=== PATIENT | male | born 1980 | race Hispanic/Latino ===

== ENCOUNTER 2018-03-05 07:19 | Day surgery (SDC) | payer BC ==
[2018-03-05] MEDS ORDERED: NA CHLORIDE 0.9% 1,000 ML ONE (07:47)
[2018-03-05] MEDS ORDERED: VANCOMYCIN 1 GM/250 ML BAG ONE (07:48)
[2018-03-05] MEDS ORDERED: PROPOFOL 200 MG/20 ML VIAL IV ONE (08:12)
[2018-03-05] MEDS ORDERED: MIDAZOLAM HCL 2 MG/2 ML INJ ONE (08:13)
[2018-03-05] MEDS ORDERED: ONDANSETRON HCL 40 MG/20 ML VIAL ONE (08:13)
[2018-03-05] MEDS ORDERED: FENTANYL CITR 100 MCG/2 ML ONE (08:13)
[2018-03-05] MEDS ORDERED: COLLAGENASE 30 GM OINTMENT TOP ONE (08:44)
--- NOTE | 2018-03-05 09:02 | P.OP ---
Preoperative diagnosis: Left Plantar Diabetic Foot Wound Postoperative diagnosis: Left Plantar Diabetic Foot Wound Primary procedure: Debridement of Left Plantar Diabetic Foot Wound Anesthesia: GETA Estimated blood loss: <5cc Specimen: Debridement Tissue Findings: necrotic tissues Complications: None Transferred to: Recovery Room Condition: Good
[2018-03-05 09:46] VITALS: O2SAT 98
[2018-03-05 09:55] VITALS: BP 117/85; TEMP 97.7
[2018-03-05] MEDS ORDERED: CODEINE 30MG/APAP 300MG TAB ONE (10:04)
--- NOTE | 2018-05-28 01:19 | OP ---
Date of Procedure: 03/05/2018 Surgeon: Ulices Kuo MD, Preoperative Diagnosis: Left plantar diabetic foot wound. Postoperative Diagnosis: Left plantar diabetic foot wound. Procedure Performed: Debridement of left plantar diabetic foot wound. Estimated Blood Loss: Less than 5 cc. Anesthesia: General endotracheal. Specimens: Debridement tissue. Findings: Necrotic tissue in the plantar aspect of the foot near the second and third metatarsal. Complications: None. Disposition: Transferred to recovery room in good condition. Procedure In Detail: After informed was obtained, the patient was brought to the operating room, pre pped and draped in usual sterile fashion. After adequate anesthesia was achieved, a curette was used to dissect down to the subcutaneous tissues. The necrotic tissue was grossly and sharply debrided w ith both scalpel, Metzenbaum scissors, as well as electrocautery and curette until completely clear. When the tissue was down to good bleeding viable tissue and there was no evidence of further infecti on, the area was completely irrigated up multiple times until completely clear and then packed with s terile dressing placed. Additional sterile dressing was placed over top. The patient tolerated the procedure well without evidence of complication, transferred to the PACU in good condition. All counts were correct at the end of the c ase. AMY/MODL Voice ID: [id number] Report ID: [id number]
== END 2018-03-05 10:30 | disposition home or self-care (01) ==
LOC: OR 07:19
PROVIDERS: ATTEND Surgery
PROC: 0JDR0ZZ Extraction of Left Foot Subcutaneous Tissue and Fascia, Open Approach (ICD-10-PCS; principal; 2018-03-05 08:30)
DX: E11.621 Type 2 diabetes mellitus with foot ulcer (principal); L97.425 Non-pressure chronic ulcer of left heel and midfoot with muscle involvement without evidence of necrosis; I10 Essential (primary) hypertension; Z79.4 Long term (current) use of insulin; Z88.0 Allergy status to penicillin
CPT/HCPCS: 82962; 88304; 88305; J2250; J2405; J3010; J3370; J3590; J7030

== ENCOUNTER 2019-06-06 15:56 | Emergency (ER) | payer BC ==
[2019-06-06] MEDS ORDERED: CLINDAMYCIN HCL 150 MG CAP ONE (16:26)
[2019-06-06] MEDS ORDERED: KETOROLAC 30 MG/ML INJ ONE (16:27)
--- NOTE | 2019-06-06 16:27 | EDPHYS ---
Physician Documentation [facility] Name: Donnie Man Jr Age: 38 yrs Sex: Male : 1980 Arrival Date: 06/06/2019 Time: 16:00 Bed Waiting Private MD: ED Physician Giuseppe Bryant Historical: - Allergies: 06/06 16:05 PENICILLINS; la1 - PMHx: 16:05 Diabetes; la1 - Immunization history:: Adult Immunizations up to date. - Social history:: Smoking status: Patient/guardian denies using tobacco. - Ebola Screening: : No symptoms or risks identified at this time. Vital Signs: 16:06 BP 145 / 100; Pulse 100; Resp 16; Temp 97.1; Pulse Ox 100% on R/A; Weight 95.25 kg; la1 Height 5 ft. 6 in. (167.64 cm); 16:06 Body Mass Index 33.89 (95.25 kg, 167.64 cm) la1 MDM: 16:25 Patient medically screened. snw Administered Medications: 16:31 Drug: Clindamycin 300 mg Route: PO; la1 16:31 Follow up: Response: Medication administered at discharge. la1 16:31 Drug: TORadol 30 mg Route: IM; Site: right gluteus; la1 16:31 Follow up: Response: Medication administered at discharge. la1 Disposition: 06/06/19 16:25 Discharged to Home. Impression: Folliculitis, Posterior lymphadenopathy. - Condition is Stable. - Discharge Instructions: Cervical Radiculopathy, Folliculitis, Heat Therapy. - Prescriptions for Clindamycin HCl 300 mg Oral Capsule - take 1 capsule by ORAL route every 8 hours for 10 days; 30 capsule. Diclofenac Sodium 75 mg Oral Tablet Sustained Release - take 1 tablet by ORAL route 2 times per day; 30 tablet. - Work release form, Medication Reconciliation Form, Thank You Letter, Antibiotic Education, Prescription Opioid Use form. - Follow up: Private Physician; When: 2 - 3 days; Reason: Recheck today's complaints, Continuance of care, Re-evaluation by your physician. Follow up: Emergency Department; When: As needed; Reason: Worsening of condition. Addendum: 07/12/2019 15:04 Addendum: Pt presents to ED with knots at base of hairline, tenderness and scabbing. Pt s nw states he has not had fever or symptoms of illness. No malaise, abdominal pain, vomiting. Pt a\T\o x 3, no distress. Skin warm and dry except at base of neck hairline, area with inflammation, tenderness, pustules with scabbing x 2 weeks. Heart with r/r/r, no murmur. lungs CTA bilaterally, abd soft, nt, nd, bs + x 4 quads, extremities with 2+ pulses throughout.. Signatures: Socorro Yoder, BRICK AND TILE MAKING MACHINE OPERATOR-C BRICK AND TILE MAKING MACHINE OPERATOR-Csnw Chad Galvin, RN RN la1 Corrections: (The following items were deleted from the chart) 06/06 16:32 16:25 06/06/2019 16:25 Discharged to Home. Impression: Folliculitis; Posterior la1 lymphadenopathy. Condition is Stable. Forms are Medication Reconciliation Form, Thank You Letter, Antibiotic Education, Prescription Opioid Use. Follow up: Private Physician; When: 2 - 3 days; Reason: Recheck today's complaints, Continuance of care, Re-evaluation by your physician. Follow up: Emergency Department; When: As needed; Reason: Worsening of condition. snw
--- NOTE | 2019-06-06 16:27 | ER ---
Nurse's Notes [facility] Name: Donnie Man Jr Age: 38 yrs Sex: Male : 1980 Arrival Date: 06/06/2019 Time: 16:00 Bed Waiting Private MD: Diagnosis: Folliculitis;Posterior lymphadenopathy Presentation: 06/06 16:05 Presenting complaint: Patient states: I have like a ball behind my head. Hurting since la1 , I feel like I cant move my neck. I dont feel sick or have fever just hurts to move my neck. Transition of care: patient was not received from another setting of care. Onset of symptoms was June 06, 2019. Risk Assessment: Do you want to hurt yourself or someone else? Patient reports no desire to harm self or others. Initial Sepsis Screen: Does the patient meet any 2 criteria? No. Patient's initial sepsis screen is negative. Does the patient have a suspected source of infection? No. Patient's initial sepsis screen is negative. Care prior to arrival: None. 16:05 Method Of Arrival: Ambulatory la1 16:05 Acuity: BECKY 4 la1 Historical: - Allergies: 16:05 PENICILLINS; la1 - PMHx: 16:05 Diabetes; la1 - Immunization history:: Adult Immunizations up to date. - Social history:: Smoking status: Patient/guardian denies using tobacco. - Ebola Screening: : No symptoms or risks identified at this time. Screenin:23 Abuse screen: Denies threats or abuse. Nutritional screening: On. Tuberculosis la1 screening: No symptoms or risk factors identified. Fall Risk None identified. Assessment: 16:22 General: Appears in no apparent distress. Behavior is calm, cooperative. Pain: la1 Complains of pain in base of skull. Neuro: Level of Consciousness is awake, alert, obeys commands, Oriented to person, place, time, situation. Cardiovascular: Capillary refill < 3 seconds Patient's skin is warm and dry. Respiratory: Airway is patent Respiratory effort is even, unlabored. GI: No signs and/or symptoms were reported involving the gastrointestinal system. : No signs and/or symptoms were reported regarding the genitourinary system. Derm: folliculitis to base of skull. Vital Signs: 16:06 BP 145 / 100; Pulse 100; Resp 16; Temp 97.1; Pulse Ox 100% on R/A; Weight 95.25 kg; la1 Height 5 ft. 6 in. (167.64 cm); 16:06 Body Mass Index 33.89 (95.25 kg, 167.64 cm) la1 ED Course: 16:00 Patient arrived in ED. mr 16:06 Triage completed. la1 16:07 Arm band placed on right wrist. la1 16:20 Socorro Yoder FNP-C [facility] snw 16:20 Giuseppe Bryant MD is Attending Physician. snw 16:23 Patient has correct armband on for positive identification. la1 16:23 No provider procedures requiring assistance completed. Patient did not have IV access la1 during this emergency room visit. 16:31 Chad Galvin, RN is Primary Nurse. la1 Administered Medications: 16:31 Drug: Clindamycin 300 mg Route: PO; la1 16:31 Follow up: Response: Medication administered at discharge. la1 16:31 Drug: TORadol 30 mg Route: IM; Site: right gluteus; la1 16:31 Follow up: Response: Medication administered at discharge. la1 Outcome: 16:25 Discharge ordered by . snw 16:31 Discharged to home ambulatory. la1 16:31 Condition: stable 16:31 Discharge instructions given to patient, Instructed on discharge instructions, follow up and referral plans. medication usage, Demonstrated understanding of instructions, follow-up care, medications, Prescriptions given X 2. 16:32 Patient left the ED. la1 Signatures: Socorro Yoder FNP-C FNP-Shreya Sarahi Yadav mr Chad Galvin, RN RN la1
[2019-06-06 17:26] VITALS: BP 145/100; TEMP 97.1; O2SAT 100
== END 2019-06-06 16:32 | disposition home or self-care (01) ==
LOC: ER 15:56
DX: L73.9 Follicular disorder, unspecified (principal); R59.1 Generalized enlarged lymph nodes; Z88.0 Allergy status to penicillin
CPT/HCPCS: 96372; 99283

== ENCOUNTER 2021-05-03 20:36 | Emergency (ER) | payer BC ==
--- OUTSIDE RECORDS SUMMARY | 2021-05-03 20:40 | XMS REPORT | Continuity of Care Document ---
:1980 Author Organization [facility] t Address [address] [place] [address] Care Team Providers Name Role Phone Lab, Dago Reece I Attending Clinician Unavailable Problems This patient has no known problems. Allergies, Adverse Reactions, Alerts This patient has no known allergies or adverse reactions. Medications This patient has no known medications. Procedures This patient has no known procedures. 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
[2021-05-03] MEDS ORDERED: LIDOCAINE 1% MPF 30 ML VIAL ONE (23:04)
--- NOTE | 2021-05-03 23:04 | ER ---
Nurse's Notes [facility] Name: Donnie Man Jr Age: 40 yrs Sex: Male : 1980 Arrival Date: 05/03/2021 Time: 20:40 Bed 12 Private MD: Diagnosis: Cutaneous abscess of head [any part, except face] Presentation: 05/03 22:05 Chief complaint: Patient states: Staph infection on back of my neck on the R side since ca1 Friday. I had a staph infection before on L side on the back of the neck. Rash and redness noted on back of neck and base of skull. Coronavirus screen: Client denies travel out of the [place] in the last 14 days. At this time, the client does not indicate any symptoms associated with coronavirus-19. Ebola Screen: Patient negative for fever greater than or equal to 101.5 degrees Fahrenheit, and additional compatible Ebola Virus Disease symptoms Patient denies exposure to infectious person. Patient denies travel to an Ebola-affected area in the 21 days before illness onset. No symptoms or risks identified at this time. Initial Sepsis Screen: Does the patient meet any 2 criteria? No. Patient's initial sepsis screen is negative. Does the patient have a suspected source of infection? No. Patient's initial sepsis screen is negative. Risk Assessment: Do you want to hurt yourself or someone else? Patient reports no desire to harm self or others. Onset of symptoms was May 03, 2021. 22:05 Method Of Arrival: Ambulatory ca1 22:05 Acuity: BECKY 4 ca1 Triage Assessment: 23:20 General: Behavior is calm, cooperative. bb Historical: - Allergies: 22:07 PENICILLINS; ca1 - PMHx: 22:07 Diabetes; ca1 - Immunization history:: Client reports having NOT received the Covid vaccine. - Social history:: Smoking status: Patient denies any tobacco usage or history of. Screenin:36 Abuse screen: Denies threats or abuse. Nutritional screening: No deficits noted. bb Tuberculosis screening: No symptoms or risk factors identified. Fall Risk None identified. Assessment: 22:36 General: Appears in no apparent distress. uncomfortable. Pain: Complains of pain in bb neck. Neuro: Level of Consciousness is awake, alert, obeys commands, Oriented to person, place, time, situation. Cardiovascular: Capillary refill < 3 seconds Patient's skin is warm and dry. Respiratory: Respiratory effort is even, unlabored, Respiratory pattern is regular. GI: No signs and/or symptoms were reported involving the gastrointestinal system. Derm: Skin is pink, warm \T\ dry. Abscess located on neck is golf ball sized. Musculoskeletal: Circulation, motion, and sensation intact. 23:19 Reassessment: Patient is alert, oriented x 3, equal unlabored respirations, skin bb warm/dry/pink. pt verbalized understanding of and agrees to plan of care discharge instructions given pt ambulated with steady gait to exit. Vital Signs: 22:05 Pulse 102; Resp 18 S; Temp 97.5(TE); Pulse Ox 100% on R/A; Weight 92.99 kg (R); Height ca1 5 ft. 6 in. (167.64 cm) (R); Pain 9/10; 22:07 BP 136 / 94; ca1 23:20 BP 129 / 80; Pulse 97; Resp 16 S; Pulse Ox 99% ; bb 22:05 Body Mass Index 33.09 (92.99 kg, 167.64 cm) ca1 ED Course: 20:40 Patient arrived in ED. bp1 22:07 Triage completed. ca1 22:07 Arm band placed on right wrist. ca1 22:09 Magaly Chavez [facility]-C [facility] kb 22:09 Glenny Mendoza MD is Attending Physician. kb 22:36 Adamaris Holguin RN is Primary Nurse. bb 22:36 Patient has correct armband on for positive identification. Bed in low position. Call bb light in reach. Side rails up X 1. Pulse ox on. NIBP on. 23:19 Dressings: 4X4s X 2; base of the skull. bb 23:20 No provider procedures requiring assistance completed. Patient did not have IV access bb during this emergency room visit. Administered Medications: 23:05 Drug: Lidocaine (1 %) 1 vials {Note: by Magaly Chavez NEEDLE PUNCH OPERATOR to affected area.} Volume: 5 bb ml; Route: Infiltration; 23:20 Follow up: Response: No adverse reaction bb 23:13 Drug: Bactrim (trimethoprim-sulfamethoxazole) (160 mg-800 mg (DS) 1 tablet Route: PO; bb 23:19 Follow up: Response: No adverse reaction bb 23:13 Drug: Doxycycline 100 mg Route: PO; bb 23:19 Follow up: Response: No adverse reaction bb Outcome: 23:04 Discharge ordered by . navarro 23:20 Discharged to home ambulatory. bb 23:20 Condition: stable 23:20 Discharge instructions given to patient, Instructed on discharge instructions, follow up and referral plans. medication usage, wound care, Demonstrated understanding of instructions, follow-up care, medications, wound care, Prescriptions given X 2. 23:21 Patient left the ED. bb Signatures: Magaly Chavez, OVERNIGHT CASHIER-C KRISTINA-Adamaris Ashraf, RN RN bb Yeny Rea RN RN ca1 Nabila An
--- NOTE | 2021-05-03 23:04 | EDPHYS ---
Physician Documentation [facility] Name: Donnie Man Jr Age: 40 yrs Sex: Male : 1980 Arrival Date: 05/03/2021 Time: 20:40 Bed 12 Private MD: ED Physician Glenny Mendoza HPI: 05/03 23:11 This 40 yrs old Male presents to ER via Ambulatory with complaints of Staph kb Infection, -Back of neck. 23:11 The patient presents with an abscess of the base of the skull. Description: kb erythematous, swollen, warm. Onset: The symptoms/episode began/occurred 4 day(s) ago. Possible cause(s): unknown. Associated signs and symptoms: Pertinent positives: erythema, swelling. Modifying factors: the symptoms are alleviated by nothing, the symptoms are aggravated by touching. Severity of symptoms: At their worst the symptoms were moderate, in the emergency department the symptoms are unchanged. The patient has experienced a previous episode. The patient has not recently seen a physician. Pt reports staph infection that started on Friday. . Historical: - Allergies: 22:07 PENICILLINS; ca1 - PMHx: 22:07 Diabetes; ca1 - Immunization history:: Client reports having NOT received the Covid vaccine. - Social history:: Smoking status: Patient denies any tobacco usage or history of. ROS: 23:09 Constitutional: Negative for fever, chills, and weight loss. kb 23:09 Skin: Positive for abscess, of the base of the skull. 23:09 All other systems are negative. Exam: 23:09 Constitutional: This is a well developed, well nourished patient who is awake, alert, kb and in no acute distress. Head/Face: Normocephalic, atraumatic. ENT: Moist Mucous membranes Respiratory: Respirations even and unlabored. No increased work of breathing, no retractions or nasal flaring. MS/ Extremity: Pulses equal, no cyanosis. Neurovascular intact. Full, normal range of motion. Neuro: Awake and alert, GCS 15, oriented to person, place, time, and situation. Moves all extremities. Normal gait. Psych: Awake, alert, with orientation to person, place and time. Behavior, mood, and affect are within normal limits. 23:09 Skin: abscess, that is moderate sized, of the base of the skull, with fluctuance, that is mild, with induration, with surrounding cellulitis, that is moderate. Vital Signs: 22:05 Pulse 102; Resp 18 S; Temp 97.5(TE); Pulse Ox 100% on R/A; Weight 92.99 kg (R); Height ca1 5 ft. 6 in. (167.64 cm) (R); Pain 9/10; 22:07 BP 136 / 94; ca1 23:20 BP 129 / 80; Pulse 97; Resp 16 S; Pulse Ox 99% ; bb 22:05 Body Mass Index 33.09 (92.99 kg, 167.64 cm) ca1 Procedures: 23:10 I \T\ D: Incision and drainage was performed for an abscess of the right base of the kb skull Prepped with Betadine, Anesthetized with 2 ml's 1% Lidocaine. Incised with #11 blade. Drained moderate amount purulent fluid. Dressing: sterile 4x4 gauze, the patient tolerated the procedure well. MDM: 22:23 Patient medically screened. kb 23:03 Data reviewed: vital signs, nurses notes. Data interpreted: Pulse oximetry: on room air kb is 100 %. Interpretation: normal. Counseling: I had a detailed discussion with the patient and/or guardian regarding: the historical points, exam findings, and any diagnostic results supporting the discharge/admit diagnosis, the need for outpatient follow up, a family practitioner, to return to the emergency department if symptoms worsen or persist or if there are any questions or concerns that arise at home. 05/03 22:40 Order name: I\T\D Setup; Complete Time: 22:43 kb Administered Medications: 23:05 Drug: Lidocaine (1 %) 1 vials {Note: by Magaly Chavez INTERIOR DESIGN CONSULTANT to affected area.} Volume: 5 bb ml; Route: Infiltration; 23:20 Follow up: Response: No adverse reaction bb 23:13 Drug: Bactrim (trimethoprim-sulfamethoxazole) (160 mg-800 mg (DS) 1 tablet Route: PO; bb 23:19 Follow up: Response: No adverse reaction bb 23:13 Drug: Doxycycline 100 mg Route: PO; bb 23:19 Follow up: Response: No adverse reaction bb Disposition Summary: 05/03/21 23:04 Discharge Ordered Location: Home kb Condition: Stable kb Diagnosis - Cutaneous abscess of head [any part, except face] kb Followup: kb - With: Emergency Department - When: As needed - Reason: Worsening of condition Followup: kb - With: Private Physician - When: 2 - 3 days - Reason: Recheck today's complaints, Continuance of care, Re-evaluation by your physician Discharge Instructions: - Discharge Summary Sheet kb - Skin Abscess, [id number] kb - Incision and Drainage, Care After kb Forms: - Medication Reconciliation Form kb - Thank You Letter kb - Antibiotic Education kb - Prescription Opioid Use kb Prescriptions: - Doxycycline Hyclate 100 mg Oral Tablet - take 1 tablet by ORAL route every 12 hours; 20 tablet; Refills: 0, Product kb Selection Permitted - Bactrim DS 800-160 mg Oral Tablet - take 1 tablet by ORAL route every 12 hours for 10 days; 20 tablet; Refills: 0, kb Product Selection Permitted Signatures: Magaly Chavez FNP-C FNP-Ckb Ballard, Brenda, RN RN bb Yeny Rea RN RN ca1
[2021-05-03] MEDS ORDERED: DOXYCYCLINE 100 MG CAP PO ONE (23:34)
[2021-05-03] MEDS ORDERED: SMZ./TMP. 800/160 MG TABLET ONE (23:34)
[2021-05-04 04:19] VITALS: TEMP 97.5
[2021-05-04 04:22] VITALS: BP 129/80; O2SAT 99
== END 2021-05-03 23:21 | disposition home or self-care (01) ==
LOC: ER 20:36
PROC: 0H90XZZ Drainage of Scalp Skin, External Approach (ICD-10-PCS; principal; 2021-05-03)
DX: L03.811 Cellulitis of head [any part, except face] (principal); Z88.0 Allergy status to penicillin
CPT/HCPCS: 99283

== ENCOUNTER 2022-05-30 13:40 | Inpatient (IN) | payer BC, OTHER ==
--- OUTSIDE RECORDS SUMMARY | 2022-05-30 13:43 | XMS REPORT | Continuity of Care Document ---
:1980 Author Organization [facility] t Address [address] [place] [address] Support Name Relationship Address Phone Lexi Richardson Mother [address] [facility] [place] [address] Care Team Providers Name Role Phone Lab, Adc Fam Pob I Attending Clinician Unavailable Krystina Alejandre Attending Clinician KRYSTINA GARCIA Attending Clinician Unavailable Payers Payer Name Policy Type Policy Number Effective Date Expiration Date S ource Problems Condition Condition Condition Status Onset Resolution Last Treating Co mments Source Name Details Category Date Date Treatment Clinician Date Encounter Encounter Disease Active Uni vers for for 5-10 ity of routine routine 00:00: [place] history history 00 Medical and and Branch physical physical exam for exam for male male Diabetes Diabetes Disease Active Overview: Un vianey mellitus mellitus 2-26 ICD10 ity of type 2, type 2, 00:00: Diagnosis [place] uncontroll uncontroll 00 Term Me dical ed, ed, 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 Branch without without Utility complicati complicati ons ons Yeast Yeast Disease Active Univers infection infection 2-26 ity of 00:00: [place] 00 Medical Branch Allergies, Adverse Reactions, Alerts Allergy Allergy Status Severity Reaction(s) Onset Inactive Treating Comm ents Source Name Type Date Date Clinician Penicill Propensi Active Rash Univer s ins ty to 2-17 ity of adverse 00:00: [place] reaction 00 Medical s Branch PENICILL Drug Active Rash Univers INS Class 2-17 ity of 00:00: [place] 00 Medical Branch Social History Social Habit Start Date Stop Date Quantity Comments Source Sex Assigned At [facility] [place] [facility] Exposure to Yes University of SARS-CoV-2 [place] Medical (event) Branch History of Cigarette Smoker Universi ty of tobacco use [facility] Alcohol intake 2017-02-12 2017-02-12 University of 00:00:00 00:00:00 [facility] Tobacco Comment 2014-02-22 2014-02-22 smokes 1 pack per Un iversity of 00:00:00 00:00:00 week [facility] Alcohol Comment 2014-02-22 2014-02-22 Currently uses Unive rsity of 00:00:00 00:00:00 alcohol only [place] [facility] l occasionally. 4 Branch years ago he drank 24 beers daily for 4-5 months. Smoking Status Start Date Stop Date Source Current some day smoker 2017-02-12 00:00:00 Univ ersity [facility] Medications Ordered Filled Start Stop Current Ordering Indication Dosage Frequency Signature Comments Components Source Medication Medication Date Date Medication? Clinician (SIG) Name Name clotrimazol Yes [id number] Apply to Univers e 1 % 5-10 area(s) at ity of topical 00:00: bedtime. [address] Immunizations Ordered Filled Immunization Date Status Comments Sourc e Immunization Name Name Tdap 2014-02-22 Completed [facility] 00:00:00 [facility] Td 1995-10-06 Completed [facility] 00:00:00 [facility] Procedures This patient has no known procedures. Encounters Start End Encounter Admission Attending Care Care Encounter Source Date/Time Date/Time Type Type Clinicians Facility Department ID 2020-03-15 2020-03-15 Winch Derrick Operator Lab, [facility] [id number] 13:36:44 13:56:44 Visit Dago [facility] [id number] [place] [id number] Professio [phone] nal [facility] Office [address] 2020-03-15 2020-03-15 Winch Derrick Operator Lab, [facility] Pob I [facility] [id number] Univers 13:36:44 13:56:44 Visit Krystina Garcia Health [id number] ity of [place] [id number] [place] as Professio [phone] [place] dical nal 044 Branch [address] 2020-03-15 2020-03-15 Outpatient R [facility] [id number] Univers 13:20:00 13:20:00 [id number] benita [facility] 2020-03-15 2020-03-15 Outpatient R ANETTE, [facility] [id number] [facility] 13:20:00 13:20:00 KRYSTINA [facility] Results This patient has no known results.
--- NOTE | 2022-05-30 14:43 | RAD REPORT ---
EXAM DESCRIPTION: RAD - Foot Left 3 View - 05/30/2022 2:26 pm CLINICAL HISTORY: Left Foot pain and swelling FINDINGS: No fracture or dislocation is seen. Lateral soft tissue swelling. 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
--- NOTE | 2022-05-30 14:52 | RAD REPORT ---
EXAM DESCRIPTION: Emma Single View05/30/2022 2:26 pm CLINICAL HISTORY: Preop COMPARISON: none FINDINGS: Mild bilateral interstitial opacities probably chronic. The lungs appear clear of acute infiltrate. The heart is normal size
[2022-05-30] MEDS ORDERED: NA CHLORIDE 0.9% 1,000 ML ONE (15:00)
[2022-05-30] MEDS ORDERED: CLINDAMYCIN 600MG/D5W 600 MG/50 ML BAG IV ONE (15:00)
[2022-05-30] MEDS ORDERED: VANCOMYCIN 1 GM/VIAL ONE ×2 (15:00→22:54)
[2022-05-30] MEDS ORDERED: VANCOMYCIN 500 MG/VIAL ONE ×2 (15:00→22:54)
[2022-05-30 15:39] LABS: Absolute Lymphocytes (CBC) 0.9 K/uL (0.7-4.9); Hematocrit 44.6 % (39.6-49.0); Lymphocytes % 8.3 % (15.3-44.8); MCV 84.6 fL (80-100); MPV 8.8 fL (7.6-11.3); RBC Red Blood Cell Count 5.27 M/uL (4.33-5.43)
--- NOTE | 2022-05-30 15:48 | ER ---
Nurse's Notes [facility] Name: Donnie Man Jr Age: 41 yrs Sex: Male : 1980 Arrival Date: 05/30/2022 Time: 13:44 Bed 3 Private MD: Rafiq Mai T Diagnosis: Other specified diabetes mellitus with foot ulcer Presentation: 05/30 13:55 Chief complaint: Patient states: L foot swelling that began that began 4 days ago. Pt ss reports a HX of diabetes and has been out of his medication for some time. Also states that he has had diabetic ulcers in the past. Coronavirus screen: Client denies travel out of the [place] in the last 14 days. Ebola Screen: Patient denies exposure to infectious person. Patient denies travel to an Ebola-affected area in the 21 days before illness onset. Initial Sepsis Screen: Does the patient meet any 2 criteria? No. Patient's initial sepsis screen is negative. Does the patient have a suspected source of infection? No. Patient's initial sepsis screen is negative. Risk Assessment: Do you want to hurt yourself or someone else? Patient reports no desire to harm self or others. Onset of symptoms was May 26, 2022. 13:55 Method Of Arrival: Ambulatory ss 13:55 Acuity: BECKY 3 ss Triage Assessment: 15:00 General: Appears in no apparent distress. comfortable, Behavior is calm, cooperative, eh3 appropriate for age. Pain: Complains of pain in left foot Pain does not radiate. Pain currently is 7 out of 10 on a pain scale. Quality of pain is described as aching, Pain began 2 weeks ago Is continuous. Neuro: Level of Consciousness is awake, alert, obeys commands, Oriented to person, place, time, situation. Cardiovascular: Capillary refill < 3 seconds Patient's skin is warm and dry. Respiratory: Airway is patent Respiratory effort is even, unlabored. GI: No signs and/or symptoms were reported involving the gastrointestinal system. : No signs and/or symptoms were reported regarding the genitourinary system. Derm: No signs and/or symptoms reported regarding the dermatologic system. Musculoskeletal: No signs and/or symptoms reported regarding the musculoskeletal system. 15:00 Injury Description: 3 cm diameter ulcer on lateral aspect of left foot. eh3 Historical: - Allergies: 13:58 PENICILLINS; ss - PMHx: 13:58 Diabetes; ss - Immunization history:: Client reports receiving the 2nd dose of the Covid vaccine. - Social history:: Smoking status: Patient denies any tobacco usage or history of. Screenin:00 Abuse screen: Denies threats or abuse. Denies injuries from another. eh3 15:00 Nutritional screening: No deficits noted. Tuberculosis screening: No symptoms or risk eh3 factors identified. Fall Risk IV access (20 points). Gait- Impaired (20 pts.). Total Potter Fall Scale indicates Low Risk Score (25-44 pts). Fall prevention measures have been instituted. Side Rails Up X 2 Placed close to Nursing Station Frequent Obs/Assesments occuring As available Patient and Family Educated on Fall Prevention Program and strategies. Assessment: 15:00 Reassessment: No changes from previously documented assessment. See triage assessment. 3 Vital Signs: 13:55 BP 143 / 89; Pulse 103; Resp 18; Temp 100.3(O); Pulse Ox 97% on R/A; Weight 95.25 kg; ss Height 5 ft. 6 in. (167.64 cm); Pain 8/10; 15:43 BP 156 / 91; Pulse 100; Resp 18; Pulse Ox 96% on R/A; ld1 16:45 BP 129 / 84; Pulse 97; Resp 18; Pulse Ox 95% on R/A; eh3 17:30 BP 114 / 59; Pulse 100; Resp 18; Pulse Ox 95% on R/A; eh3 18:30 BP 130 / 82; Pulse 99; Resp 18; Pulse Ox 97% on R/A; eh3 19:30 BP 121 / 103; Pulse 103; Resp 18; Pulse Ox 96% on R/A; eh3 20:30 BP 111 / 59; Pulse 101; Resp 18; Pulse Ox 95% on R/A; eh3 13:55 Body Mass Index 33.89 (95.25 kg, 167.64 cm) ED Course: 13:44 Patient arrived in ED. am2 13:44 Rafiq Mai MD is Private Physician. am2 13:44 Socorro Maurice [facility]C [facility] snw 13:44 Amish Guerra DO is Attending Physician. snw 13:58 Triage completed. ss 13:58 Arm band placed on right wrist. ss 14:25 Foot Left 3 View XRAY In Process Unspecified. EDMS 14:25 Chest Single View XRAY In Process Unspecified. EDMS 14:42 Luda Colmenares, RN is Primary Nurse. eh3 15:00 Patient has correct armband on for positive identification. Placed in gown. Bed in low eh3 position. Call light in reach. Side rails up X2. Client placed on continuous cardiac and pulse oximetry monitoring. NIBP monitoring applied. Door closed. Noise minimized. Lights dimmed. Warm blanket given. 15:00 Inserted saline lock: 20 gauge in right antecubital area, using aseptic technique. eh3 Blood collected. 15:31 Procalcitonin Sent. eh3 15:31 Lactate Sent. eh3 15:31 CMP Sent. eh3 15:31 CBC with Diff Sent. eh3 15:31 Blood Culture Adult (2) Sent. eh3 15:47 Franki Jo is Hospitalizing Provider. snw 16:01 SARS RAPID Sent. ld1 16:02 Blood Culture Adult (2) Sent. ld1 20:34 No provider procedures requiring assistance completed. eh3 20:35 Patient admitted, IV remains in place. eh3 Administered Medications: 15:15 Drug: NS 0.9% 1000 ml Route: IV; Rate: 125 ml/hr; Site: right antecubital; 3 17:33 Follow up: Response: No adverse reaction eh3 20:29 Follow up: IV Status: Infusion continued upon admission; IV Intake: 625ml eh3 15:15 Drug: Clindamycin 600 mg Route: IVPB; Infused Over: 30 mins; Site: right antecubital; 3 15:45 Follow up: IV Status: Completed infusion; IV Intake: 50ml eh3 17:06 Follow up: Response: No adverse reaction; IV Status: Completed infusion; IV Intake: 81qinz1 17:33 Follow up: Response: No adverse reaction eh3 17:33 Follow up: IV Status: Completed infusion eh3 16:50 Drug: vancoMYCIN 1.5 grams Route: IVPB; Rate: calculated rate; Site: right antecubital; ld1 17:33 Follow up: Response: No adverse reaction eh3 19:20 Follow up: IV Status: Completed infusion; IV Intake: 500ml 3 Medication: 15:45 VIS not applicable for this client. eh3 Intake: 15:45 IV: 50ml; Total: 50ml. eh3 17:06 IV: 50ml; Total: 100ml. ld1 19:20 IV: 500ml; Total: 600ml. eh3 20:29 IV: 625ml; Total: 1225ml. eh3 Outcome: 15:47 Decision to Hospitalize by Provider. snw 16:00 Admitted to ER Hold. Please see [facility] for further documentation. eh3 16:00 Condition: stable 16:00 Instructed on the need for admit. 21:14 Patient left the ED. eh3 Signatures: Dispatcher [employer] EDMS Socorro Maurice, THEATRICAL PERFORMER-C THEATRICAL PERFORMER-Csnw Kae Lincoln, RN RN ss Oxana Yeboah am2 Germaine Sebastian RN RN ld1 Luda Colmenares, RN RN eh3 Corrections: (The following items were deleted from the chart) 13:58 13:55 Onset of symptoms was May 30, [address] [facility] 14:01 13:58 Immunization history: Client reports receiving the 2nd dose of the Covid vaccine, [facility] 15:45 15:44 Abuse screen: Denies threats or abuse. Denies injuries from another. 3 3 15:46 15:44 Nutritional screening: No deficits noted. 3 3 15:46 15:44 Tuberculosis screening: No symptoms or risk factors identified. 3 3 15:46 15:44 Fall Risk IV access (20 points). Gait- Impaired (20 pts.). Total Potter Fall Scale eh3 indicates Low Risk Score (25-44 pts). Fall prevention measures have been instituted. Side Rails Up X 2 Placed close to Nursing Station Frequent Obs/Assesments occuring As available Patient and Family Educated on Fall Prevention Program and strategies. eh3
--- NOTE | 2022-05-30 15:48 | EDPHYS ---
Physician Documentation [facility] Name: Donnie Man Jr Age: 41 yrs Sex: Male : 1980 Arrival Date: 05/30/2022 Time: 13:44 Bed 3 Private MD: Rafiq Mai T ED Physician Amish Guerra HPI: 05/30 14:10 This 41 yrs old Male presents to ER via Ambulatory with complaints of Leg snw Swelling, Leg Pain, Wound Infection. 14:10 The patient presents with pain, swelling, tenderness. The complaints affect the lateral snw aspect of left foot. Context: The problem was sustained at home, resulted from a chronic condition, DM ulcer, the patient can partially bear weight, the patient is able to ambulate. Onset: The symptoms/episode began/occurred 3 week(s) ago, and became worse 3 day(s) ago. Associated signs and symptoms: The patient has no apparent associated signs or symptoms. Treatment prior to arrival includes: dm socks. The patient has experienced a previous episode. The patient has not recently seen a physician, Sees Dr. Mai, Dr. Kuo cleaned last ulceration. Historical: - Allergies: 13:58 PENICILLINS; ss - PMHx: 13:58 Diabetes; ss - Immunization history:: Client reports receiving the 2nd dose of the Covid vaccine. - Social history:: Smoking status: Patient denies any tobacco usage or history of. ROS: 14:10 Constitutional: Negative for fever, chills, and weight loss, Eyes: Negative for injury, snw pain, redness, and discharge, ENT: Negative for injury, pain, and discharge, Neck: Negative for injury, pain, and swelling, Cardiovascular: Negative for chest pain, palpitations, and edema, Respiratory: Negative for shortness of breath, cough, wheezing, and pleuritic chest pain, Abdomen/GI: Negative for abdominal pain, nausea, vomiting, diarrhea, and constipation, Back: Negative for injury and pain, : Negative for injury, bleeding, discharge, and swelling, Skin: Negative for injury, rash, and discoloration, Neuro: Negative for headache, weakness, numbness, tingling, and seizure, Psych: Negative for depression, anxiety, suicide ideation, homicidal ideation, and hallucinations. 14:10 MS/extremity: Positive for swelling, tenderness, of the lateral side of left foot, discharge. Exam: 14:09 Constitutional: This is a well developed, well nourished patient who is awake, alert, snw and in no acute distress. Head/Face: Normocephalic, atraumatic. Eyes: Pupils equal round and reactive to light, extra-ocular motions intact. Lids and lashes normal. Conjunctiva and sclera are non-icteric and not injected. Cornea within normal limits. Periorbital areas with no swelling, redness, or edema. ENT: Nares patent. No nasal discharge, no septal abnormalities noted. Tympanic membranes are normal and external auditory canals are clear. Oropharynx with no redness, swelling, or masses, exudates, or evidence of obstruction, uvula midline. Mucous membranes moist. Neck: Trachea midline, no thyromegaly or masses palpated, and no cervical lymphadenopathy. Supple, full range of motion without nuchal rigidity, or vertebral point tenderness. No Meningismus. Chest/axilla: Normal chest wall appearance and motion. Nontender with no deformity. No lesions are appreciated. Cardiovascular: Regular rate and rhythm with a normal S1 and S2. No gallops, murmurs, or rubs. Normal PMI, no JVD. No pulse deficits. Respiratory: Lungs have equal breath sounds bilaterally, clear to auscultation and percussion. No rales, rhonchi or wheezes noted. No increased work of breathing, no retractions or nasal flaring. Abdomen/GI: Soft, non-tender, with normal bowel sounds. No distension or tympany. No guarding or rebound. No evidence of tenderness throughout. Back: No spinal tenderness. No costovertebral tenderness. Full range of motion. MS/ Extremity: Pulses equal, no cyanosis. Neurovascular intact. Full, normal range of motion. Neuro: Awake and alert, GCS 15, oriented to person, place, time, and situation. Cranial nerves II-XII grossly intact. Motor strength 5/5 in all extremities. Sensory grossly intact. Cerebellar exam normal. Normal gait. Psych: Awake, alert, with orientation to person, place and time. Behavior, mood, and affect are within normal limits. 14:09 Skin: Appearance: normal except for affected area, lesion(s), noted, and can be described as ulcerated, fluctuant at dorsum, edematous to plantar surface, located on the lateral side of left foot. Vital Signs: 13:55 BP 143 / 89; Pulse 103; Resp 18; Temp 100.3(O); Pulse Ox 97% on R/A; Weight 95.25 kg; ss Height 5 ft. 6 in. (167.64 cm); Pain 8/10; 15:43 BP 156 / 91; Pulse 100; Resp 18; Pulse Ox 96% on R/A; ld1 16:45 BP 129 / 84; Pulse 97; Resp 18; Pulse Ox 95% on R/A; eh3 17:30 BP 114 / 59; Pulse 100; Resp 18; Pulse Ox 95% on R/A; eh3 18:30 BP 130 / 82; Pulse 99; Resp 18; Pulse Ox 97% on R/A; eh3 19:30 BP 121 / 103; Pulse 103; Resp 18; Pulse Ox 96% on R/A; eh3 20:30 BP 111 / 59; Pulse 101; Resp 18; Pulse Ox 95% on R/A; eh3 13:55 Body Mass Index 33.89 (95.25 kg, 167.64 cm) ss MDM: 14:29 Data reviewed: vital signs, nurses notes. Data interpreted: Pulse oximetry: on room air snw is 97 %. Interpretation: normal. Medical screen evaluation completed. [facility] emergency medical condition absent. 14:30 Patient medically screened. snw 15:41 Response to treatment: There is no appreciated change of the patient's symptoms at this snw time. Physician consultation: Franki Jo was called at 15:41, was contacted at 15:41, and will see patient in ED. 15:48 Physician consultation: Ulices Kuo MD was called at 15:48, was contacted at 15:48, snw regarding consult, Pt to be NPO post MN. 16:27 ED course: Pt admitted, initial lactate 1.8. VSS. snw 05/30 14:09 Order name: Blood Culture Adult (2) snw 05/30 14:09 Order name: CBC with Diff; Complete Time: 15:47 snw 05/30 14:09 Order name: CMP; Complete Time: 16:08 snw 05/30 14:09 Order name: Lactate; Complete Time: 16:08 snw 05/30 14:09 Order name: Procalcitonin; Complete Time: 16:26 snw 05/30 14:17 Order name: Glucose, Ancillary Testing; Complete Time: 14:29 EDMS 05/30 14:06 Order name: Glucose Level; Complete Time: 14:06 ss 05/30 14:09 Order name: Foot Left 3 View XRAY; Complete Time: 15:07 snw 05/30 14:09 Order name: Chest Single View XRAY; Complete Time: 15:07 snw 05/30 14:09 Order name: EKG; Complete Time: 14:09 snw 05/30 15:33 Order name: SARS RAPID; Complete Time: 16:26 snw Administered Medications: 15:15 Drug: NS 0.9% 1000 ml Route: IV; Rate: 125 ml/hr; Site: right antecubital; eh3 17:33 Follow up: Response: No adverse reaction eh3 20:29 Follow up: IV Status: Infusion continued upon admission; IV Intake: 625ml eh3 15:15 Drug: Clindamycin 600 mg Route: IVPB; Infused Over: 30 mins; Site: right antecubital; eh3 15:45 Follow up: IV Status: Completed infusion; IV Intake: 50ml eh3 17:06 Follow up: Response: No adverse reaction; IV Status: Completed infusion; IV Intake: [id number] 17:33 Follow up: Response: No adverse reaction eh3 17:33 Follow up: IV Status: Completed infusion eh3 16:50 Drug: vancoMYCIN 1.5 grams Route: IVPB; Rate: calculated rate; Site: right antecubital; ld1 17:33 Follow up: Response: No adverse reaction eh3 19:20 Follow up: IV Status: Completed infusion; IV Intake: 500ml eh3 Disposition: 05/31 11:26 Co-signature as Attending Physician, Amish Guerra DO I agree with the assessment and ms3 plan of care. Disposition Summary: 05/30/22 15:47 Hospitalization Ordered Hospitalization Status: Inpatient Admission snw Provider: Franki Jo Location: Telemetry/[facility]Sur (Inpatient) snw Condition: Stable snw Problem: an acute exacerbation snw Symptoms: have worsened snw Bed/Room Type: Standard snw Room Assignment: 205(05/30/22 18:40) dw Diagnosis - Other specified diabetes mellitus with foot ulcer snw Forms: - Medication Reconciliation Form snw - SBAR form snw Signatures: Dispatcher [employer] Belen Simental RN RN dw Socorro Maurice, PRESS SET UP-C PRESS SET UP-Csnw Kae Lincoln RN RN ss Amish Guerra, DO DO ms3 Germaine Sebastian RN RN ld1 Luda Colmenares RN RN eh3 Corrections: (The following items were deleted from the chart) 05/30 14:01 13:58 Immunization history: Client reports receiving the 2nd dose of the Covid vaccine, [facility] 18:40 15:47 snw dw
[2022-05-30 15:55] LABS: Albumin 3.4 g/dL (3.4-5.0); Bilirubin Total 0.3 mg/dL (0.2-1.0); Potassium 3.9 mmol/L (3.5-5.1); Protein, Total 8.9 g/dL (6.4-8.2)
[2022-05-30 16:23] LABS: SARS-CoV-2 Antigen Rapid Res Negative (Negative)
[2022-05-30] MEDS ORDERED: VANCOMYCIN 1.5 GM in NA CHLORIDE 0.9% 500 ML IVPB ONE (17:00)
--- NOTE | 2022-05-30 17:39 | P.HP ---
Certification for Inpatient Patient admitted to: Inpatient With expected LOS: >2 Midnights Practitioner: I am a practitioner with admitting privileges, knowledge of patient current condition, hospital course, and medical plan of care. Services: Services provided to patient in accordance with Admission requirements found in Title 42 Section 412.3 of the Code of Federal Regulations Patient History Date of Service: 05/30/22 Reason for admission: Diabetic foot ulcer History of Present Illness: 41-year-old gentleman with a history of diabetes mellitus on insulin therapy presented to the emergency department due to a discharge and wound on the plantar aspect of the left foot. Patient reported noticing a bump on the sole of his left foot 2 months ago. He stated the bump gradually grew and about 5 days ago it ruptured followed by swelling of the foot and pain. He did not take any antibiotics. Patient had a similar presentation elsewhere on the plantar aspect of the same foot in 2018. He underwent I&D and debridement by Dr. Kuo and the wound completely healed. X-ray of the foot today does not show any bony involvement. Patient has mild leukocytosis but does not meet criteria for sepsis. Dr. Kuo informed. Patient is hospitalized for further management. Allergies Penicillins Allergy (Mild, Verified 03/04/18 09:59) Rash Home Medications: Atorvastatin Calcium [Lipitor] 10 mg PO BEDTIME #30 tab 11/26/17 lisinopriL [Prinivil*] 10 mg PO DAILY #30 tab 11/26/17 Metformin HCl [Glucophage] 500 mg PO BIDWM 03/04/18 Insulin 70/30 NPH/Reg Human [Novolin 70/30*] 15 units SQ BEDTIME 03/05/18 Insulin 70/30 NPH/Reg Human [Novolin 70/30*] 30 units SQ AC 03/05/18 Gabapentin [Neurontin*] 600 mg PO BEDTIME 10/20/18 Irbesartan [Avapro] 1 tab PO DAILY 10/20/18 Semaglutide [Ozempic] 1 % .ROUTE EVERY 7TH DAY 10/20/18 - Past Medical/Surgical History Diabetic: Yes -: DM -: HTN -: I&D of L foot -: I&D groin abcess - Family History Father -: Diabetes - Social History Alcohol use: No CD- Drugs: No Caffeine use: Yes Review of Systems Other: Patient denied any fever or loss of appetite. Except as documented all other systems reviewed and negative Physical Examination - Physical Exam General: Alert, In no apparent distress, Oriented x3 HEENT: Atraumatic, PERRLA, Mucous membr. moist/pink, EOMI, Sclerae nonicteric Neck: Supple, JVD not distended Respiratory: Clear to auscultation bilaterally, Normal air movement Cardiovascular: No edema, Regular rate/rhythm, Normal S1 S2 Capillary refill: <2 Seconds Gastrointestinal: Normal bowel sounds, Soft and benign, Non-distended Musculoskeletal: Swelling (Left foot) Integumentary: No cyanosis, Diabetic ulcer (Sole of left foot discharging serous fluid.) Neurological: Normal strength at 5/5 x4 extr, Cranial nerves 3-12 intact Lymphatics: No axilla or inguinal lymphadenopathy - Studies Laboratory Data (last 24 hrs) 05/30/22 15:20: Sodium 128 L, Potassium 3.9, BUN 13, Creatinine 0.99, Glucose 284 H, Total Bilirubin 0.3, AST 13 L, ALT 26, Alkaline Phosphatase 151 H 05/30/22 15:20: WBC 11.30 H, Hgb 15.0, Hct 44.6, Plt Count 352 Assessment and Plan - Problems (Diagnosis) (1) Diabetic foot ulcer Current Visit: Yes Status: Acute (2) HTN (hypertension) Onset Date: 11/26/17 Current Visit: No Status: Acute Qualifiers: Hypertension type: essential hypertension Qualified Code(s): I10 - Essential (primary) hypertension (3) Diabetes mellitus Onset Date: 11/26/17 Current Visit: No Status: Chronic Qualifiers: Diabetes mellitus type: type 2 Diabetes mellitus meterman insulin use: without correction use Diabetes mellitus complication status: with skin complications Diabetes mellitus complication detail: with foot ulcer Qualified Code(s): E11.621 - Type 2 diabetes mellitus with foot ulcer; L97.509 - Non-pressure chronic ulcer of other part of unspecified foot with unspecified severity; L97.509 - Non-pressure chronic ulcer of other part of unspecified foot with unspecified severity; L97.509 - Non-pressure chronic ulcer of other part of unspecified foot with unspecified severity; L97.509 - Non-pressure chronic ulcer of other part of unspecified foot with unspecified severity - Plan Admit patient to the medical floor. Start IV Levaquin and vancomycin. Allergy to penicillin with a rash acknowledged. Consult to general surgery-Dr. Kuo informed. Pain management as needed. Aggressive blood sugar control. Continue home dose NPH 70/30. Insulin sliding scale. Follow cultures. Patient may need deep tissue wound culture. - Advance Directives Does patient have a Living Will: No Does patient have a Durable POA for Healthcare: No
[2022-05-30] MEDS ORDERED: GLUCAGON 1 MG/VIAL IM PRN (21:36)
[2022-05-30] MEDS: INSULIN 70/30 100 UNITS/ML SQ SCH (21:36)
[2022-05-30] MEDS ORDERED: MORPHINE 2 MG/ML SYR IV PRN (21:36)
[2022-05-30] MEDS ORDERED: ONDANSETRON 4 MG/2 ML VIAL IV PRN (21:36)
[2022-05-30] MEDS ORDERED: VANCOMYCIN 1.25 GM in NA CHLORIDE 0.9% 250 ML IVPB SCH (21:36)
[2022-05-30] MEDS ORDERED: D10W 250 ML BAG IV PRN (22:13)
[2022-05-30 22:17] VITALS: BMI 35.8
[2022-05-30] MEDS: NA CHLORIDE 0.9% 1,000 ML IV SCH (22:18)
[2022-05-30] MEDS: Levofloxacin 750mg IV 750 MG/150 ML BAG IV SCH (22:18)
[2022-05-30] MEDS: ACETAMINOPHEN 500 MG TAB PO PRN (22:18)
[2022-05-30] MEDS ORDERED: NA CHLORIDE 0.9% 250 ML ONE (22:56)
[2022-05-30] MEDS ORDERED: WATER FOR INJ,STERILE 30 ML ONE (22:59)
[2022-05-31] MEDS: INSULIN -REGULAR HUMAN 50 UNIT/0.5 ML ML SQ SCH ×5 (00:22→21:00)
[2022-05-31] MEDS: HEPARIN 5000 UNIT/ML 1 ML VIAL SQ SCH ×3 (00:23→16:32)
[2022-05-31] MEDS: VANCOMYCIN 1.75 GM in NA CHLORIDE 0.9% 500 ML IVPB SCH ×2 (05:00→16:32)
[2022-05-31] MEDS: ACETAMINOPHEN 500 MG TAB PO PRN ×2 (05:31→22:36)
[2022-05-31] MEDS ORDERED: VANCOMYCIN 500 MG/VIAL ONE (05:32)
[2022-05-31 05:44] LABS: Hematocrit 39.9 % (39.6-49.0); Lymphocytes % 9.8 % (15.3-44.8); MCV 84.4 fL (80-100); MPV 8.6 fL (7.6-11.3); RBC Red Blood Cell Count 4.73 M/uL (4.33-5.43)
[2022-05-31 06:02] LABS: Magnesium 1.7 mg/dL (1.8-2.4); Potassium 3.8 mmol/L (3.5-5.1)
[2022-05-31] MEDS ORDERED: MAGNESIUM SULFATE 1 gm IVPB 1 GM/100 ML BAG IV ONE (09:00)
[2022-05-31] MEDS ORDERED: POTASSIUM PHOS IN 0.9 % NACL 15 MMOL/250 ML BAG IV ONE (09:00)
[2022-05-31] MEDS: INSULIN 70/30 100 UNITS/ML SQ SCH ×4 (09:32→21:00)
[2022-05-31] MEDS ORDERED: NA CHLORIDE 0.9% 1,000 ML ONE (13:48)
[2022-05-31] MEDS ORDERED: SODIUM HYPOCHLORITE 0.25% 473 ML ONE (14:39)
[2022-05-31] MEDS ORDERED: BUPIVACAINE 0.25% PF 10 ML VIAL ONE (14:39)
[2022-05-31] MEDS ORDERED: FENTANYL CITR 100 MCG/2 ML ONE (14:44)
[2022-05-31] MEDS ORDERED: propofoL 200 MG/20 ML VIAL IV ONE (14:44)
[2022-05-31] MEDS ORDERED: LIDOCAINE 2% MPF 5 ML VIAL ONE (14:44)
[2022-05-31] MEDS ORDERED: BUPIVACAINE 0.25% PF 10 ML VIAL IJ ONE (15:11)
--- NOTE | 2022-05-31 15:17 | P.OP ---
Preoperative diagnosis: LEFT Lateral Foot Diabetic Infection with Abscess Postoperative diagnosis: LEFT Lateral Foot Diabetic Infection with Abscess Primary procedure: Excisional Debridement of LEFT Lateral Foot Diabetic Infection with Abscess Anesthesia: GETA + Local Estimated blood loss: <5cc Specimen: debridement tissue, cultures Findings: abscess, necrosis extending to muscle Complications: None Transferred to: Recovery Room Condition: Good
[2022-05-31] MEDS ORDERED: HYDROCODONE/APAP 5/325 MG TAB PO PRN (15:23)
[2022-05-31] MEDS: NA CHLORIDE 0.9% 1,000 ML IV SCH (17:36)
--- NOTE | 2022-05-31 17:59 | P.PN ---
Subjective Date of Service: 05/31/22 Chief Complaint: Diabetic foot ulcer Status post left foot abscess incision and drainage and debridement today. No recorded fever. Physical Examination - Vital Signs Temperature: 97.7 F Blood Pressure: 145/87 Pulse: 98 Respirations: 14 Pulse Ox (%): 92 - Studies Microbiology Data (last 24 hrs): 05/30/22 15:20 Blood - Blood Gram Stain - Final Assessment And Plan - Current Problems (Diagnosis) (1) Diabetic foot ulcer Current Visit: Yes Status: Acute (2) HTN (hypertension) Onset Date: 11/26/17 Current Visit: No Status: Acute Qualifiers: Hypertension type: essential hypertension Qualified Code(s): I10 - Es sential (primary) hypertension (3) Diabetes mellitus Onset Date: 11/26/17 Current Visit: No Status: Chronic Qualifiers: Diabetes mellitus type: type 2 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 long goods helper insulin use: without usp use Diabetes mellitus complication status: with skin complications Diabetes mellitus complication detail: with foot ulcer Qualified Code(s): E11.621 - Type 2 diabetes mellitus with foot ulcer; L97.509 - Non-pressure chronic ulcer of other part of unspecified foot with unspecified severity; L97.509 - Non-pressure chronic ulcer of other part of unspecified foot with unspecified severity; L97.509 - Non-pressure chronic ulcer of other part of unspecified foot with unspecified severity; L97.509 - Non-pressure chronic ulcer of other part of unspecified foot with unspecified severity - Plan Physical Exam General: Alert, In no apparent distress. Respiratory: Clear to auscultation bilaterally, Normal air movement Cardiovascular: No edema, Regular rate/rhythm, Normal S1 S2 Gastrointestinal: Normal bowel sounds, Soft and benign, Non-distended Musculoskeletal: Left foot ulcer status post I&D and debridement. Neurological: Normal strength at 5/5 x4 extr. Plan: Continue IV Levaquin and vancomycin. Pain management as needed. Blood sugar readings within range on current insulin regimen Continue home dose NPH 70/30. Insulin sliding scale. Blood cultures: No growth to date Follow deep tissue wound culture. Local wound care General surgery Dr. Kuo to follow.
[2022-05-31] MEDS: Levofloxacin 750mg IV 750 MG/150 ML BAG IV SCH (22:36)
[2022-06-01] MEDS: HEPARIN 5000 UNIT/ML 1 ML VIAL SQ SCH ×3 (01:00→17:01)
--- NOTE | 2022-06-01 02:50 | OP ---
Date of Procedure: 05/31/2022 Surgeon: Ulices Kuo MD, Preoperative Diagnosis: Left lateral foot diabetic infection with abscess. Postoperative Diagnosis: Left lateral foot diabetic infection with abscess. Procedure Performed: Excisional debridement of left lateral foot diabetic infection with abscess. Anesthesia: General endotracheal plus local. Estimated Blood Loss: Less than 5 cc. Specimen: Debridement tissue and culture, sent both to aerobic and anaerobic speciation. Findings: 1.Abscess. 2.Necrosis extending into the muscle. 3.Left lateral foot wound approximately 4.5 x 5 cm down to the muscle involving the fifth digit on t he lateral aspect of the left foot consistent with diabetic foot wound. Complications: None. Disposition: The patient was transferred to recovery room in good condition. Procedure In Detail: After informed consent was obtained, the patient was brought to the operating r oom, prepped and draped in the usual sterile fashion. After adequate anesthesia was achieved, a curv ilinear incision was made circumferentially around the area of necrosis, which extended from the plan tar aspect of the foot along the lateral aspect to the dorsal aspect of the foot along the fifth digi t on the lateral aspect of the foot. This was taken down circumferentially, immediately encountered was abscess and necrotic tissue. This was debrided initially sharply. Culture sent both aerobic and anaerobic speciation at this time. All necrotic tissue was debrided predominantly sharply, but elec trocautery was used to achieve hemostasis when necessary. Minimal hemostasis was required with elect rocautery. The area was copiously irrigated. After all necrotic and nonviable tissue/infected tissu e was debrided, leaving a good clean base down extending up to the muscle but not involving the actua l bone. The area was copiously irrigated with sterile saline and packed with Dakin-soaked Kerlix and sterile dressing placed over top. The patient tolerated the procedure well without evidence of comp lication and transferred to PACU in good condition. All counts were correct at the end of the case. TK/MODL Voice ID: [id number] Report ID: [id number]
[2022-06-01 06:04] LABS: Phosphorus 2.5 mg/dL (2.5-4.9); Potassium 3.5 mmol/L (3.5-5.1)
[2022-06-01] MEDS: VANCOMYCIN 1.75 GM in NA CHLORIDE 0.9% 500 ML IVPB SCH ×2 (06:19→17:01)
[2022-06-01] MEDS: INSULIN -REGULAR HUMAN 50 UNIT/0.5 ML ML SQ SCH ×4 (07:30→21:00)
[2022-06-01] MEDS ORDERED: POTASSIUM CL SA 10 MEQ TAB PO ONE (09:00)
[2022-06-01] MEDS: INSULIN 70/30 100 UNITS/ML SQ SCH ×4 (09:04→21:23)
--- NOTE | 2022-06-01 12:19 | P.PN ---
Subjective Date of Service: 06/01/22 Chief Complaint: Diabetic foot ulcer Status post left foot abscess incision and drainage and debridement. No recorded fever. Patient has no new complaint. Physical Examination - Vital Signs Temperature: 98.1 F Blood Pressure: 158/82 Pulse: 90 Respirations: 18 Pulse Ox (%): 98 - Studies Microbiology Data (last 24 hrs): 05/30/22 15:20 Blood - Blood Blood Culture Gram Stain - Final 05/30/22 15:20 Blood - Blood Gram Stain - Final 05/30/22 15:05 Blood - Blood Blood Culture Gram Stain - Final 05/30/22 15:05 Blood - Blood Gram Stain - Final Assessment And Plan - Current Problems (Diagnosis) (1) Diabetic foot ulcer Current Visit: Yes Status: Acute (2) HTN (hypertension) Onset Date: 11/26/17 Current Visit: No Status: Acute Qualifiers: Hypertension type: essential hypertension Qualified Code(s): I10 - Essential (primary) hypertension (3) Diabetes mellitus Onset Date: 11/26/17 Current Visit: No Status: Chronic Qualifiers: Diabetes mellitus type: type 2 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 Diabetes mellitus complication status: with skin complications Diabetes mellitus complication detail: with foot ulcer Qualified Code(s): E11.621 - Type 2 diabetes mellitus with foot ulcer; L97.509 - Non-pressure chronic ulcer of other part of unspecified foot with unspecified severity; L97.509 - Non-pressure chronic ulcer of other part of unspecified foot with unspecified severity; L97.509 - Non-pressure chronic ulcer of other part of unspecified foot with unspecified severity; L97.509 - Non-pressure chronic ulcer of other part of unspecified foot with unspecified severity (4) Foot abscess, left Current Visit: Yes Status: Acute - Plan Physical Exam General: Alert, In no apparent distress. Respiratory: Clear to auscultation bilaterally, Normal air movement Cardiovascular: No edema, Regular rate/rhythm, Normal S1 S2 Gastrointestinal: Normal bowel sounds, Soft and benign, Non-distended Musculoskeletal: Left foot ulcer status post I&D and debridement. Neurological: Normal strength at 5/5 x4 extr. Plan: Continue IV Levaquin and vancomycin. Wound culture is pending. Pain management as needed. Blood sugar readings within range on current insulin regimen Continue home dose NPH 70/30. Insulin sliding scale. Blood cultures: No growth to date Local wound care General surgery Dr. Kuo to follow.
[2022-06-01] MEDS: NA CHLORIDE 0.9% 1,000 ML IV SCH (13:39)
--- NOTE | 2022-06-01 17:46 | P.PN ---
Subjective Date of Service: 06/01/22 Chief Complaint: Diabetic foot ulcer Subjective: Improving Physical Examination - Vital Signs Temperature: 98.3 F Blood Pressure: 158/85 Pulse: 91 Respirations: 18 Pulse Ox (%): 96 - Physical Exam General: Alert, In no apparent distress, Cooperative Musculoskeletal: Other (foot well wrapped, swelling and cellulitis much improved) - Studies Microbiology Data (last 24 hrs): 05/30/22 15:20 Blood - Blood Blood Culture Gram Stain - Final 05/30/22 15:20 Blood - Blood Gram Stain - Final 05/30/22 15:05 Blood - Blood Blood Culture Gram Stain - Final 05/30/22 15:05 Blood - Blood Gram Stain - Final Assessment And Plan - Current Problems (Diagnosis) (1) Diabetic foot ulcer Current Visit: Yes Status: Acute Plan: - continue wound care - ok to DC from surgical standpoint - follow up in 1 week in my clinic - non-weight bearing
[2022-06-01] MEDS: Levofloxacin 750mg IV 750 MG/150 ML BAG IV SCH (21:24)
[2022-06-02] MEDS: HEPARIN 5000 UNIT/ML 1 ML VIAL SQ SCH ×2 (00:20→09:10)
[2022-06-02 00:48] LABS: Specific Gravity >= 1.030 (1.005-1.030); Urine Bilirubin Negative (Negative); Urine Blood Trace-lysed (Negative); Urine Clarity Clear (Clear); Urine Color Yellow (Yellow); Urine Glucose Trace (Negative); Urine Protein 2+ (Negative); Urine Urobilinogen 0.2 mg/dL (0.2-1.0); Urine pH 5.5 (5.0-7.0)
[2022-06-02 00:58] LABS: Urine Bacteria 20-50 /HPF (<20); Urine Granular Casts 0-5 /LPF (None Seen); Urine RBC <5 /HPF (None Seen)
[2022-06-02] MEDS: VANCOMYCIN 1.75 GM in NA CHLORIDE 0.9% 500 ML IVPB SCH (04:14)
[2022-06-02 05:49] LABS: Magnesium 1.7 mg/dL (1.8-2.4); Phosphorus 4.2 mg/dL (2.5-4.9); Potassium 3.6 mmol/L (3.5-5.1)
[2022-06-02] MEDS: INSULIN -REGULAR HUMAN 50 UNIT/0.5 ML ML SQ SCH ×2 (07:30→11:47)
[2022-06-02] MEDS ORDERED: POTASSIUM CL SA 10 MEQ TAB PO ONE (09:00)
[2022-06-02] MEDS ORDERED: MAGNESIUM SULFATE 1 gm IVPB 1 GM/100 ML BAG IV ONE (09:00)
[2022-06-02] MEDS: INSULIN 70/30 100 UNITS/ML SQ SCH ×2 (09:11→11:47)
[2022-06-02] MEDS: NA CHLORIDE 0.9% 1,000 ML IV SCH (09:36)
[2022-06-02 11:38] VITALS: BP 174/94; TEMP 98.4; O2SAT 96
--- NOTE | 2022-06-02 12:39 | P.DS ---
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 Diabetes mellitus complication status: with skin complications Diabetes mellitus complication detail: with foot ulcer Qualified Code(s): E11.621 - Type 2 diabetes mellitus with foot ulcer; L97.509 - Non-pressure chronic ulcer of other part of unspecified foot with unspecified severity; L97.509 - Non-pressure chronic ulcer of other part of unspecified foot with unspecified severity; L97.509 - Non-pressure chronic ulcer of other part of unspecified foot with unspecified severity; L97.509 - Non-pressure chronic ulcer of other part of unspecified foot with unspecified severity (4) Foot abscess, left Current Visit: Yes Status: Acute Brief History of Present Illness: 41-year-old gentleman with a history of diabetes mellitus on insulin therapy presented to the emergency department due to a discharge and wound on the plantar aspect of the left foot. Patient reported noticing a bump on the sole of his left foot 2 months ago. He stated the bump gradually grew and about 5 days ago it ruptured followed by swelling of the foot and pain. He did not take any antibiotics. Patient had a similar presentation elsewhere on the plantar aspect of the same foot in 2018. He underwent I&D and debridement by Dr. Kuo and the wound completely healed. X-ray of the foot today does not show any bony involvement. Patient has mild leukocytosis but does not meet criteria for sepsis. Dr. Kuo informed. Patient was hospitalized for further management. Hospital Course: Patient admitted to the medical floor and started on IV Levaquin and vancomycin. Seen and evaluated by Dr. Kuo who performed incision and drainage and debridement. Wound was packed and dressed Blood sugar was managed with his home dose NPH 7030 and insulin sliding scale. Blood cultures: No growth to date. Wound culture demonstrated beta-hemolytic strep. Dr. Kuo recommended daily dressing with Dakin's solution. No leukocytosis, no fever, patient is ambulatory and eating well. He is deemed stable for discharge. Dr. Kuo want to follow-up with him within 1 week. Patient is aware of the follow-up. Vital Signs/Physical Exam: Temp Pulse Resp BP Pulse Ox 98.4 F 84 18 174/94 H 97 06/02/22 11:37 06/02/22 11:37 06/02/22 11:37 06/02/22 11:37 06/02/22 11:37 General: Alert, In no apparent distress, Oriented x3 HEENT: Mucous membr. moist/pink Neck: JVD not distended Respiratory: Clear to auscultation bilaterally, Normal air movement Cardiovascular: Regular rate/rhythm, Normal S1 S2 Gastrointestinal: Soft and benign, Non-distended Musculoskeletal: No swelling Integumentary: No cyanosis Neurological: Normal strength at 5/5 x4 extr Laboratory Data at Discharge: WBC 10.40 K/uL (4.3-10.9) 05/31/22 05:27 Hgb 13.6 g/dL (13.6-17.9) 05/31/22 05:27 Hct 39.9 % (39.6-49.0) 05/31/22 05:27 Plt Count 318 K/uL (152-406) 05/31/22 05:27 Sodium 137 mmol/L (136-145) 06/02/22 05:09 Potassium 3.6 mmol/L (3.5-5.1) 06/02/22 05:09 BUN 10 mg/dL (7-18) 06/02/22 05:09 Creatinine 0.63 mg/dL (0.55-1.3) 06/02/22 05:09 Glucose 117 mg/dL (74-106) H 06/02/22 05:09 Phosphorus 4.2 mg/dL (2.5-4.9) D 06/02/22 05:09 Magnesium 1.7 mg/dL (1.8-2.4) L 06/02/22 05:09 Total Bilirubin 0.3 mg/dL (0.2-1.0) 05/30/22 15:20 AST 13 U/L (15-37) L 05/30/22 15:20 ALT 26 U/L (12-78) 05/30/22 15:20 Alkaline Phosphatase 151 U/L (45-117) H 05/30/22 15:20 Home Medications: Atorvastatin Calcium [Lipitor*] 10 mg PO BEDTIME #30 tab 11/26/17 lisinopriL [Prinivil*] 10 mg PO DAILY #30 tab 11/26/17 Metformin HCl [Glucophage*] 500 mg PO BIDWM 03/04/18 Insulin 70/30 NPH/Reg Human [Novolin 70/30*] 15 units SQ BEDTIME 03/05/18 Insulin 70/30 NPH/Reg Human [Novolin 70/30*] 30 units SQ AC 03/05/18 Gabapentin [Neurontin*] 600 mg PO BEDTIME 10/20/18 Irbesartan [Avapro] 1 tab PO DAILY 10/20/18 Semaglutide [Ozempic] 1 % .ROUTE EVERY 7TH DAY 10/20/18 Doxycycline Hyclate 100 mg PO BID #20 tab 06/02/22 Hydrocodone 5/APAP 325 [[place] 5/325*] 1 tab PO Q6H PRN #15 tab 06/02/22 levoFLOXacin [Levaquin] 750 mg PO DAILY #10 tab 06/02/22 New Medications: Doxycycline Hyclate 100 mg PO BID #20 tab levoFLOXacin [Levaquin] 750 mg PO DAILY #10 tab Hydrocodone 5/APAP 325 [[place] 5/325*] 1 tab PO Q6H PRN #15 tab PRN Reason: Pain Scale 5-7 (Moderate) Diet: ADA Activity: Non-weight bearing (LEFT foot) Followup: Rafiq Mai MD [Primary Care Provider] - Ulices Kuo MD [ACTIVE - CAN ADMIT] - 1 Week Time spent managing pt's care (in minutes): 38
[2022-06-02] MEDS ORDERED: VANCOMYCIN 2 GM in NA CHLORIDE 0.9% 500 ML IVPB SCH (17:00)
== END 2022-06-02 14:07 | disposition home or self-care (01) | DRG 982 ==
LOC: ER 13:40 → ERHOLD 17:25 → 2ND 20:58
PROVIDERS: ADMIT Internal Medicine; ATTEND Internal Medicine
PROC: 0KBW0ZZ Excision of Left Foot Muscle, Open Approach (ICD-10-PCS; principal; 2022-05-31 15:45)
DX: E11.52 Type 2 diabetes mellitus with diabetic peripheral angiopathy with gangrene (principal); L02.612 Cutaneous abscess of left foot; E11.621 Type 2 diabetes mellitus with foot ulcer; L97.529 Non-pressure chronic ulcer of other part of left foot with unspecified severity; I10 Essential (primary) hypertension; D72.829 Elevated white blood cell count, unspecified; Z79.4 Long term (current) use of insulin; Z88.0 Allergy status to penicillin; Z20.822 Contact with and (suspected) exposure to COVID-19
CPT/HCPCS: 36415; 71045; 80048; 80053; 80202; 81001; 82947; 83605; 83735; 84100; 84145; 85025; 87040; 87070; 87075; 87077; 87086; 87088; 87186; 87205; 87811; 88304; 88305; 94760; 96361; 96365; 96366; 96367; 99285; J1644; J1815; J2704; J3010; J3370; J3475; J7030; J7040; J7050

== ENCOUNTER 2022-08-16 03:20 | Emergency (ER) | payer OTHER ==
--- OUTSIDE RECORDS SUMMARY | 2022-08-16 03:22 | XMS REPORT | Continuity of Care Document ---
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 without Utility complicati complicati ons [...] Source Sex Assigned At [facility] Exposure to Yes [facility] SARS-CoV-2 [facility] (event) [facility] History of Cigarette Smoker Universi ty of tobacco use [facility] Alcohol intake 2017-02-12 2017-02-12 [facility] of 00:00:00 00:00:00 [facility] Tobacco Comment 2014-02-22 2014-02-22 smokes 1 pack per Un iversity of 00:00:00 00:00:00 week [facility] Alcohol Comment 2014-02-22 2014-02-22 Currently uses Unive rsity of 00:00:00 00:00:00 alcohol only [facility] occasionally. 4 Branch years ago he drank 24 beers daily for 4-5 months. Smoking Status Start Date Stop Date Source Current some day smoker 2017-02-12 00:00:00 Univ ersity [facility] Medications Ordered Filled Start Stop Current Ordering Indication Dosage Frequency Signature Comments Components Source Medication Medication Date Date Medication? Clinician (SIG) Name Name clotrimazol Yes [id number] Apply to Univers e 1 % 5-10 area(s) at ity of topical 00:00: bedtime. [address] Immunizations Ordered Filled Immunization Date Status Comments Sourc e Immunization Name Name Tdap 2014-02-22 Completed University 00:00:00 [facility] Td 1995-10-06 Completed [facility] 00:00:00 [facility] Procedures This patient has no known procedures. 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 Univers 13:36:44 13:56:44 Visit Krystina [facility] [id number] ity of [place] [id number] [place] as Professio [phone] Wi dical [address] Office [address] 2020-03-15 2020-03-15 Outpatient R [facility] [id number] Univers 13:20:00 13:20:00 [id number] benita [facility] 2020-03-15 2020-03-15 Outpatient R ANETTE, [facility] [id number] [facility] 13:20:00 13:20:00 KRYSTINA joy [facility] Results This patient has no known results.
[2022-08-16] MEDS ORDERED: LIDOCAINE 1% MPF 5 ML VIAL ONE ×2 (03:34→04:03)
[2022-08-16] MEDS ORDERED: BUPIVACAINE 0.5% PF 10 ML VIAL ONE (03:34)
--- NOTE | 2022-08-16 04:33 | ER ---
Nurse's Notes [facility] Name: Donnie Man Jr Age: 41 yrs Sex: Male : 1980 Arrival Date: 08/16/2022 Time: 03:23 Bed 5 Private MD: Diagnosis: Cutaneous abscess of other sites-right middle finger tip, Paronychia Presentation: 08/16 03:27 Chief complaint: Patient states: "I noticed the swelling a couple of days ago, but it tw5 is getting worse. I has been infected like this before, but that was several years ago and it drained itself.". Coronavirus screen: Vaccine status: Patient reports receiving the 2nd dose of the covid vaccine. [email or web address]. Ebola Screen: Patient negative for fever greater than or equal to 101.5 degrees Fahrenheit, and additional compatible Ebola Virus Disease symptoms Patient denies exposure to infectious person. No symptoms or risks identified at this time. Initial Sepsis Screen: Does the patient meet any 2 criteria? HR > 90 bpm. Does the patient have a suspected source of infection? Yes: Skin breakdown/wound. Risk Assessment: Do you want to hurt yourself or someone else? Patient reports no desire to harm self or others. Onset of symptoms. 03:27 Method Of Arrival: Ambulatory tw5 03:27 Acuity: BECKY 4 tw5 Triage Assessment: 03:29 General: Appears uncomfortable, Behavior is calm, cooperative, appropriate for age. tw5 Pain: Pain currently is 10 out of 10 on a pain scale. Historical: - Allergies: 03:29 PENICILLINS; tw5 - PMHx: 03:29 Diabetes; tw5 - Immunization history:: Pneumococcal vaccine is not up to date. - Social history:: Smoking status: Patient denies any tobacco usage or history of. - Family history:: not pertinent. Screenin:51 Abuse screen: Denies threats or abuse. Denies injuries from another. Nutritional as6 screening: No deficits noted. Tuberculosis screening: No symptoms or risk factors identified. Fall Risk None identified. Assessment: 04:52 General:. as6 04:53 Musculoskeletal: Swelling present in right middle fingernail. as6 Vital Signs: 03:27 BP 165 / 100; Pulse 93; Resp 18; Temp 98.1; Pulse Ox 97% ; Weight 93.89 kg; Height 5 tw5 ft. 6 in. (167.64 cm); Pain 10/10; 03:27 Body Mass Index 33.41 (93.89 kg, 167.64 cm) tw5 ED Course: 03:23 Patient arrived in ED. ja2 03:28 Triage completed. tw5 03:29 Arm band placed on. tw5 03:33 Giuseppe Bryant MD is Attending Physician. chelsea 03:39 Allen Reyez, RN is Primary Nurse. as6 04:31 Lalo Mariano MD is Referral Physician. chelsea 04:51 Bed in low position. Call light in reach. as6 04:51 No provider procedures requiring assistance completed. Patient did not have IV access as6 during this emergency room visit. Administered Medications: 04:51 Drug: Doxycycline 200 mg Route: PO; as6 04:52 Follow up: Response: No adverse reaction as6 04:51 Drug: Bactrim (trimethoprim-sulfamethoxazole) (160 mg-800 mg (DS) 1 tablet Route: PO; as6 04:52 Follow up: Response: No adverse reaction as6 04:51 Drug: [place] (HYDROcodone-acetaminophen) 10 mg-325 mg 1 tabs Route: PO; as6 04:52 Follow up: Response: No adverse reaction as6 Medication: 04:52 VIS not applicable for this client. as6 Outcome: 04:33 Discharge ordered by . [facility] 04:51 Discharged to home ambulatory. as6 04:51 Condition: stable 04:51 Discharge instructions given to patient, Instructed on discharge instructions, follow up and referral plans. medication usage, wound care, Demonstrated understanding of instructions, follow-up care, medications, wound care, Prescriptions given X 3. 04:53 Patient left the ED. as6 Signatures: Giuseppe Bryant MD MD cha Alexander, Jessica ja2 Wood, Tiffany tw5 Allen Reyez, AFSHAN RN as6
--- NOTE | 2022-08-16 04:34 | EDPHYS ---
Physician Documentation [facility] Name: Donnie Man Jr Age: 41 yrs Sex: Male : 1980 Arrival Date: 08/16/2022 Time: 03:23 Bed 5 Private MD: ED Physician Giuseppe Bryant HPI: 08/16 04:24 This 41 yrs old Male presents to ER via Ambulatory with complaints of Finger chelsea Swelling. 04:24 The patient or guardian complains of pain, swelling, tenderness. chelsea 04:25 The patient or guardian reports decreased range of motion, pain, swelling, tenderness. chelsea The complaints affect the DIP of left middle finger. Context: The problem was sustained at an unknown location, resulted from an unknown cause. Onset: The symptoms/episode began/occurred 3 day(s) ago. Modifying factors: The symptoms are alleviated by nothing, the symptoms are aggravated by movement, dependent position. Associated signs and symptoms: The patient has no apparent associated signs or symptoms. Severity of symptoms: At their worst the symptoms were moderate, severe, in the emergency department the symptoms are unchanged. The patient has not experienced similar symptoms in the past. Historical: - Allergies: 03:29 PENICILLINS; tw5 - PMHx: 03:29 Diabetes; tw5 - Immunization history:: Pneumococcal vaccine is not up to date. - Social history:: Smoking status: Patient denies any tobacco usage or history of. - Family history:: not pertinent. ROS: 04:25 Constitutional: Negative for fever, chills, and weight loss, Eyes: Negative for injury, chelsea pain, redness, and discharge, ENT: Negative for injury, pain, and discharge, Neck: Negative for injury, pain, and swelling, Cardiovascular: Negative for chest pain, palpitations, and edema, Respiratory: Negative for shortness of breath, cough, wheezing, and pleuritic chest pain, Abdomen/GI: Negative for abdominal pain, nausea, vomiting, diarrhea, and constipation, Back: Negative for injury and pain, : Negative for injury, bleeding, discharge, and swelling, Skin: Negative for injury, rash, and discoloration, Neuro: Negative for headache, weakness, numbness, tingling, and seizure, Psych: Negative for depression, anxiety, suicide ideation, homicidal ideation, and hallucinations, Allergy/Immunology: Negative for hives, rash, and allergies, Endocrine: Negative for neck swelling, polydipsia, polyuria, polyphagia, and marked weight changes, Hematologic/Lymphatic: Negative for swollen nodes, abnormal bleeding, and unusual bruising. 04:25 MS/extremity: Positive for decreased range of motion, pain, swelling, tenderness, of the palmar aspect of distal phalanx of right middle finger and right middle fingernail. Exam: 04:25 Constitutional: This is a well developed, well nourished patient who is awake, alert, chelsea and in no acute distress. Head/Face: Normocephalic, atraumatic. Eyes: Pupils equal round and reactive to light, extra-ocular motions intact. Lids and lashes normal. Conjunctiva and sclera are non-icteric and not injected. Cornea within normal limits. Periorbital areas with no swelling, redness, or edema. ENT: Nares patent. No nasal discharge, no septal abnormalities noted. Tympanic membranes are normal and external auditory canals are clear. Oropharynx with no redness, swelling, or masses, exudates, or evidence of obstruction, uvula midline. Mucous membranes moist. Neck: Trachea midline, no thyromegaly or masses palpated, and no cervical lymphadenopathy. Supple, full range of motion without nuchal rigidity, or vertebral point tenderness. No Meningismus. Chest/axilla: Normal chest wall appearance and motion. Nontender with no deformity. No lesions are appreciated. Cardiovascular: Regular rate and rhythm with a normal S1 and S2. No gallops, murmurs, or rubs. Normal PMI, no JVD. No pulse deficits. Respiratory: Lungs have equal breath sounds bilaterally, clear to auscultation and percussion. No rales, rhonchi or wheezes noted. No increased work of breathing, no retractions or nasal flaring. Abdomen/GI: Soft, non-tender, with normal bowel sounds. No distension or tympany. No guarding or rebound. No evidence of tenderness throughout. Back: No spinal tenderness. No costovertebral tenderness. Full range of motion. Male : Normal genitalia with no discharge or lesions. Skin: Warm, dry with normal turgor. Normal color with no rashes, no lesions, and no evidence of cellulitis. Neuro: Awake and alert, GCS 15, oriented to person, place, time, and situation. Cranial nerves II-XII grossly intact. Motor strength 5/5 in all extremities. Sensory grossly intact. Cerebellar exam normal. Normal gait. Psych: Awake, alert, with orientation to person, place and time. Behavior, mood, and affect are within normal limits. 04:25 Musculoskeletal/extremity: ROM: limited active range of motion, limited passive range of motion, limited active range of motion due to pain, limited passive range of motion due to pain, Circulation is intact in all extremities. Sensation intact. Compartment Syndrome exam of affected extremity: is normal. Weight bearing: able to fully bear weight. 04:25 Skin: abscess, cellulitis, induration, Turgor: is excellent. Vital Signs: 03:27 BP 165 / 100; Pulse 93; Resp 18; Temp 98.1; Pulse Ox 97% ; Weight 93.89 kg; Height 5 tw5 ft. 6 in. (167.64 cm); Pain 10/10; 03:27 Body Mass Index 33.41 (93.89 kg, 167.64 cm) tw5 Procedures: 04:25 I \T\ D: Incision and drainage was performed for an abscess of the right right middle chelsea fingernail Prepped with Betadine, Anesthetized with 5 ml's 1% Lidocaine. 0.5 marcaine. Incised with #11 blade. Drained moderate amount purulent fluid. Packed with xeropform. Splinting: using bulk dress. MDM: 03:34 Patient medically screened. [facility] 04:25 Differential diagnosis: abrasion, tendonitis. Data reviewed: vital signs, nurses notes. [facility] Data interpreted: monitoring manager: rate is 97 beats/min, rhythm is regular, Pulse oximetry: on room air is 97 %. Counseling: I had a detailed discussion with the patient and/or guardian regarding: the historical points, exam findings, and any diagnostic results supporting the discharge/admit diagnosis, the need for outpatient follow up, for definitive care, a hand specialist. 08/16 03:32 Order name: Suture Tray Setup; Complete Time: 03:36 tw5 08/16 04:24 Order name: Wound dressing; Complete Time: 04:51 chelsea Administered Medications: 04:51 Drug: Doxycycline 200 mg Route: PO; as 04:52 Follow up: Response: No adverse reaction as 04:51 Drug: Bactrim (trimethoprim-sulfamethoxazole) (160 mg-800 mg (DS) 1 tablet Route: PO; as6 04:52 Follow up: Response: No adverse reaction as6 04:51 Drug: Siren (HYDROcodone-acetaminophen) 10 mg-325 mg 1 tabs Route: PO; as 04:52 Follow up: Response: No adverse reaction as6 Disposition Summary: 08/16/22 04:33 Discharge Ordered Location: Home [facility] Problem: new chelsea Symptoms: have improved chelsea Condition: Stable chelsea Diagnosis - Cutaneous abscess of other sites - right middle finger tip, Paronychia chelsea Followup: chelsea - With: Private Physician - When: 2 - 3 days - Reason: Recheck today's complaints, Continuance of care, Re-evaluation by your physician Followup: chelsea - With: Lalo Mariano MD - When: 2 - 3 days - Reason: Recheck today's complaints, Continuance of care, Re-evaluation by your physician Discharge Instructions: - Discharge Summary Sheet chelsea - Skin Abscess chelsea - Incision and Drainage chelsea - Paronychia chelsea - Skin Abscess, [id number] chelsea - Paronychia, [id number] chelsea - Incision and Drainage, Care After chelsea Forms: - Medication Reconciliation Form [facility] - Thank You Letter [facility] - Antibiotic Education [facility] - Prescription Opioid Use [facility] Prescriptions: - Bactrim DS 800-160 mg Oral Tablet - take 1 tablet by ORAL route every 12 hours for 10 days; 20 tablet; Refills: 0, [facility] Product Selection Permitted - Doxycycline Monohydrate 100 mg Oral Tablet - take 1 tablet by ORAL route every 12 hours for 10 days; 20 tablet; Refills: 0, [facility] Product Selection Permitted - Tylenol-Codeine #3 300 mg-30 mg Oral - take 2 tablet by ORAL route every 4-6 hours; 20 tablet; Refills: 0, Product [facility] Selection Permitted Signatures: Giuseppe Bryant MD MD cha Wood, Tiffany tw5 Allen Reyez, RN RN as6
[2022-08-16] MEDS ORDERED: HYDROCODONE/APAP 10/325 TAB ONE (04:45)
[2022-08-16] MEDS ORDERED: DOXYCYCLINE 100 MG CAP PO ONE (04:46)
[2022-08-16] MEDS ORDERED: SMZ./TMP. 800/160 MG TABLET ONE (04:46)
[2022-08-16 04:58] VITALS: BP 165/100; TEMP 98.1; O2SAT 97
== END 2022-08-16 04:53 | disposition home or self-care (01) ==
LOC: ER 03:20
PROC: 0H9FXZZ Drainage of Right Hand Skin, External Approach (ICD-10-PCS; principal; 2022-08-16)
DX: L03.011 Cellulitis of right finger (principal)
CPT/HCPCS: 99283; 10060; J2001 ×2

== ENCOUNTER 2022-08-17 19:57 | Emergency (ER) | payer OTHER ==
[2012-03-04 17:55] VITALS: BP 135/87
--- OUTSIDE RECORDS SUMMARY | 2022-08-17 19:59 | XMS REPORT | Continuity of Care Document ---
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 without Utility complicati complicati ons [...] Source Sex Assigned At [facility] Exposure to Yes [facility] SARS-CoV-2 [place] [facility] (event) Branch History of Cigarette Smoker Universi ty of tobacco use [facility] Alcohol intake 2017-02-12 2017-02-12 University of 00:00:00 00:00:00 [facility] Tobacco Comment 2014-02-22 2014-02-22 smokes 1 pack per Un iversity of 00:00:00 00:00:00 week [facility] Alcohol Comment 2014-02-22 2014-02-22 Currently uses Unive rsity of 00:00:00 00:00:00 alcohol only [place] [facility] occasionally. 4 Branch years ago he drank 24 beers daily for 4-5 months. Smoking Status Start Date Stop Date Source Current some day smoker 2017-02-12 00:00:00 Univ ersity [facility] Medications Ordered Filled Start Stop Current Ordering Indication Dosage Frequency Signature Comments Components Source Medication Medication Date Date Medication? Clinician (SIG) Name Name clotrimazol Yes [id number] Apply to Univers e 1 % 5-10 area(s) at ity of topical 00:00: bedtime. [address] Immunizations Ordered Filled Immunization Date Status Comments Sourc e Immunization Name Name Tdap 2014-02-22 Completed University 00:00:00 [facility] Td 1995-10-06 Completed [facility] 00:00:00 [facility] Procedures This patient has no known procedures. Encounters Start End Encounter Admission Attending Care Care Encounter Source Date/Time Date/Time Type Type Clinicians Facility Department ID 2020-03-15 2020-03-15 Branch Examiner Lab, [facility] [id number] 13:36:44 13:56:44 Visit Dago Freedmanb I Health [id number] [place] [id number] Professio [phone] nal [facility] Office Building One 2020-03-15 2020-03-15 Branch Examiner Lab, [facility] Fam Pob I [facility] [id number] Univers 13:36:44 13:56:44 Visit Krystina Garcia Health [id number] ity of [place] [id number] [place] as Professio [phone] Mt dical [address] Office Building One 2020-03-15 2020-03-15 Outpatient R [facility] [id number] Univers 13:20:00 13:20:00 [id number] benita [facility] 2020-03-15 2020-03-15 Outpatient R ANETTE, [facility] [id number] 035 [facility] 13:20:00 13:20:00 KRYSTINA joy [facility] Results This patient has no known results.
--- NOTE | 2022-08-17 21:07 | ER ---
Nurse's Notes [facility] Name: Donnie Man Jr Age: 41 yrs Sex: Male : 1980 Arrival Date: 08/17/2022 Time: 19:58 Bed DIS3 Private MD: Diagnosis: Pain in right finger(s);Paronychia Presentation: 08/17 20:07 Chief complaint: Patient states: Pt reports he was treated for a paronychia \T\0300 on kb3 Friday morning. States he was changing the dressing and noticed the packing was gone and he is worried that the packing is stuck inside the wound. Coronavirus screen: Vaccine status: Patient reports receiving the 2nd dose of the covid vaccine. Client denies travel out of the [place] in the last 14 days. Ebola Screen: Patient negative for fever greater than or equal to 101.5 degrees Fahrenheit, and additional compatible Ebola Virus Disease symptoms Patient denies exposure to infectious person. Patient denies travel to an Ebola-affected area in the 21 days before illness onset. Initial Sepsis Screen: Does the patient meet any 2 criteria? No. Patient's initial sepsis screen is negative. Does the patient have a suspected source of infection? No. Patient's initial sepsis screen is negative. Risk Assessment: Do you want to hurt yourself or someone else? Patient reports no desire to harm self or others. Onset of symptoms was August 16, 2022. 20:07 Method Of Arrival: Ambulatory kb3 20:07 Acuity: BECKY 4 kb3 Triage Assessment: 20:13 General: Appears in no apparent distress. Behavior is calm, cooperative. Pain: kb3 Complains of pain in dorsal aspect of distal phalanx of right middle finger, dorsal aspect of middle phalanx of right middle finger, dorsal aspect of proximal phalanx of right middle finger and right middle fingernail Pain does not radiate. Pain currently is 8 out of 10 on a pain scale. Historical: - Allergies: 20:13 PENICILLINS; kb3 - Home Meds: 20:13 None [Active]; kb3 - PMHx: 20:13 Diabetes; kb3 - PSHx: 20:13 None; kb3 - Immunization history:: Adult Immunizations up to date, Client reports receiving the 2nd dose of the Covid vaccine, Last tetanus immunization: up to date. - Social history:: Smoking status: Patient denies any tobacco usage or history of. Screenin:26 Abuse screen: Denies threats or abuse. Nutritional screening: No deficits noted. kr3 Tuberculosis screening: No symptoms or risk factors identified. Fall Risk None identified. Vital Signs: 20:07 BP 165 / 84; Pulse 93; Resp 20; Temp 98.5; Pulse Ox 100% ; Weight 94.8 kg; Height 5 ft. kb3 6 in. (167.64 cm); Pain 8/10; 20:07 Body Mass Index 33.73 (94.80 kg, 167.64 cm) kb3 ED Course: 19:58 Patient arrived in ED. as 20:12 Triage completed. kb3 20:13 Arm band placed on right wrist. kb3 20:20 Amish Guerra DO is Attending Physician. ms3 21:05 Demetris Barksdale MD is Referral Physician. ms3 21:26 No provider procedures requiring assistance completed. Patient did not have IV access kr3 during this emergency room visit. 21:27 Call light in reach. kr3 Administered Medications: No medications were administered Medication: 21:27 VIS not applicable for this client. kr3 Outcome: 21:06 Discharge ordered by . ms3 21:27 Discharged to home ambulatory. kr3 21:27 Condition: stable 21:27 Discharge instructions given to patient, Instructed on discharge instructions, follow up and referral plans. Demonstrated understanding of instructions, follow-up care. 21:27 Patient left the ED. kr3 Signatures: Smita Lafleur as Amish Guerra DO DO ms3 Natali King, AFSHAN RN kr3 Marion Hallman, RN RN kb3
--- NOTE | 2022-08-17 21:28 | EDPHYS ---
Physician Documentation [facility] Name: Donnie Man Jr Age: 41 yrs Sex: Male : 1980 Arrival Date: 08/17/2022 Time: 19:58 Bed DIS3 Private MD: ED Physician Amish Geurra HPI: 08/17 21:22 This 41 yrs old Male presents to ER via Ambulatory with complaints of Wound ms3 Check. 21:22 Patient presents to ED for recheck of: abscess. The affected area is on the right ms3 middle finger. Previous treatment: The patient was initially treated yesterday. Progress: The patient reports no change in. 41-year-old male presents for right long finger swelling and pain. Patient states he was seen in the emergency department yesterday and had an I\T\D performed. Patient states the packing fell out and he was concerned. Patient states the pain is an 8/10 and throbbing. Patient states he is currently on antibiotics.. Historical: - Allergies: 20:13 PENICILLINS; kb3 - Home Meds: 20:13 None [Active]; kb3 - PMHx: 20:13 Diabetes; kb3 - PSHx: 20:13 None; kb3 - Immunization history:: Adult Immunizations up to date, Client reports receiving the 2nd dose of the Covid vaccine, Last tetanus immunization: up to date. - Social history:: Smoking status: Patient denies any tobacco usage or history of. ROS: 21:22 Constitutional: Negative for fever, and chills. Neck: Negative for injury, pain, and ms3 swelling, Cardiovascular: Negative for chest pain, and palpitations. Abdomen/GI: Negative for abdominal pain, nausea, vomiting, diarrhea, and constipation, MS/Extremity: Negative for injury and deformity. 21:22 Skin: Positive for abscess. 21:22 All other systems are negative. Exam: 21:22 Constitutional: This is a well developed, well nourished patient who is awake, alert, ms3 and in no acute distress. Head/Face: Normocephalic, atraumatic. Neck: Trachea midline, no cervical lymphadenopathy. Supple, full range of motion without nuchal rigidity, or vertebral point tenderness. No Meningismus. Chest/axilla: Normal chest wall appearance and motion. Nontender with no deformity. Cardiovascular: Regular rate and rhythm with a normal S1 and S2. No gallops, murmurs, or rubs. Normal PMI, no JVD. No pulse deficits. Respiratory: Lungs have equal breath sounds bilaterally, clear to auscultation and percussion. No rales, rhonchi or wheezes noted. No increased work of breathing, no retractions or nasal flaring. 21:22 Skin: Appearance: cellulitis, that is moderate, on the right middle finger. Vital Signs: 20:07 BP 165 / 84; Pulse 93; Resp 20; Temp 98.5; Pulse Ox 100% ; Weight 94.8 kg; Height 5 ft. kb3 6 in. (167.64 cm); Pain 8/10; 20:07 Body Mass Index 33.73 (94.80 kg, 167.64 cm) kb3 MDM: 21:06 Patient medically screened. ms3 21:22 Data reviewed: vital signs, nurses notes, and as a result, I will discharge patient. ms3 Counseling: I had a detailed discussion with the patient and/or guardian regarding: the historical points, exam findings, and any diagnostic results supporting the discharge/admit diagnosis, the need for outpatient follow up, to return to the emergency department if symptoms worsen or persist or if there are any questions or concerns that arise at home. ED course: Discussed exam findings with patient. Patient to follow-up with Dr. Thompson in 2 to 3 days. Patient understands and agrees with plan. All questions were answered. Return precautions discussed include worsening symptoms, or any other concerns. Administered Medications: No medications were administered Disposition: 08/18 04:17 Chart complete. ms3 Disposition Summary: 08/17/22 21:06 Discharge Ordered Location: Home ms3 Condition: Stable ms3 Diagnosis - Pain in right finger(s) ms3 - Paronychia ms3 Followup: ms3 - With: Demetris Barksdale MD - When: 2 - 3 days - Reason: Recheck today's complaints Discharge Instructions: - Discharge Summary Sheet ms3 - Musculoskeletal Pain ms3 - Paronychia, [id number] ms3 Forms: - Medication Reconciliation Form ms3 - Thank You Letter ms3 - Antibiotic Education ms3 - Prescription Opioid Use ms3 Signatures: Amish Guerra DO DO ms3 Lexx, Marion, RN RN kb3
== END 2022-08-17 21:27 | disposition home or self-care (01) ==
LOC: ER 19:57
DX: L03.011 Cellulitis of right finger (principal); M79.644 Pain in right finger(s)
CPT/HCPCS: 99281

== ENCOUNTER 2022-08-21 19:33 | Emergency (ER) | payer OTHER ==
--- OUTSIDE RECORDS SUMMARY | 2022-08-21 19:36 | XMS REPORT | Continuity of Care Document ---
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 without Utility complicati complicati ons [...] Source Sex Assigned At [facility] [place] [facility] Exposure to Yes University of SARS-CoV-2 [place] [facility] (event) Branch History of Cigarette Smoker Universi ty of tobacco use [facility] Alcohol intake 2017-02-12 2017-02-12 University of 00:00:00 00:00:00 [facility] Tobacco Comment 2014-02-22 2014-02-22 smokes 1 pack per Un iversity of 00:00:00 00:00:00 week [facility] Alcohol Comment 2014-02-22 2014-02-22 Currently uses Unive rsity of 00:00:00 00:00:00 alcohol only [place] [facility] occasionally. 4 Branch years ago he drank 24 beers daily for 4-5 months. Smoking Status Start Date Stop Date Source Current some day smoker 2017-02-12 00:00:00 Univ ersity [facility] Medications Ordered Filled Start Stop Current Ordering Indication Dosage Frequency Signature Comments Components Source Medication Medication Date Date Medication? Clinician (SIG) Name Name clotrimazol Yes [id number] Apply to Univers e 1 % 5-10 area(s) at ity of topical 00:00: bedtime. [address] Immunizations Ordered Filled Immunization Date Status Comments Sourc e Immunization Name Name Tdap 2014-02-22 Completed University 00:00:00 [facility] Td 1995-10-06 Completed [facility] 00:00:00 [facility] Procedures This patient has no known procedures. 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 [id number] Univers 13:36:44 13:56:44 Visit Krystina Garcia Health [id number] ity of [place] [id number] [place] as Professio [phone] Oh dical [address] Office [address] One 2020-03-15 2020-03-15 Outpatient R ANETTE [facility] [id number] [facility] 13:20:00 13:20:00 KRYSTINA joy [facility] 2020-03-15 2020-03-15 Outpatient R [facility] [id number] [facility] 13:20:00 13:20:00 [id number] [facility] Results This patient has no known results.
[2022-08-21] MEDS ORDERED: LIDOCAINE 1% MPF 5 ML VIAL ONE (21:47)
[2022-08-21] MEDS ORDERED: BUPIVACAINE 0.5% PF 10 ML VIAL ONE (21:48)
--- NOTE | 2022-08-21 23:29 | ER ---
Nurse's Notes [facility] Name: Donnie Man Jr Age: 41 yrs Sex: Male : 1980 Arrival Date: 08/21/2022 Time: 19:38 Bed 10 Private MD: Diagnosis: Cutaneous abscess of right hand-paronychia and felon right middle finger Presentation: 08/21 20:42 Chief complaint: Patient states: infection in the right middle finger for 6 days. I kd3 came here and had it drained and was sent home with a packing but it looks worse now. Coronavirus screen: Vaccine status: Patient reports receiving the 2nd dose of the covid vaccine. Ebola Screen: No symptoms or risks identified at this time. Initial Sepsis Screen: Does the patient meet any 2 criteria? No. Patient's initial sepsis screen is negative. Does the patient have a suspected source of infection? No. Patient's initial sepsis screen is negative. Risk Assessment: Do you want to hurt yourself or someone else? Patient reports no desire to harm self or others. Onset of symptoms was August 21, 2022. 20:42 Method Of Arrival: Ambulatory kd3 20:42 Acuity: BECKY 4 kd3 Triage Assessment: 20:45 General: Appears in no apparent distress. Behavior is calm, cooperative. Pain: kd3 Complains of pain in dorsal aspect of distal phalanx of right middle finger. 20:46 Neuro: Level of Consciousness is awake, alert, obeys commands, Oriented to person, kd3 place, time, situation. Respiratory: Airway is patent Trachea midline Respiratory effort is even, unlabored. Historical: - Allergies: 20:45 PENICILLINS; kd3 - PMHx: 20:45 Diabetes; kd3 - Immunization history:: Adult Immunizations up to date. - Social history:: Smoking status: Patient denies any tobacco usage or history of. Screenin:46 Abuse screen: Denies threats or abuse. Denies injuries from another. Nutritional kd3 screening: No deficits noted. Tuberculosis screening: No symptoms or risk factors identified. Fall Risk None identified. Assessment: 23:58 Reassessment: wrap patient finger in non stick gauze and coban. kd3 Vital Signs: 20:42 BP 154 / 83; Pulse 93; Resp 18; Temp 98.4(O); Pulse Ox 97% ; Weight 95.25 kg; Height 5 kd3 ft. 6 in. (167.64 cm); 20:45 Pain 9/10; kd3 20:42 Body Mass Index 33.89 (95.25 kg, 167.64 cm) kd3 ED Course: 19:38 Patient arrived in ED. bp1 19:50 Magaly Chavez FNP-C is [facility]. kb 19:50 Tres Maher MD is Attending Physician. kb 20:45 Triage completed. kd3 20:46 Arm band placed on left wrist. kd3 20:46 Patient has correct armband on for positive identification. kd3 20:46 No provider procedures requiring assistance completed. kd3 23:58 Madeleine Mcgarry, RN is Primary Nurse. kd3 23:58 Patient did not have IV access during this emergency room visit. kd3 Administered Medications: 23:59 Drug: Lidocaine (1 %) 1 vials Volume: 5 ml; Route: Infiltration; kd3 23:59 Drug: Marcaine (bupivacaine) (0.5 %) 1 vials Volume: 10 ml; Route: Infiltration; kd3 Medication: 20:46 VIS not applicable for this client. kd3 Outcome: 23:28 Discharge ordered by . kb 23:58 Discharged to home ambulatory. kd3 23:58 Condition: stable 23:58 Discharge instructions given to patient, Instructed on discharge instructions, follow up and referral plans. Demonstrated understanding of instructions, follow-up care. 23:59 Patient left the ED. kd3 Signatures: Magaly Chavez FNP-C TACO MAKER-Nabila Floyd bp1 Madeleine Mcgarry, RN RN kd3
--- NOTE | 2022-08-21 23:29 | EDPHYS ---
Physician Documentation [facility] Name: Donnie Man Jr Age: 41 yrs Sex: Male : 1980 Arrival Date: 08/21/2022 Time: 19:38 Bed 10 Private MD: ED Physician Tres Maher HPI: 08/21 23:39 This 41 yrs old Male presents to ER via Ambulatory with complaints of Wound kb Infection, -Finger. 23:39 the patient presents with a swollen area of the palmar aspect of distal phalanx of kb right middle finger. Description: erythematous, fluctuant, swollen, warm. Onset: The symptoms/episode began/occurred 6 day(s) ago. Possible cause(s): unknown. Associated signs and symptoms: Pertinent positives: erythema, swelling. Modifying factors: the symptoms are alleviated by nothing, the symptoms are aggravated by pressure. Severity of symptoms: At their worst the symptoms were moderate, in the emergency department the symptoms are unchanged. The patient has not experienced similar symptoms in the past. The patient has not recently seen a physician. Pt reports swelling and redness to right middle finger that started on . Came in Friday and had an I\T\D of paronychia, prescribed doxycycline and bactrim. Came back today because the swelling has spread to pad of finger. Historical: - Allergies: 20:45 PENICILLINS; kd3 - PMHx: 20:45 Diabetes; kd3 - Immunization history:: Adult Immunizations up to date. - Social history:: Smoking status: Patient denies any tobacco usage or history of. ROS: 23:38 Constitutional: Negative for fever, chills, and weight loss. kb 23:38 Skin: Positive for abscess, of the palmar aspect of distal phalanx of right middle finger. 23:38 All other systems are negative. Exam: 23:38 Constitutional: This is a well developed, well nourished patient who is awake, alert, kb and in no acute distress. Head/Face: Normocephalic, atraumatic. ENT: Moist Mucous membranes Cardiovascular: Regular rate and rhythm with a normal S1 and S2. No gallops, murmurs, or rubs. No pulse deficits. Respiratory: Respirations even and unlabored. No increased work of breathing. Talking in full sentences MS/ Extremity: Pulses equal, no cyanosis. Neurovascular intact. Full, normal range of motion. Neuro: Awake and alert, GCS 15, oriented to person, place, time, and situation. Moves all extremities. Normal gait. Psych: Awake, alert, with orientation to person, place and time. Behavior, mood, and affect are within normal limits. 23:38 Skin: abscess, that is moderate sized, of the palmar aspect of distal phalanx of right middle finger, with fluctuance, that is moderate. Vital Signs: 20:42 BP 154 / 83; Pulse 93; Resp 18; Temp 98.4(O); Pulse Ox 97% ; Weight 95.25 kg; Height 5 kd3 ft. 6 in. (167.64 cm); 20:45 Pain 9/10; kd3 20:42 Body Mass Index 33.89 (95.25 kg, 167.64 cm) kd3 Procedures: 23:37 I \T\ D: Incision and drainage was performed for an abscess of the palmar aspect of kb distal phalanx of right middle finger Prepped with Betadine, Incised with #11 blade. Drained moderate amount bloody fluid. the patient tolerated the procedure well. Nerve block: (digital) of palmar aspect of proximal phalanx of right middle finger Medication: Lidocaine 1% without epinephrine Marcaine 0.5%, Amount: 4 mls were injected, Effect: the patient has resolution of the pain, Set up for procedure. Performed by Magaly MOREIRA Patient tolerated well. MDM: 19:50 Patient medically screened. 23:25 Data reviewed: vital signs, nurses notes. Data interpreted: Pulse oximetry: on room air kb is 97 %. Interpretation: normal. Counseling: I had a detailed discussion with the patient and/or guardian regarding: the historical points, exam findings, and any diagnostic results supporting the discharge/admit diagnosis, the need for outpatient follow up, a hand specialist, to return to the emergency department if symptoms worsen or persist or if there are any questions or concerns that arise at home. 23:42 Data reviewed: I have discussed the patient's presentation/case with the attending Emergency Department Physician;. Administered Medications: 23:59 Drug: Lidocaine (1 %) 1 vials Volume: 5 ml; Route: Infiltration; kd3 23:59 Drug: Marcaine (bupivacaine) (0.5 %) 1 vials Volume: 10 ml; Route: Infiltration; kd3 Disposition: 23:21 Co-signature as Attending Physician, Tres Maher MD Attestation: The patient's rt history, exam findings, diagnostics, and a summary of any interventions or procedures was reviewed in detail with Magaly MOREIRA Evaluated the patient. He has an apparent felon to the right middle finger. He is able to bend his finger completely. He does not have fusiform swelling, no evidence of a flexor tenosynovitis. Is currently on antibiotics. Will be incised and drained, he is stable for outpatient care, return precautions were discussed.. 08/22 03:11 I agree with the assessment and plan of care. rt Disposition Summary: 08/21/22 23:28 Discharge Ordered Location: Home kb Condition: Stable kb Diagnosis - Cutaneous abscess of right hand - paronychia and felon right middle finger kb Followup: kb - With: Emergency Department - When: As needed - Reason: Worsening of condition Followup: kb - With: Private Physician - When: 2 - 3 days - Reason: Recheck today's complaints, Continuance of care, Re-evaluation by your physician Discharge Instructions: - Discharge Summary Sheet kb - Paronychia, [id number] kb Forms: - Medication Reconciliation Form kb - Thank You Letter kb - Antibiotic Education kb - Prescription Opioid Use kb Signatures: Magaly Chavez FNP-C FNP-Ckb Doucette, Kyli, RN RN kd3 Tres Maher MD MD rt
[2022-08-22 00:15] VITALS: BP 154/83; TEMP 98.4; O2SAT 97
== END 2022-08-21 23:59 | disposition home or self-care (01) ==
LOC: ER 19:33
DX: L03.011 Cellulitis of right finger (principal); Z88.0 Allergy status to penicillin
CPT/HCPCS: 64450; 99283; J2001

== ENCOUNTER → 2023-09-29 | Emergency (ER) | payer OTHER ==
--- OUTSIDE RECORDS SUMMARY | 2023-09-29 11:56 | XMS REPORT | Continuity of Care Document ---
Author Name Unknown Address [address] [facility]. [address] [place] [address] [facility] Address [address] [facility] [place] [address] Care Team Providers Care Inspector Structural Bonding Name Role Phone FREDDIE TATUM Primary Care Physician Unav ailable LALY HENRY Attending Clinician Unavailable Laly Lopez Attending Clinician [phone] ZENA SCHULTZ Attending Clinician Unavailabl e Therapy-Kimberly CaballeroQuz-Fj-Nvrxx Attending Clinician Unavailable Carlos Mclaughlin MD Attending Clinician [phone] CARLOS MCLAUGHLIN Attending Clinician Unavailable Doctor Unassigned, [place] Attending Clinician U simeon Moseley RN, Coby Hernandez Attending Clinician [phone] MD Attending Clinician [phone] Stephanie Singleton MD Attending Clinician [phone] Edilberto Mims MD Attending Clinician [phone] EDILBERTO MIMS Attending Clinician Unavailable Pop ENRIQUE, Josue Attending Clinician [phone] Shawna ENRIQUE, Tomasz Dunn Attending Clinician [phone] Joel ENRIQUE, Salazar Attending Clinician + Lab, Adc Fam Pob I Attending Clinician Unavailab Krystina Morfin Attending Clinician [phone] KRYSTINA CHEEMA Attending Clinician Unavailable Stephanie Singleton MD Admitting Clinician STEPHANIE SINGLETON Admitting Clinician Unavailable Payers Payer Name Policy Type Policy Number Effective Date Expirati on Date Source [employer] [id number] 2022 00:00:00 Problems Condition Name Condition Details Condition Category Status Onset Date Resolution Date Last Treatment Date Treating Clinician Comments Source Finger pain, right Finger pain, right Disease Active 2021-10 00:00: 00 [facility] Finger stiffness, right Finger stiffness, right Disease Active 2021-10 00:00: 00 [facility] Obesity (BMI 30-39.9) Obesity (BMI 30-39.9) Disease Active 2021-10 00:00: 00 [facility] 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 Disease Active 2021-10 00:00: 00 [facility] Essential hypertensi on Essential hypertensi on Disease Active 2021-10 00:00: 00 [facility] Hyperlipid emia Hyperlipid emia Disease Active 2021-10 00:00: 00 [facility] Restless leg syndrome Restless leg syndrome Disease Active 2021-10 00:00: 00 [facility] Encounter for routine history and physical exam for male Encounter for routine history and physical exam for male Disease Active 02-12 00:00: 00 [facility] Type 2 diabetes mellitus without complicati on, with long-term current use of insulin Type 2 diabetes mellitus without complicati on, with long-term current use of insulin Disease Active 12-01 00:00: 00 Overview: Formattin g of this note might be different from the original. 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 [facility] Yeast infection Yeast infection Disease Active 12-01 00:00: 00 [facility] Allergies, Adverse Reactions, Alerts Allergy Name Allergy Type Status Severity Reaction(s) Onset Date Inactive Date Treating Clinician Comments Source Penicill ins Propensi ty to adverse reaction s Active Rash 11-22 00:00: 00 [facility] PENICILL INS Drug Class Active Rash 11-22 00:00: 00 [facility] Penicill ins Propensi ty to adverse reaction s Active Rash 11-22 00:00: 00 [facility] Social History Social Habit Start Date Stop Date Quantity Comments Source History of tobacco use Cigarette Smoker [facility] Exposure to SARS-CoV-2 (event) 2022-10-28 00:00:00 2022-11-07 08:30:00 Unable to assess [facility] Tobacco use and exposure 2022-10-08 00:00:00 2022-10-08 00:00:00 Smokeless tobacco non-user [facility] Alcohol intake 2022-10-08 00:00:00 2022-10-08 00:00:00 Current drinker of alcohol (finding) [facility] Tobacco Comment 2022-10-08 00:00:00 2022-10-08 00:00:00 smokes 1 pack per week [facility] Alcohol Comment 2014-02-22 00:00:00 2014-02-22 00:00:00 Currently uses alcohol only occasionally. 4 years ago he drank 24 beers daily for 4-5 months. [facility] Sex Assigned At 1980 00:00:00 1980 00:00:00 [facility] Smoking Status Start Date Stop Date Source Ex-smoker 2022-10-08 00:00:00 2022-10-08 00:00:00 [facility] Occasional tobacco smoker 2014-02-22 00:00:00 [facility] Medications Ordered Medication Name Filled Medication Name Start Date Stop Date Current Medication? Ordering Clinician Indication Dosage Frequency Signature (SIG) Comments Components Source gabapentin 600 mg tablet 2021-10 00:00: 00 Yes 600mg Take 600 mg by mouth at bedtime. [facility] gabapentin 600 mg tablet 2021-10 00:00: 00 Yes 600mg Take 600 mg by mouth at bedtime. [facility] gabapentin 600 mg tablet 2021-10 00:00: 00 Yes 600mg Take 600 mg by mouth at bedtime. [facility] MOUNJARO 2.5 mg/0.5 mL PnIj 2021-10 00:00: 00 Yes INJECT 2.5 MG SUBCUTANEO USLY ONCE A WEEK FOR 4 WEEKS [facility] MOUNJARO 2.5 mg/0.5 mL PnIj 2021-10 00:00: 00 Yes INJECT 2.5 MG SUBCUTANEO USLY ONCE A WEEK FOR 4 WEEKS [facility] MOUNJARO 2.5 mg/0.5 mL PnIj 2021-10 00:00: 00 Yes INJECT 2.5 MG SUBCUTANEO USLY ONCE A WEEK FOR 4 WEEKS [facility] mupirocin 2 % ointment 2021-10 00:00: 00 10-03 05:59 :00 No [id number] Apply to area(s) 3 (three) times daily for 21 days. [facility] mupirocin 2 % ointment 2021-10 00:00: 00 10-03 05:59 :00 No [id number] Apply to area(s) 3 (three) times daily for 21 days. [facility] mupirocin 2 % ointment 2021-10 00:00: 00 10-03 05:59 :00 No [id number] Apply to area(s) 3 (three) times daily for 21 days. [facility] losartan 50 mg tablet 2021-10 00:00: 00 Yes 50mg Take 1 tablet by mouth in the morning. [facility] polyethylen e glycol 3350 17 gram powder 2021-10 00:00: 00 Yes [id number] 17g Take 1 Packet by mouth in the morning. [facility] sennosides 8.6 mg tablet 2021-10 00:00: 00 Yes [id number] 8.6mg Take 1 tablet by mouth in the morning. [facility] losartan 50 mg tablet 2021-10 00:00: 00 Yes 50mg Take 1 tablet by mouth in the morning. [facility] polyethylen e glycol 3350 17 gram powder 2021-10 00:00: 00 Yes [id number] 17g Take 1 Packet by mouth in the morning. [facility] sennosides 8.6 mg tablet 2021-10 00:00: 00 Yes [id number] 8.6mg Take 1 tablet by mouth in the morning. [facility] losartan 50 mg tablet 2021-10 00:00: 00 Yes 50mg Take 1 tablet by mouth in the morning. [facility] polyethylen e glycol 3350 17 gram powder 2021-10 00:00: 00 Yes [id number] 17g Take 1 Packet by mouth in the morning. [facility] sennosides 8.6 mg tablet 2021-10 00:00: 00 Yes [id number] 8.6mg Take 1 tablet by mouth in the morning. [facility] losartan 50 mg tablet 2021-10 00:00: 00 Yes 50mg Take 1 tablet by mouth in the morning. [facility] polyethylen e glycol 3350 17 gram powder 2021-10 00:00: 00 Yes [id number] 17g Take 1 Packet by mouth in the morning. [facility] sennosides 8.6 mg tablet 2021-10 00:00: 00 Yes [id number] 8.6mg Take 1 tablet by mouth in the morning. [facility] losartan 50 mg tablet 2021-10 00:00: 00 Yes 50mg Take 1 tablet by mouth in the morning. [facility] polyethylen e glycol 3350 17 gram powder 2021-10 00:00: 00 Yes [id number] 17g Take 1 Packet by mouth in the morning. [facility] sennosides 8.6 mg tablet 2021-10 00:00: 00 Yes [id number] 8.6mg Take 1 tablet by mouth in the morning. [facility] losartan 50 mg tablet 2021-10 00:00: 00 Yes 50mg Take 1 tablet by mouth in the morning. [facility] polyethylen e glycol 3350 17 gram powder 2021-10 00:00: 00 Yes [id number] 17g Take 1 Packet by mouth in the morning. [facility] sennosides 8.6 mg tablet 2021-10 00:00: 00 Yes [id number] 8.6mg Take 1 tablet by mouth in the morning. [facility] losartan 50 mg tablet 2021-10 00:00: 00 Yes 50mg Take 1 tablet by mouth in the morning. [facility] polyethylen e glycol 3350 17 gram powder 2021-10 00:00: 00 Yes [id number] 17g Take 1 Packet by mouth in the morning. [facility] sennosides 8.6 mg tablet 2021-10 00:00: 00 Yes [id number] 8.6mg Take 1 tablet by mouth in the morning. [facility] losartan 50 mg tablet 2021-10 00:00: 00 Yes 50mg Take 1 tablet by mouth in the morning. [facility] polyethylen e glycol 3350 17 gram powder 2021-10 00:00: 00 Yes [id number] 17g Take 1 Packet by mouth in the morning. [facility] sennosides 8.6 mg tablet 2021-10 00:00: 00 Yes [id number] 8.6mg Take 1 tablet by mouth in the morning. [facility] losartan 50 mg tablet 2021-10 00:00: 00 Yes 50mg Take 1 tablet by mouth in the morning. [facility] polyethylen e glycol 3350 17 gram powder 2021-10 00:00: 00 Yes [id number] 17g Take 1 Packet by mouth in the morning. [facility] sennosides 8.6 mg tablet 2021-10 00:00: 00 Yes [id number] 8.6mg Take 1 tablet by mouth in the morning. [facility] losartan 50 mg tablet 2021-10 00:00: 00 Yes 50mg Take 1 tablet by mouth in the morning. [facility] polyethylen e glycol 3350 17 gram powder 2021-10 00:00: 00 Yes [id number] 17g Take 1 Packet by mouth in the morning. [facility] sennosides 8.6 mg tablet 2021-10 00:00: 00 Yes [id number] 8.6mg Take 1 tablet by mouth in the morning. [facility] losartan 50 mg tablet 2021-10 00:00: 00 Yes 50mg Take 1 tablet by mouth in the morning. [facility] polyethylen e glycol 3350 17 gram powder 2021-10 00:00: 00 Yes [id number] 17g Take 1 Packet by mouth in the morning. [facility] sennosides 8.6 mg tablet 2021-10 00:00: 00 Yes [id number] 8.6mg Take 1 tablet by mouth in the morning. [facility] losartan 50 mg tablet 2021-10 00:00: 00 Yes 50mg Take 1 tablet by mouth in the morning. [facility] polyethylen e glycol 3350 17 gram powder 2021-10 00:00: 00 Yes [id number] 17g Take 1 Packet by mouth in the morning. [facility] sennosides 8.6 mg tablet 2021-10 00:00: 00 Yes [id number] 8.6mg Take 1 tablet by mouth in the morning. [facility] losartan 50 mg tablet 2021-10 00:00: 00 Yes 50mg Take 1 tablet by mouth in the morning. [facility] polyethylen e glycol 3350 17 gram powder 2021-10 00:00: 00 Yes [id number] 17g Take 1 Packet by mouth in the morning. [facility] sennosides 8.6 mg tablet 2021-10 00:00: 00 Yes [id number] 8.6mg Take 1 tablet by mouth in the morning. [facility] losartan 50 mg tablet 2021-10 00:00: 00 Yes 50mg Take 1 tablet by mouth in the morning. [facility] polyethylen e glycol 3350 17 gram powder 2021-10 00:00: 00 Yes [id number] 17g Take 1 Packet by mouth in the morning. [facility] sennosides 8.6 mg tablet 2021-10 00:00: 00 Yes [id number] 8.6mg Take 1 tablet by mouth in the morning. [facility] losartan 50 mg tablet 2021-10 00:00: 00 Yes 50mg Take 1 tablet by mouth in the morning. [facility] polyethylen e glycol 3350 17 gram powder 2021-10 00:00: 00 Yes [id number] 17g Take 1 Packet by mouth in the morning. [facility] sennosides 8.6 mg tablet 2021-10 00:00: 00 Yes [id number] 8.6mg Take 1 tablet by mouth in the morning. [facility] sennosides (SENOKOT) tablet 8.6 mg 2021-10 15:00: 00 Yes 8.6mg 8.6 mg, Oral, DAILY, First dose on Fri09/04/22 at 0900, Until Discontinu ed, Routine [facility] polyethylen e glycol 3350 powder 17 g 2021-10 15:00: 00 Yes 17g 17 g, Oral, DAILY, First dose on Fri09/04/22 at 0900, Until Discontinu ed, Routine [facility] sennosides (SENOKOT) tablet 8.6 mg 2021-10 15:00: 00 Yes 8.6mg 8.6 mg, Oral, DAILY, First dose on Fri09/04/22 at 0900, Until Discontinu ed, Routine [facility] polyethylen e glycol 3350 powder 17 g 2021-10 15:00: 00 Yes 17g 17 g, Oral, DAILY, First dose on Fri09/04/22 at 0900, Until Discontinu ed, Routine [facility] morpHINE (2 mg/mL) injection 4 mg 2021-10 13:57: 04 Yes 4mg 4 mg, Slow IV Push, Q4HPRN, Starting on Fri09/04/22 at 0757, Until Discontinu ed, Routine, Pain (scale 7-10) [facility] morpHINE (2 mg/mL) injection 4 mg 2021-10 13:57: 04 Yes 4mg 4 mg, Slow IV Push, Q4HPRN, Starting on Fri09/04/22 at 0757, Until Discontinu ed, Routine, Pain (scale 7-10) [facility] HYDROcodone -acetaminop hen (NORCO) 10-325 mg tablet 1 tablet 2021-10 10:51: 25 Yes 1{tbl} 1 tablet, Oral, Q6HPRN, Starting on Fri09/04/22 at 0451, Until Discontinu ed, Routine, Pain (scale 4-6) [facility] HYDROcodone -acetaminop hen (NORCO) 10-325 mg tablet 1 tablet 2021-10 10:51: 25 Yes 1{tbl} 1 tablet, Oral, Q6HPRN, Starting on Fri09/04/22 at 0451, Until Discontinu ed, Routine, Pain (scale 4-6) [facility] morpHINE (2 mg/mL) injection 2 mg 2021-10 10:51: 13 09-04 13:57 :36 No 2mg 2 mg, Slow IV Push, Q4HPRN, Starting on Fri09/04/22 at 0451, Until Fri09/04/22 at 0757, Routine, Pain (scale 7-10) [facility] HYDROcodone -acetaminop hen (NORCO) 10-325 mg tablet 1 tablet 2021-10 08:39: 28 09-04 10:51 :33 No 1{tbl} 1 tablet, Oral, Q6HPRN, Starting on Fri09/04/22 at 0239, Until Fri09/04/22 at 0451, Routine, Pain (scale 7-10) [facility] gabapentin 100 mg capsule 2021-10 00:00: 00 Yes [id number] 300mg Take 3 capsules by mouth at bedtime. [facility] ibuprofen 600 mg tablet 2021-10 00:00: 00 Yes [id number] 600mg Take 1 tablet by mouth every 6 (six) hours as needed for Pain (scale 1-3). [facility] and regular human 70-30 100 unit/mL (70-30) injection 2021-10 00:00: 00 Yes 40U inject 40 Units under the skin every morning. [facility] insulin NPH and regular human 70-30 100 unit/mL (70-30) injection 2021-10 00:00: 00 Yes 20U inject 20 Units under the skin every evening. [facility] metFORMIN 500 mg tablet 2021-10 00:00: 00 Yes 500mg Take 1 tablet by mouth in the morning and 1 tablet in the evening. Take with meals. [facility] semaglutide (OZEMPIC) 0.25 mg or 0.5 mg(2 mg/1.5 mL) PnIj 2021-10 00:00: 00 Yes .25mg inject 0.25 mg under the skin. [facility] gabapentin 100 mg capsule 2021-10 00:00: 00 Yes [id number] 300mg Take 3 capsules by mouth at bedtime. [facility] ibuprofen 600 mg tablet 2021-10 00:00: 00 Yes [id number] 600mg Take 1 tablet by mouth every 6 (six) hours as needed for Pain (scale 1-3). [facility] NPH and regular human 70-30 100 unit/mL (70-30) injection 2021-10 00:00: 00 Yes 40U inject 40 Units under the skin every morning. [facility] insulin NPH and regular human 70-30 100 unit/mL (70-30) injection 2021-10 00:00: 00 Yes 20U inject 20 Units under the skin every evening. [facility] metFORMIN 500 mg tablet 2021-10 00:00: 00 Yes 500mg Take 1 tablet by mouth in the morning and 1 tablet in the evening. Take with meals. [facility] semaglutide (OZEMPIC) 0.25 mg or 0.5 mg(2 mg/1.5 mL) PnIj 2021-10 00:00: 00 Yes .25mg inject 0.25 mg under the skin. [facility] gabapentin 100 mg capsule 2021-10 00:00: 00 Yes [id number] 300mg Take 3 capsules by mouth at bedtime. [facility] ibuprofen 600 mg tablet 2021-10 00:00: 00 Yes [id number] 600mg Take 1 tablet by mouth every 6 (six) hours as needed for Pain (scale 1-3). [facility] insulin NPH and regular human 70-30 100 unit/mL (70-30) injection 2021-10 00:00: 00 Yes 40U inject 40 Units under the skin every morning. [facility] insulin NPH and regular human 70-30 100 unit/mL (70-30) injection 2021-10 00:00: 00 Yes 20U inject 20 Units under the skin every evening. [facility] metFORMIN 500 mg tablet 2021-10 00:00: 00 Yes 500mg Take 1 tablet by mouth in the morning and 1 tablet in the evening. Take with meals. [facility] semaglutide (OZEMPIC) 0.25 mg or 0.5 mg(2 mg/1.5 mL) PnIj 2021-10 00:00: 00 Yes .25mg inject 0.25 mg under the skin. [facility] gabapentin 100 mg capsule 2021-10 00:00: 00 Yes [id number] 300mg Take 3 capsules by mouth at bedtime. [facility] ibuprofen 600 mg tablet 2021-10 00:00: 00 Yes [id number] 600mg Take 1 tablet by mouth every 6 (six) hours as needed for Pain (scale 1-3). [facility] insulin NPH and regular human 70-30 100 unit/mL (70-30) injection 2021-10 00:00: 00 Yes 40U inject 40 Units under the skin every morning. [facility] insulin NPH and regular human 70-30 100 unit/mL (70-30) injection 2021-10 00:00: 00 Yes 20U inject 20 Units under the skin every evening. [facility] metFORMIN 500 mg tablet 2021-10 00:00: 00 Yes 500mg Take 1 tablet by mouth in the morning and 1 tablet in the evening. Take with meals. [facility] semaglutide (OZEMPIC) 0.25 mg or 0.5 mg(2 mg/1.5 mL) PnIj 2021-10 00:00: 00 Yes .25mg inject 0.25 mg under the skin. [facility] gabapentin 100 mg capsule 2021-10 00:00: 00 Yes [id number] 300mg Take 3 capsules by mouth at bedtime. [facility] ibuprofen 600 mg tablet 2021-10 00:00: 00 Yes [id number] 600mg Take 1 tablet by mouth every 6 (six) hours as needed for Pain (scale 1-3). [facility] insulin NPH and regular human 70-30 100 unit/mL (70-30) injection 2021-10 00:00: 00 Yes 40U inject 40 Units under the skin every morning. [facility] insulin NPH and regular human 70-30 100 unit/mL (70-30) injection 2021-10 00:00: 00 Yes 20U inject 20 Units under the skin every evening. [facility] metFORMIN 500 mg tablet 2021-10 00:00: 00 Yes 500mg Take 1 tablet by mouth in the morning and 1 tablet in the evening. Take with meals. [facility] semaglutide (OZEMPIC) 0.25 mg or 0.5 mg(2 mg/1.5 mL) PnIj 2021-10 00:00: 00 Yes .25mg inject 0.25 mg under the skin. [facility] gabapentin 100 mg capsule 2021-10 00:00: 00 Yes [id number] 300mg Take 3 capsules by mouth at bedtime. [facility] ibuprofen 600 mg tablet 2021-10 00:00: 00 Yes [id number] 600mg Take 1 tablet by mouth every 6 (six) hours as needed for Pain (scale 1-3). [facility] insulin NPH and regular human 70-30 100 unit/mL (70-30) injection 2021-10 00:00: 00 Yes 40U inject 40 Units under the skin every morning. [facility] insulin NPH and regular human 70-30 100 unit/mL (70-30) injection 2021-10 00:00: 00 Yes 20U inject 20 Units under the skin every evening. [facility] metFORMIN 500 mg tablet 2021-10 00:00: 00 Yes 500mg Take 1 tablet by mouth in the morning and 1 tablet in the evening. Take with meals. [facility] semaglutide (OZEMPIC) 0.25 mg or 0.5 mg(2 mg/1.5 mL) [facility] 2021-10 00:00: 00 Yes .25mg inject 0.25 mg under the skin. [facility] gabapentin 100 mg capsule 2021-10 00:00: 00 Yes [id number] 300mg Take 3 capsules by mouth at bedtime. [facility] ibuprofen 600 mg tablet 2021-10 00:00: 00 Yes [id number] 600mg Take 1 tablet by mouth every 6 (six) hours as needed for Pain (scale 1-3). [facility] insulin NPH and regular human 70-30 100 unit/mL (70-30) injection 2021-10 00:00: 00 Yes 40U inject 40 Units under the skin every morning. [facility] insulin NPH and regular human 70-30 100 unit/mL (70-30) injection 2021-10 00:00: 00 Yes 20U inject 20 Units under the skin every evening. [facility] metFORMIN 500 mg tablet 2021-10 00:00: 00 Yes 500mg Take 1 tablet by mouth in the morning and 1 tablet in the evening. Take with meals. [facility] semaglutide (OZEMPIC) 0.25 mg or 0.5 mg(2 mg/1.5 mL) PnIj 2021-10 00:00: 00 Yes .25mg inject 0.25 mg under the skin. [facility] polyethylen e glycol 3350 17 gram/dose powder 2021-10 00:00: 00 Yes MIX 17 GRAMS OF POWDER IN WATER OR JUICE ONCE DAILY IN THE MORNING [facility] gabapentin 100 mg capsule 2021-10 00:00: 00 Yes [id number] 300mg Take 3 capsules by mouth at bedtime. [facility] ibuprofen 600 mg tablet 2021-10 00:00: 00 Yes [id number] 600mg Take 1 tablet by mouth every 6 (six) hours as needed for Pain (scale 1-3). [facility] insulin NPH and regular human 70-30 100 unit/mL (70-30) injection 2021-10 00:00: 00 Yes 40U inject 40 Units under the skin every morning. [facility] insulin NPH and regular human 70-30 100 unit/mL (70-30) injection 2021-10 00:00: 00 Yes 20U inject 20 Units under the skin every evening. [facility] metFORMIN 500 mg tablet 2021-10 00:00: 00 Yes 500mg Take 1 tablet by mouth in the morning and 1 tablet in the evening. Take with meals. [facility] semaglutide (OZEMPIC) 0.25 mg or 0.5 mg(2 mg/1.5 mL) Ij 2021-10 00:00: 00 Yes .25mg inject 0.25 mg under the skin. [facility] polyethylen e glycol 3350 17 gram/dose powder 2021-10 00:00: 00 Yes MIX 17 GRAMS OF POWDER IN WATER OR JUICE ONCE DAILY IN THE MORNING [facility] gabapentin 100 mg capsule 2021-10 00:00: 00 Yes [id number] 300mg Take 3 capsules by mouth at bedtime. [facility] ibuprofen 600 mg tablet 2021-10 00:00: 00 Yes [id number] 600mg Take 1 tablet by mouth every 6 (six) hours as needed for Pain (scale 1-3). [facility] insulin NPH and regular human 70-30 100 unit/mL (70-30) injection 2021-10 00:00: 00 Yes 40U inject 40 Units under the skin every morning. [facility] insulin NPH and regular human 70-30 100 unit/mL (70-30) injection 2021-10 00:00: 00 Yes 20U inject 20 Units under the skin every evening. [facility] metFORMIN 500 mg tablet 2021-10 00:00: 00 Yes 500mg Take 1 tablet by mouth in the morning and 1 tablet in the evening. Take with meals. [facility] semaglutide (OZEMPIC) 0.25 mg or 0.5 mg(2 mg/1.5 mL) PnIj 2021-10 00:00: 00 Yes .25mg inject 0.25 mg under the skin. [facility] polyethylen e glycol 3350 17 gram/dose powder 2021-10 00:00: 00 Yes MIX 17 GRAMS OF POWDER IN WATER OR JUICE ONCE DAILY IN THE MORNING [facility] gabapentin 100 mg capsule 2021-10 00:00: 00 Yes [id number] 300mg Take 3 capsules by mouth at bedtime. [facility] ibuprofen 600 mg tablet 2021-10 00:00: 00 Yes [id number] 600mg Take 1 tablet by mouth every 6 (six) hours as needed for Pain (scale 1-3). [facility] insulin NPH and regular human 70-30 100 unit/mL (70-30) injection 2021-10 00:00: 00 Yes 40U inject 40 Units under the skin every morning. [facility] insulin NPH and regular human 70-30 100 unit/mL (70-30) injection 2021-10 00:00: 00 Yes 20U inject 20 Units under the skin every evening. [facility] metFORMIN 500 mg tablet 2021-10 00:00: 00 Yes 500mg Take 1 tablet by mouth in the morning and 1 tablet in the evening. Take with meals. [facility] semaglutide (OZEMPIC) 0.25 mg or 0.5 mg(2 mg/1.5 mL) PnIj 2021-10 00:00: 00 Yes .25mg inject 0.25 mg under the skin. [facility] polyethylen e glycol 3350 17 gram/dose powder 2021-10 00:00: 00 Yes MIX 17 GRAMS OF POWDER IN WATER OR JUICE ONCE DAILY IN THE MORNING [facility] gabapentin 100 mg capsule 2021-10 00:00: 00 Yes [id number] 300mg Take 3 capsules by mouth at bedtime. [facility] ibuprofen 600 mg tablet 2021-10 00:00: 00 Yes [id number] 600mg Take 1 tablet by mouth every 6 (six) hours as needed for Pain (scale 1-3). [facility] insulin NPH and regular human 70-30 100 unit/mL (70-30) injection 2021-10 00:00: 00 Yes 40U inject 40 Units under the skin every morning. [facility] insulin NPH and regular human 70-30 100 unit/mL (70-30) injection 2021-10 00:00: 00 Yes 20U inject 20 Units under the skin every evening. [facility] metFORMIN 500 mg tablet 2021-10 00:00: 00 Yes 500mg Take 1 tablet by mouth in the morning and 1 tablet in the evening. Take with meals. [facility] semaglutide (OZEMPIC) 0.25 mg or 0.5 mg(2 mg/1.5 mL) PnIj 2021-10 00:00: 00 Yes .25mg inject 0.25 mg under the skin. [facility] polyethylen e glycol 3350 17 gram/dose powder 2021-10 00:00: 00 Yes MIX 17 GRAMS OF POWDER IN WATER OR JUICE ONCE DAILY IN THE MORNING [facility] ibuprofen 600 mg tablet 2021-10 00:00: 00 Yes [id number] 600mg Take 1 tablet by mouth every 6 (six) hours as needed for Pain (scale 1-3). [facility] and regular human 70-30 100 unit/mL (70-30) injection 2021-10 00:00: 00 Yes 40U inject 40 Units under the skin every morning. [facility] insulin NPH and regular human 70-30 100 unit/mL (70-30) injection 2021-10 00:00: 00 Yes 20U inject 20 Units under the skin every evening. [facility] metFORMIN 500 mg tablet 2021-10 00:00: 00 Yes 500mg Take 1 tablet by mouth in the morning and 1 tablet in the evening. Take with meals. [facility] semaglutide (OZEMPIC) 0.25 mg or 0.5 mg(2 mg/1.5 mL) PnIj 2021-10 00:00: 00 Yes .25mg inject 0.25 mg under the skin. [facility] polyethylen e glycol 3350 17 gram/dose powder 2021-10 00:00: 00 Yes MIX 17 GRAMS OF POWDER IN WATER OR JUICE ONCE DAILY IN THE MORNING [facility] ibuprofen 600 mg tablet 2021-10 00:00: 00 Yes [id number] 600mg Take 1 tablet by mouth every 6 (six) hours as needed for Pain (scale 1-3). [facility] NPH and regular human 70-30 100 unit/mL (70-30) injection 2021-10 00:00: 00 Yes 40U inject 40 Units under the skin every morning. [facility] insulin NPH and regular human 70-30 100 unit/mL (70-30) injection 2021-10 00:00: 00 Yes 20U inject 20 Units under the skin every evening. [facility] metFORMIN 500 mg tablet 2021-10 00:00: 00 Yes 500mg Take 1 tablet by mouth in the morning and 1 tablet in the evening. Take with meals. [facility] semaglutide (OZEMPIC) 0.25 mg or 0.5 mg(2 mg/1.5 mL) PnIj 2021-10 00:00: 00 Yes .25mg inject 0.25 mg under the skin. [facility] polyethylen e glycol 3350 17 gram/dose powder 2021-10 00:00: 00 Yes MIX 17 GRAMS OF POWDER IN WATER OR JUICE ONCE DAILY IN THE MORNING [facility] ibuprofen 600 mg tablet 2021-10 00:00: 00 Yes [id number] 600mg Take 1 tablet by mouth every 6 (six) hours as needed for Pain (scale 1-3). [facility] insulin NPH and regular human 70-30 100 unit/mL (70-30) injection 2021-10 00:00: 00 Yes 40U inject 40 Units under the skin every morning. [facility] insulin NPH and regular human 70-30 100 unit/mL (70-30) injection 2021-10 00:00: 00 Yes 20U inject 20 Units under the skin every evening. [facility] metFORMIN 500 mg tablet 2021-10 00:00: 00 Yes 500mg Take 1 tablet by mouth in the morning and 1 tablet in the evening. Take with meals. [facility] semaglutide (OZEMPIC) 0.25 mg or 0.5 mg(2 mg/1.5 mL) PnIj 2021-10 00:00: 00 Yes .25mg inject 0.25 mg under the skin. [facility] polyethylen e glycol 3350 17 gram/dose powder 2021-10 00:00: 00 Yes MIX 17 GRAMS OF POWDER IN WATER OR JUICE ONCE DAILY IN THE MORNING [facility] gabapentin 100 mg capsule 2021-10 00:00: 00 Yes [id number] 300mg Take 3 capsules by mouth at bedtime. [facility] ibuprofen 600 mg tablet 2021-10 00:00: 00 Yes [id number] 600mg Take 1 tablet by mouth every 6 (six) hours as needed for Pain (scale 1-3). [facility] insulin NPH and regular human 70-30 100 unit/mL (70-30) injection 2021-10 00:00: 00 Yes 40U inject 40 Units under the skin every morning. [facility] insulin NPH and regular human 70-30 100 unit/mL (70-30) injection 2021-10 00:00: 00 Yes 20U inject 20 Units under the skin every evening. [facility] metFORMIN 500 mg tablet 2021-10 00:00: 00 Yes 500mg Take 1 tablet by mouth in the morning and 1 tablet in the evening. Take with meals. [facility] semaglutide (OZEMPIC) 0.25 mg or 0.5 mg(2 mg/1.5 mL) PnIj 2021-10 00:00: 00 Yes .25mg inject 0.25 mg under the skin. [facility] gabapentin 100 mg capsule 2021-10 00:00: 00 10-08 00:00 :00 No [id number] 300mg Take 3 capsules by mouth at bedtime. [facility] gabapentin 100 mg capsule 2021-10 00:00: 00 10-08 00:00 :00 No [id number] 300mg Take 3 capsules by mouth at bedtime. [facility] HYDROcodone -acetaminop hen 10-325 mg tablet 2021-10 00:00: 00 09-12 05:59 :00 No 4647 1{tbl} Take 1 tablet by mouth every 6 (six) hours as needed for Pain (scale 4-6) for up to 7 days. Indication s: acute pain [facility] HYDROcodone -acetaminop hen 10-325 mg tablet 2021-10 00:00: 00 09-12 05:59 :00 No 4647 1{tbl} Take 1 tablet by mouth every 6 (six) hours as needed for Pain (scale 4-6) for up to 7 days. Indication s: acute pain [facility] HYDROcodone -acetaminop hen 10-325 mg tablet 2021-10 00:00: 00 09-12 05:59 :00 No 4647 1{tbl} Take 1 tablet by mouth every 6 (six) hours as needed for Pain (scale 4-6) for up to 7 days. Indication s: acute pain [facility] HYDROcodone -acetaminop hen 10-325 mg tablet 2021-10 00:00: 00 09-12 05:59 :00 No 4647 1{tbl} Take 1 tablet by mouth every 6 (six) hours as needed for Pain (scale 4-6) for up to 7 days. Indication s: acute pain [facility] HYDROcodone -acetaminop hen 10-325 mg tablet 2021-10 00:00: 00 09-12 05:59 :00 No 4647 1{tbl} Take 1 tablet by mouth every 6 (six) hours as needed for Pain (scale 4-6) for up to 7 days. Indication s: acute pain [facility] HYDROcodone -acetaminop hen 10-325 mg tablet 2021-10 00:00: 00 09-12 05:59 :00 No 4647 1{tbl} Take 1 tablet by mouth every 6 (six) hours as needed for Pain (scale 4-6) for up to 7 days. Indication s: acute pain [facility] HYDROcodone -acetaminop hen 10-325 mg tablet 2021-10 00:00: 00 09-12 05:59 :00 No 4647 1{tbl} Take 1 tablet by mouth every 6 (six) hours as needed for Pain (scale 4-6) for up to 7 days. Indication s: acute pain [facility] HYDROcodone -acetaminop hen 10-325 mg tablet 2021-10 00:00: 00 09-12 05:59 :00 No 4647 1{tbl} Take 1 tablet by mouth every 6 (six) hours as needed for Pain (scale 4-6) for up to 7 days. [facility] -[facility]aminop hen 10-325 mg tablet 2021-10 00:00: 00 09-12 05:59 :00 No 4647 1{tbl} Take 1 tablet by mouth every 6 (six) hours as needed for Pain (scale 4-6) for up to 7 days. Indication s: acute pain [facility] HYDROcodone -acetaminop hen 10-325 mg tablet 2021-10 00:00: 00 09-12 05:59 :00 No 4647 1{tbl} Take 1 tablet by mouth every 6 (six) hours as needed for Pain (scale 4-6) for up to 7 days. [facility]: [facility] -acetaminop hen 10-325 mg tablet 2021-10 00:00: 00 09-12 05:59 :00 No 4647 1{tbl} Take 1 tablet by mouth every 6 (six) hours as needed for Pain (scale 4-6) for up to 7 days. Indication s: acute pain [facility] ePHEDrine 25 mg/5 mL (5 mg/mL) syringe 2021-10 16:20: 00 09-03 16:46 :10 No Slow IV Push, ONCE INTRA PROCEDURE, Starting on Fri09/03/22 at 1020, Until Fri09/03/22 at 1046, Routine, Intra-op [facility] ePHEDrine 25 mg/5 mL (5 mg/mL) syringe 2021-10 16:20: 00 09-03 16:46 :10 No Slow IV Push, ONCE INTRA PROCEDURE, Starting on Fri09/03/22 at 1020, Until Fri09/03/22 at 1046, Routine, Intra-op [facility] lidocaine 1% (XYLOCAINE) 100 mg/10 mL (1 %) injection 2021-10 16:07: 00 09-03 16:46 :10 No Slow IV Push, ONCE INTRA PROCEDURE, Starting on Fri09/03/22 at 1007, Until Fri09/03/22 at 1046, Routine, Intra-op [facility] lidocaine 1% (XYLOCAINE) 100 mg/10 mL (1 %) injection 2021-10 16:07: 00 09-03 16:46 :10 No Slow IV Push, ONCE INTRA PROCEDURE, Starting on Fri09/03/22 at 1007, Until Fri09/03/22 at 1046, Routine, Intra-op [facility] PHENYLephri ne 1000 mcg/10 mL in 0.9% NaCl syringe 2021-10 16:06: 00 09-03 16:46 :10 No Slow IV Push, ONCE INTRA PROCEDURE, Starting on Fri09/03/22 at 1006, Until Fri09/03/22 at 1046, Routine, Intra-op [facility] PHENYLephri ne 1000 mcg/10 mL in 0.9% NaCl syringe 2021-10 16:06: 00 09-03 16:46 :10 No Slow IV Push, ONCE INTRA PROCEDURE, Starting on Fri09/03/22 at 1006, Until Fri09/03/22 at 1046, Routine, Intra-op [facility] bupivacaine -epinephrin e-pf (SENSORCAIN E W/EPINEPHRI NE) 0.5 %-1:200,000 5 mL, lidocaine 1% (PF) (XYLOCAINE) 5 mL 2021-10 16:00: 00 09-03 16:45 :29 No PRN, Starting on Fri09/03/22 at 1000, Intra-op [facility] ondansetron (ZOFRAN (PF)) injection 2021-10 15:57: 00 09-03 16:46 :10 No Slow IV Push, ONCE INTRA PROCEDURE, Starting on Fri09/03/22 at 0957, Until Fri09/03/22 at 1046, Routine, Intra-op [facility] ondansetron (ZOFRAN (PF)) injection 2021-10 15:57: 00 09-03 16:46 :10 No Slow IV Push, ONCE INTRA PROCEDURE, Starting on Fri09/03/22 at 0957, Until Fri09/03/22 at 1046, Routine, Intra-op [facility] insulin regular human (HUMULIN R) injection 2021-10 15:54: 00 09-03 16:46 :10 No Subcutaneo us, ONCE INTRA PROCEDURE, Starting on Fri09/03/22 at 0954, Until Fri09/03/22 at 1046, Routine, Intra-op [facility] insulin regular human (HUMULIN R) injection 2021-10 15:54: 00 09-03 16:46 :10 No Subcutaneo us, ONCE INTRA PROCEDURE, Starting on Fri09/03/22 at 0954, Until Fri09/03/22 at 1046, Routine, Intra-op [facility] propofoL IV infusion 2021-10 15:45: 00 09-03 16:46 :10 No IV Infusion, ONCE INTRA PROCEDURE, Starting on Fri09/03/22 at 0945, Until Fri09/03/22 at 1046, Routine, Intra-op [facility] FENTanyl PF (SUBLIMAZE (PF)) injection 2021-10 15:45: 00 09-03 16:46 :10 No Epidural, ONCE INTRA PROCEDURE, Starting on Fri09/03/22 at 0945, Until Fri09/03/22 at 1046, Routine, Intra-op [facility] propofoL IV infusion 2021-10 15:45: 00 09-03 16:46 :10 No IV Infusion, ONCE INTRA PROCEDURE, Starting on Fri09/03/22 at 0945, Until Fri09/03/22 at 1046, Routine, Intra-op [facility] FENTanyl PF (SUBLIMAZE (PF)) injection 2021-10 15:45: 00 09-03 16:46 :10 No Epidural, ONCE INTRA PROCEDURE, Starting on Fri09/03/22 at 0945, Until Fri09/03/22 at 1046, Routine, Intra-op [facility] midazolam (VERSED) injection 2021-10 15:36: 00 09-03 16:46 :10 No IV Push, ONCE INTRA PROCEDURE, Starting on Fri09/03/22 at 0936, Until Fri09/03/22 at 1046, Routine, Intra-op [facility] midazolam (VERSED) injection 2021-10 15:36: 00 09-03 16:46 :10 No IV Push, ONCE INTRA PROCEDURE, Starting on Fri09/03/22 at 0936, Until Fri09/03/22 at 1046, Routine, Intra-op [facility] lactated ringers IV infusion 2021-10 15:25: 00 09-03 16:46 :10 No IV Infusion, CONTINUOUS PRN, Starting on Fri09/03/22 at 0925, Until Fri09/03/22 at 1046, Routine, Intra-op [facility] lactated ringers IV infusion 2021-10 15:25: 00 09-03 16:46 :10 No IV Infusion, CONTINUOUS PRN, Starting on Fri09/03/22 at 0925, Until Fri09/03/22 at 1046, Routine, Intra-op [facility] insulin NPH and regular human 70-30 (70-30 U-100 INSULIN) 100 unit/mL (70-30) injection 20 Units 2021-10 23:00: 00 Yes 20U 20 Units, Subcutaneo us, QPM, First dose on Fri09/02/22 at 1700, Until Discontinu ed, Routine [facility] insulin NPH and regular human 70-30 (70-30 U-100 INSULIN) 100 unit/mL (70-30) injection 20 Units 2021-10 23:00: 00 Yes 20U 20 Units, Subcutaneo us, QPM, First dose on Fri09/02/22 at 1700, Until Discontinu ed, Routine [facility] losartan (COZAAR) tablet 50 mg 2021-10 15:00: 00 Yes 50mg 50 mg, Oral, DAILY, First dose on Fri09/02/22 at 0900, Until Discontinu ed, Routine [facility] insulin NPH and regular human 70-30 (70-30 U-100 INSULIN) 100 unit/mL (70-30) injection 40 Units 2021-10 15:00: 00 Yes 40U 40 Units, Subcutaneo us, QAM, First dose on Fri09/02/22 at 0900, Until Discontinu ed, Routine [facility] losartan (COZAAR) tablet 50 mg 2021-10 15:00: 00 Yes 50mg 50 mg, Oral, DAILY, First dose on Fri09/02/22 at 0900, Until Discontinu ed, Routine [facility] insulin NPH and regular human 70-30 (70-30 U-100 INSULIN) 100 unit/mL (70-30) injection 40 Units 2021-10 15:00: 00 Yes 40U 40 Units, Subcutaneo us, QAM, First dose on Fri09/02/22 at 0900, Until Discontinu ed, Routine [facility] gabapentin (NEURONTIN) capsule 100 mg 2021-10 03:00: 00 Yes 100mg 100 mg, Oral, QHS, First dose on 09/01/22 at 2100, Until Discontinu ed, Routine [facility] Sliding Scale Insulin - Lispro (HumaLOG) + Fsbg Testing 2021-10 03:00: 00 Yes Subcutaneo us, TID MEALS+HS, First dose on 09/01/22 at 2100, Until Discontinu ed, Routine [facility] gabapentin (NEURONTIN) capsule 100 mg 2021-10 03:00: 00 Yes 100mg 100 mg, Oral, QHS, First dose on 09/01/22 at 2100, Until Discontinu ed, Routine [facility] Sliding Scale Insulin - Lispro (HumaLOG) + Fsbg Testing 2021-10 03:00: 00 Yes Subcutaneo us, TID MEALS+HS, First dose on 09/01/22 at 2100, Until Discontinu ed, Routine [facility] levoFLOXaci n in D5W (LEVAQUIN) 750 mg/150 mL Piggyback 750 mg 2021-10 02:30: 00 09-04 15:40 :19 No 750mg 750 mg, IV Piggyback, Q24H ABX, 7 doses, First dose on 09/01/22 at 2030, Last dose on 09/07/22 at 2030, Administer over 90 Minutes, 150 mL
Reas on for Anti-Infec tive: Documented Infection< br>Documen aleida Infection Site: Skin / Soft Tissue
Duration of Therapy: [address] [facility] ibuprofen (IBU) tablet 600 mg 2021-10 01:45: 57 Yes 600mg 600 mg, Oral, Q6HPRN, Starting on 09/01/22 at 1945, Until Discontinu ed, Routine, Pain (scale 1-3) [facility] ibuprofen (IBU) tablet 600 mg 2021-10 01:45: 57 Yes 600mg 600 mg, Oral, Q6HPRN, Starting on 09/01/22 at 1945, Until Discontinu ed, Routine, Pain (scale 1-3) [facility] vancomycin (VANCOCIN) 1,500 mg in NaCl 0.9% (NS) 500 mL VIAL-MATE IV piggyback 2021-10 01:30: 00 09-04 15:40 :19 No 15mg/kg 1,500 mg (rounded from 1,429.5 mg = 15 mg/kg ?95.3 kg), IV Piggyback, Q12H ABX, 14 doses, First dose on 09/01/22 at 1930, Last dose on 09/08/22 at 0730, Administer over 90 Minutes, 500 mL
Reas on for Anti-Infec tive: Documented Infection< br>Documen aleida Infection Site: Skin / Soft Tissue
Duration of Therapy: [address] [facility] clindamycin in 5 % dextrose (CLEOCIN) 600 mg/50 mL IV piggyback RTU 600 mg 2021-10 19:45: 00 09-01 20:55 :00 No 600mg 600 mg, IV Piggyback, ONCE, 1 dose, On 09/01/22 at 1345, Administer over 30 Minutes, 50 mL
Reas on for Anti-Infec tive: Documented Infection< br>Documen aleida Infection Site: Skin / Soft Tissue
Duration of Therapy: 7 days
Re stricted use approved by: ED PROVIDER [facility] ceFAZolin in 0.9% sodium chloride (ANCEF) 2 gram/100 mL RTU 2 g 2021-10 19:45: 00 09-01 21:41 :00 No 2000mg 2 g (2,000 mg), IV Piggyback, ONCE, 1 dose, On 09/01/22 at 1345, Administer over 30 Minutes, 100 mL
Reas on for Anti-Infec tive: Documented Infection< br>Documen aleida Infection Site: Skin / Soft Tissue
Duration of Therapy: [address] [facility] acetaminoph en-codeine 300-30 mg tablet 2021-10 00:00: 00 Yes TAKE 2 TABLETS BY MOUTH EVERY 4 TO 6 HOURS FOR PAIN CONTROL [facility] acetaminoph en-codeine 300-30 mg tablet 2021-10 00:00: 00 Yes TAKE 2 TABLETS BY MOUTH EVERY 4 TO 6 HOURS FOR PAIN CONTROL [facility] acetaminoph en-codeine 300-30 mg tablet 2021-10 00:00: 00 Yes TAKE 2 TABLETS BY MOUTH EVERY 4 TO 6 HOURS FOR PAIN CONTROL [facility] acetaminoph en-codeine 300-30 mg tablet 2021-10 00:00: 00 Yes TAKE 2 TABLETS BY MOUTH EVERY 4 TO 6 HOURS FOR PAIN CONTROL [facility] acetaminoph en-codeine 300-30 mg tablet 2021-10 00:00: 00 Yes TAKE 2 TABLETS BY MOUTH EVERY 4 TO 6 HOURS FOR PAIN CONTROL [facility] acetaminoph en-codeine 300-30 mg tablet 2021-10 00:00: 00 Yes TAKE 2 TABLETS BY MOUTH EVERY 4 TO 6 HOURS FOR PAIN CONTROL [facility] acetaminoph en-codeine 300-30 mg tablet 2021-10 00:00: 00 Yes TAKE 2 TABLETS BY MOUTH EVERY 4 TO 6 HOURS FOR PAIN CONTROL [facility] acetaminoph en-codeine 300-30 mg tablet 2021-10 00:00: 00 Yes TAKE 2 TABLETS BY MOUTH EVERY 4 TO 6 HOURS FOR PAIN CONTROL [facility] doxycycline monohydrate 100 mg tablet 2021-10 00:00: 00 Yes TAKE 1 TABLET BY MOUTH EVERY 12 HOURS FOR [address] [facility] sulfamethox azole-trime thoprim 800-160 mg per tablet 2021-10 00:00: 00 Yes TAKE 1 TABLET BY MOUTH EVERY 12 HOURS FOR [address] [facility] doxycycline monohydrate 100 mg tablet 2021-10 00:00: 00 Yes TAKE 1 TABLET BY MOUTH EVERY 12 HOURS FOR [address] [facility] sulfamethox azole-trime thoprim 800-160 mg per tablet 2021-10 00:00: 00 Yes TAKE 1 TABLET BY MOUTH EVERY 12 HOURS FOR [address] [facility] doxycycline monohydrate 100 mg tablet 2021-10 00:00: 00 Yes TAKE 1 TABLET BY MOUTH EVERY 12 HOURS FOR [address] [facility] sulfamethox azole-trime thoprim 800-160 mg per tablet 2021-10 00:00: 00 Yes TAKE 1 TABLET BY MOUTH EVERY 12 HOURS FOR [address] [facility] doxycycline monohydrate 100 mg tablet 2021-10 00:00: 00 Yes TAKE 1 TABLET BY MOUTH EVERY 12 HOURS FOR [address] [facility] sulfamethox azole-trime thoprim 800-160 mg per tablet 2021-10 00:00: 00 Yes TAKE 1 TABLET BY MOUTH EVERY 12 HOURS FOR [address] [facility] doxycycline monohydrate 100 mg tablet 2021-10 00:00: 00 Yes TAKE 1 TABLET BY MOUTH EVERY 12 HOURS FOR [address] [facility] sulfamethox azole-trime thoprim 800-160 mg per tablet 2021-10 00:00: 00 Yes TAKE 1 TABLET BY MOUTH EVERY 12 HOURS FOR [address] [facility] doxycycline monohydrate 100 mg tablet 2021-10 00:00: 00 Yes TAKE 1 TABLET BY MOUTH EVERY 12 HOURS FOR [address] [facility] sulfamethox azole-trime thoprim 800-160 mg per tablet 2021-10 00:00: 00 Yes TAKE 1 TABLET BY MOUTH EVERY 12 HOURS FOR 10 DAYS [facility] doxycycline monohydrate 100 mg tablet 2021-10 00:00: 00 Yes TAKE 1 TABLET BY MOUTH EVERY 12 HOURS FOR 10 DAYS [facility] sulfamethox azole-trime thoprim 800-160 mg per tablet 2021-10 00:00: 00 Yes TAKE 1 TABLET BY MOUTH EVERY 12 HOURS FOR 10 DAYS [facility] doxycycline monohydrate 100 mg tablet 2021-10 00:00: 00 Yes TAKE 1 TABLET BY MOUTH EVERY 12 HOURS FOR 10 DAYS [facility] sulfamethox azole-trime thoprim 800-160 mg per tablet 2021-10 00:00: 00 Yes TAKE 1 TABLET BY MOUTH EVERY 12 HOURS FOR 10 DAYS [facility] sodium chloride 0.9 % irrigation solution 06-26 00:00: 00 Yes [facility] sodium chloride 0.9 % irrigation solution 0 06-26 00:00: 00 Yes [facility] sodium chloride 0.9 % irrigation solution 0 06-26 00:00: 00 Yes [facility] sodium chloride 0.9 % irrigation solution 0 06-26 00:00: 00 Yes [facility] sodium chloride 0.9 % irrigation solution 0 06-26 00:00: 00 Yes [facility] sodium chloride 0.9 % irrigation solution 0 06-26 00:00: 00 Yes [facility] sodium chloride 0.9 % irrigation solution 0 06-26 00:00: 00 Yes [facility] sodium chloride 0.9 % irrigation solution 0 06-26 00:00: 00 Yes [facility] atorvastati n 10 mg tablet 06-24 00:00: 00 Yes [facility] pantoprazol e 40 mg EC tablet 06-24 00:00: 00 Yes [facility] valsartan 160 mg tablet 2-0 -19 00:00: 00 Yes [facility] atorvastati n 10 mg tablet 2-0 -19 00:00: 00 Yes [facility] pantoprazol e 40 mg EC tablet 2-0 -19 00:00: 00 Yes [facility] valsartan 160 mg tablet 2-0 19 00:00: 00 Yes [facility] atorvastati n 10 mg tablet 2021-0 19 00:00: 00 Yes [facility] pantoprazol e 40 mg EC tablet 2-0 06-24 00:00: 00 Yes [facility] valsartan 160 mg tablet 2-0 06-24 00:00: 00 Yes [facility] atorvastati n 10 mg tablet 2021-0 06-24 00:00: 00 Yes [facility] pantoprazol e 40 mg EC tablet 2-0 06-24 00:00: 00 Yes [facility] valsartan 160 mg tablet 2-0 19 00:00: 00 Yes [facility] atorvastati n 10 mg tablet 2021-0 19 00:00: 00 Yes [facility] pantoprazol e 40 mg EC tablet 2-0 06-24 00:00: 00 Yes [facility] valsartan 160 mg tablet 2-0 -19 00:00: 00 Yes [facility] atorvastati n 10 mg tablet 2-0 -19 00:00: 00 Yes [facility] pantoprazol e 40 mg EC tablet 2-0 19 00:00: 00 Yes [facility] valsartan 160 mg tablet 2-0 - 00:00: 00 Yes [facility] atorvastati n 10 mg tablet 2-0 -19 00:00: 00 Yes [facility] pantoprazol e 40 mg EC tablet 2-0 19 00:00: 00 Yes [facility] valsartan 160 mg tablet 0 - 00:00: 00 Yes [facility] atorvastati n 10 mg tablet 0 19 00:00: 00 Yes [facility] pantoprazol e 40 mg EC tablet 0 - 00:00: 00 Yes [facility] valsartan 160 mg tablet 0 19 00:00: 00 Yes [facility] SANTYL 250 unit/gram ointment 2021-0 -15 00:00: 00 Yes [facility] SANTYL 250 unit/gram ointment 2021-0 -15 00:00: 00 Yes [facility] SANTYL 250 unit/gram ointment 2021-0 -15 00:00: 00 Yes [facility] SANTYL 250 unit/gram ointment 2021-0 -15 00:00: 00 Yes [facility] SANTYL 250 unit/gram ointment 2021-0 -15 00:00: 00 Yes [facility] SANTYL 250 unit/gram ointment 2021-0 -15 00:00: 00 Yes [facility] SANTYL 250 unit/gram ointment 2021-0 -15 00:00: 00 Yes [facility] SANTYL 250 unit/gram ointment 2021-0 -15 00:00: 00 Yes [facility] clotrimazol e 1 % topical cream 0 02-12 00:00: 00 Yes [id number] Apply to area(s) at bedtime. [facility] clotrimazol e 1 % topical cream 0 02-12 00:00: 00 Yes [id number] Apply to area(s) at bedtime. [facility] clotrimazol e 1 % topical cream 0 02-12 00:00: 00 Yes [id number] Apply to area(s) at bedtime. [facility] clotrimazol e 1 % topical cream 02-12 00:00: 00 09-04 00:00 :00 No [id number] Apply to area(s) at bedtime. [facility] clotrimazol e 1 % topical cream 2016-0 5- 00:00: 00 09-04 00:00 :00 No [id number] Apply to area(s) at bedtime. [facility] Vital Signs Vital Name Observation Time Observation Value Comments S aron Systolic blood pressure 2022-10-08 16:20:00 120 mm[Hg] [facility] Diastolic blood pressure 2022-10-08 16:20:00 80 mm[Hg] [facility] Heart rate 2022-10-08 16:20:00 83 /min Unive [facility] Body temperature 2022-10-08 16:20:00 36.61 Susanne [facility] Body height 2022-10-08 16:20:00 167.6 cm [facility] Body weight 2022-10-08 16:20:00 97.977 kg [facility] BMI 2022-10-08 16:20:00 34.86 kg/m2 [facility] Oxygen saturation in Arterial blood by Pulse oximetry 2022-10-08 16:20:00 99 /min [facility] Systolic blood pressure 2022-09-10 17:16:00 136 mm[Hg] [facility] Diastolic blood pressure 2022-09-10 17:16:00 88 mm[Hg] [facility] Heart rate 2022-09-10 17:16:00 84 /min Unive [facility] Body temperature 2022-09-10 17:16:00 36 Susanne [facility] Body height 2022-09-10 17:16:00 167.6 cm [facility] Body weight 2022-09-10 17:16:00 98.884 kg [facility] BMI 2022-09-10 17:16:00 35.19 kg/m2 [facility] Oxygen saturation in Arterial blood by Pulse oximetry 2022-09-10 17:16:00 99 /min room air [facility] Systolic blood pressure 2022-09-04 21:34:00 160 mm[Hg] [facility] Diastolic blood pressure 2022-09-04 21:34:00 103 mm[Hg] [facility] Heart rate 2022-09-04 21:34:00 84 /min [facility] Body temperature 2022-09-04 21:34:00 36.39 Susanne [facility] Respiratory rate 2022-09-04 21:34:00 19 /min [facility] Oxygen saturation in Arterial blood by Pulse oximetry 2022-09-04 21:34:00 97 /min [facility] Body height 2022-09-01 18:37:00 167.6 cm [facility] Body weight 2022-09-01 18:37:00 95.255 kg [facility] BMI 2022-09-01 18:37:00 33.89 kg/m2 [facility] Systolic blood pressure 2022-09-03 17:00:00 132 mm[Hg] [facility] Diastolic blood pressure 2022-09-03 17:00:00 85 mm[Hg] [facility] Respiratory rate 2022-09-03 17:00:00 20 /min [facility] Heart rate 2022-09-03 16:46:00 92 /min [facility] Body temperature 2022-09-03 16:46:00 36.39 Susanne [facility] Oxygen saturation in Arterial blood by Pulse oximetry 2022-09-03 16:46:00 98 /min [facility] Body height 2022-09-01 18:37:00 167.6 cm [facility] Body weight 2022-09-01 18:37:00 95.255 kg [facility] BMI 2022-09-01 18:37:00 33.89 kg/m2 [facility] Procedures Procedure Date / Time Performed Performing Clinician Source ASSIGNMENT OF BENEFITS 2022-09-10 17:02:20 Docto r Unassigned, [place] [facility] CONSENT/REFUSAL FOR DIAGNOSIS AND TREATMENT 2022-09-10 17:02:01 Doctor Unassigned, [place] [facility] POCT GLUCOSE (AUTOMATED) 2022-09-04 18:11:00 Edilberto Mims [facility] POCT GLUCOSE (AUTOMATED) 2022-09-04 18:11:00 Edilberto Mims [facility] POCT GLUCOSE (AUTOMATED) 2022-09-04 15:13:00 Edilberto Mims [facility] POCT GLUCOSE (AUTOMATED) 2022-09-04 15:13:00 Edilberto Mims [facility] CBC WITH DIFF 2022-09-04 11:05:00 Isabela Jackman [facility] EXTRA TUBE LT. GREEN 2022-09-04 11:05:00 Roger Mims [facility] CBC WITH DIFF 2022-09-04 11:05:00 Isabela Jackman [facility] EXTRA TUBE LT. GREEN 2022-09-04 11:05:00 Roger Mims [facility] POCT GLUCOSE (AUTOMATED) 2022-09-04 03:47:00 [facility] 2022-09-04 03:47:00 [facility] ([facility]ATED) 2022-09-03 23:00:00 [facility] ([facility]OMATED) 2022-09-03 23:00:00 [facility] ([facility]OMATED) 2022-09-03 17:39:00 [facility] ([facility]OMATED) 2022-09-03 17:39:00 [facility] ASPIRATE OR ABSCESS CULTURE(AEROBIC/ANAEROB IC) 2022-09-03 15:56:00 Pop [facility] FUNGUS (ROUTINE) CULTURE 2022-09-03 15:56:00 Pop [facility] ASPIRATE OR ABSCESS CULTURE(AEROBIC/ANAEROB IC) 2022-09-03 15:56:00 Pop [facility] FUNGUS (ROUTINE) CULTURE 2022-09-03 15:56:00 Pop Josue [facility] INTUBATION 2022-09-03 15:49:00 Cuauhtemoc [place] [facility] FINGER AMPUTATION 2022-09-03 15:03:00 [facility] 2022-09-03 15:03:00 Josue Lord Edith [facility] VANCOMYCIN TROUGH 2022-09-03 14:02:00 Isabela Jackman [facility] VANCOMYCIN TROUGH 2022-09-03 14:02:00 Isabela Jackman [facility] POCT GLUCOSE (AUTOMATED) 2022-09-03 13:30:00 Stephanie Singleton [facility] POCT GLUCOSE (AUTOMATED) 2022-09-03 13:30:00 Stephanie Singleton [facility] COMP. METABOLIC PANEL ([id number]) 2022-09-03 11:18:00 Angie Turner [facility] CBC WITH DIFF 2022-09-03 11:18[facility]00 [facility] 2022-09-03 11:18:00 Kassie Thompson [facility] COMP. METABOLIC PANEL ([id number]) 2022-09-03 11:18:00 TurnAngie elias [facility] CBC WITH DIFF 2022-09-03 11:18:00 Angie Turner [facility] PROTHROMBIN TIME / INR 2022-09-03 11:18:00 Kassie Thompson [facility] POCT GLUCOSE (AUTOMATED) 2022-09-03 02:07:00 Stephanie Singleton [facility] POCT GLUCOSE (AUTOMATED) 2022-09-03 02:07:00 Stephanie Singleton [facility] POCT GLUCOSE (AUTOMATED) 2022-09-02 23:37:00 Stephanie Singleton [facility] POCT GLUCOSE (AUTOMATED) 2022-09-02 23:37:00 Stephanie Singleton [facility] POCT GLUCOSE (AUTOMATED) 2022-09-02 18:15:00 Stephanie Singleton [facility] POCT GLUCOSE (AUTOMATED) 2022-09-02 18:15:00 Stephanie Singleton [facility] BASIC METABOLIC PANEL (NA, K, CL, CO2, GLUCOSE, BUN, CREATININE, CA) 2022-09-02 09:06:00 Isabela Jackman [facility] CBC WITH DIFF 2022-09-02 09:06:00 Isabela Jackman [facility] BASIC METABOLIC PANEL (NA, K, CL, CO2, GLUCOSE, BUN, CREATININE, CA) 2022-09-02 09:06:00 Isabela Jackman [facility] CBC WITH DIFF 2022-09-02 09:06:00 Isabela Jackman [facility] POCT GLUCOSE (AUTOMATED) 2022-09-02 03:13:00 Stephanie Singleton [facility] POCT GLUCOSE (AUTOMATED) 2022-09-02 03:13:00 Stephanie Singleton [facility] WOUND CULTURE 2022-09-02 01:30:00 Isabela Jackman [facility] WOUND CULTURE 2022-09-02 01:30:00 Isabela Jackman [facility] BASIC METABOLIC PANEL (NA, K, CL, CO2, GLUCOSE, BUN, CREATININE, CA) 2022-09-01 20:23:[address] [facility] CBC WITH DIFF 2022-09-01 20:23:[address] [facility] GLYCOSYLATED HEMOGLOBIN (A1C) 2022-09-01 20:23:00 Isabela Jackman [facility] BASIC METABOLIC PANEL (NA, K, CL, CO2, GLUCOSE, BUN, CREATININE, CA) 2022-09-01 20:23:[address] [facility] CBC WITH DIFF 2022-09-01 20:23:[address] [facility] GLYCOSYLATED HEMOGLOBIN (A1C) 2022-09-01 20:23:00 Isabela Jackman [facility] XR FINGERS 2 VW RIGHT 2022-09-01 19:50:[address] [facility] XR FINGERS 2 VW RIGHT 2022-09-01 19:50:[address] [facility] CONSENT/REFUSAL FOR DIAGNOSIS AND TREATMENT 2022-09-01 18:26:12 Doctor Unassigned, [place] [facility] CONSENT/REFUSAL FOR DIAGNOSIS AND TREATMENT 2022-09-01 18:26:12 Doctor Unassigned, [place] [facility] ADMISSION 2022-09-01 06:01:00 Doctor Un assigned, [place] [facility] ADMISSION 2022-09-01 06:01:00 Doctor Un assigned, [place] [facility] Encounters Start Date/Time End Date/Time Encounter Type Admission Type Attending [facility] Facility Care Department Encounter ID Source 2022-12-05 08:45:00 2022-12-05 08:45:00 Outpatient R LALY HENRY [facility] [id number] [facility] 2022-11-07 10:00:00 2022-11-07 10:20:00 Telemedici ne Visit Renan [facility] [place] [facility] ..840.114 350.1.13.10 4.2.7.2.686 [id number] [facility] 2022-11-07 10:00:00 2022-11-07 10:00:00 Outpatient R RENAN [facility] [id number] [facility] 2022-10-28 09:30:00 2022-10-28 09:30:00 Outpatient R ZENA SCHULTZ [facility] [id number] [facility] 2022-10-08 10:00:00 2022-10-08 10:51:12 Outpatient R RENAN [facility] [id number] [facility] 2022-10-08 10:00:00 2022-10-08 10:51:12 Office Visit Renan, [facility] ..840.114 350.1.13.10 4.2.7.2.686 [id number] [facility] 2022-09-11 00:00:00 2022-09-11 00:00:00 Telephone Renan, [facility] ..840.114 350.1.13.10 4.2.7.2.686 [id number] [facility] 2022-09-10 13:00:00 2022-09-10 14:00:00 Ancillary Visit Therapy-Kimberly Do-Jorge-Carlos Issa [facility] 1.2840.114 350.1.13.10 4.2.7.2.686 [id number] [facility] 2022-09-10 13:00:00 2022-09-10 13:47:29 Outpatient R CARLOS [facility]IN [facility] [id number] [facility] 2022-09-10 11:00:00 2022-09-10 11:51:29 Outpatient R LALY HENRY [facility] [id number] [facility] 2022-09-10 11:00:00 2022-09-10 11:51:29 Office Visit Ren[facility] [place] [facility] 1.0.114 350.1.13.10 4.2.7.2.686 [id number] [facility] 2022-09-10 00:00:00 2022-09-10 00:00:00 Orders Only Doctor Unassigned, [place] [facility] 1.2840.114 350.1.13.10 4.2.7.2.686 [id number] [facility] 2022-09-10 00:00:00 2022-09-10 00:00:[address] [facility] [place] [facility] 1.2840.114 350.1.13.10 4.2.7.2.686 [id number] [facility] 2022-09-05 00:00:00 2022-09-05 00:00:00 Transition of Care Coby Moseley 1.2840.114 350.1.13.10 4.2.7.2.686 [id number] [facility] 2022-09-01 12:39:00 2022-09-04 18:31:[address].840.114 350.1.13.10 4.2.7.2.686 [id number] [facility] 2022-09-01 12:39:00 2022-09-04 18:31:00 Inpatient X [facility] [id number] [facility] 2022-09-03 08:51:00 2022-09-03 11:13:00 Surgery Josue Lord [facility] 1.2.840.114 350.1.13.10 4.2.7.2.686 [id number] [facility] 2022-09-03 09:39:00 2022-09-03 10:46:00 Anesthesia Event Tomasz Matos, [facility] 1.2840.114 350.1.13.10 4.2.7.2.686 [id number] [facility] 2020-03-15 13:36:44 2020-03-15 13:56:44 Blade Changer Visit Lab, [facility] Office [facility] 1.20.114 350.1.13.10 4.2.7.2.686 [id number] 2020-03-15 13:36:44 2020-03-15 13:56:44 Blade Changer Visit Lab, [facility] 1.2840.114 350.1.13.10 4.2.7.2.686 [id number] [facility] 2020-03-15 13:20:00 2020-03-15 13:20:00 Outpatient R [facility] [id number] [facility] 2020-03-15 13:20:00 2020-03-15 13:20:00 Outpatient R KRYSTINA CHEEMA [facility] [id number] [facility] Results Test Description Test Time Test Comments Results Result Co mments Source [facility] GLUCOSE (AUTOMATED)2022-09-04 18:12:48* Test Item Value Reference Range Interpretation Comme nts POCT GLU (test code = 2361450434) 213 mg/dL 70-110 H Lab Interpretation (test cod e = 19361-0) [facility]2022-09-04 15:18:56* Test Item Value Reference Range Interpretation Comme nts POCT GLU (test code = 8014013077) 184 mg/dL 70-110 H Lab Interpretation (test cod e = 54278-3) Abnormal [facility] GLUCOSE (AUTOMATED)2022-09-04 15:18:56* Test Item Value Reference Range Interpretation Comme nts POCT GLU (test code = 3064614212) 184 mg/dL 70-110 H Lab Interpretation (test cod e = 91615-1) Abnormal [facility] GLUCOSE (AUTOMATED)2022-09-04 03:50:30* Test Item Value Reference Range Interpretation Comme nts POCT GLU (test code = 8783579758) 287 mg/dL 70-110 H Lab Interpretation (test cod e = 27488-5) Abnormal [facility] GLUCOSE (AUTOMATED)2022-09-04 03:50:30* Test Item Value Reference Range Interpretation Comme nts POCT GLU (test code = 7047801027) 287 mg/dL 70-110 H Lab Interpretation (test cod e = 33382-5) [facility]2022-09-03 23:01:24* Test Item Value Reference Range Interpretation Comme nts POCT GLU (test code = 3605336576) 253 mg/dL 70-110 H Lab Interpretation (test cod e = 84146-7) [facility]2022-09-03 23:01:24* Test Item Value Reference Range Interpretation Comme nts POCT GLU (test code = 7321109383) 253 mg/dL 70-110 H Lab Interpretation (test cod e = 43069-6) Abnormal [facility] GLUCOSE (AUTOMATED)2022-09-03 17:40:42* Test Item Value Reference Range Interpretation Comme nts POCT GLU (test code = 5511448214) 168 mg/dL 70-110 H Lab Interpretation (test cod e = 19815-6) Abnormal [facility] GLUCOSE (AUTOMATED)2022-09-03 17:40:42* Test Item Value Reference Range Interpretation Comme nts POCT GLU (test code = 9945115849) 168 mg/dL 70-110 H Lab Interpretation (test cod e = 20877-1) Abnormal [facility] GLUCOSE (AUTOMATED)2022-09-03 13:31:46* Test Item Value Reference Range Interpretation Comme nts POCT GLU (test code = 5834183890) 213 mg/dL 70-110 H Lab Interpretation (test cod e = 80658-0) Abnormal [facility] GLUCOSE (AUTOMATED)2022-09-03 13:31:46* Test Item Value Reference Range Interpretation Comme nts POCT GLU (test code = 6020924621) 213 mg/dL 70-110 H Lab Interpretation (test cod e = 13173-4) Abnormal [facility]. METABOLIC PANEL (36983)2022-09-03 12:17:29* Test Item Value Reference Range Interpretation Comme nts NA (test code = 1014741199) 136 mmol/L 135-145 K (test code = 4658924185) 3.9 mmol/L 3.5-5.0 CL (test code = 9152131950) 105 mmol/L 98-108 CO2 TOTAL (test code = 7826080051) 24 mmol/L 23-31 AGAP (test code = 7846747478) 2-16 BUN (test code = 9381696452) 12 mg/dL 7-23 GLUCOSE (test code = 9305856129) 190 mg/dL 70-110 H CREATININE (test code = 7436959497) 0.56 mg/dL 0.60-1.25 L TOTAL BILI (test code = 8539734718) 0.2 mg/dL 0.1-1.1 CALCIUM (test code = 0609245472) 8.6 mg/dL 8.6-10.6 T PROTEIN (test code = 6428258909) 7.0 g/dL 6.3-8.2 ALBUMIN (test code = 4918724512) 3.7 g/dL 3.5-5.0 ALK PHOS (test code = 2551892817) 101 U/L 34-122 ALTv (test code = 1742-6) 27 U/L 5-50 AST(SGOT) (test code = 4650119807) 23 U/L 13-40 eGFR (test code = 0394436525) mL/min/1.73m2 ANDREE (test code = ANDREE) Association of Glomerular Filtration Rate (GFR) and Staging of Kidney Disease* + --+ --+ ------+| GFR (mL/min/1.73 m2) ?| With Kidney Damage ?| ?Without Kidney Damage+ --------+ --------+ +| ?>90 ?| ?Stage one ?| ? Normal ?+ ---+ ---+ -------+| ?60-89 ?| ?Stage two ?| ? Decreased GFR ? + --+ --+ ------+| ?30-59 ?| ?Stage three ?| ? Stage three ? + --+ --+ ------+| ?15-29 ?| ?Stage four ? | ? Stage four ?+ ---+ ---+ -------+| ?<15 (or dialysis) ? ?| ?Stage five ? | ? Stage five ?+ ---+ ---+ -------+ *Each stage assumes the associated GFR level has been in effect for at least three months. ?Stages 1 to 5, with or without kidney disease, indicate chronic kidney disease. Notes: Determination of stages one and two (with eGFR >59mL/min/1.73 m2) requires estimation of kidney damage for at least three months as defined by structural or functional abnormalities of the kidney, manifested by either:Pathological abnormalities or Markers of kidney damage (including abnormalities in the composition of the blood or urine or abnormalities in imaging tests). Lab Interpretation (test code = 41535-7) Abnormal [facility]. METABOLIC PANEL (20845)2022-09-03 12:17:29* Test Item Value Reference Range Interpretation Comme nts NA (test code = 7642914561) 136 mmol/L 135-145 K (test code = 4207042190) 3.9 mmol/L 3.5-5.0 CL (test code = 4374569573) 105 mmol/L 98-108 CO2 TOTAL (test code = 7160527280) 24 mmol/L 23-31 AGAP (test code = 1258764334) 2-16 BUN (test code = 8804808267) 12 mg/dL 7-23 GLUCOSE (test code = 8451361890) 190 mg/dL 70-110 H CREATININE (test code = 2531322829) 0.56 mg/dL 0.60-1.25 L TOTAL BILI (test code = 4921560831) 0.2 mg/dL 0.1-1.1 CALCIUM (test code = 7409467204) 8.6 mg/dL 8.6-10.6 T PROTEIN (test code = 6718094850) 7.0 g/dL 6.3-8.2 ALBUMIN (test code = 5054666253) 3.7 g/dL 3.5-5.0 ALK PHOS (test code = 8701554580) 101 U/L 34-122 ALTv (test code = 1742-6) 27 U/L 5-50 AST(SGOT) (test code = 8881462033) 23 U/L 13-40 eGFR (test code = 5096285017) mL/min/1.73m2 ANDREE (test code = ANDREE) Association of Glomerular Filtration Rate (GFR) and Staging of Kidney Disease* + --+ --+ ------+| GFR (mL/min/1.73 m2) ?| With Kidney Damage ?| ?Without Kidney Damage+ --------+ --------+ +| ?>90 ?| ?Stage one ?| ? Normal ?+ ---+ ---+ -------+| ?60-89 ?| ?Stage two ?| ? Decreased GFR ? + --+ --+ ------+| ?30-59 ?| ?Stage three ?| ? Stage three ? + --+ --+ ------+| ?15-29 ?| ?Stage four ? | ? Stage four ?+ ---+ ---+ -------+| ?<15 (or dialysis) ? ?| ?Stage five ? | ? Stage five ?+ ---+ ---+ -------+ *Each stage assumes the associated GFR level has been in effect for at least three months. ?Stages 1 to 5, with or without kidney disease, indicate chronic kidney disease. Notes: Determination of stages one and two (with eGFR >59mL/min/1.73 m2) requires estimation of kidney damage for at least three months as defined by structural or functional abnormalities of the kidney, manifested by either:Pathological abnormalities or Markers of kidney damage (including abnormalities in the composition of the blood or urine or abnormalities in imaging tests). Lab Interpretation (test code = 09576-1) [facility]normal [facility] / [id number] 11:45:03* Test Item Value Reference Range Interpretation Comme [facility] PROTIME PATIENT (test code = 5964-2) See_Comment H [Automated [employer]] The system which generated this result transmitted reference range: 10.1 - 12.6 Seconds. The reference range was not used to interpret this result as normal/abnormal. INR (test code = 6301-6) Normal INR <1.1; Warfarin Therapeutic range 2.0 to 3.0 or 2.5 to 3.5, depending upon the indications. Lab Interpretation (test code = 67077-1) Abnormal [facility] Time / [id number] 11:45:03* Test Item Value Reference Range Interpretation Comme nts PROTIME PATIENT (test code = 5964-2) See_Comment H [Automated [employer]] The system which generated this result transmitted reference range: 10.1 - 12.6 Seconds. The reference range was not used to interpret this result as normal/abnormal. INR (test code = 6301-6) Normal INR <1.1; Warfarin Therapeutic range 2.0 to 3.0 or 2.5 to 3.5, depending upon the indications. Lab Interpretation (test code = 02543-2) Abnormal [facility] WITH [id number] 11:42:00* Test Item Value Reference Range Interpretation Comme [facility] WBC (test code = 6690-2) See_Comment [Automated [employer]] The system which generated this result transmitted reference range: 4.20 - 10.70 10*3/?L. The reference range was not used to interpret this result as normal/abnormal. RBC (test code = 789-8) See_Comment [Automated messa ge] The system which generated this result transmitted reference range: 4.26 - 5.52 10*6/?L. The reference range was not used to interpret this result as normal/abnormal. HGB (test code = 718-7) 13.7 g/dL 12.2-16.4 HCT (test code = 4544-3) 40.2 % 38.4-49.3 MCV (test code = 787-2) 82.7 fL 81.7-95.6 MCH (test code = 785-6) 28.2 pg 26.1-32.7 MCHC (test code = 786-4) 34.1 g/dL 31.2-35.0 RDW-SD (test code = 25255-0) 41.5 fL 38.5-51.6 RDW-CV (test code = 788-0) 13.9 % 12.1-15.4 PLT (test code = 777-3) See_Comment H [Automated messa ge] The system which generated this result transmitted reference range: 150 - 328 10*3/?L. The reference range was not used to interpret this result as normal/abnormal. MPV (test code = 97609-3) 10.6 fL 9.8-13.0 NRBC/100 WBC (test code = 9383866682) See_Comment [Automated [employer] ssage] The system which generated this result transmitted reference range: 0.0 - 10.0 /100 WBCs. The reference range was not used to interpret this result as normal/abnormal. NRBC x10^3 (test code = 1030288803) See_Comment [Automated messa ge] The system which generated this result transmitted reference range: 10*3/?L. The reference range was not used to interpret this result as normal/abnormal. GRAN MAT (NEUT) % (test code = 770-8) 59.9 % IMM GRAN % (test code = 3794678649) 0.40 % LYMPH % (test code = 736-9) 31.1 % MONO % (test code = 5905-5) 6.1 % EOS % (test code = 713-8) 1.8 % BASO % (test code = 706-2) 0.7 % GRAN MAT x10^3(ANC) (test code = 4740610866) 5.36 10*3/uL 1.99-6.95 IMM GRAN x10^3 (test code = 0274638048) 0.04 10*3/uL 0.00-0.06 LYMPH x10^3 (test code = 731-0) 2.78 10*3/uL 1.09-3.23 MONO x10^3 (test code = 742-7) 0.55 10*3/uL 0.36-1.02 EOS x10^3 (test code = 711-2) 0.16 10*3/uL 0.06-0.53 BASO x10^3 (test code = 704-7) 0.06 10*3/uL 0.01-0.09 Lab Interpretation (test code = 17733-5) Abnormal [facility] WITH [id number] 11:42:00* Test Item Value Reference Range Interpretation Comme nts WBC (test code = 6690-2) See_Comment [Automated [employer] ge] The system which generated this result transmitted reference range: 4.20 - 10.70 10*3/?L. The reference range was not used to interpret this result as normal/abnormal. RBC (test code = 789-8) See_Comment [Automated [employer]] The system which generated this result transmitted reference range: 4.26 - 5.52 10*6/?L. The reference range was not used to interpret this result as normal/abnormal. HGB (test code = 718-7) 13.7 g/dL 12.2-16.4 HCT (test code = 4544-3) 40.2 % 38.4-49.3 MCV (test code = 787-2) 82.7 fL 81.7-95.6 MCH (test code = 785-6) 28.2 pg 26.1-32.7 MCHC (test code = 786-4) 34.1 g/dL 31.2-35.0 RDW-SD (test code = 76718-6) 41.5 fL 38.5-51.6 RDW-CV (test code = 788-0) 13.9 % 12.1-15.4 PLT (test code = 777-3) See_Comment H [Automated messa ge] The system which generated this result transmitted reference range: 150 - 328 10*3/?L. The reference range was not used to interpret this result as normal/abnormal. MPV (test code = 38137-7) 10.6 fL 9.8-13.0 NRBC/100 WBC (test code = 4484620370) See_Comment [Automated me ssage] The system which generated this result transmitted reference range: 0.0 - 10.0 /100 WBCs. The reference range was not used to interpret this result as normal/abnormal. NRBC x10^3 (test code = 9962820054) See_Comment [Automated messa ge] The system which generated this result transmitted reference range: 10*3/?L. The reference range was not used to interpret this result as normal/abnormal. GRAN MAT (NEUT) % (test code = 770-8) 59.9 % IMM GRAN % (test code = 6867716523) 0.40 % LYMPH % (test code = 736-9) 31.1 % MONO % (test code = 5905-5) 6.1 % EOS % (test code = 713-8) 1.8 % BASO % (test code = 706-2) 0.7 % GRAN MAT x10^3(ANC) (test code = 3444201590) 5.36 10*3/uL 1.99-6.95 IMM GRAN x10^3 (test code = 6176809584) 0.04 10*3/uL 0.00-0.06 LYMPH x10^3 (test code = 731-0) 2.78 10*3/uL 1.09-3.23 MONO x10^3 (test code = 742-7) 0.55 10*3/uL 0.36-1.02 EOS x10^3 (test code = 711-2) 0.16 10*3/uL 0.06-0.53 BASO x10^3 (test code = 704-7) 0.06 10*3/uL 0.01-0.09 Lab Interpretation (test code = 09754-8) Abnormal [facility] GLUCOSE (AUTOMATED)2022-09-03 02:08:18* Test Item Value Reference Range Interpretation Comme nts POCT GLU (test code = 1630047654) 259 mg/dL 70-110 H Lab Interpretation (test cod e = 34336-2) Abnormal [facility] GLUCOSE (AUTOMATED)2022-09-03 02:08:18* Test Item Value Reference Range Interpretation Comme nts POCT GLU (test code = 4278591875) 259 mg/dL 70-110 H Lab Interpretation (test cod e = 53480-1) Abnormal [facility] GLUCOSE (AUTOMATED)2022-09-02 23:38:11* Test Item Value Reference Range Interpretation Comme nts POCT GLU (test code = 0976841241) 322 mg/dL 70-110 H Lab Interpretation (test cod e = 23000-4) Abnormal [facility] GLUCOSE (AUTOMATED)2022-09-02 23:38:11* Test Item Value Reference Range Interpretation Comme nts POCT GLU (test code = 2542872108) 322 mg/dL 70-110 H Lab Interpretation (test cod e = 46334-1) Abnormal [facility] GLUCOSE (AUTOMATED)2022-09-02 18:17:05* Test Item Value Reference Range Interpretation Comme nts POCT GLU (test code = 1188612304) 295 mg/dL 70-110 H Lab Interpretation (test cod e = 39182-5) Abnormal [facility] GLUCOSE (AUTOMATED)2022-09-02 18:17:05* Test Item Value Reference Range Interpretation Comme nts POCT GLU (test code = 8178414327) 295 mg/dL 70-110 H Lab Interpretation (test cod e = 07873-6) Abnormal [facility] Metabolic Panel (NA, K, CL, CO2, GLUCOSE, BUN, CREATININE, CA)2022-09-02 09:42:02* Test Item Value Reference Range Interpretation Comme nts NA (test code = 2083938549) 135 mmol/L 135-145 K (test code = 1457286987) 4.0 mmol/L 3.5-5.0 CL (test code = 1652152489) 103 mmol/L 98-108 CO2 TOTAL (test code = 1082865980) 24 mmol/L 23-31 AGAP (test code = 6208028817) 2-16 BUN (test code = 7227575365) 14 mg/dL 7-23 GLUCOSE (test code = 7118511171) 227 mg/dL 70-110 H CREATININE (test code = 4150802554) 0.56 mg/dL 0.60-1.25 L CALCIUM (test code = 3752870264) 8.7 mg/dL 8.6-10.6 eGFR (test code = 0090183799) mL/min/1.73m2 ANDREE (test code = ANDREE) Association of Glomerular Filtration Rate (GFR) and Staging of Kidney Disease* + --+ --+ ------+| GFR (mL/min/1.73 m2) ?| With Kidney Damage ?| ?Without Kidney Damage+ --------+ --------+ +| ?>90 ?| ?Stage one ?| ? Normal ?+ ---+ ---+ -------+| ?60-89 ?| ?Stage two ?| ? Decreased GFR ? + --+ --+ ------+| ?30-59 ?| ?Stage three ?| ? Stage three ? + --+ --+ ------+| ?15-29 ?| ?Stage four ? | ? Stage four ?+ ---+ ---+ -------+| ?<15 (or dialysis) ? ?| ?Stage five ? | ? Stage five ?+ ---+ ---+ -------+ *Each stage assumes the associated GFR level has been in effect for at least three months. ?Stages 1 to 5, with or without kidney disease, indicate chronic kidney disease. Notes: Determination of stages one and two (with eGFR >59mL/min/1.73 m2) requires estimation of kidney damage for at least three months as defined by structural or functional abnormalities of the kidney, manifested by either:Pathological abnormalities or Markers of kidney damage (including abnormalities in the composition of the blood or urine or abnormalities in imaging tests). Lab Interpretation (test code = 68533-4) Abnormal [facility] Metabolic Panel (NA, K, CL, CO2, GLUCOSE, BUN, CREATININE, CA)2022-09-02 09:42:02* Test Item Value Reference Range Interpretation Comme nts NA (test code = 1489293627) 135 mmol/L 135-145 K (test code = 6816682764) 4.0 mmol/L 3.5-5.0 CL (test code = 0420662140) 103 mmol/L 98-108 CO2 TOTAL (test code = 0403532214) 24 mmol/L 23-31 AGAP (test code = 7988455306) 2-16 BUN (test code = 0917870163) 14 mg/dL 7-23 GLUCOSE (test code = 8331353155) 227 mg/dL 70-110 H CREATININE (test code = 5344666656) 0.56 mg/dL 0.60-1.25 L CALCIUM (test code = 0818880253) 8.7 mg/dL 8.6-10.6 eGFR (test code = 9543246182) mL/min/1.73m2 ANDREE (test code = ANDREE) Association of Glomerular Filtration Rate (GFR) and Staging of Kidney Disease* + --+ --+ ------+| GFR (mL/min/1.73 m2) ?| With Kidney Damage ?| ?Without Kidney Damage+ --------+ --------+ +| ?>90 ?| ?Stage one ?| ? Normal ?+ ---+ ---+ -------+| ?60-89 ?| ?Stage two ?| ? Decreased GFR ? + --+ --+ ------+| ?30-59 ?| ?Stage three ?| ? Stage three ? + --+ --+ ------+| ?15-29 ?| ?Stage four ? | ? Stage four ?+ ---+ ---+ -------+| ?<15 (or dialysis) ? ?| ?Stage five ? | ? Stage five ?+ ---+ ---+ -------+ *Each stage assumes the associated GFR level has been in effect for at least three months. ?Stages 1 to 5, with or without kidney disease, indicate chronic kidney disease. Notes: Determination of stages one and two (with eGFR >59mL/min/1.73 m2) requires estimation of kidney damage for at least three months as defined by structural or functional abnormalities of the kidney, manifested by either:Pathological abnormalities or Markers of kidney damage (including abnormalities in the composition of the blood or urine or abnormalities in imaging tests). Lab Interpretation (test code = 49341-1) Abnormal [facility] hospital with [id number] 09:18:20* Test Item Value Reference Range Interpretation Comme nts WBC (test code = 6690-2) See_Comment H [Automated message] The system which generated this result transmitted reference range: 4.20 - 10.70 10*3/?L. The reference range was not used to interpret this result as normal/abnormal. RBC (test code = 789-8) See_Comment [Automated message] The system which generated this result transmitted reference range: 4.26 - 5.52 10*6/?L. The reference range was not used to interpret this result as normal/abnormal. HGB (test code = 718-7) 13.7 g/dL 12.2-16.4 HCT (test code = 4544-3) 40.7 % 38.4-49.3 MCV (test code = 787-2) 82.7 fL 81.7-95.6 MCH (test code = 785-6) 27.8 pg 26.1-32.7 MCHC (test code = 786-4) 33.7 g/dL 31.2-35.0 RDW-SD (test code = 72923-8) 40.8 fL 38.5-51.6 RDW-CV (test code = 788-0) 13.8 % 12.1-15.4 PLT (test code = 777-3) See_Comment H [Automated message] The system which generated this result transmitted reference range: 150 - 328 10*3/?L. The reference range was not used to interpret this result as normal/abnormal. MPV (test code = 37860-9) 10.4 fL 9.8-13.0 NRBC/100 WBC (test code = 9009142776) See_Comment [Automated message] The system which generated this result transmitted reference range: 0.0 - 10.0 /100 WBCs. The reference range was not used to interpret this result as normal/abnormal. NRBC x10^3 (test code = 4769309262) See_Comment [Automated message] The system which generated this result transmitted reference range: 10*3/?L. The reference range was not used to interpret this result as normal/abnormal. GRAN MAT (NEUT) % (test code = 770-8) 76.1 % IMM GRAN % (test code = 3224813574) 0.40 % LYMPH % (test code = 736-9) 16.6 % MONO % (test code = 5905-5) 5.6 % EOS % (test code = 713-8) 0.9 % BASO % (test code = 706-2) 0.4 % GRAN MAT x10^3(ANC) (test code = 9278485319) 10.64 10*3/uL 1.99-6.95 H IMM GRAN x10^3 (test code = 1246965753) 0.05 10*3/uL 0.00-0.06 LYMPH x10^3 (test code = 731-0) 2.32 10*3/uL 1.09-3.23 MONO x10^3 (test code = 742-7) 0.78 10*3/uL 0.36-1.02 EOS x10^3 (test code = 711-2) 0.13 10*3/uL 0.06-0.53 BASO x10^3 (test code = 704-7) 0.06 10*3/uL 0.01-0.09 Lab Interpretation (test code = 49947-1) Abnormal [facility] with [id number] 09:18:20* Test Item Value Reference Range Interpretation Comme nts WBC (test code = 6690-2) See_Comment H [Automated message] The system which generated this result transmitted reference range: 4.20 - 10.70 10*3/?L. The reference range was not used to interpret this result as normal/abnormal. RBC (test code = 789-8) See_Comment [Automated message] The system which generated this result transmitted reference range: 4.26 - 5.52 10*6/?L. The reference range was not used to interpret this result as normal/abnormal. HGB (test code = 718-7) 13.7 g/dL 12.2-16.4 HCT (test code = 4544-3) 40.7 % 38.4-49.3 MCV (test code = 787-2) 82.7 fL 81.7-95.6 MCH (test code = 785-6) 27.8 pg 26.1-32.7 MCHC (test code = 786-4) 33.7 g/dL 31.2-35.0 RDW-SD (test code = 74060-8) 40.8 fL 38.5-51.6 RDW-CV (test code = 788-0) 13.8 % 12.1-15.4 PLT (test code = 777-3) See_Comment H [Automated message] The system which generated this result transmitted reference range: 150 - 328 10*3/?L. The reference range was not used to interpret this result as normal/abnormal. MPV (test code = 64432-3) 10.4 fL 9.8-13.0 NRBC/100 WBC (test code = 2295755399) See_Comment [Automated message] The system which generated this result transmitted reference range: 0.0 - 10.0 /100 WBCs. The reference range was not used to interpret this result as normal/abnormal. NRBC x10^3 (test code = 2425138798) See_Comment [Automated message] The system which generated this result transmitted reference range: 10*3/?L. The reference range was not used to interpret this result as normal/abnormal. GRAN MAT (NEUT) % (test code = 770-8) 76.1 % IMM GRAN % (test code = 4728058243) 0.40 % LYMPH % (test code = 736-9) 16.6 % MONO % (test code = 5905-5) 5.6 % EOS % (test code = 713-8) 0.9 % BASO % (test code = 706-2) 0.4 % GRAN MAT x10^3(ANC) (test code = 5336273849) 10.64 10*3/uL 1.99-6.95 H IMM GRAN x10^3 (test code = 1475847618) 0.05 10*3/uL 0.00-0.06 LYMPH x10^3 (test code = 731-0) 2.32 10*3/uL 1.09-3.23 MONO x10^3 (test code = 742-7) 0.78 10*3/uL 0.36-1.02 EOS x10^3 (test code = 711-2) 0.13 10*3/uL 0.06-0.53 BASO x10^3 (test code = 704-7) 0.06 10*3/uL 0.01-0.09 Lab Interpretation (test code = 44652-4) Abnormal [facility] GLUCOSE (AUTOMATED)2022-09-02 03:14:55* Test Item Value Reference Range Interpretation Comme nts POCT GLU (test code = 1544005419) 175 mg/dL 70-110 H Lab Interpretation (test cod e = 07995-5) Abnormal [facility] GLUCOSE (AUTOMATED)2022-09-02 03:14:55* Test Item Value Reference Range Interpretation Comme nts POCT GLU (test code = 3923198439) 175 mg/dL 70-110 H Lab Interpretation (test cod e = 56762-2) [facility] 02:25:07* Test Item Value Reference Range Interpretation Comme nts HGB A1C (test code = 4548-4) 11.5 % 4.0-5.7 H ANDREE (test code = ANDREE) Reference RangesNormal: <5.7%Prediabetes: 5.7 - 6.4%Diabetes: > 6.5% Lab Interpretation (test code = 96586-3) [facility]22-[facility]-02 02:25:07* Test Item Value Reference Range Interpretation Comme [facility] HGB A1C (test code = 4548-4) 11.5 % 4.0-5.7 H ANDREE (test code = ANDREE) Reference RangesNormal: <5.7%Prediabetes: 5.7 - 6.4%Diabetes: > 6.5% Lab Interpretation (test code = 70504-7) Abnormal [facility] METABOLIC PANEL (NA, K, CL, CO2, GLUCOSE, BUN, CREATININE, CA)2022-09-01 20:44:31* Test Item Value Reference Range Interpretation Comme nts NA (test code = 7541917204) 135 mmol/L 135-145 K (test code = 6341553323) 4.4 mmol/L 3.5-5.0 CL (test code = 2111744680) 101 mmol/L 98-108 CO2 TOTAL (test code = 1137102299) 24 mmol/L 23-31 AGAP (test code = 7651590888) 2-16 BUN (test code = 7165558227) 16 mg/dL 7-23 GLUCOSE (test code = 1378184328) 260 mg/dL 70-110 H CREATININE (test code = 3565585254) 0.72 mg/dL 0.60-1.25 CALCIUM (test code = 7937375314) 9.2 mg/dL 8.6-10.6 eGFR (test code = 7810277835) mL/min/1.73m2 ANDREE (test code = ANDREE) Association of Glomerular Filtration Rate (GFR) and Staging of Kidney Disease* + --+ --+ ------+| GFR (mL/min/1.73 m2) ?| With Kidney Damage ?| ?Without Kidney Damage+ --------+ --------+ +| ?>90 ?| ?Stage one ?| ? Normal ?+ ---+ ---+ -------+| ?60-89 ?| ?Stage two ?| ? Decreased GFR ? + --+ --+ ------+| ?30-59 ?| ?Stage three ?| ? Stage three ? + --+ --+ ------+| ?15-29 ?| ?Stage four ? | ? Stage four ?+ ---+ ---+ -------+| ?<15 (or dialysis) ? ?| ?Stage five ? | ? Stage five ?+ ---+ ---+ -------+ *Each stage assumes the associated GFR level has been in effect for at least three months. ?Stages 1 to 5, with or without kidney disease, indicate chronic kidney disease. Notes: Determination of stages one and two (with eGFR >59mL/min/1.73 m2) requires estimation of kidney damage for at least three months as defined by structural or functional abnormalities of the kidney, manifested by either:Pathological abnormalities or Markers of kidney damage (including abnormalities in the composition of the blood or urine or abnormalities in imaging tests). Lab Interpretation (test code = 24944-1) Abnormal [facility] METABOLIC PANEL (NA, K, CL, CO2, GLUCOSE, BUN, CREATININE, CA)2022-09-01 20:44:31* Test Item Value Reference Range Interpretation Comme nts NA (test code = 9355768421) 135 mmol/L 135-145 K (test code = 0910289689) 4.4 mmol/L 3.5-5.0 CL (test code = 9778301539) 101 mmol/L 98-108 CO2 TOTAL (test code = 2590672877) 24 mmol/L 23-31 AGAP (test code = 9133040966) 2-16 BUN (test code = 3080076917) 16 mg/dL 7-23 GLUCOSE (test code = 7764694252) 260 mg/dL 70-110 H CREATININE (test code = 5639309660) 0.72 mg/dL 0.60-1.25 CALCIUM (test code = 3158667914) 9.2 mg/dL 8.6-10.6 eGFR (test code = 5431089656) mL/min/1.73m2 ANDREE (test code = ANDREE) Association of Glomerular Filtration Rate (GFR) and Staging of Kidney Disease* + --+ --+ ------+| GFR (mL/min/1.73 m2) ?| With Kidney Damage ?| ?Without Kidney Damage+ --------+ --------+ +| ?>90 ?| ?Stage one ?| ? Normal ?+ ---+ ---+ -------+| ?60-89 ?| ?Stage two ?| ? Decreased GFR ? + --+ --+ ------+| ?30-59 ?| ?Stage three ?| ? Stage three ? + --+ --+ ------+| ?15-29 ?| ?Stage four ? | ? Stage four ?+ ---+ ---+ -------+| ?<15 (or dialysis) ? ?| ?Stage five ? | ? Stage five ?+ ---+ ---+ -------+ *Each stage assumes the associated GFR level has been in effect for at least three months. ?Stages 1 to 5, with or without kidney disease, indicate chronic kidney disease. Notes: Determination of stages one and two (with eGFR >59mL/min/1.73 m2) requires estimation of kidney damage for at least three months as defined by structural or functional abnormalities of the kidney, manifested by either:Pathological abnormalities or Markers of kidney damage (including abnormalities in the composition of the blood or urine or abnormalities in imaging tests). Lab Interpretation (test code = 86749-8) Abnormal [facility] acute hospital WITH [id number] 20:42:10* Test Item Value Reference Range Interpretation Comme nts WBC (test code = 6690-2) See_Comment H [Automated messa ge] The system which generated this result transmitted reference range: 4.20 - 10.70 10*3/?L. The reference range was not used to interpret this result as normal/abnormal. RBC (test code = 789-8) See_Comment [Automated messa ge] The system which generated this result transmitted reference range: 4.26 - 5.52 10*6/?L. The reference range was not used to interpret this result as normal/abnormal. HGB (test code = 718-7) 14.8 g/dL 12.2-16.4 HCT (test code = 4544-3) 44.3 % 38.4-49.3 MCV (test code = 787-2) 83.6 fL 81.7-95.6 MCH (test code = 785-6) 27.9 pg 26.1-32.7 MCHC (test code = 786-4) 33.4 g/dL 31.2-35.0 RDW-SD (test code = 13395-3) 40.8 fL 38.5-51.6 RDW-CV (test code = 788-0) 13.4 % 12.1-15.4 PLT (test code = 777-3) See_Comment H [Automated messa ge] The system which generated this result transmitted reference range: 150 - 328 10*3/?L. The reference range was not used to interpret this result as normal/abnormal. MPV (test code = 77107-5) 10.9 fL 9.8-13.0 NRBC/100 WBC (test code = 0842939735) See_Comment [Automated [employer] ssage] The system which generated this result transmitted reference range: 0.0 - 10.0 /100 WBCs. The reference range was not used to interpret this result as normal/abnormal. NRBC x10^3 (test code = 3594102451) See_Comment [Automated messa ge] The system which generated this result transmitted reference range: 10*3/?L. The reference range was not used to interpret this result as normal/abnormal. GRAN MAT (NEUT) % (test code = 770-8) 67.2 % IMM GRAN % (test code = 1063790633) 0.40 % LYMPH % (test code = 736-9) 25.6 % MONO % (test code = 5905-5) 4.5 % EOS % (test code = 713-8) 1.2 % BASO % (test code = 706-2) 1.1 % GRAN MAT x10^3(ANC) (test code = 9710206719) 7.60 10*3/uL 1.99-6.95 H IMM GRAN x10^3 (test code = 3261745666) 0.05 10*3/uL 0.00-0.06 LYMPH x10^3 (test code = 731-0) 2.89 10*3/uL 1.09-3.23 MONO x10^3 (test code = 742-7) 0.51 10*3/uL 0.36-1.02 EOS x10^3 (test code = 711-2) 0.14 10*3/uL 0.06-0.53 BASO x10^3 (test code = 704-7) 0.12 10*3/uL 0.01-0.09 H Lab Interpretation (test code = 18391-2) Abnormal [facility] acute hospital WITH [id number] 20:42:10* Test Item Value Reference Range Interpretation Comme nts WBC (test code = 6690-2) See_Comment H [Automated messa ge] The system which generated this result transmitted reference range: 4.20 - 10.70 10*3/?L. The reference range was not used to interpret this result as normal/abnormal. RBC (test code = 789-8) See_Comment [Automated messa ge] The system which generated this result transmitted reference range: 4.26 - 5.52 10*6/?L. The reference range was not used to interpret this result as normal/abnormal. HGB (test code = 718-7) 14.8 g/dL 12.2-16.4 HCT (test code = 4544-3) 44.3 % 38.4-49.3 MCV (test code = 787-2) 83.6 fL 81.7-95.6 MCH (test code = 785-6) 27.9 pg 26.1-32.7 MCHC (test code = 786-4) 33.4 g/dL 31.2-35.0 RDW-SD (test code = 63389-9) 40.8 fL 38.5-51.6 RDW-CV (test code = 788-0) 13.4 % 12.1-15.4 PLT (test code = 777-3) See_Comment H [Automated messa ge] The system which generated this result transmitted reference range: 150 - 328 10*3/?L. The reference range was not used to interpret this result as normal/abnormal. MPV (test code = 60718-7) 10.9 fL 9.8-13.0 NRBC/100 WBC (test code = 3340779793) See_Comment [Automated [employer] ssage] The system which generated this result transmitted reference range: 0.0 - 10.0 /100 WBCs. The reference range was not used to interpret this result as normal/abnormal. NRBC x10^3 (test code = 3102101583) See_Comment [Automated messa ge] The system which generated this result transmitted reference range: 10*3/?L. The reference range was not used to interpret this result as normal/abnormal. GRAN MAT (NEUT) % (test code = 770-8) 67.2 % IMM GRAN % (test code = 8006026717) 0.40 % LYMPH % (test code = 736-9) 25.6 % MONO % (test code = 5905-5) 4.5 % EOS % (test code = 713-8) 1.2 % BASO % (test code = 706-2) 1.1 % GRAN MAT x10^3(ANC) (test code = 2463894448) 7.60 10*3/uL 1.99-6.95 H IMM GRAN x10^3 (test code = 9435687373) 0.05 10*3/uL 0.00-0.06 LYMPH x10^3 (test code = 731-0) 2.89 10*3/uL 1.09-3.23 MONO x10^3 (test code = 742-7) 0.51 10*3/uL 0.36-1.02 EOS x10^3 (test code = 711-2) 0.14 10*3/uL 0.06-0.53 BASO x10^3 (test code = 704-7) 0.12 10*3/uL 0.01-0.09 H Lab Interpretation (test code = 31820-7) Abnormal [facility]"
--- NOTE | 2023-09-29 14:50 | RAD REPORT ---
EXAM DESCRIPTION: RAD - Foot Left 3 View - 09/29/2023 1:09 pm CLINICAL HISTORY: Pain;Swelling COMPARISON: Foot Left 3 View dated 05/30/2022; Foot Left 3 View dated 10/20/2018 TECHNIQUE: Left foot, 3 views. FINDINGS: No fracture, dislocation or periosteal reaction. There is stable deformity at the head of the third metatarsal head and diminution/irregularity at the base third digit proximal phalanx . Moderate calcaneal spur. No air or foreign body in the soft tissues. IMPRESSION: No acute osseus abnormality. Chronic findings as above. .
--- NOTE | 2023-09-29 15:33 | EDPHYS ---
Physician Documentation [facility] Name: Donnie Man Jr Age: 42 yrs Sex: Male : 1980 Arrival Date: 09/29/2023 Time: 11:50 Bed IW3 Private MD: ED Physician Leta Handley HPI: 09/29 12:26 This 42 yrs old Male presents to ER via Ambulatory with complaints of Possible ci foot ulcer, Foot Injury. 12:26 The patient presents with Left foot ulcer drainage. The complaints affect the left ci foot. Context: The problem was sustained Left foot ulcer with purulent drainage at fifth metatarsal x 2 days. Patient had a previous foot ulcer at the same location .Reports he is going to call his surgeon Dr. Schulz tomorrow for an appointment but wanted to get ahead of any possible infection or ulcer. Denies any fever swelling, redness.. Historical: - Allergies: 12:14 PENICILLINS; ll1 - Home Meds: 12:14 metformin 500 mg oral tablet 1 tab 2 times per day [Active]; Humulin 70/30 U-100 ll1 Insulin 100 unit/mL (70-30) Sub-Q suspension 2 times per day [Active]; - PMHx: 12:14 Diabetes; ll1 - Immunization history:: Adult Immunizations up to date. - Social history:: Smoking status: Patient denies any tobacco usage or history of. ROS: 13:15 MS/extremity: Positive for Foot ulcer, drainage, ci 13:15 Constitutional: Negative for fever, chills, and weight loss, Cardiovascular: Negative for chest pain, palpitations, and edema, Respiratory: Negative for shortness of breath, cough, wheezing, and pleuritic chest pain, Exam: 13:15 Constitutional: This is a well developed, well nourished patient who is awake, alert, ci and in no acute distress. Head/Face: Normocephalic, atraumatic. Eyes: Pupils equal round and reactive to light, extra-ocular motions intact. Lids and lashes normal. Conjunctiva and sclera are non-icteric and not injected. Cornea within normal limits. Periorbital areas with no swelling, redness, or edema. ENT: Nares patent. No nasal discharge, no septal abnormalities noted. Tympanic membranes are normal and external auditory canals are clear. Oropharynx with no redness, swelling, or masses, exudates, or evidence of obstruction, uvula midline. Mucous membranes moist. Neck: Trachea midline, no thyromegaly or masses palpated, and no cervical lymphadenopathy. Supple, full range of motion without nuchal rigidity, or vertebral point tenderness. No Meningismus. Chest/axilla: Normal chest wall appearance and motion. Nontender with no deformity. No lesions are appreciated. Cardiovascular: Regular rate and rhythm with a normal S1 and S2. No gallops, murmurs, or rubs. Normal PMI, no JVD. No pulse deficits. Respiratory: Lungs have equal breath sounds bilaterally, clear to auscultation and percussion. No rales, rhonchi or wheezes noted. No increased work of breathing, no retractions or nasal flaring. Abdomen/GI: Soft, non-tender, with normal bowel sounds. No distension or tympany. No guarding or rebound. No evidence of tenderness throughout. Back: No spinal tenderness. No costovertebral tenderness. Full range of motion. Skin: Warm, dry with normal turgor. Normal color with no rashes. Left foot ulcer with purulent drainage. No crepitus MS/ Extremity: Pulses equal, no cyanosis. Neurovascular intact. Full, normal range of motion. Also noted to plantar surface of fifth metatarsal of the left foot with minimal purulent drainage. DP/PT intact, sensation to light touch is intact. No step-offs or deformity Neuro: Awake and alert, GCS 15, oriented to person, place, time, and situation. Cranial nerves II-XII grossly intact. Motor strength 5/5 in all extremities. Sensory grossly intact. Cerebellar exam normal. Normal gait. Psych: Awake, alert, with orientation to person, place and time. Behavior, mood, and affect are within normal limits. Vital Signs: 12:13 BP 171 / 104; Pulse 82; Resp 16; Temp 98; Pulse Ox 100% ; Weight 97.52 kg; Height 5 ft. ll1 6 in. ; 12:13 Body Mass Index 34.70 (97.52 kg, 167.64 cm) ll1 MDM: 12:22 Patient medically screened. ci 13:15 Differential diagnosis: sprain, arthritis, cellulitis, Abscess, foot ulcer. Data ci reviewed: vital signs, nurses notes, old medical records. Care significantly affected by the following chronic conditions: Diabetes, Hypertension. Awaiting: X-ray results. 13:53 Awaiting: X-ray results. ci 15:28 ED course: Patient presents for evaluation of left foot ulcer. He is ci nontoxic-appearing, vital signs stable. Also noted to plantar surface of left fifth metatarsal with minimal purulent drainage. No palpable crepitus. X-ray shows no evidence of osteo, soft tissue gas, no fractures. Started on clindamycin. Patient to call his surgeon Dr. Schulz Tomorrow for an appointment. Stable for discharge with close outpatient follow-up.. 09/29 12:25 Order name: XRAY Foot LEFT 3 View; Complete Time: 15:28 ci 09/29 15:28 Interpretation: Per Radiologist's finding(s): IMPRESSION: No acute osseus abnormality. ci Chronic findings as above. . Signed By: Ryan Larsen Signed AT: 09/29/23 6200. 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 ci - Cutaneous abscess of left foot - Pressure Ulcer(09/29/23 15:35) ci Followup: ci - With: Ulices Kuo MD - When: 1 - 2 days - Reason: Recheck today's complaints, Re-evaluation by your physician Followup: ci - With: Private Physician - When: 1 - 2 days - Reason: Recheck today's complaints, Re-evaluation by your physician Discharge Instructions: - Discharge Summary Sheet ci - Diabetes Mellitus and Foot Care ci Forms: - Medication Reconciliation Form ci - Thank You Letter ci - Antibiotic Education ci - Prescription Opioid Use ci - Patient Portal Instructions ci - Leadership Thank You Letter ci Prescriptions: - Clindamycin HCl 150 mg Oral capsule - take 3 capsule ORAL route every 8 hours for 10 days; 90 capsule; Refills: 0, ci Product Selection Permitted Signatures: Dispatcher [employer] Sandy Mancini RN RN ll1 Leta Handley ci Corrections: (The following items were deleted from the chart) 12:30 12:24 Foot Right 3 View+RAD.RAD.[email or web address] ordered. EDMS EDMS 15:33 15:33 Foot Laceration/ Open wound of foot ci ci 15:35 15:33 Cutaneous abscess of left foot ci ci
--- NOTE | 2023-09-29 15:33 | ER ---
Nurse's Notes 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 Coronavirus screen: At this time, the client does not indicate any symptoms associated with coronavirus-19. Ebola Screen: No symptoms or risks identified at this time. Initial Sepsis Screen: Does the patient meet any 2 criteria? No. Patient's initial sepsis screen is negative. Does the patient have a suspected source of infection? No. Patient's initial sepsis screen is negative. Risk Assessment: Do you want to hurt yourself or someone else? Patient reports no desire to harm self or others. Onset of symptoms is unknown. 12:13 Method Of Arrival: Ambulatory ll1 12:13 Acuity: BECKY 3 ll1 Triage Assessment: 12:14 General: Appears in no apparent distress. comfortable, Behavior is calm, cooperative, ll1 appropriate for age. Pain: Complains of pain in left foot. Musculoskeletal: LEFT FOOT WOUND. Injury Description: DIABETIC ULCER. Historical: - Allergies: 12:14 PENICILLINS; ll1 - Home Meds: 12:14 metformin 500 mg oral tablet 1 tab 2 times per day [Active]; Humulin 70/30 U-100 ll1 Insulin 100 unit/mL (70-30) Sub-Q suspension 2 times per day [Active]; - PMHx: 12:14 Diabetes; ll1 - Immunization history:: Adult Immunizations up to date. - Social history:: Smoking status: Patient denies any tobacco usage or history of. Screenin:16 [facility] ED Fall Risk Assessment (Adult) History of falling in the last 3 months, ll1 including since admission No falls in past 3 months (0 pts). Abuse screen: Denies threats or abuse. Denies injuries from another. Nutritional screening: No deficits noted. Tuberculosis screening: No symptoms or risk factors identified. Vital Signs: 12:13 BP 171 / 104; Pulse 82; Resp 16; Temp 98; Pulse Ox 100% ; Weight 97.52 kg; Height 5 ft. ll1 6 in. ; 12:13 Body Mass Index 34.70 (97.52 kg, 167.64 cm) ll1 ED Course: 11:53 Patient arrived in ED. ts1 12:05 Leta Handley is Attending Physician. ci 12:14 Triage completed. ll1 12:14 Arm band placed on. ll1 12:16 Patient has correct armband on for positive identification. ll1 13:11 XRAY Foot LEFT 3 View In Process Unspecified. EDMS 15:30 Ulices Kuo MD is Referral Physician. ci 16:04 Karl Alcala, RN is Primary Nurse. bp 16:04 No provider procedures requiring assistance completed. Patient did not have IV access bp during this emergency room visit. Administered Medications: 13:05 Drug: Clindamycin PO 450 mg PO once Route: PO; ll1 Medication: 16:04 VIS not applicable for this client. bp Outcome: 15:33 Discharge ordered by MD. ci 16:04 Discharged to home ambulatory, bp 16:04 Condition: stable 16:04 Discharge instructions given to patient, Instructed on discharge instructions, follow up and referral plans. medication usage, Demonstrated understanding of instructions, follow-up care, medications, Prescriptions given X 1, 16:05 Patient left the ED. bp Signatures: Dispatcher [employer] EDIL Karl Alcala, RN Sandy Mendez RN RN 1 Rowena García [facility] ts1 Leta Handley ci
[2023-09-29 16:58] VITALS: BP 171/104; TEMP 98; O2SAT 100
== END ==
LOC: ER 11:50
DX: E11.621 Type 2 diabetes mellitus with foot ulcer (principal); L02.612 Cutaneous abscess of left foot; L89.899 Pressure ulcer of other site, unspecified stage; Z88.0 Allergy status to penicillin
CPT/HCPCS: 99283

== ENCOUNTER → 2023-11-28 | Emergency (ER) | payer OTHER ==
[~2023-11-28] MED LIST: CLINDAMYCIN 900MG/D5W 900 MG/50 ML IVPB IV ONE; Levofloxacin500mg IV 500 MG/100 ML BAG IV ONE; MORPHINE 4 MG/ML SYR ONE; NA CHLORIDE 0.9% 1,000 ML ONE; NA CHLORIDE 0.9% 250 ML ONE; NA CHLORIDE 0.9% 500 ML ONE; ONDANSETRON 4 MG/2 ML VIAL ONE; VANCOMYCIN 1 GM/VIAL ONE; levoFLOXacin 750 MG TAB ONE
--- OUTSIDE RECORDS SUMMARY | 2023-11-28 19:57 | XMS REPORT | Continuity of Care Document ---
Author Name Unknown Address [address] [facility] [place] [address] [facility] Address [address] [facility] [place] [address] Care Team Providers Care Residential Therapist Name Role Phone FREDDIE TATUM Primary Care Physician Unav ailable LALY HENRY Attending Clinician Unavailable Laly Lopez Attending Clinician [phone] ZENA SCHULTZ Attending Clinician Unavailabl e Therapy-Kimberly [facility]allero[facility] Attending Clinician Unavailable Carlos Mclaughlin MD Attending Clinician [phone] CARLOS MCLAUGHLIN Attending Clinician Unavailable Doctor Unassigned, [place] Attending Clinician U simeon Moseley RN, Coby Hernandez Attending Clinician [phone] MD Attending Clinician [phone] Stephanie Singleton MD Attending Clinician [phone] Edilberto Mims MD Attending Clinician [phone] EDILBERTO MIMS Attending Clinician Unavailable Pop ENRIQUE, Josue Attending Clinician [phone] Shawna ENRIQUE, Tomasz Dunn Attending Clinician [phone] Joel ENRQIUE, Salazar Attending Clinician + Lab, Adc Fam Pob I Attending Clinician Unavailab Krystina Morfin Attending Clinician [phone] KRYSTINA CHEEMA Attending Clinician Unavailable Stephanie Singleton MD Admitting Clinician [phone] STEPHANIE SINGLETON Admitting Clinician Unavailable Payers Payer Name Policy Type Policy Number Effective Date Expirati on Date Source [employer] [id number] 2022 00:00:00 Problems Condition Name Condition Details Condition Category Status Onset Date Resolution Date Last Treatment Date Treating Clinician Comments Source Finger pain, right Finger pain, right Disease Active 2021-10 00:00: 00 [facility] Finger stiffness, right Finger stiffness, right Disease Active 2021-10 00:00: 00 [facility] Obesity (BMI 30-39.9) Obesity (BMI 30-39.9) Disease Active 2021-10 00:00: 00 [facility] 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 Disease Active 2021-10 00:00: 00 [facility] Essential hypertensi on Essential hypertensi on Disease Active 2021-10 00:00: 00 [facility] Hyperlipid emia Hyperlipid emia Disease Active 2021-10 00:00: 00 [facility] Restless leg syndrome Restless leg syndrome Disease Active 2021-10 00:00: 00 [facility] Encounter for routine history and physical exam for male Encounter for routine history and physical exam for male Disease Active 02-12 00:00: 00 [facility] Type 2 diabetes mellitus without complicati on, with long-term current use of insulin Type 2 diabetes mellitus without complicati on, with long-term current use of insulin Disease Active 12-01 00:00: 00 Overview: Formattin g of this note might be different from the original. ICD10 Diagnosis Term Photogrammetry [employer] Utility [facility] Yeast infection Yeast infection Disease Active 12-01 00:00: 00 [facility] Allergies, Adverse Reactions, Alerts Allergy Name Allergy Type Status Severity Reaction(s) Onset Date Inactive Date Treating Clinician Comments Source Penicill ins Propensi ty to adverse reaction s Active Rash 11-22 00:00: 00 [facility] PENICILL INS Drug Class Active Rash 11-22 00:00: 00 [facility] Penicill ins Propensi ty to adverse reaction s Active Rash 11-22 00:00: 00 [facility] Social History Social Habit Start Date Stop Date Quantity Comments Source History of tobacco use Cigarette Smoker [facility] Exposure to SARS-CoV-2 (event) 2022-10-28 00:00:00 2022-11-07 08:30:00 Unable to assess [facility] Tobacco use and exposure 2022-10-08 00:00:00 2022-10-08 00:00:00 Smokeless tobacco non-user [facility] Alcohol intake 2022-10-08 00:00:00 2022-10-08 00:00:00 Current drinker of alcohol (finding) [facility] Tobacco Comment 2022-10-08 00:00:00 2022-10-08 00:00:00 smokes 1 pack per week [facility] Alcohol Comment 2014-02-22 00:00:00 2014-02-22 00:00:00 Currently uses alcohol only occasionally. 4 years ago he drank 24 beers daily for 4-5 months. [facility] Sex Assigned At 1980 00:00:00 1980 00:00:00 [facility] Smoking Status Start Date Stop Date Source Ex-smoker 2022-10-08 00:00:00 2022-10-08 00:00:00 [facility] Occasional tobacco smoker 2014-02-22 00:00:00 [facility] Medications Ordered Medication Name Filled Medication Name Start Date Stop Date Current Medication? Ordering Clinician Indication Dosage Frequency Signature (SIG) Comments Components Source gabapentin 600 mg tablet 2021-10 00:00: 00 Yes 600mg Take 600 mg by mouth at bedtime. [facility] gabapentin 600 mg tablet 2021-10 00:00: 00 Yes 600mg Take 600 mg by mouth at bedtime. [facility] gabapentin 600 mg tablet 2021-10 00:00: 00 Yes 600mg Take 600 mg by mouth at bedtime. [facility] MOUNJARO 2.5 mg/0.5 mL PnIj 2021-10 00:00: 00 Yes INJECT 2.5 MG SUBCUTANEO USLY ONCE A WEEK FOR 4 WEEKS [facility] MOUNJARO 2.5 mg/0.5 mL PnIj 2021-10 00:00: 00 Yes INJECT 2.5 MG SUBCUTANEO USLY ONCE A WEEK FOR 4 WEEKS [facility] MOUNJARO 2.5 mg/0.5 mL PnIj 2021-10 00:00: 00 Yes INJECT 2.5 MG SUBCUTANEO USLY ONCE A WEEK FOR 4 WEEKS [facility] mupirocin 2 % ointment 2021-10 00:00: 00 10-03 05:59 :00 No [id number] Apply to area(s) 3 (three) times daily for 21 days. [facility] mupirocin 2 % ointment 2021-10 00:00: 00 10-03 05:59 :00 No [id number] Apply to area(s) 3 (three) times daily for 21 days. [facility] mupirocin 2 % ointment 2021-10 00:00: 00 10-03 05:59 :00 No [id number] Apply to area(s) 3 (three) times daily for 21 days. [facility] losartan 50 mg tablet 2021-10 00:00: 00 Yes 50mg Take 1 tablet by mouth in the morning. [facility] polyethylen e glycol 3350 17 gram powder 2021-10 00:00: 00 Yes [id number] 17g Take 1 Packet by mouth in the morning. [facility] sennosides 8.6 mg tablet 2021-10 00:00: 00 Yes [id number] 8.6mg Take 1 tablet by mouth in the morning. [facility] losartan 50 mg tablet 2021-10 00:00: 00 Yes 50mg Take 1 tablet by mouth in the morning. [facility] polyethylen e glycol 3350 17 gram powder 2021-10 00:00: 00 Yes [id number] 17g Take 1 Packet by mouth in the morning. [facility] sennosides 8.6 mg tablet 2021-10 00:00: 00 Yes [id number] 8.6mg Take 1 tablet by mouth in the morning. [facility] losartan 50 mg tablet 2021-10 00:00: 00 Yes 50mg Take 1 tablet by mouth in the morning. [facility] polyethylen e glycol 3350 17 gram powder 2021-10 00:00: 00 Yes [id number] 17g Take 1 Packet by mouth in the morning. [facility] sennosides 8.6 mg tablet 2021-10 00:00: 00 Yes [id number] 8.6mg Take 1 tablet by mouth in the morning. [facility] losartan 50 mg tablet 2021-10 00:00: 00 Yes 50mg Take 1 tablet by mouth in the morning. [facility] polyethylen e glycol 3350 17 gram powder 2021-10 00:00: 00 Yes [id number] 17g Take 1 Packet by mouth in the morning. [facility] sennosides 8.6 mg tablet 2021-10 00:00: 00 Yes [id number] 8.6mg Take 1 tablet by mouth in the morning. [facility] losartan 50 mg tablet 2021-10 00:00: 00 Yes 50mg Take 1 tablet by mouth in the morning. [facility] polyethylen e glycol 3350 17 gram powder 2021-10 00:00: 00 Yes [id number] 17g Take 1 Packet by mouth in the morning. [facility] sennosides 8.6 mg tablet 2021-10 00:00: 00 Yes [id number] 8.6mg Take 1 tablet by mouth in the morning. [facility] losartan 50 mg tablet 2021-10 00:00: 00 Yes 50mg Take 1 tablet by mouth in the morning. [facility] polyethylen e glycol 3350 17 gram powder 2021-10 00:00: 00 Yes [id number] 17g Take 1 Packet by mouth in the morning. [facility] sennosides 8.6 mg tablet 2021-10 00:00: 00 Yes [id number] 8.6mg Take 1 tablet by mouth in the morning. [facility] losartan 50 mg tablet 2021-10 00:00: 00 Yes 50mg Take 1 tablet by mouth in the morning. [facility] polyethylen e glycol 3350 17 gram powder 2021-10 00:00: 00 Yes [id number] 17g Take 1 Packet by mouth in the morning. [facility] sennosides 8.6 mg tablet 2021-10 00:00: 00 Yes [id number] 8.6mg Take 1 tablet by mouth in the morning. [facility] losartan 50 mg tablet 2021-10 00:00: 00 Yes 50mg Take 1 tablet by mouth in the morning. [facility] polyethylen e glycol 3350 17 gram powder 2021-10 00:00: 00 Yes [id number] 17g Take 1 Packet by mouth in the morning. [facility] sennosides 8.6 mg tablet 2021-10 00:00: 00 Yes [id number] 8.6mg Take 1 tablet by mouth in the morning. [facility] losartan 50 mg tablet 2021-10 00:00: 00 Yes 50mg Take 1 tablet by mouth in the morning. [facility] polyethylen e glycol 3350 17 gram powder 2021-10 00:00: 00 Yes [id number] 17g Take 1 Packet by mouth in the morning. [facility] sennosides 8.6 mg tablet 2021-10 00:00: 00 Yes [id number] 8.6mg Take 1 tablet by mouth in the morning. [facility] losartan 50 mg tablet 2021-10 00:00: 00 Yes 50mg Take 1 tablet by mouth in the morning. [facility] polyethylen e glycol 3350 17 gram powder 2021-10 00:00: 00 Yes [id number] 17g Take 1 Packet by mouth in the morning. [facility] sennosides 8.6 mg tablet 2021-10 00:00: 00 Yes [id number] 8.6mg Take 1 tablet by mouth in the morning. [facility] losartan 50 mg tablet 2021-10 00:00: 00 Yes 50mg Take 1 tablet by mouth in the morning. [facility] polyethylen e glycol 3350 17 gram powder 2021-10 00:00: 00 Yes [id number] 17g Take 1 Packet by mouth in the morning. [facility] sennosides 8.6 mg tablet 2021-10 00:00: 00 Yes [id number] 8.6mg Take 1 tablet by mouth in the morning. [facility] losartan 50 mg tablet 2021-10 00:00: 00 Yes 50mg Take 1 tablet by mouth in the morning. [facility] polyethylen e glycol 3350 17 gram powder 2021-10 00:00: 00 Yes [id number] 17g Take 1 Packet by mouth in the morning. [facility] sennosides 8.6 mg tablet 2021-10 00:00: 00 Yes [id number] 8.6mg Take 1 tablet by mouth in the morning. [facility] losartan 50 mg tablet 2021-10 00:00: 00 Yes 50mg Take 1 tablet by mouth in the morning. [facility] polyethylen e glycol 3350 17 gram powder 2021-10 00:00: 00 Yes [id number] 17g Take 1 Packet by mouth in the morning. [facility] sennosides 8.6 mg tablet 2021-10 00:00: 00 Yes [id number] 8.6mg Take 1 tablet by mouth in the morning. [facility] losartan 50 mg tablet 2021-10 00:00: 00 Yes 50mg Take 1 tablet by mouth in the morning. [facility] polyethylen e glycol 3350 17 gram powder 2021-10 00:00: 00 Yes [id number] 17g Take 1 Packet by mouth in the morning. [facility] sennosides 8.6 mg tablet 2021-10 00:00: 00 Yes [id number] 8.6mg Take 1 tablet by mouth in the morning. [facility] losartan 50 mg tablet 2021-10 00:00: 00 Yes 50mg Take 1 tablet by mouth in the morning. [facility] polyethylen e glycol 3350 17 gram powder 2021-10 00:00: 00 Yes [id number] 17g Take 1 Packet by mouth in the morning. [facility] sennosides 8.6 mg tablet 2021-10 00:00: 00 Yes [id number] 8.6mg Take 1 tablet by mouth in the morning. [facility] sennosides (SENOKOT) tablet 8.6 mg 2021-10 15:00: 00 Yes 8.6mg 8.6 mg, Oral, DAILY, First dose on Fri09/04/22 at 0900, Until Discontinu ed, Routine [facility] polyethylen e glycol 3350 powder 17 g 2021-10 15:00: 00 Yes 17g 17 g, Oral, DAILY, First dose on Fri09/04/22 at 0900, Until Discontinu ed, Routine [facility] sennosides (SENOKOT) tablet 8.6 mg 2021-10 15:00: 00 Yes 8.6mg 8.6 mg, Oral, DAILY, First dose on Fri09/04/22 at 0900, Until Discontinu ed, Routine [facility] polyethylen e glycol 3350 powder 17 g 2021-10 15:00: 00 Yes 17g 17 g, Oral, DAILY, First dose on Fri09/04/22 at 0900, Until Discontinu ed, Routine [facility] morpHINE (2 mg/mL) injection 4 mg 2021-10 13:57: 04 Yes 4mg 4 mg, Slow IV Push, Q4HPRN, Starting on Fri09/04/22 at 0757, Until Discontinu ed, Routine, Pain (scale 7-10) [facility] morpHINE (2 mg/mL) injection 4 mg 2021-10 13:57: 04 Yes 4mg 4 mg, Slow IV Push, Q4HPRN, Starting on Fri09/04/22 at 0757, Until Discontinu ed, Routine, Pain (scale 7-10) [facility] HYDROcodone -acetaminop hen (NORCO) 10-325 mg tablet 1 tablet 2021-10 10:51: 25 Yes 1{tbl} 1 tablet, Oral, Q6HPRN, Starting on Fri09/04/22 at 0451, Until Discontinu ed, Routine, Pain (scale 4-6) [facility] HYDROcodone -acetaminop hen (NORCO) 10-325 mg tablet 1 tablet 2021-10 10:51: 25 Yes 1{tbl} 1 tablet, Oral, Q6HPRN, Starting on Fri09/04/22 at 0451, Until Discontinu ed, Routine, Pain (scale 4-6) [facility] morpHINE (2 mg/mL) injection 2 mg 2021-10 10:51: 13 09-04 13:57 :36 No 2mg 2 mg, Slow IV Push, Q4HPRN, Starting on Fri09/04/22 at 0451, Until Fri09/04/22 at 0757, Routine, Pain (scale 7-10) [facility] HYDROcodone -acetaminop hen (NORCO) 10-325 mg tablet 1 tablet 2021-10 08:39: 28 09-04 10:51 :33 No 1{tbl} 1 tablet, Oral, Q6HPRN, Starting on Fri09/04/22 at 0239, Until Fri09/04/22 at 0451, Routine, Pain (scale 7-10) [facility] gabapentin 100 mg capsule 2021-10 00:00: 00 Yes [id number] 300mg Take 3 capsules by mouth at bedtime. [facility] ibuprofen 600 mg tablet 2021-10 00:00: 00 Yes [id number] 600mg Take 1 tablet by mouth every 6 (six) hours as needed for Pain (scale 1-3). [facility] NPH and regular human 70-30 100 unit/mL (70-30) injection 2021-10 00:00: 00 Yes 40U inject 40 Units under the skin every morning. [facility] NPH and regular human 70-30 100 unit/mL (70-30) injection 2021-10 00:00: 00 Yes 20U inject 20 Units under the skin every evening. [facility] metFORMIN 500 mg tablet 2021-10 00:00: 00 Yes 500mg Take 1 tablet by mouth in the morning and 1 tablet in the evening. Take with meals. [facility] semaglutide (OZEMPIC) 0.25 mg or 0.5 mg(2 mg/1.5 mL) PnIj 2021-10 00:00: 00 Yes .25mg inject 0.25 mg under the skin. [facility] gabapentin 100 mg capsule 2021-10 00:00: 00 Yes [id number] 300mg Take 3 capsules by mouth at bedtime. [facility] ibuprofen 600 mg tablet 2021-10 00:00: 00 Yes [id number] 600mg Take 1 tablet by mouth every 6 (six) hours as needed for Pain (scale 1-3). [facility] insulin NPH and regular human 70-30 100 unit/mL (70-30) injection 2021-10 00:00: 00 Yes 40U inject 40 Units under the skin every morning. [facility] insulin NPH and regular human 70-30 100 unit/mL (70-30) injection 2021-10 00:00: 00 Yes 20U inject 20 Units under the skin every evening. [facility] metFORMIN 500 mg tablet 2021-10 00:00: 00 Yes 500mg Take 1 tablet by mouth in the morning and 1 tablet in the evening. Take with meals. [facility] semaglutide (OZEMPIC) 0.25 mg or 0.5 mg(2 mg/1.5 mL) PnIj 2021-10 00:00: 00 Yes .25mg inject 0.25 mg under the skin. [facility] gabapentin 100 mg capsule 2021-10 00:00: 00 Yes [id number] 300mg Take 3 capsules by mouth at bedtime. [facility] ibuprofen 600 mg tablet 2021-10 00:00: 00 Yes [id number] 600mg Take 1 tablet by mouth every 6 (six) hours as needed for Pain (scale 1-3). [facility] insulin NPH and regular human 70-30 100 unit/mL (70-30) injection 2021-10 00:00: 00 Yes 40U inject 40 Units under the skin every morning. [facility] insulin NPH and regular human 70-30 100 unit/mL (70-30) injection 2021-10 00:00: 00 Yes 20U inject 20 Units under the skin every evening. [facility] metFORMIN 500 mg tablet 2021-10 00:00: 00 Yes 500mg Take 1 tablet by mouth in the morning and 1 tablet in the evening. Take with meals. [facility] semaglutide (OZEMPIC) 0.25 mg or 0.5 mg(2 mg/1.5 mL) PnIj 2021-10 00:00: 00 Yes .25mg inject 0.25 mg under the skin. [facility] gabapentin 100 mg capsule 2021-10 00:00: 00 Yes [id number] 300mg Take 3 capsules by mouth at bedtime. [facility] ibuprofen 600 mg tablet 2021-10 00:00: 00 Yes [id number] 600mg Take 1 tablet by mouth every 6 (six) hours as needed for Pain (scale 1-3). [facility] NPH and regular human 70-30 100 unit/mL (70-30) injection 2021-10 00:00: 00 Yes 40U inject 40 Units under the skin every morning. [facility] insulin NPH and regular human 70-30 100 unit/mL (70-30) injection 2021-10 00:00: 00 Yes 20U inject 20 Units under the skin every evening. [facility] metFORMIN 500 mg tablet 2021-10 00:00: 00 Yes 500mg Take 1 tablet by mouth in the morning and 1 tablet in the evening. Take with meals. [facility] semaglutide (OZEMPIC) 0.25 mg or 0.5 mg(2 mg/1.5 mL) PnIj 2021-10 00:00: 00 Yes .25mg inject 0.25 mg under the skin. [facility] gabapentin 100 mg capsule 2021-10 00:00: 00 Yes [id number] 300mg Take 3 capsules by mouth at bedtime. [facility] ibuprofen 600 mg tablet 2021-10 00:00: 00 Yes [id number] 600mg Take 1 tablet by mouth every 6 (six) hours as needed for Pain (scale 1-3). [facility] insulin NPH and regular human 70-30 100 unit/mL (70-30) injection 2021-10 00:00: 00 Yes 40U inject 40 Units under the skin every morning. [facility] insulin NPH and regular human 70-30 100 unit/mL (70-30) injection 2021-10 00:00: 00 Yes 20U inject 20 Units under the skin every evening. [facility] metFORMIN 500 mg tablet 2021-10 00:00: 00 Yes 500mg Take 1 tablet by mouth in the morning and 1 tablet in the evening. Take with meals. [facility] semaglutide (OZEMPIC) 0.25 mg or 0.5 mg(2 mg/1.5 mL) PnIj 2021-10 00:00: 00 Yes .25mg inject 0.25 mg under the skin. [facility] gabapentin 100 mg capsule 2021-10 00:00: 00 Yes [id number] 300mg Take 3 capsules by mouth at bedtime. [facility] ibuprofen 600 mg tablet 2021-10 00:00: 00 Yes [id number] 600mg Take 1 tablet by mouth every 6 (six) hours as needed for Pain (scale 1-3). [facility] insulin NPH and regular human 70-30 100 unit/mL (70-30) injection 2021-10 00:00: 00 Yes 40U inject 40 Units under the skin every morning. [facility] insulin NPH and regular human 70-30 100 unit/mL (70-30) injection 2021-10 00:00: 00 Yes 20U inject 20 Units under the skin every evening. [facility] metFORMIN 500 mg tablet 2021-10 00:00: 00 Yes 500mg Take 1 tablet by mouth in the morning and 1 tablet in the evening. Take with meals. [facility] semaglutide (OZEMPIC) 0.25 mg or 0.5 mg(2 mg/1.5 mL) [facility] 2021-10 00:00: 00 Yes .25mg inject 0.25 mg under the skin. [facility] gabapentin 100 mg capsule 2021-10 00:00: 00 Yes [id number] 300mg Take 3 capsules by mouth at bedtime. [facility] ibuprofen 600 mg tablet 2021-10 00:00: 00 Yes [id number] 600mg Take 1 tablet by mouth every 6 (six) hours as needed for Pain (scale 1-3). [facility] insulin NPH and regular human 70-30 100 unit/mL (70-30) injection 2021-10 00:00: 00 Yes 40U inject 40 Units under the skin every morning. [facility] insulin NPH and regular human 70-30 100 unit/mL (70-30) injection 2021-10 00:00: 00 Yes 20U inject 20 Units under the skin every evening. [facility] metFORMIN 500 mg tablet 2021-10 00:00: 00 Yes 500mg Take 1 tablet by mouth in the morning and 1 tablet in the evening. Take with meals. [facility] semaglutide (OZEMPIC) 0.25 mg or 0.5 mg(2 mg/1.5 mL) PnIj 2021-10 00:00: 00 Yes .25mg inject 0.25 mg under the skin. [facility] polyethylen e glycol 3350 17 gram/dose powder 2021-10 00:00: 00 Yes MIX 17 GRAMS OF POWDER IN WATER OR JUICE ONCE DAILY IN THE MORNING [facility] gabapentin 100 mg capsule 2021-10 00:00: 00 Yes [id number] 300mg Take 3 capsules by mouth at bedtime. [facility] ibuprofen 600 mg tablet 2021-10 00:00: 00 Yes [id number] 600mg Take 1 tablet by mouth every 6 (six) hours as needed for Pain (scale 1-3). [facility] insulin NPH and regular human 70-30 100 unit/mL (70-30) injection 2021-10 00:00: 00 Yes 40U inject 40 Units under the skin every morning. [facility] insulin NPH and regular human 70-30 100 unit/mL (70-30) injection 2021-10 00:00: 00 Yes 20U inject 20 Units under the skin every evening. [facility] metFORMIN 500 mg tablet 2021-10 00:00: 00 Yes 500mg Take 1 tablet by mouth in the morning and 1 tablet in the evening. Take with meals. [facility] semaglutide (OZEMPIC) 0.25 mg or 0.5 mg(2 mg/1.5 mL) Ij 2021-10 00:00: 00 Yes .25mg inject 0.25 mg under the skin. [facility] polyethylen e glycol 3350 17 gram/dose powder 2021-10 00:00: 00 Yes MIX 17 GRAMS OF POWDER IN WATER OR JUICE ONCE DAILY IN THE MORNING [facility] gabapentin 100 mg capsule 2021-10 00:00: 00 Yes [id number] 300mg Take 3 capsules by mouth at bedtime. [facility] ibuprofen 600 mg tablet 2021-10 00:00: 00 Yes [id number] 600mg Take 1 tablet by mouth every 6 (six) hours as needed for Pain (scale 1-3). [facility] insulin NPH and regular human 70-30 100 unit/mL (70-30) injection 2021-10 00:00: 00 Yes 40U inject 40 Units under the skin every morning. [facility] insulin NPH and regular human 70-30 100 unit/mL (70-30) injection 2021-10 00:00: 00 Yes 20U inject 20 Units under the skin every evening. [facility] metFORMIN 500 mg tablet 2021-10 00:00: 00 Yes 500mg Take 1 tablet by mouth in the morning and 1 tablet in the evening. Take with meals. [facility] [facility] semaglutide (OZEMPIC) 0.25 mg or 0.5 mg(2 mg/1.5 mL) PnIj 2021-10 00:00: 00 Yes .25mg inject 0.25 mg under the skin. [facility] polyethylen e glycol 3350 17 gram/dose powder 2021-10 00:00: 00 Yes MIX 17 GRAMS OF POWDER IN WATER OR JUICE ONCE DAILY IN THE MORNING [facility] gabapentin 100 mg capsule 2021-10 00:00: 00 Yes [id number] 300mg Take 3 capsules by mouth at bedtime. [facility] ibuprofen 600 mg tablet 2021-10 00:00: 00 Yes [id number] 600mg Take 1 tablet by mouth every 6 (six) hours as needed for Pain (scale 1-3). [facility] insulin NPH and regular human 70-30 100 unit/mL (70-30) injection 2021-10 00:00: 00 Yes 40U inject 40 Units under the skin every morning. [facility] insulin NPH and regular human 70-30 100 unit/mL (70-30) injection 2021-10 00:00: 00 Yes 20U inject 20 Units under the skin every evening. [facility] metFORMIN 500 mg tablet 2021-10 00:00: 00 Yes 500mg Take 1 tablet by mouth in the morning and 1 tablet in the evening. Take with meals. [facility] semaglutide (OZEMPIC) 0.25 mg or 0.5 mg(2 mg/1.5 mL) PnIj 2021-10 00:00: 00 Yes .25mg inject 0.25 mg under the skin. [facility] polyethylen e glycol 3350 17 gram/dose powder 2021-10 00:00: 00 Yes MIX 17 GRAMS OF POWDER IN WATER OR JUICE ONCE DAILY IN THE MORNING [facility] gabapentin 100 mg capsule 2021-10 00:00: 00 Yes [id number] 300mg Take 3 capsules by mouth at bedtime. [facility] ibuprofen 600 mg tablet 2021-10 00:00: 00 Yes [id number] 600mg Take 1 tablet by mouth every 6 (six) hours as needed for Pain (scale 1-3). [facility] insulin NPH and regular human 70-30 100 unit/mL (70-30) injection 2021-10 00:00: 00 Yes 40U inject 40 Units under the skin every morning. [facility] insulin NPH and regular human 70-30 100 unit/mL (70-30) injection 2021-10 00:00: 00 Yes 20U inject 20 Units under the skin every evening. [facility] metFORMIN 500 mg tablet 2021-10 00:00: 00 Yes 500mg Take 1 tablet by mouth in the morning and 1 tablet in the evening. Take with meals. [facility] semaglutide (OZEMPIC) 0.25 mg or 0.5 mg(2 mg/1.5 mL) PnIj 2021-10 00:00: 00 Yes .25mg inject 0.25 mg under the skin. [facility] polyethylen e glycol 3350 17 gram/dose powder 2021-10 00:00: 00 Yes MIX 17 GRAMS OF POWDER IN WATER OR JUICE ONCE DAILY IN THE MORNING [facility] ibuprofen 600 mg tablet 2021-10 00:00: 00 Yes [id number] 600mg Take 1 tablet by mouth every 6 (six) hours as needed for Pain (scale 1-3). [facility]PH and regular human 70-30 100 unit/mL (70-30) injection 2021-10 00:00: 00 Yes 40U inject 40 Units under the skin every morning. [facility] insulin NPH and regular human 70-30 100 unit/mL (70-30) injection 2021-10 00:00: 00 Yes 20U inject 20 Units under the skin every evening. [facility] metFORMIN 500 mg tablet 2021-10 00:00: 00 Yes 500mg Take 1 tablet by mouth in the morning and 1 tablet in the evening. Take with meals. [facility] semaglutide (OZEMPIC) 0.25 mg or 0.5 mg(2 mg/1.5 mL) PnIj 2021-10 00:00: 00 Yes .25mg inject 0.25 mg under the skin. [facility] polyethylen e glycol 3350 17 gram/dose powder 2021-10 00:00: 00 Yes MIX 17 GRAMS OF POWDER IN WATER OR JUICE ONCE DAILY IN THE MORNING [facility] ibuprofen 600 mg tablet 2021-10 00:00: 00 Yes [id number] 600mg Take 1 tablet by mouth every 6 (six) hours as needed for Pain (scale 1-3). [facility] insulin NPH and regular human 70-30 100 unit/mL (70-30) injection 2021-10 00:00: 00 Yes 40U inject 40 Units under the skin every morning. [facility] insulin NPH and regular human 70-30 100 unit/mL (70-30) injection 2021-10 00:00: 00 Yes 20U inject 20 Units under the skin every evening. [facility] metFORMIN 500 mg tablet 2021-10 00:00: 00 Yes 500mg Take 1 tablet by mouth in the morning and 1 tablet in the evening. Take with meals. [facility] semaglutide (OZEMPIC) 0.25 mg or 0.5 mg(2 mg/1.5 mL) PnIj 2021-10 00:00: 00 Yes .25mg inject 0.25 mg under the skin. [facility] polyethylen e glycol 3350 17 gram/dose powder 2021-10 00:00: 00 Yes MIX 17 GRAMS OF POWDER IN WATER OR JUICE ONCE DAILY IN THE MORNING [facility] ibuprofen 600 mg tablet 2021-10 00:00: 00 Yes [id number] 600mg Take 1 tablet by mouth every 6 (six) hours as needed for Pain (scale 1-3). [facility] insulin NPH and regular human 70-30 100 unit/mL (70-30) injection 2021-10 00:00: 00 Yes 40U inject 40 Units under the skin every morning. [facility] insulin NPH and regular human 70-30 100 unit/mL (70-30) injection 2021-10 00:00: 00 Yes 20U inject 20 Units under the skin every evening. [facility] metFORMIN 500 mg tablet 2021-10 00:00: 00 Yes 500mg Take 1 tablet by mouth in the morning and 1 tablet in the evening. Take with meals. [facility] semaglutide (OZEMPIC) 0.25 mg or 0.5 mg(2 mg/1.5 mL) PnIj 2021-10 00:00: 00 Yes .25mg inject 0.25 mg under the skin. [facility] polyethylen e glycol 3350 17 gram/dose powder 2021-10 00:00: 00 Yes MIX 17 GRAMS OF POWDER IN WATER OR JUICE ONCE DAILY IN THE MORNING [facility] gabapentin 100 mg capsule 2021-10 00:00: 00 Yes [id number] 300mg Take 3 capsules by mouth at bedtime. [facility] ibuprofen 600 mg tablet 2021-10 00:00: 00 Yes [id number] 600mg Take 1 tablet by mouth every 6 (six) hours as needed for Pain (scale 1-3). [facility] insulin NPH and regular human 70-30 100 unit/mL (70-30) injection 2021-10 00:00: 00 Yes 40U inject 40 Units under the skin every morning. [facility] insulin NPH and regular human 70-30 100 unit/mL (70-30) injection 2021-10 00:00: 00 Yes 20U inject 20 Units under the skin every evening. [facility] metFORMIN 500 mg tablet 2021-10 00:00: 00 Yes 500mg Take 1 tablet by mouth in the morning and 1 tablet in the evening. Take with meals. [facility] semaglutide (OZEMPIC) 0.25 mg or 0.5 mg(2 mg/1.5 mL) PnIj 2021-10 00:00: 00 Yes .25mg inject 0.25 mg under the skin. [facility] gabapentin 100 mg capsule 2021-10 00:00: 00 10-08 00:00 :00 No [id number] 300mg Take 3 capsules by mouth at bedtime. [facility] gabapentin 100 mg capsule 2021-10 00:00: 00 10-08 00:00 :00 No [id number] 300mg Take 3 capsules by mouth at bedtime. [facility] HYDROcodone -acetaminop hen 10-325 mg tablet 2021-10 00:00: 00 09-12 05:59 :00 No 4647 1{tbl} Take 1 tablet by mouth every 6 (six) hours as needed for Pain (scale 4-6) for up to 7 days. Indication s: acute pain [facility] HYDROcodone -acetaminop hen 10-325 mg tablet 2021-10 00:00: 00 09-12 05:59 :00 No 4647 1{tbl} Take 1 tablet by mouth every 6 (six) hours as needed for Pain (scale 4-6) for up to 7 days. Indication s: acute pain [facility] HYDROcodone -acetaminop hen 10-325 mg tablet 2021-10 00:00: 00 09-12 05:59 :00 No 4647 1{tbl} Take 1 tablet by mouth every 6 (six) hours as needed for Pain (scale 4-6) for up to 7 days. Indication s: acute pain [facility] HYDROcodone -acetaminop hen 10-325 mg tablet 2021-10 00:00: 00 09-12 05:59 :00 No 4647 1{tbl} Take 1 tablet by mouth every 6 (six) hours as needed for Pain (scale 4-6) for up to 7 days. Indication s: acute pain [facility] HYDROcodone -acetaminop hen 10-325 mg tablet 2021-10 00:00: 00 09-12 05:59 :00 No 4647 1{tbl} Take 1 tablet by mouth every 6 (six) hours as needed for Pain (scale 4-6) for up to 7 days. Indication s: acute pain [facility] HYDROcodone -acetaminop hen 10-325 mg tablet 2021-10 00:00: 00 09-12 05:59 :00 No 4647 1{tbl} Take 1 tablet by mouth every 6 (six) hours as needed for Pain (scale 4-6) for up to 7 days. Indication s: acute pain [facility] HYDROcodone -acetaminop hen 10-325 mg tablet 2021-10 00:00: 00 09-12 05:59 :00 No 4647 1{tbl} Take 1 tablet by mouth every 6 (six) hours as needed for Pain (scale 4-6) for up to 7 days. Indication s: acute pain [facility] HYDROcodone -acetaminop hen 10-325 mg tablet 2021-10 00:00: 00 09-12 05:59 :00 No 4647 1{tbl} Take 1 tablet by mouth every 6 (six) hours as needed for Pain (scale 4-6) for up to 7 days. Ind[facility] s: [facility] -acetaminop hen 10-325 mg tablet 2021-10 00:00: 00 09-12 05:59 :00 No 4647 1{tbl} Take 1 tablet by mouth every 6 (six) hours as needed for Pain (scale 4-6) for up to 7 days. Indication s: acute pain [facility] HYDROcodone -acetaminop hen 10-325 mg tablet 2021-10 00:00: 00 09-12 05:59 :00 No 4647 1{tbl} Take 1 tablet by mouth every 6 (six) hours as needed for Pain (scale 4-6) for up to 7 days. Indication s: [facility] -acetaminop hen 10-325 mg tablet 2021-10 00:00: 00 09-12 05:59 :00 No 4647 1{tbl} Take 1 tablet by mouth every 6 (six) hours as needed for Pain (scale 4-6) for up to 7 days. Indication s: acute pain [facility] ePHEDrine 25 mg/5 mL (5 mg/mL) syringe 2021-10 16:20: 00 09-03 16:46 :10 No Slow IV Push, ONCE INTRA PROCEDURE, Starting on Fri09/03/22 at 1020, Until Fri09/03/22 at 1046, Routine, Intra-op [facility] ePHEDrine 25 mg/5 mL (5 mg/mL) syringe 2021-10 16:20: 00 09-03 16:46 :10 No Slow IV Push, ONCE INTRA PROCEDURE, Starting on Fri09/03/22 at 1020, Until Fri09/03/22 at 1046, Routine, Intra-op [facility] lidocaine 1% (XYLOCAINE) 100 mg/10 mL (1 %) injection 2021-10 16:07: 00 09-03 16:46 :10 No Slow IV Push, ONCE INTRA PROCEDURE, Starting on Fri09/03/22 at 1007, Until Fri09/03/22 at 1046, Routine, Intra-op [facility] lidocaine 1% (XYLOCAINE) 100 mg/10 mL (1 %) injection 2021-10 16:07: 00 09-03 16:46 :10 No Slow IV Push, ONCE INTRA PROCEDURE, Starting on Fri09/03/22 at 1007, Until Fri09/03/22 at 1046, Routine, Intra-op [facility] PHENYLephri ne 1000 mcg/10 mL in 0.9% NaCl syringe 2021-10 16:06: 00 09-03 16:46 :10 No Slow IV Push, ONCE INTRA PROCEDURE, Starting on Fri09/03/22 at 1006, Until Fri09/03/22 at 1046, Routine, Intra-op [facility] PHENYLephri ne 1000 mcg/10 mL in 0.9% NaCl syringe 2021-10 16:06: 00 09-03 16:46 :10 No Slow IV Push, ONCE INTRA PROCEDURE, Starting on Fri09/03/22 at 1006, Until Fri09/03/22 at 1046, Routine, Intra-op [facility] bupivacaine -epinephrin e-pf (SENSORCAIN E W/EPINEPHRI NE) 0.5 %-1:200,000 5 mL, lidocaine 1% (PF) (XYLOCAINE) 5 mL 2021-10 16:00: 00 09-03 16:45 :29 No PRN, Starting on Fri09/03/22 at 1000, Intra-op [facility] ondansetron (ZOFRAN (PF)) injection 2021-10 15:57: 00 09-03 16:46 :10 No Slow IV Push, ONCE INTRA PROCEDURE, Starting on Fri09/03/22 at 0957, Until Fri09/03/22 at 1046, Routine, Intra-op [facility] ondansetron (ZOFRAN (PF)) injection 2021-10 15:57: 00 09-03 16:46 :10 No Slow IV Push, ONCE INTRA PROCEDURE, Starting on Fri09/03/22 at 0957, Until Fri09/03/22 at 1046, Routine, Intra-op [facility] insulin regular human (HUMULIN R) injection 2021-10 15:54: 00 09-03 16:46 :10 No Subcutaneo us, ONCE INTRA PROCEDURE, Starting on Fri09/03/22 at 0954, Until Fri09/03/22 at 1046, Routine, Intra-op [facility] insulin regular human (HUMULIN R) injection 2021-10 15:54: 00 09-03 16:46 :10 No Subcutaneo us, ONCE INTRA PROCEDURE, Starting on Fri09/03/22 at 0954, Until Fri09/03/22 at 1046, Routine, Intra-op [facility] propofoL IV infusion 2021-10 15:45: 00 09-03 16:46 :10 No IV Infusion, ONCE INTRA PROCEDURE, Starting on Fri09/03/22 at 0945, Until Fri09/03/22 at 1046, Routine, Intra-op [facility] FENTanyl PF (SUBLIMAZE (PF)) injection 2021-10 15:45: 00 09-03 16:46 :10 No Epidural, ONCE INTRA PROCEDURE, Starting on Fri09/03/22 at 0945, Until Fri09/03/22 at 1046, Routine, Intra-op [facility] propofoL IV infusion 2021-10 15:45: 00 09-03 16:46 :10 No IV Infusion, ONCE INTRA PROCEDURE, Starting on Fri09/03/22 at 0945, Until Fri09/03/22 at 1046, Routine, Intra-op [facility] FENTanyl PF (SUBLIMAZE (PF)) injection 2021-10 15:45: 00 09-03 16:46 :10 No Epidural, ONCE INTRA PROCEDURE, Starting on Fri09/03/22 at 0945, Until Fri09/03/22 at 1046, Routine, Intra-op [facility] midazolam (VERSED) injection 2021-10 15:36: 00 09-03 16:46 :10 No IV Push, ONCE INTRA PROCEDURE, Starting on Fri09/03/22 at 0936, Until Fri09/03/22 at 1046, Routine, Intra-op [facility] midazolam (VERSED) injection 2021-10 15:36: 00 09-03 16:46 :10 No IV Push, ONCE INTRA PROCEDURE, Starting on Fri09/03/22 at 0936, Until Fri09/03/22 at 1046, Routine, Intra-op [facility] lactated ringers IV infusion 2021-10 15:25: 00 09-03 16:46 :10 No IV Infusion, CONTINUOUS PRN, Starting on Fri09/03/22 at 0925, Until Fri09/03/22 at 1046, Routine, Intra-op [facility] lactated ringers IV infusion 2021-10 15:25: 00 09-03 16:46 :10 No IV Infusion, CONTINUOUS PRN, Starting on Fri09/03/22 at 0925, Until Fri09/03/22 at 1046, Routine, Intra-op [facility] insulin NPH and regular human 70-30 (70-30 U-100 INSULIN) 100 unit/mL (70-30) injection 20 Units 2021-10 23:00: 00 Yes 20U 20 Units, Subcutaneo us, QPM, First dose on Fri09/02/22 at 1700, Until Discontinu ed, Routine [facility] insulin NPH and regular human 70-30 (70-30 U-100 INSULIN) 100 unit/mL (70-30) injection 20 Units 2021-10 23:00: 00 Yes 20U 20 Units, Subcutaneo us, QPM, First dose on Fri09/02/22 at 1700, Until Discontinu ed, Routine [facility] losartan (COZAAR) tablet 50 mg 2021-10 15:00: 00 Yes 50mg 50 mg, Oral, DAILY, First dose on Fri09/02/22 at 0900, Until Discontinu ed, Routine [facility] insulin NPH and regular human 70-30 (70-30 U-100 INSULIN) 100 unit/mL (70-30) injection 40 Units 2021-10 15:00: 00 Yes 40U 40 Units, Subcutaneo us, QAM, First dose on Fri09/02/22 at 0900, Until Discontinu ed, Routine [facility] losartan (COZAAR) tablet 50 mg 2021-10 15:00: 00 Yes 50mg 50 mg, Oral, DAILY, First dose on Fri09/02/22 at 0900, Until Discontinu ed, Routine [facility] insulin NPH and regular human 70-30 (70-30 U-100 INSULIN) 100 unit/mL (70-30) injection 40 Units 2021-10 15:00: 00 Yes 40U 40 Units, Subcutaneo us, QAM, First dose on Fri09/02/22 at 0900, Until Discontinu ed, Routine [facility] gabapentin (NEURONTIN) capsule 100 mg 2021-10 03:00: 00 Yes 100mg 100 mg, Oral, QHS, First dose on 09/01/22 at 2100, Until Discontinu ed, Routine [facility] Sliding Scale Insulin - Lispro (HumaLOG) + Fsbg Testing 2021-10 03:00: 00 Yes Subcutaneo us, TID MEALS+HS, First dose on 09/01/22 at 2100, Until Discontinu ed, Routine [facility] gabapentin (NEURONTIN) capsule 100 mg 2021-10 03:00: 00 Yes 100mg 100 mg, Oral, QHS, First dose on 09/01/22 at 2100, Until Discontinu ed, Routine [facility] Sliding Scale Insulin - Lispro (HumaLOG) + Fsbg Testing 2021-10 03:00: 00 Yes Subcutaneo us, TID MEALS+HS, First dose on 09/01/22 at 2100, Until Discontinu ed, Routine [facility] levoFLOXaci n in D5W (LEVAQUIN) 750 mg/150 [...] Tissue
Duration of Therapy: 7 days [facility] ibuprofen (IBU) tablet 600 mg 2021-10 01:45: 57 Yes 600mg 600 mg, Oral, Q6HPRN, Starting on 09/01/22 at 1945, Until Discontinu ed, Routine, Pain (scale 1-3) [facility] ibuprofen (IBU) tablet 600 mg 2021-10 01:45: 57 Yes 600mg 600 mg, Oral, Q6HPRN, Starting on 09/01/22 at 1945, Until Discontinu ed, Routine, Pain (scale 1-3) [facility] vancomycin (VANCOCIN) 1,500 mg in NaCl [...] Tissue
Duration of Therapy: 7 days [facility] clindamycin in 5 % dextrose (CLEOCIN) 600 [...]
Re stricted use approved by: ED PROVIDER [facility] ceFAZolin in 0.9% sodium chloride (ANCEF) 2 gram/100 mL RTU 2 g 2021-10 19:45: 00 09-01 21:41 :00 No 2000mg 2 g (2,000 mg), IV Piggyback, ONCE, 1 dose, On 09/01/22 at 1345, Administer over 30 Minutes, 100 mL
Reas on for Anti-Infec tive: Documented Infection< br>Documen aleida Infection Site: Skin / Soft Tissue
Duration of Therapy: 7 days [facility] acetaminoph en-codeine 300-30 mg tablet 2021-10 00:00: 00 Yes TAKE 2 TABLETS BY MOUTH EVERY 4 TO 6 HOURS FOR PAIN CONTROL [facility] acetaminoph en-codeine 300-30 mg tablet 2021-10 00:00: 00 Yes TAKE 2 TABLETS BY MOUTH EVERY 4 TO 6 HOURS FOR PAIN CONTROL [facility] acetaminoph en-codeine 300-30 mg tablet 2021-10 00:00: 00 Yes TAKE 2 TABLETS BY MOUTH EVERY 4 TO 6 HOURS FOR PAIN CONTROL [facility] acetaminoph en-codeine 300-30 mg tablet 2021-10 00:00: 00 Yes TAKE 2 TABLETS BY MOUTH EVERY 4 TO 6 HOURS FOR PAIN CONTROL [facility] acetaminoph en-codeine 300-30 mg tablet 2021-10 00:00: 00 Yes TAKE 2 TABLETS BY MOUTH EVERY 4 TO 6 HOURS FOR PAIN CONTROL [facility] acetaminoph en-codeine 300-30 mg tablet 2021-10 00:00: 00 Yes TAKE 2 TABLETS BY MOUTH EVERY 4 TO 6 HOURS FOR PAIN CONTROL [facility] acetaminoph en-codeine 300-30 mg tablet 2021-10 00:00: 00 Yes TAKE 2 TABLETS BY MOUTH EVERY 4 TO 6 HOURS FOR PAIN CONTROL [facility] acetaminoph en-codeine 300-30 mg tablet 2021-10 00:00: 00 Yes TAKE 2 TABLETS BY MOUTH EVERY 4 TO 6 HOURS FOR PAIN CONTROL [facility] doxycycline monohydrate 100 mg tablet 2021-10 00:00: 00 Yes TAKE 1 TABLET BY MOUTH EVERY 12 HOURS FOR 10 DAYS [facility] sulfamethox azole-trime thoprim 800-160 mg per tablet 2021-10 00:00: 00 Yes TAKE 1 TABLET BY MOUTH EVERY 12 HOURS FOR 10 DAYS [facility] doxycycline monohydrate 100 mg tablet 2021-10 00:00: 00 Yes TAKE 1 TABLET BY MOUTH EVERY 12 HOURS FOR 10 DAYS [facility] sulfamethox azole-trime thoprim 800-160 mg per tablet 2021-10 00:00: 00 Yes TAKE 1 TABLET BY MOUTH EVERY 12 HOURS FOR 10 DAYS [facility] doxycycline monohydrate 100 mg tablet 2021-10 00:00: 00 Yes TAKE 1 TABLET BY MOUTH EVERY 12 HOURS FOR 10 DAYS [facility] sulfamethox azole-trime thoprim 800-160 mg per tablet 2021-10 00:00: 00 Yes TAKE 1 TABLET BY MOUTH EVERY 12 HOURS FOR 10 DAYS [facility] doxycycline monohydrate 100 mg tablet 2021-10 00:00: 00 Yes TAKE 1 TABLET BY MOUTH EVERY 12 HOURS FOR 10 DAYS [facility] sulfamethox azole-trime thoprim 800-160 mg per tablet 2021-10 00:00: 00 Yes TAKE 1 TABLET BY MOUTH EVERY 12 HOURS FOR 10 DAYS [facility] doxycycline monohydrate 100 mg tablet 2021-10 00:00: 00 Yes TAKE 1 TABLET BY MOUTH EVERY 12 HOURS FOR 10 DAYS [facility] sulfamethox azole-trime thoprim 800-160 mg per tablet 2021-10 00:00: 00 Yes TAKE 1 TABLET BY MOUTH EVERY 12 HOURS FOR 10 DAYS [facility] doxycycline monohydrate 100 mg tablet 2021-10 00:00: 00 Yes TAKE 1 TABLET BY MOUTH EVERY 12 HOURS FOR 10 DAYS [facility] sulfamethox azole-trime thoprim 800-160 mg per tablet 2021-10 00:00: 00 Yes TAKE 1 TABLET BY MOUTH EVERY 12 HOURS FOR 10 DAYS [facility] doxycycline monohydrate 100 mg tablet 2021-10 00:00: 00 Yes TAKE 1 TABLET BY MOUTH EVERY 12 HOURS FOR 10 DAYS [facility] sulfamethox azole-trime thoprim 800-160 mg per tablet 2021-10 00:00: 00 Yes TAKE 1 TABLET BY MOUTH EVERY 12 HOURS FOR 10 DAYS [facility] doxycycline monohydrate 100 mg tablet 2021-10 00:00: 00 Yes TAKE 1 TABLET BY MOUTH EVERY 12 HOURS FOR 10 DAYS [facility] sulfamethox azole-trime thoprim 800-160 mg per tablet 2021-10 00:00: 00 Yes TAKE 1 TABLET BY MOUTH EVERY 12 HOURS FOR 10 DAYS [facility] sodium chloride 0.9 % irrigation solution 06-26 00:00: 00 Yes [facility] sodium chloride 0.9 % irrigation solution 0 06-26 00:00: 00 Yes [facility] sodium chloride 0.9 % irrigation solution 0 06-26 00:00: 00 Yes [facility] sodium chloride 0.9 % irrigation solution 0 06-26 00:00: 00 Yes [facility] sodium chloride 0.9 % irrigation solution 0 06-26 00:00: 00 Yes [facility] sodium chloride 0.9 % irrigation solution 0 06-26 00:00: 00 Yes [facility] sodium chloride 0.9 % irrigation solution 0 06-26 00:00: 00 Yes [facility] sodium chloride 0.9 % irrigation solution 0 06-26 00:00: 00 Yes [facility] atorvastati n 10 mg tablet 06-24 00:00: 00 Yes [facility] pantoprazol e 40 mg EC tablet 06-24 00:00: 00 Yes [facility] valsartan 160 mg tablet 2-0 -19 00:00: 00 Yes [facility] atorvastati n 10 mg tablet 2-0 -19 00:00: 00 Yes [facility] pantoprazol e 40 mg EC tablet 2-0 -19 00:00: 00 Yes [facility] valsartan 160 mg tablet 2-0 19 00:00: 00 Yes [facility] atorvastati n 10 mg tablet 2021-0 19 00:00: 00 Yes [facility] pantoprazol e 40 mg EC tablet 2-0 06-24 00:00: 00 Yes [facility] valsartan 160 mg tablet 2-0 06-24 00:00: 00 Yes [facility] atorvastati n 10 mg tablet 2021-0 06-24 00:00: 00 Yes [facility] pantoprazol e 40 mg EC tablet 2-0 06-24 00:00: 00 Yes [facility] valsartan 160 mg tablet 2-0 19 00:00: 00 Yes [facility] atorvastati n 10 mg tablet 2021-0 19 00:00: 00 Yes [facility] pantoprazol e 40 mg EC tablet 2-0 06-24 00:00: 00 Yes [facility] valsartan 160 mg tablet 2-0 -19 00:00: 00 Yes [facility] atorvastati n 10 mg tablet 2-0 -19 00:00: 00 Yes [facility] pantoprazol e 40 mg EC tablet 2-0 19 00:00: 00 Yes [facility] valsartan 160 mg tablet 2-0 - 00:00: 00 Yes [facility] atorvastati n 10 mg tablet 2-0 -19 00:00: 00 Yes [facility] pantoprazol e 40 mg EC tablet 2-0 19 00:00: 00 Yes [facility] valsartan 160 mg tablet 0 - 00:00: 00 Yes [facility] atorvastati n 10 mg tablet 0 19 00:00: 00 Yes [facility] pantoprazol e 40 mg EC tablet 0 - 00:00: 00 Yes [facility] valsartan 160 mg tablet 0 19 00:00: 00 Yes [facility] SANTYL 250 unit/gram ointment 2021-0 -15 00:00: 00 Yes [facility] SANTYL 250 unit/gram ointment 2021-0 -15 00:00: 00 Yes [facility] SANTYL 250 unit/gram ointment 2021-0 -15 00:00: 00 Yes [facility] SANTYL 250 unit/gram ointment 2021-0 -15 00:00: 00 Yes [facility] SANTYL 250 unit/gram ointment 2021-0 -15 00:00: 00 Yes [facility] SANTYL 250 unit/gram ointment 2021-0 -15 00:00: 00 Yes [facility] SANTYL 250 unit/gram ointment 2021-0 -15 00:00: 00 Yes [facility] SANTYL 250 unit/gram ointment 2021-0 -15 00:00: 00 Yes [facility] clotrimazol e 1 % topical cream 0 02-12 00:00: 00 Yes [id number] Apply to area(s) at bedtime. [facility] clotrimazol e 1 % topical cream 0 02-12 00:00: 00 Yes [id number] Apply to area(s) at bedtime. [facility] clotrimazol e 1 % topical cream 0 02-12 00:00: 00 Yes [id number] Apply to area(s) at bedtime. [facility] clotrimazol e 1 % topical cream 02-12 00:00: 00 09-04 00:00 :00 No [id number] Apply to area(s) at bedtime. [facility] clotrimazol e 1 % topical cream 2016-0 5- 00:00: 00 09-04 00:00 :00 No [id number] Apply to area(s) at bedtime. [facility] Vital Signs Vital Name Observation Time Observation Value Comments S aron Systolic blood pressure 2022-10-08 16:20:00 120 mm[Hg] [facility] Diastolic blood pressure 2022-10-08 16:20:00 80 mm[Hg] [facility] Heart rate 2022-10-08 16:20:00 83 /min Unive [facility] Body temperature 2022-10-08 16:20:00 36.61 Susanne [facility] Body height 2022-10-08 16:20:00 167.6 cm [facility] Body weight 2022-10-08 16:20:[address] [facility] BMI 2022-10-08 16:20:00 34.86 kg/m2 [facility] Oxygen saturation in Arterial blood by Pulse oximetry 2022-10-08 16:20:00 99 /min [facility] Systolic blood pressure 2022-09-10 17:16:00 136 mm[Hg] [facility] Diastolic blood pressure 2022-09-10 17:16:00 88 mm[Hg] [facility] Heart rate 2022-09-10 17:16:00 84 /min Unive [facility] Body temperature 2022-09-10 17:16:00 36 Susanne [facility] Body height 2022-09-10 17:16:00 167.6 cm [facility] Body weight 2022-09-10 17:16:[address] [facility] BMI 2022-09-10 17:16:00 35.19 kg/m2 [facility] Oxygen saturation in Arterial blood by Pulse oximetry 2022-09-10 17:16:00 99 /min room air [facility] Systolic blood pressure 2022-09-04 21:34:00 160 mm[Hg] [facility] Diastolic blood pressure 2022-09-04 21:34:00 103 mm[Hg] [facility] Heart rate 2022-09-04 21:34:00 84 /min [facility] Body temperature 2022-09-04 21:34:00 36.39 Susanne [facility] Respiratory rate 2022-09-04 21:34:00 19 /min [facility] Oxygen saturation in Arterial blood by Pulse oximetry 2022-09-04 21:34:00 97 /min [facility] Body height 2022-09-01 18:37:[address] [facility] Body weight 2022-09-01 18:37:[address] [facility] BMI 2022-09-01 18:37:00 33.89 kg/m2 [facility] Systolic blood pressure 2022-09-03 17:00:00 132 mm[Hg] [facility] Diastolic blood pressure 2022-09-03 17:00:00 85 mm[Hg] [facility] Respiratory rate 2022-09-03 17:00:00 20 /min [facility] Heart rate 2022-09-03 16:46:00 92 /min [facility] Body temperature 2022-09-03 16:46:00 36.39 Susanne [facility] Oxygen saturation in Arterial blood by Pulse oximetry 2022-09-03 16:46:00 98 /min [facility] Body height 2022-09-01 18:37:[address] [facility] Body weight 2022-09-01 18:37:[address] [facility] BMI 2022-09-01 18:37:00 33.89 kg/m2 [facility] Procedures Procedure Date / Time Performed Performing Clinician Source ASSIGNMENT OF BENEFITS 2022-09-10 17:02:20 Docto r Unassigned, [place] [facility] CONSENT/REFUSAL FOR DIAGNOSIS AND TREATMENT 2022-09-10 17:02:01 Doctor Unassigned, [place] [facility] POCT GLUCOSE (AUTOMATED) 2022-09-04 18:11:00 Edilberto Mims [facility] POCT GLUCOSE (AUTOMATED) 2022-09-04 18:11:00 Edilberto Mims [facility] POCT GLUCOSE (AUTOMATED) 2022-09-04 15:13:00 Edilberto Mims [facility] POCT GLUCOSE (AUTOMATED) 2022-09-04 15:13:00 Edilberto Mims [facility] CBC WITH DIFF 2022-09-04 11:05:00 Isabela Jackman [facility] EXTRA TUBE LT. GREEN 2022-09-04 11:05:00 Roger Mims [facility] CBC WITH DIFF 2022-09-04 11:05:00 Isabela Jackman [facility] EXTRA TUBE LT. GREEN 2022-09-04 11:05:00 Roger Mims [facility] POCT GLUCOSE (AUTOMATED) 2022-09-04 03:47[facility] 2022-09-04 03:47:00 [facility] ([facility]OMATED) 2022-09-03 23:00:00 [facility] ([facility]OMATED) 2022-09-03 23:00:00 [facility]SE (AUTOMATED) 2022-09-03 17:39:00 [facility] ([facility]OMATED) 2022-09-03 17:39:00 [facility] ASPIRATE OR ABSCESS CULTURE(AEROBIC/ANAEROB IC) 2022-09-03 15:56:00 Pop [facility] FUNGUS (ROUTINE) CULTURE 2022-09-03 15:56:00 Pop [facility] ASPIRATE OR ABSCESS CULTURE(AEROBIC/ANAEROB IC) 2022-09-03 15:56:00 Pop [facility] FUNGUS (ROUTINE) CULTURE 2022-09-03 15:56:00 Pop Josue [facility] INTUBATION 2022-09-03 15:49:00 Cuauhtemoc Locke [facility] FINGER AMPUTATION 2022-09-03 15:03:00 [facility] 2022-09-03 15:03:00 Josue Lord Edith [facility] VANCOMYCIN TROUGH 2022-09-03 14:02:00 Isabela Jackman [facility] VANCOMYCIN TROUGH 2022-09-03 14:02:00 Isabela Jackman [facility] POCT GLUCOSE (AUTOMATED) 2022-09-03 13:30:00 Stephanie Singleton [facility] POCT GLUCOSE (AUTOMATED) 2022-09-03 13:30:00 Stephanie Singleton [facility] COMP. METABOLIC PANEL ([id number]) 2022-09-03 11:18:00 Angie Turner [facility] CBC WITH DIFF 2022-09-03 11:18:[address] [facility] / INR 2022-09-03 11:18:00 Kassie Thompson [facility] COMP. METABOLIC PANEL ([id number]) 2022-09-03 11:18:00 TurnAngie elias [facility] CBC WITH DIFF 2022-09-03 11:18:00 Angie Turner [facility] PROTHROMBIN TIME / INR 2022-09-03 11:18:00 Kassie Thompson [facility] POCT GLUCOSE (AUTOMATED) 2022-09-03 02:07:00 Stephanei Singleton [facility] POCT GLUCOSE (AUTOMATED) 2022-09-03 02:07:00 Stephanie Singleton [facility] POCT GLUCOSE (AUTOMATED) 2022-09-02 23:37:00 Stephanie Singleton [facility] POCT GLUCOSE (AUTOMATED) 2022-09-02 23:37:00 Stephanie Singleton [facility] POCT GLUCOSE (AUTOMATED) 2022-09-02 18:15:00 Stephanie Singleton [facility] POCT GLUCOSE (AUTOMATED) 2022-09-02 18:15:00 Stephanie Singleton [facility] BASIC METABOLIC PANEL (NA, K, CL, CO2, GLUCOSE, BUN, CREATININE, CA) 2022-09-02 09:06:00 Isabela Jackman [facility] CBC WITH DIFF 2022-09-02 09:06:00 sIabela Jackman [facility] BASIC METABOLIC PANEL (NA, K, CL, CO2, GLUCOSE, BUN, CREATININE, CA) 2022-09-02 09:06:00 Isabela Jackman [facility] CBC WITH DIFF 2022-09-02 09:06:00 Isabela Jackman [facility] POCT GLUCOSE (AUTOMATED) 2022-09-02 03:13:00 Stephanie Singleton [facility] POCT GLUCOSE (AUTOMATED) 2022-09-02 03:13:00 Stephanie Singleton [facility] WOUND CULTURE 2022-09-02 01:30:00 Isabela Jackman [facility] WOUND CULTURE 2022-09-02 01:30:00 Isabela Jackman [facility] BASIC METABOLIC PANEL (NA, K, CL, CO2, GLUCOSE, BUN, CREATININE, CA) 2022-09-01 20:23:[address] [facility] CBC WITH DIFF 2022-09-01 20:23:[address] [facility] GLYCOSYLATED HEMOGLOBIN (A1C) 2022-09-01 20:23:00 Isabela Jackman [facility] BASIC METABOLIC PANEL (NA, K, CL, CO2, GLUCOSE, BUN, CREATININE, CA) 2022-09-01 20:23:[address] [facility] CBC WITH DIFF 2022-09-01 20:23:[address] [facility] GLYCOSYLATED HEMOGLOBIN (A1C) 2022-09-01 20:23:00 Isabela Jackman [facility] XR FINGERS 2 VW RIGHT 2022-09-01 19:50:[address] [facility] XR FINGERS 2 VW RIGHT 2022-09-01 19:50:[address] [facility] CONSENT/REFUSAL FOR DIAGNOSIS AND TREATMENT 2022-09-01 18:26:12 Doctor Unassigned, [place] [facility] CONSENT/REFUSAL FOR DIAGNOSIS AND TREATMENT 2022-09-01 18:26:12 Doctor Unassigned, [place] [facility] ADMISSION 2022-09-01 06:01:00 Doctor Un assigned, [place] [facility] ADMISSION 2022-09-01 06:01:00 Doctor Un assigned, [place] [facility] Encounters Start Date/Time End Date/Time Encounter Type Admission Type Attending [facility] Facility Care Department Encounter ID Source 2022-12-05 08:45:00 2022-12-05 08:45:00 Outpatient R LALY HENRY [facility] [id number] [facility] 2022-11-07 10:00:00 2022-11-07 10:20:00 Telemedici ne Visit Renan [facility] ..840.114 350.1.13.10 4.2.7.2.686 [id number] [facility] 2022-11-07 10:00:00 2022-11-07 10:00:00 Outpatient R RENAN [facility] [id number] [facility] 2022-10-28 09:30:00 2022-10-28 09:30:00 Outpatient R ZENA SCHULTZ [facility] [id number] [facility] 2022-10-08 10:00:00 2022-10-08 10:51:12 Outpatient R RENAN [facility] [id number] [facility] 2022-10-08 10:00:00 2022-10-08 10:51:12 Office Visit Renan, [facility] ..840.114 350.1.13.10 4.2.7.2.686 [id number] [facility] 2022-09-11 00:00:00 2022-09-11 00:00:00 Telephone Renan, [facility] ..840.114 350.1.13.10 4.2.7.2.686 [id number] [facility] 2022-09-10 13:00:00 2022-09-10 14:00:00 Ancillary Visit Therapy-Kimberly Do-Jorge-Carlos Issa [facility] 1.2840.114 350.1.13.10 4.2.7.2.686 [id number] [facility] 2022-09-10 13:00:00 2022-09-10 13:47:29 Outpatient R CARLOS MCLAUGHLIN [facility] [id number] [facility] 2022-09-10 11:00:00 2022-09-10 11:51:29 Outpatient R LALY HENRY [facility] [id number] [facility] 2022-09-10 11:00:00 2022-09-10 11:51:29 Office Visit Renan [facility] 1.0.114 350.1.13.10 4.2.7.2.686 [id number] [facility] 2022-09-10 00:00:00 2022-09-10 00:00:00 Orders Only Doctor Unassigned, [place] [facility] 1.2840.114 350.1.13.10 4.2.7.2.686 [id number] [facility] 2022-09-10 00:00:00 2022-09-10 00:00:00 Telephone Renan [facility] 1.2840.114 350.1.13.10 4.2.7.2.686 [id number] [facility] 2022-09-05 00:00:00 2022-09-05 00:00:00 Transition of Care Coby Moseley 1.2840.114 350.1.13.10 4.2.7.2.686 [id number] [facility] 2022-09-01 12:39:00 2022-09-04 18:31:00 Hospital En[facility] 1.2.840.114 350.1.13.10 4.2.7.2.686 [id number] [facility] 2022-09-01 12:39:00 2022-09-04 18:31:00 In[address] MIMSLEY 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 [facility] 1.20.114 350.1.13.10 4.2.7.2.686 [id number] 2020-03-15 13:36:44 2020-03-15 13:56:44 Food Beverage Supervisor Visit Lab, [facility] Krystina Cheema [facility] 1.2840.114 350.1.13.10 4.2.7.2.686 [id number] [facility] 2020-03-15 13:20:00 2020-03-15 13:20:00 Outpatient R [facility] [id number] [facility] 2020-03-15 13:20:00 2020-03-15 13:20:00 Outpatient R KRYSTINA CHEEMA [facility] [id number] [facility] Results Test Description Test Time Test Comments Results Result Co mments Source [facility] GLUCOSE (AUTOMATED)2022-09-04 18:12:48* Test Item Value Reference Range Interpretation Comme nts POCT GLU (test code = 3490883001) 213 mg/dL 70-110 H Lab Interpretation (test cod e = 07155-7) [facility] ([facility]ATED)2022-09-04 15:18:56* Test Item Value Reference Range Interpretation Comme nts POCT GLU (test code = 8144784092) 184 mg/dL 70-110 H Lab Interpretation (test cod e = 24454-1) Abnormal [facility] GLUCOSE (AUTOMATED)2022-09-04 15:18:56* Test Item Value Reference Range Interpretation Comme nts POCT GLU (test code = 7823775948) 184 mg/dL 70-110 H Lab Interpretation (test cod e = 48512-4) Abnormal [facility] GLUCOSE (AUTOMATED)2022-09-04 03:50:30* Test Item Value Reference Range Interpretation Comme nts POCT GLU (test code = 9710385261) 287 mg/dL 70-110 H Lab Interpretation (test cod e = 56390-1) Abnormal [facility] GLUCOSE (AUTOMATED)2022-09-04 03:50:30* Test Item Value Reference Range Interpretation Comme nts POCT GLU (test code = 3929155205) 287 mg/dL 70-110 H Lab Interpretation (test cod e = 64971-6) [facility]2022-09-03 23:01:24* Test Item Value Reference Range Interpretation Comme nts POCT GLU (test code = 6032248720) 253 mg/dL 70-110 H Lab Interpretation (test cod e = 84544-1) [facility]normal [facility]2022-09-03 23:01:24* Test Item Value Reference Range Interpretation Comme nts POCT GLU (test code = 9444204291) 253 mg/dL 70-110 H Lab Interpretation (test cod e = 20610-0) Abnormal [facility] GLUCOSE (AUTOMATED)2022-09-03 17:40:42* Test Item Value Reference Range Interpretation Comme nts POCT GLU (test code = 9837347466) 168 mg/dL 70-110 H Lab Interpretation (test cod e = 28048-6) Abnormal [facility] GLUCOSE (AUTOMATED)2022-09-03 17:40:42* Test Item Value Reference Range Interpretation Comme nts POCT GLU (test code = 9417403930) 168 mg/dL 70-110 H Lab Interpretation (test cod e = 78583-5) Abnormal [facility] GLUCOSE (AUTOMATED)2022-09-03 13:31:46* Test Item Value Reference Range Interpretation Comme nts POCT GLU (test code = 0478534968) 213 mg/dL 70-110 H Lab Interpretation (test cod e = 41574-1) Abnormal [facility] GLUCOSE (AUTOMATED)2022-09-03 13:31:46* Test Item Value Reference Range Interpretation Comme nts POCT GLU (test code = 0174755250) 213 mg/dL 70-110 H Lab Interpretation (test cod e = 39870-0) Abnormal [facility] [place] [place] METABOLIC PANEL (97169)2022-09-03 12:17:29* Test Item Value Reference Range Interpretation Comme nts NA (test code = 2505879022) 136 mmol/L 135-145 K (test code = 6718901005) 3.9 mmol/L 3.5-5.0 CL (test code = 7495808061) 105 mmol/L 98-108 CO2 TOTAL (test code = 9944745379) 24 mmol/L 23-31 AGAP (test code = 6400470268) 2-16 BUN (test code = 2849787466) 12 mg/dL 7-23 GLUCOSE (test code = 8969893268) 190 mg/dL 70-110 H CREATININE (test code = 8853971988) 0.56 mg/dL 0.60-1.25 L TOTAL BILI (test code = 7559278480) 0.2 mg/dL 0.1-1.1 CALCIUM (test code = 2815364815) 8.6 mg/dL 8.6-10.6 T PROTEIN (test code = 9631779613) 7.0 g/dL 6.3-8.2 ALBUMIN (test code = 6899807897) 3.7 g/dL 3.5-5.0 ALK PHOS (test code = 9316954488) 101 U/L 34-122 ALTv (test code = 1742-6) 27 U/L 5-50 AST(SGOT) (test code = 3992649311) 23 U/L 13-40 eGFR (test code = 4927116125) mL/min/1.73m2 ANDREE (test code = ANDREE) Association [...] imaging tests). Lab Interpretation (test code = 73487-9) Abnormal [facility] [place] [place] METABOLIC PANEL (85430)2022-09-03 12:17:29* Test Item Value Reference Range Interpretation Comme nts NA (test code = 8680132739) 136 mmol/L 135-145 K (test code = 0105414502) 3.9 mmol/L 3.5-5.0 CL (test code = 6520618713) 105 mmol/L 98-108 CO2 TOTAL (test code = 3760380413) 24 mmol/L 23-31 AGAP (test code = 9383513518) 2-16 BUN (test code = 2707680065) 12 mg/dL 7-23 GLUCOSE (test code = 5956125802) 190 mg/dL 70-110 H CREATININE (test code = 0685298783) 0.56 mg/dL 0.60-1.25 L TOTAL BILI (test code = 8110185235) 0.2 mg/dL 0.1-1.1 CALCIUM (test code = 1826570253) 8.6 mg/dL 8.6-10.6 T PROTEIN (test code = 8169193749) 7.0 g/dL 6.3-8.2 ALBUMIN (test code = 5576512901) 3.7 g/dL 3.5-5.0 ALK PHOS (test code = 8892931437) 101 U/L 34-122 ALTv (test code = 1742-6) 27 U/L 5-50 AST(SGOT) (test code = 6944004002) 23 U/L 13-40 eGFR (test code = 0413237149) mL/min/1.73m2 ANDREE (test code = ANDREE) Association [...] imaging tests). Lab Interpretation (test code = 52596-8) [facility]normal [facility] / [id number] 11:45:03* Test Item Value Reference Range Interpretation Comme [facility] PROTIME PATIENT (test code = 5964-2) See_Comment H [Automated [employer]] The system which generated this result transmitted reference range: 10.1 - 12.6 Seconds. The reference range was not used to interpret this result as normal/abnormal. INR (test code = 6301-6) Normal INR <1.1; Warfarin Therapeutic range 2.0 to 3.0 or 2.5 to 3.5, depending upon the indications. Lab Interpretation (test code = 85521-4) [facility]normal [facility] / [id number] 11:45:03* Test Item Value Reference Range Interpretation Comme nts PROTIME PATIENT (test code = 5964-2) See_Comment H [Automated [employer]] The system which generated this result transmitted reference range: 10.1 - 12.6 Seconds. The reference range was not used to interpret this result as normal/abnormal. INR (test code = 6301-6) Normal INR <1.1; Warfarin Therapeutic range 2.0 to 3.0 or 2.5 to 3.5, depending upon the indications. Lab Interpretation (test code = 39350-0) Abnormal [facility] [id number] 11:42:00* Test Item Value Reference Range Interpretation Comme [facility] WBC (test code = 6690-2) See_Comment [Automated [employer]] The system which generated this result transmitted [...] 34.1 g/dL 31.2-35.0 RDW-SD (test code = 96449-0) 41.5 fL 38.5-51.6 RDW-CV (test code = 788-0) 13.9 % 12.1-15.4 PLT (test code = 777-3) See_Comment H [Automated messa ge] The system which generated this result transmitted reference range: 150 - 328 10*3/?L. The reference range was not used to interpret this result as normal/abnormal. MPV (test code = 44918-9) 10.6 fL 9.8-13.0 NRBC/100 WBC (test code = 6914582693) See_Comment [Automated [employer]] The system which generated this result transmitted reference range: 0.0 - 10.0 /100 WBCs. The reference range was not used to interpret this result as normal/abnormal. NRBC x10^3 (test code = 9241553920) See_Comment [Automated messa ge] The system which generated this result transmitted reference range: 10*3/?L. The reference range was not used to interpret this result as normal/abnormal. GRAN MAT (NEUT) % (test code = 770-8) 59.9 % IMM GRAN % (test code = 4816932364) 0.40 % LYMPH % (test code = 736-9) 31.1 % MONO % (test code = 5905-5) 6.1 % EOS % (test code = 713-8) 1.8 % BASO % (test code = 706-2) 0.7 % GRAN MAT x10^3(ANC) (test code = 5816876258) 5.36 10*3/uL 1.99-6.95 IMM GRAN x10^3 (test code = 6544367765) 0.04 10*3/uL 0.00-0.06 LYMPH x10^3 (test code = 731-0) 2.78 10*3/uL 1.09-3.23 MONO x10^3 (test code = 742-7) 0.55 10*3/uL 0.36-1.02 EOS x10^3 (test code = 711-2) 0.16 10*3/uL 0.06-0.53 BASO x10^3 (test code = 704-7) 0.06 10*3/uL 0.01-0.09 Lab Interpretation (test code = 27346-4) Abnormal [facility] WITH [id number] 11:42:00* Test Item Value Reference Range Interpretation Comme nts WBC (test code = 6690-2) See_Comment [Automated [employer]] The system which generated this result transmitted reference range: 4.20 - 10.70 10*3/?L. The reference range was not used to interpret this result as normal/abnormal. RBC (test code = 789-8) See_Comment [Automated [employer]] The system which generated this result transmitted [...] 34.1 g/dL 31.2-35.0 RDW-SD (test code = 57028-6) 41.5 fL 38.5-51.6 RDW-CV (test code = 788-0) 13.9 % 12.1-15.4 PLT (test code = 777-3) See_Comment H [Automated messa ge] The system which generated this result transmitted reference range: 150 - 328 10*3/?L. The reference range was not used to interpret this result as normal/abnormal. MPV (test code = 65939-8) 10.6 fL 9.8-13.0 NRBC/100 WBC (test code = 2556769288) See_Comment [Automated me ssage] The system which generated this result transmitted reference range: 0.0 - 10.0 /100 WBCs. The reference range was not used to interpret this result as normal/abnormal. NRBC x10^3 (test code = 1595448268) See_Comment [Automated messa ge] The system which generated this result transmitted reference range: 10*3/?L. The reference range was not used to interpret this result as normal/abnormal. GRAN MAT (NEUT) % (test code = 770-8) 59.9 % IMM GRAN % (test code = 9828147736) 0.40 % LYMPH % (test code = 736-9) 31.1 % MONO % (test code = 5905-5) 6.1 % EOS % (test code = 713-8) 1.8 % BASO % (test code = 706-2) 0.7 % GRAN MAT x10^3(ANC) (test code = 2924448446) 5.36 10*3/uL 1.99-6.95 IMM GRAN x10^3 (test code = 7863263728) 0.04 10*3/uL 0.00-0.06 LYMPH x10^3 (test code = 731-0) 2.78 10*3/uL 1.09-3.23 MONO x10^3 (test code = 742-7) 0.55 10*3/uL 0.36-1.02 EOS x10^3 (test code = 711-2) 0.16 10*3/uL 0.06-0.53 BASO x10^3 (test code = 704-7) 0.06 10*3/uL 0.01-0.09 Lab Interpretation (test code = 38218-0) Abnormal [facility] GLUCOSE (AUTOMATED)2022-09-03 02:08:18* Test Item Value Reference Range Interpretation Comme nts POCT GLU (test code = 6975011603) 259 mg/dL 70-110 H Lab Interpretation (test cod e = 76854-5) Abnormal [facility] GLUCOSE (AUTOMATED)2022-09-03 02:08:18* Test Item Value Reference Range Interpretation Comme nts POCT GLU (test code = 9904163355) 259 mg/dL 70-110 H Lab Interpretation (test cod e = 23537-9) Abnormal [facility] GLUCOSE (AUTOMATED)2022-09-02 23:38:11* Test Item Value Reference Range Interpretation Comme nts POCT GLU (test code = 0700519247) 322 mg/dL 70-110 H Lab Interpretation (test cod e = 99554-3) Abnormal [facility] GLUCOSE (AUTOMATED)2022-09-02 23:38:11* Test Item Value Reference Range Interpretation Comme nts POCT GLU (test code = 5319032225) 322 mg/dL 70-110 H Lab Interpretation (test cod e = 15684-7) Abnormal [facility] GLUCOSE (AUTOMATED)2022-09-02 18:17:05* Test Item Value Reference Range Interpretation Comme nts POCT GLU (test code = 5891507858) 295 mg/dL 70-110 H Lab Interpretation (test cod e = 59645-0) Abnormal [facility] GLUCOSE (AUTOMATED)2022-09-02 18:17:05* Test Item Value Reference Range Interpretation Comme nts POCT GLU (test code = 7701584396) 295 mg/dL 70-110 H Lab Interpretation (test cod e = 85075-4) Abnormal [facility] Metabolic Panel (NA, K, CL, CO2, GLUCOSE, BUN, CREATININE, CA)2022-09-02 09:42:02* Test Item Value Reference Range Interpretation Comme nts NA (test code = 0704888804) 135 mmol/L 135-145 K (test code = 2872322723) 4.0 mmol/L 3.5-5.0 CL (test code = 7669924316) 103 mmol/L 98-108 CO2 TOTAL (test code = 5512856016) 24 mmol/L 23-31 AGAP (test code = 2418428348) 2-16 BUN (test code = 9711774106) 14 mg/dL 7-23 GLUCOSE (test code = 0294932394) 227 mg/dL 70-110 H CREATININE (test code = 6495856679) 0.56 mg/dL 0.60-1.25 L CALCIUM (test code = 4992901860) 8.7 mg/dL 8.6-10.6 eGFR (test code = 8620703593) mL/min/1.73m2 ANDREE (test code = ANDREE) Association [...] imaging tests). Lab Interpretation (test code = 61874-0) Abnormal [facility] Metabolic Panel (NA, K, CL, CO2, GLUCOSE, BUN, CREATININE, CA)2022-09-02 09:42:02* Test Item Value Reference Range Interpretation Comme nts NA (test code = 9805957530) 135 mmol/L 135-145 K (test code = 2839672587) 4.0 mmol/L 3.5-5.0 CL (test code = 2249831249) 103 mmol/L 98-108 CO2 TOTAL (test code = 0668688810) 24 mmol/L 23-31 AGAP (test code = 7095019440) 2-16 BUN (test code = 7013182987) 14 mg/dL 7-23 GLUCOSE (test code = 6844417293) 227 mg/dL 70-110 H CREATININE (test code = 8138424095) 0.56 mg/dL 0.60-1.25 L CALCIUM (test code = 6548636668) 8.7 mg/dL 8.6-10.6 eGFR (test code = 4076556133) mL/min/1.73m2 ANDREE (test code = ANDREE) Association [...] imaging tests). Lab Interpretation (test code = 62025-2) Abnormal [facility] with [id number] 09:18:20* Test Item Value Reference Range Interpretation [...] 33.7 g/dL 31.2-35.0 RDW-SD (test code = 18386-9) 40.8 fL 38.5-51.6 RDW-CV (test code = 788-0) 13.8 % 12.1-15.4 PLT (test code = 777-3) See_Comment H [Automated message] The system which generated this result transmitted reference range: 150 - 328 10*3/?L. The reference range was not used to interpret this result as normal/abnormal. MPV (test code = 91224-7) 10.4 fL 9.8-13.0 NRBC/100 WBC (test code = 8011434541) See_Comment [Automated message] The system which generated this result transmitted reference range: 0.0 - 10.0 /100 WBCs. The reference range was not used to interpret this result as normal/abnormal. NRBC x10^3 (test code = 3833539425) See_Comment [Automated message] The system which generated this result transmitted reference range: 10*3/?L. The reference range was not used to interpret this result as normal/abnormal. GRAN MAT (NEUT) % (test code = 770-8) 76.1 % IMM GRAN % (test code = 3009678813) 0.40 % LYMPH % (test code = 736-9) 16.6 % MONO % (test code = 5905-5) 5.6 % EOS % (test code = 713-8) 0.9 % BASO % (test code = 706-2) 0.4 % GRAN MAT x10^3(ANC) (test code = 9522743195) 10.64 10*3/uL 1.99-6.95 H IMM GRAN x10^3 (test code = 4616275410) 0.05 10*3/uL 0.00-0.06 LYMPH x10^3 (test code = 731-0) 2.32 10*3/uL 1.09-3.23 MONO x10^3 (test code = 742-7) 0.78 10*3/uL 0.36-1.02 EOS x10^3 (test code = 711-2) 0.13 10*3/uL 0.06-0.53 BASO x10^3 (test code = 704-7) 0.06 10*3/uL 0.01-0.09 Lab Interpretation (test code = 29584-8) Abnormal [facility] with [id number] 09:18:20* Test Item Value Reference Range Interpretation [...] 33.7 g/dL 31.2-35.0 RDW-SD (test code = 70967-9) 40.8 fL 38.5-51.6 RDW-CV (test code = 788-0) 13.8 % 12.1-15.4 PLT (test code = 777-3) See_Comment H [Automated message] The system which generated this result transmitted reference range: 150 - 328 10*3/?L. The reference range was not used to interpret this result as normal/abnormal. MPV (test code = 04708-6) 10.4 fL 9.8-13.0 NRBC/100 WBC (test code = 7872508586) See_Comment [Automated message] The system which generated this result transmitted reference range: 0.0 - 10.0 /100 WBCs. The reference range was not used to interpret this result as normal/abnormal. NRBC x10^3 (test code = 3897998198) See_Comment [Automated message] The system which generated this result transmitted reference range: 10*3/?L. The reference range was not used to interpret this result as normal/abnormal. GRAN MAT (NEUT) % (test code = 770-8) 76.1 % IMM GRAN % (test code = 0572471552) 0.40 % LYMPH % (test code = 736-9) 16.6 % MONO % (test code = 5905-5) 5.6 % EOS % (test code = 713-8) 0.9 % BASO % (test code = 706-2) 0.4 % GRAN MAT x10^3(ANC) (test code = 8296129558) 10.64 10*3/uL 1.99-6.95 H IMM GRAN x10^3 (test code = 9297705534) 0.05 10*3/uL 0.00-0.06 LYMPH x10^3 (test code = 731-0) 2.32 10*3/uL 1.09-3.23 MONO x10^3 (test code = 742-7) 0.78 10*3/uL 0.36-1.02 EOS x10^3 (test code = 711-2) 0.13 10*3/uL 0.06-0.53 BASO x10^3 (test code = 704-7) 0.06 10*3/uL 0.01-0.09 Lab Interpretation (test code = 82611-0) Abnormal [facility] GLUCOSE (AUTOMATED)2022-09-02 03:14:55* Test Item Value Reference Range Interpretation Comme nts POCT GLU (test code = 7212011465) 175 mg/dL 70-110 H Lab Interpretation (test cod e = 68151-9) Abnormal [facility] GLUCOSE (AUTOMATED)2022-09-02 03:14:55* Test Item Value Reference Range Interpretation Comme nts POCT GLU (test code = 7459093368) 175 mg/dL 70-110 H Lab Interpretation (test cod e = 91521-2) [facility] 02:25:07* Test Item Value Reference Range Interpretation Comme nts HGB A1C (test code = 4548-4) 11.5 % 4.0-5.7 H ANDREE (test code = ANDREE) Reference RangesNormal: <5.7%Prediabetes: 5.7 - 6.4%Diabetes: > 6.5% Lab Interpretation (test code = 48086-1) [facility]2022-09-02 02:25:07* Test Item Value Reference Range Interpretation Comme [facility] HGB A1C (test code = 4548-4) 11.5 % 4.0-5.7 H ANDREE (test code = ANDREE) Reference RangesNormal: <5.7%Prediabetes: 5.7 - 6.4%Diabetes: > 6.5% Lab Interpretation (test code = 86782-2) Abnormal [facility] METABOLIC PANEL (NA, K, CL, CO2, GLUCOSE, BUN, CREATININE, CA)2022-09-01 20:44:31* Test Item Value Reference Range Interpretation Comme nts NA (test code = 1060184222) 135 mmol/L 135-145 K (test code = 9992474612) 4.4 mmol/L 3.5-5.0 CL (test code = 8345675572) 101 mmol/L 98-108 CO2 TOTAL (test code = 0121763385) 24 mmol/L 23-31 AGAP (test code = 4048666445) 2-16 BUN (test code = 1127984066) 16 mg/dL 7-23 GLUCOSE (test code = 1191758298) 260 mg/dL 70-110 H CREATININE (test code = 2719443087) 0.72 mg/dL 0.60-1.25 CALCIUM (test code = 8249527424) 9.2 mg/dL 8.6-10.6 eGFR (test code = 6799542184) mL/min/1.73m2 ANDREE (test code = ANDREE) Association [...] imaging tests). Lab Interpretation (test code = 03735-7) Abnormal [facility] METABOLIC PANEL (NA, K, CL, CO2, GLUCOSE, BUN, CREATININE, CA)2022-09-01 20:44:31* Test Item Value Reference Range Interpretation Comme nts NA (test code = 6102136399) 135 mmol/L 135-145 K (test code = 3348493010) 4.4 mmol/L 3.5-5.0 CL (test code = 0511905420) 101 mmol/L 98-108 CO2 TOTAL (test code = 9042029503) 24 mmol/L 23-31 AGAP (test code = 1568393449) 2-16 BUN (test code = 0205063340) 16 mg/dL 7-23 GLUCOSE (test code = 6882411949) 260 mg/dL 70-110 H CREATININE (test code = 5779006164) 0.72 mg/dL 0.60-1.25 CALCIUM (test code = 1053017970) 9.2 mg/dL 8.6-10.6 eGFR (test code = 1250196264) mL/min/1.73m2 ANDREE (test code = ANDREE) Association [...] imaging tests). Lab Interpretation (test code = 57128-0) Abnormal [facility] WITH [id number] 20:42:10* Test Item Value Reference Range Interpretation [...] 33.4 g/dL 31.2-35.0 RDW-SD (test code = 90268-3) 40.8 fL 38.5-51.6 RDW-CV (test code = 788-0) 13.4 % 12.1-15.4 PLT (test code = 777-3) See_Comment H [Automated messa ge] The system which generated this result transmitted reference range: 150 - 328 10*3/?L. The reference range was not used to interpret this result as normal/abnormal. MPV (test code = 87820-3) 10.9 fL 9.8-13.0 NRBC/100 WBC (test code = 7538433896) See_Comment [Automated Commun.it ssage] The system which generated this result transmitted reference range: 0.0 - 10.0 /100 WBCs. The reference range was not used to interpret this result as normal/abnormal. NRBC x10^3 (test code = 8566141201) See_Comment [Automated messa ge] The system which generated this result transmitted reference range: 10*3/?L. The reference range was not used to interpret this result as normal/abnormal. GRAN MAT (NEUT) % (test code = 770-8) 67.2 % IMM GRAN % (test code = 1813905621) 0.40 % LYMPH % (test code = 736-9) 25.6 % MONO % (test code = 5905-5) 4.5 % EOS % (test code = 713-8) 1.2 % BASO % (test code = 706-2) 1.1 % GRAN MAT x10^3(ANC) (test code = 7037157365) 7.60 10*3/uL 1.99-6.95 H IMM GRAN x10^3 (test code = 6057723600) 0.05 10*3/uL 0.00-0.06 LYMPH x10^3 (test code = 731-0) 2.89 10*3/uL 1.09-3.23 MONO x10^3 (test code = 742-7) 0.51 10*3/uL 0.36-1.02 EOS x10^3 (test code = 711-2) 0.14 10*3/uL 0.06-0.53 BASO x10^3 (test code = 704-7) 0.12 10*3/uL 0.01-0.09 H Lab Interpretation (test code = 64942-3) Abnormal [facility] WITH [id number] 20:42:10* Test Item Value Reference Range Interpretation [...] 33.4 g/dL 31.2-35.0 RDW-SD (test code = 12964-0) 40.8 fL 38.5-51.6 RDW-CV (test code = 788-0) 13.4 % 12.1-15.4 PLT (test code = 777-3) See_Comment H [Automated messa ge] The system which generated this result transmitted reference range: 150 - 328 10*3/?L. The reference range was not used to interpret this result as normal/abnormal. MPV (test code = 22995-3) 10.9 fL 9.8-13.0 NRBC/100 WBC (test code = 0569703496) See_Comment [Automated Commun.it ssage] The system which generated this result transmitted reference range: 0.0 - 10.0 /100 WBCs. The reference range was not used to interpret this result as normal/abnormal. NRBC x10^3 (test code = 6336636443) See_Comment [Automated messa ge] The system which generated this result transmitted reference range: 10*3/?L. The reference range was not used to interpret this result as normal/abnormal. GRAN MAT (NEUT) % (test code = 770-8) 67.2 % IMM GRAN % (test code = 7246798958) 0.40 % LYMPH % (test code = 736-9) 25.6 % MONO % (test code = 5905-5) 4.5 % EOS % (test code = 713-8) 1.2 % BASO % (test code = 706-2) 1.1 % GRAN MAT x10^3(ANC) (test code = 5716847061) 7.60 10*3/uL 1.99-6.95 H IMM GRAN x10^3 (test code = 4481222483) 0.05 10*3/uL 0.00-0.06 LYMPH x10^3 (test code = 731-0) 2.89 10*3/uL 1.09-3.23 MONO x10^3 (test code = 742-7) 0.51 10*3/uL 0.36-1.02 EOS x10^3 (test code = 711-2) 0.14 10*3/uL 0.06-0.53 BASO x10^3 (test code = 704-7) 0.12 10*3/uL 0.01-0.09 H Lab Interpretation (test code = 44680-3) Abnormal [facility]"
[2023-11-28 20:58] LABS: Absolute Lymphocytes (CBC) 1.7 K/uL (0.7-4.9); Hematocrit 38.8 % (39.6-49.0); Lymphocytes % 13.7 % (15.3-44.8); MCV 87.1 fL (80-100); MPV 8.8 fL (7.6-11.3); Platelets 277 thou/uL (152-406); RBC Red Blood Cell Count 4.45 M/uL (4.33-5.43)
[2023-11-28 21:15] LABS: Albumin 2.6 g/dL (3.4-5.0); Bilirubin Total 0.4 mg/dL (0.2-1.0); Potassium 4.2 mEq/L (3.5-5.1); Protein, Total 7.3 g/dL (6.4-8.2)
--- NOTE | 2023-11-28 22:05 | RAD REPORT ---
EXAM DESCRIPTION: RAD - Foot Left 3 View - 11/28/2023 9:06 pm CLINICAL HISTORY: PAIN COMPARISON: Foot Left 3 View dated 09/29/2023; Foot Left 3 View dated 05/30/2022 TECHNIQUE: Left foot, 3 views. FINDINGS: No fracture, dislocation or periosteal reaction. Cortical irregularities and diminutive appearance along the heads of the third and fifth metatarsal, stable. Soft tissue swelling at the the sole of the forefoot, with focal soft tissue gas at the level of the fourth metatarsophalangeal articulation. IMPRESSION: Soft tissue swelling at the forefoot and focal soft tissue gas at the level of the fourt h metatarsophalangeal articulation suggesting an ulcer. Stable chronic findings as above, without radha dence of acute osseous abnormality.
--- NOTE | 2023-11-28 22:40 | ER ---
Nurse's Notes [facility] Name: Donnie Man Jr Age: 42 yrs Sex: Male : 1980 Arrival Date: 11/28/2023 Time: 19:51 Bed 11 Private MD: Diagnosis: Personal history of diabetic foot ulcer;Type 2 diabetes mellitus with foot ulcer-LEFT PLANTAR;Type 2 diabetes mellitus with hyperglycemia;Cellulitis of left lower limb-LEFT FOOT , PLANTAR Presentation: 11/28 19:55 Chief complaint: Patient states: Pt c/o left foot ulcer since 09/29/23. Pt is being tl4 followed by his PCP with different treatments. Pt states today pain is worse and it has a foul smell. Coronavirus screen: At this time, the client does not indicate any symptoms associated with coronavirus-19. Ebola Screen: No symptoms or risks identified at this time. Initial Sepsis Screen: Does the patient meet any 2 criteria? No. Patient's initial sepsis screen is negative. Does the patient have a suspected source of infection? No. Patient's initial sepsis screen is negative. Risk Assessment: Do you want to hurt yourself or someone else? Patient reports no desire to harm self or others. Onset of symptoms was September 29, 2023. 19:55 Method Of Arrival: Ambulatory tl4 19:55 Acuity: BECKY 3 tl4 Triage Assessment: 20:02 General: Appears in no apparent distress. Behavior is calm, cooperative. Pain: tl4 Complains of pain in left foot. EENT: No deficits noted. No signs and/or symptoms were reported regarding the EENT system. Neuro: No deficits noted. Cardiovascular: No deficits noted. Respiratory: No deficits noted. GI: No deficits noted. No signs and/or symptoms were reported involving the gastrointestinal system. : No deficits noted. No signs and/or symptoms were reported regarding the genitourinary system. Derm: Reports ulcer on sole of left foot. Musculoskeletal: No deficits noted. No signs and/or symptoms reported regarding the musculoskeletal system. Historical: - Allergies: 20:00 PENICILLINS; tl4 - Home Meds: 20:00 Humulin 70/30 U-100 Insulin 100 unit/mL (70-30) Sub-Q suspension 2 times per day tl4 [Active]; metformin 500 mg Oral tablet 1 tab 2 times per day [Active]; - PMHx: 20:00 Diabetes; tl4 - PSHx: 20:00 Right middle finger amputation (Diabetes); Foot ulcer surgery (Diabetes); tl4 - Immunization history:: Adult Immunizations unknown. - Social history:: Smoking status: Patient denies any tobacco usage or history of. - Family history:: not pertinent. Screenin:54 [facility] ED Fall Risk Assessment (Adult) History of falling in the last 3 months, cm10 including since admission No falls in past 3 months (0 pts) Confusion or Disorientation No (0 pts) Intoxicated or Sedated No (0 pts) Impaired Gait No (0 pts) Mobility Assist Device Used No (0 pt) Altered Elimination No (0 pt) Score/Fall Risk Level 0 - 2 = Low Risk Oriented to surroundings, Maintained a safe environment, Hourly rounding (assess needs \T\ fall precautionary measures) done. Abuse screen: Denies threats or abuse. Denies injuries from another. Nutritional screening: No deficits noted. Tuberculosis screening: No symptoms or risk factors identified. Assessment: 20:53 General: Appears in no apparent distress. comfortable, Behavior is calm, cooperative. cm10 Neuro: No deficits noted. Level of Consciousness is awake, alert, obeys commands, Oriented to person, place, time, situation. Cardiovascular: No deficits noted. Patient's skin is warm and dry. Respiratory: No deficits noted. Airway is patent Respiratory effort is even, unlabored, Respiratory pattern is regular, symmetrical. GI: No deficits noted. No signs and/or symptoms were reported involving the gastrointestinal system. : No deficits noted. No signs and/or symptoms were reported regarding the genitourinary system. EENT: No deficits noted. No signs and/or symptoms were reported regarding the EENT system. Derm: Wound noted left foot. Musculoskeletal: No deficits noted. Range of motion: intact in all extremities. Vital Signs: 19:55 BP 159 / 96; Pulse 97; Resp 16; Temp 98.9(O); Pulse Ox 100% on R/A; Weight 99.79 kg; tl4 Height 5 ft. 6 in. ; Pain 8/10; 19:55 Body Mass Index 35.51 (99.79 kg, 167.64 cm) tl4 19:55 Pain Scale: Adult 4 ED Course: 19:54 Patient arrived in ED. tl4 20:00 Triage completed. tl4 20:00 Arm band placed on left wrist. tl4 20:05 Giuseppe Bryant MD is Attending Physician. chelsea 20:52 Comprehensive Metabolic Panel Sent. cm10 20:52 CRP Sent. cm10 20:52 CBC with Diff Sent. cm10 20:52 Wound Culture Sent. cm10 20:52 Initial lab(s) drawn, by wi, sent to lab. Wound culture swab sent to lab. Inserted cm10 saline lock: 20 gauge in left antecubital area, using aseptic technique. Blood collected. 20:53 Patient has correct armband on for positive identification. Bed in low position. Call cm10 light in reach. Provided Education on: ER process and procedures. . 21:08 Foot Left 3 View XRAY In Process Unspecified. EDMO 22:39 Ulices Kuo MD is Referral Physician. [facility] 23:04 No provider procedures requiring assistance completed. IV discontinued, intact, vc1 bleeding controlled, No redness/swelling at site. Pressure dressing applied. Administered Medications: 20:52 Drug: NS 0.9% IV 500 ml IV at bolus once Route: IV; Rate: bolus; Site: left antecubital;cm10 20:52 Drug: LevOfloxacin PO 750 mg PO once Route: PO; cm10 20:52 Drug: Clindamycin IVPB 900 mg IVPB once over 30 mins; (mix in 50 mL) Route: IVPB; cm10 Infused Over: 30 mins; Site: left antecubital; Medication: 23:05 VIS not applicable for this client. vc1 Outcome: 22:40 Discharge ordered by . [facility] 23:04 Discharged to home ambulatory, vc1 23:04 Condition: good 23:04 Discharge instructions given to patient, Instructed on discharge instructions, follow up and referral plans. medication usage, Demonstrated understanding of instructions, follow-up care, medications, Prescriptions given X 2, 23:05 Patient left the ED. vc1 Signatures: Dispatcher [employer] EDMO Giuseppe Bryant MD MD cha Calcote, Vanessa RN RN vc1 Jaylene Lafleur RN RN cm10 LogdaFarhat polanco RN RN tl4
--- NOTE | 2023-11-28 22:40 | EDPHYS ---
Physician Documentation [facility] Name: Donnie Man Jr Age: 42 yrs Sex: Male : 1980 Arrival Date: 11/28/2023 Time: 19:51 Bed 11 Private MD: ED Physician Giuseppe Bryant HPI: 11/28 22:33 This 42 yrs old Male presents to ER via Ambulatory with complaints of Foot chelsea Pain. 22:33 The patient presents with decreased range of motion, pain. The complaints affect the chelsea left foot. Context: The problem was sustained at an unknown location, resulted from an unknown cause. Onset: The symptoms/episode began/occurred 2 month(s) ago. Modifying factors: The symptoms are alleviated by elevation of extremity, the symptoms are aggravated by movement. Associated signs and symptoms: Pertinent positives: swelling, warmth. Severity of symptoms: At their worst the symptoms were moderate, in the emergency department the symptoms are unchanged. The patient has experienced similar episodes in the past, multiple times. Historical: - Allergies: 20:00 PENICILLINS; tl4 - Home Meds: 20:00 Humulin 70/30 U-100 Insulin 100 unit/mL (70-30) Sub-Q suspension 2 times per day tl4 [Active]; metformin 500 mg Oral tablet 1 tab 2 times per day [Active]; - PMHx: 20:00 Diabetes; tl4 - PSHx: 20:00 Right middle finger amputation (Diabetes); Foot ulcer surgery (Diabetes); tl4 - Immunization history:: Adult Immunizations unknown. - Social history:: Smoking status: Patient denies any tobacco usage or history of. - Family history:: not pertinent. ROS: 22:33 Constitutional: Negative for fever, chills, and weight loss, Eyes: Negative for injury, chelsea pain, redness, and discharge, ENT: Negative for injury, pain, and discharge, Neck: Negative for injury, pain, and swelling, Cardiovascular: Negative for chest pain, palpitations, and edema, Respiratory: Negative for shortness of breath, cough, wheezing, and pleuritic chest pain, Abdomen/GI: Negative for abdominal pain, nausea, vomiting, diarrhea, and constipation, Back: Negative for injury and pain, : Negative for injury, bleeding, discharge, and swelling, Neuro: Negative for headache, weakness, numbness, tingling, and seizure, Psych: Negative for depression, anxiety, suicide ideation, homicidal ideation, and hallucinations, Allergy/Immunology: Negative for hives, rash, and allergies, Endocrine: Negative for neck swelling, polydipsia, polyuria, polyphagia, and marked weight changes, Hematologic/Lymphatic: Negative for swollen nodes, abnormal bleeding, and unusual bruising, 22:33 MS/extremity: Positive for decreased range of motion, pain, swelling, tenderness, of the ball of left foot, Exam: 22:33 Constitutional: This is a well developed, well nourished patient who is awake, alert, chelsea and in no acute distress. Head/Face: Normocephalic, atraumatic. Eyes: Pupils equal round and reactive to light, extra-ocular motions intact. Lids and lashes normal. Conjunctiva and sclera are non-icteric and not injected. Cornea within normal limits. Periorbital areas with no swelling, redness, or edema. ENT: Nares patent. No nasal discharge, no septal abnormalities noted. Tympanic membranes are normal and external auditory canals are clear. Oropharynx with no redness, swelling, or masses, exudates, or evidence of obstruction, uvula midline. Mucous membranes moist. Neck: Trachea midline, no thyromegaly or masses palpated, and no cervical lymphadenopathy. Supple, full range of motion without nuchal rigidity, or vertebral point tenderness. No Meningismus. Chest/axilla: Normal chest wall appearance and motion. Nontender with no deformity. No lesions are appreciated. Cardiovascular: Regular rate and rhythm with a normal S1 and S2. No gallops, murmurs, or rubs. Normal PMI, no JVD. No pulse deficits. Respiratory: Lungs have equal breath sounds bilaterally, clear to auscultation and percussion. No rales, rhonchi or wheezes noted. No increased work of breathing, no retractions or nasal flaring. Abdomen/GI: Soft, non-tender, with normal bowel sounds. No distension or tympany. No guarding or rebound. No evidence of tenderness throughout. Back: No spinal tenderness. No costovertebral tenderness. Full range of motion. Male : Normal genitalia with no discharge or lesions. Skin: Warm, dry with normal turgor. Normal color with no rashes, no lesions, and no evidence of cellulitis. Neuro: Awake and alert, GCS 15, oriented to person, place, time, and situation. Cranial nerves II-XII grossly intact. Motor strength 5/5 in all extremities. Sensory grossly intact. Cerebellar exam normal. Normal gait. Psych: Awake, alert, with orientation to person, place and time. Behavior, mood, and affect are within normal limits. 22:33 Musculoskeletal/extremity: Extremities: erythema, pain, swelling, tenderness, ROM: full active range of motion, full passive range of motion, Circulation is intact in all extremities. Compartment Syndrome exam of affected extremity: is normal. DVT Exam: negative Homans' sign noted on exam, no appreciated bluish discoloration, pain, swelling, tenderness, erythema, increased warmth, that is mild, of the ball of left foot, Vital Signs: 19:55 BP 159 / 96; Pulse 97; Resp 16; Temp 98.9(O); Pulse Ox 100% on R/A; Weight 99.79 kg; tl4 Height 5 ft. 6 in. ; Pain 8/10; 19:55 Body Mass Index 35.51 (99.79 kg, 167.64 cm) tl4 19:55 Pain Scale: Adult tl4 MDM: 20:05 Patient medically screened. [facility] 22:38 Differential diagnosis: foreign body, penetrating trauma, arthritis, gout, cellulitis. [facility] Data reviewed: vital signs, nurses notes, lab test result(s), radiologic studies, plain films. Consideration of Admission/Observation Escalation of care including admission/observation considered. I considered the following discharge prescriptions or medication management in the emergency department Medications were administered in the Emergency Department. See MAR. Independent interpretation of the following test(s) in the Emergency Department X-Ray: My interpretation is LEFT FOOT. Test considered but Not performed: Labs: CBC, COMP MET REVIEWED. Care significantly affected by the following chronic conditions: Diabetes. Counseling: I had a detailed discussion with the patient and/or guardian regarding the historical points, exam findings, and any diagnostic results supporting the discharge/admit diagnosis, lab results, radiology results, the need for outpatient follow up, for definitive care, a general surgeon. 22:43 ED course: URSULA SPARKS WILL SEE IN OFFICE NEXT WEEK, FRIDAY. [facility] 11/28 20:24 Order name: CBC with Diff; Complete Time: 22:32 [facility] 11/28 20:24 Order name: Comprehensive Metabolic Panel; Complete Time: 22:32 [facility] 11/28 20:24 Order name: CRP; Complete Time: 22:32 [facility] 11/28 20:24 Order name: Wound Culture [facility] 11/28 20:24 Order name: Foot Left 3 View XRAY; Complete Time: 22:32 [facility] 11/28 20:24 Order name: Wound Care; Complete Time: 22:50 [facility] 11/28 22:42 Order name: Post-op shoe; Complete Time: 23:04 [facility] Administered Medications: 20:52 Drug: NS 0.9% IV 500 ml IV at bolus once Route: IV; Rate: bolus; Site: left antecubital;cm10 20:52 Drug: LevOfloxacin PO 750 mg PO once Route: PO; cm10 20:52 Drug: Clindamycin IVPB 900 mg IVPB once over 30 mins; (mix in 50 mL) Route: IVPB; cm10 Infused Over: 30 mins; Site: left antecubital; Disposition Summary: 11/28/23 22:40 Discharge Ordered Notes: Location: Home [facility] Problem: new [facility] Symptoms: have improved chel[place] Condition: Stable chlesea Diagnosis - Personal history of diabetic foot ulcer che[place]sea - Type 2 diabetes mellitus with foot ulcer - LEFT PLANTAR che[place]sea - Type 2 diabetes mellitus with hyperglycemia [place] - Cellulitis of left lower limb - LEFT FOOT , PLANTAR [place]sea Followup: chelsea - With: Private Physician - When: 2 - 3 days - Reason: Recheck today's complaints, Continuance of care, Re-evaluation by your physician Followup: che[place] - With: Ulices Sparks MD - When: 2 - 3 days - Reason: Recheck today's complaints, Continuance of care, Re-evaluation by your physician Discharge Instructions: - Discharge Summary Sheet chelsea - Cellulitis, Adult che[place]sea - Diabetes Mellitus and Foot Care che[place]sea - Hyperglycemia che[place]sea - Cellulitis, Adult, [id number] [facility] - Diabetes Mellitus and Nutrition, Adult [place] - Hyperglycemia, [id number] [facility] Forms: - Medication Reconciliation Form [facility] - Thank You Letter [facility] - Antibiotic Education [facility] - Prescription Opioid Use [facility] - Patient Portal Instructions [facility] - Leadership Thank You Letter [facility] Prescriptions: - Clindamycin HCl 300 mg Oral Capsule - take 1 capsule ORAL route every 6 hours for 10 days; 40 capsule; Refills: 0, [facility] Product Selection Permitted - levofloxacin 750 mg Oral tablet - take 1 tablet ORAL route once daily; 9 tablet; Refills: 0, Product Selection [place] Permitted Signatures: Dispatcher [employer] Giuseppe Tomlinson MD MD cha Martinez, Clarissa RN RN cm10 Farhat Caldwell RN RN tl4
[2023-11-28 23:18] VITALS: BP 159/96; TEMP 98.9; O2SAT 100
== END ==
LOC: ER 19:51
DX: L03.116 Cellulitis of left lower limb (principal); E11.65 Type 2 diabetes mellitus with hyperglycemia; Z79.4 Long term (current) use of insulin; Z86.31 Personal history of diabetic foot ulcer; Z88.0 Allergy status to penicillin
CPT/HCPCS: 87070; 85025; 36415; 87205; 80053; 86140; 73630; J7040; 87077; 87186

== ENCOUNTER 2023-12-18 20:58 | Observation (INO) | payer OTHER ==
--- OUTSIDE RECORDS SUMMARY | 2023-12-18 21:05 | XMS REPORT | Continuity of Care Document ---
Author Name Unknown Address [address] [facility] [place] [address] [facility] Address [address] [facility] [address] [place] [address] Care Team Providers Care Compensation Consultant Name Role Phone FREDDIE TATUM Primary Care Physician Unav ailable LALY HENRY Attending Clinician Unavailable Laly Lopez Attending Clinician [phone] ZENA SCHULTZ Attending Clinician Unavailabl e Therapy-Kimberly [facility] Attending Clinician Unavailable Carlos Mclaguhlin MD Attending Clinician [phone] CARLOS MCLAUGHLIN Attending Clinician Unavailable Doctor Unassigned, [employer] Attending Clinician U simeon Moseley RN, Coby Hernandez Attending Clinician [phone] MD Attending Clinician [phone] Stephanie Singleton MD Attending Clinician [phone] Edilberto Mims MD Attending Clinician [phone] EDILBERTO MIMS Attending Clinician Unavailable Pop ENRIQUE, Josue Attending Clinician [phone] Shawna ENRIQUE, Tomasz Dunn Attending Clinician [phone] Joel ENRIQUE, Salazar Attending Clinician + Lab, Adc Fam Pob I Attending Clinician Unavailab Krystina Morfin Attending Clinician [phone] KRYSTINA CHEEMA Attending Clinician Unavailable Stephanie Singleton MD Admitting Clinician STEPHANIE SINGLETON Admitting Clinician Unavailable Payers Payer Name Policy Type Policy Number Effective Date Expirati on Date Source [employer] [id number] 2022 00:00:00 Problems Condition Name Condition Details Condition Category Status Onset Date Resolution Date Last Treatment Date Treating Clinician Comments Source Finger pain, right Finger pain, right Disease Active 2021-10 00:00: 00 [facility] Finger stiffness, right Finger stiffness, right Disease Active 2021-10 00:00: 00 [facility] Obesity (BMI 30-39.9) Obesity (BMI 30-39.9) Disease Active 2021-10 00:00: 00 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 Essential hypertensi on Essential hypertensi on Disease Active 2021-10 00:00: 00 [facility] Hyperlipid emia Hyperlipid emia Disease Active 2021-10 00:00: 00 [facility] Restless leg syndrome Restless leg syndrome Disease Active 2021-10 00:00: 00 [facility] Encounter for routine history and physical exam for male Encounter for routine history and physical exam for male Disease Active 02-12 00:00: 00 [facility] Type 2 diabetes mellitus without complicati on, with long-term current use of insulin Type 2 diabetes mellitus without complicati on, with long-term current use of insulin Disease Active 12-01 00:00: 00 Overview: Formattin g of this note might be different from the original. ICD10 Diagnosis Term [employer] [facility] Yeast infection Yeast infection Disease Active 12-01 00:00: 00 [facility] Allergies, Adverse Reactions, Alerts Allergy Name Allergy Type Status Severity Reaction(s) Onset Date Inactive Date Treating Clinician Comments Source Penicill ins Propensi ty to adverse reaction s Active Rash 11-22 00:00: 00 [facility] PENICILL INS Drug Class Active Rash 11-22 00:00: 00 [facility] Penicill ins Propensi ty to adverse reaction s Active Rash 11-22 00:00: 00 [facility] Social History Social Habit Start Date Stop Date Quantity Comments Source History of tobacco use Cigarette Smoker [facility] Exposure to SARS-CoV-2 (event) 2022-10-28 00:00:00 2022-11-07 08:30:00 Unable to assess [facility] Tobacco use and exposure 2022-10-08 00:00:00 2022-10-08 00:00:00 Smokeless tobacco non-user [facility] Alcohol intake 2022-10-08 00:00:00 2022-10-08 00:00:00 Current drinker of alcohol (finding) [facility] Tobacco Comment 2022-10-08 00:00:00 2022-10-08 00:00:00 smokes 1 pack per week [facility] Alcohol Comment 2014-02-22 00:00:00 2014-02-22 00:00:00 Currently uses alcohol only occasionally. 4 years ago he drank 24 beers daily for 4-5 months. [facility] Sex Assigned At 1980 00:00:00 1980 00:00:00 [facility] Smoking Status Start Date Stop Date Source Ex-smoker 2022-10-08 00:00:00 2022-10-08 00:00:00 [facility] Occasional tobacco smoker 2014-02-22 00:00:00 [facility] Medications Ordered Medication Name Filled Medication Name Start Date Stop Date Current Medication? Ordering Clinician Indication Dosage Frequency Signature (SIG) Comments Components Source gabapentin 600 mg tablet 2021-10 00:00: 00 Yes 600mg Take 600 mg by mouth at bedtime. [facility] gabapentin 600 mg tablet 2021-10 00:00: 00 Yes 600mg Take 600 mg by mouth at bedtime. [facility] gabapentin 600 mg tablet 2021-10 00:00: 00 Yes 600mg Take 600 mg by mouth at bedtime. [facility] MOUNJARO 2.5 mg/0.5 mL PnIj 2021-10 00:00: 00 Yes INJECT 2.5 MG SUBCUTANEO USLY ONCE A WEEK FOR [address] [facility] MOUNJARO 2.5 mg/0.5 mL PnIj 2021-10 00:00: 00 Yes INJECT 2.5 MG SUBCUTANEO USLY ONCE A WEEK FOR [address] [facility] MOUNJARO 2.5 mg/0.5 mL PnIj 2021-10 00:00: 00 Yes INJECT 2.5 MG SUBCUTANEO USLY ONCE A WEEK FOR [address] [facility] mupirocin 2 % ointment 2021-10 00:00: 00 10-03 05:59 :00 No [id number] Apply to area(s) 3 (three) times daily for [address] [facility] mupirocin 2 % ointment 2021-10 00:00: 00 10-03 05:59 :00 No [id number] Apply to area(s) 3 (three) times daily for [address] [facility] mupirocin 2 % ointment 2021-10 00:00: 00 10-03 05:59 :00 No [id number] Apply to area(s) 3 (three) times daily for [address] [facility] losartan 50 mg tablet 2021-10 00:00: 00 Yes 50mg Take 1 tablet by mouth in the morning. [facility] polyethylen e glycol 3350 17 gram powder 2021-10 00:00: 00 Yes [id number] 17g Take 1 Packet by mouth in the morning. [facility] sennosides 8.6 mg tablet 2021-10 00:00: 00 Yes [id number] 8.6mg Take 1 tablet by mouth in the morning. [facility] losartan 50 mg tablet 2021-10 00:00: 00 Yes 50mg Take 1 tablet by mouth in the morning. [facility] polyethylen e glycol 3350 17 gram powder 2021-10 00:00: 00 Yes [id number] 17g Take 1 Packet by mouth in the morning. [facility] sennosides 8.6 mg tablet 2021-10 00:00: 00 Yes [id number] 8.6mg Take 1 tablet by mouth in the morning. [facility] losartan 50 mg tablet 2021-10 00:00: 00 Yes 50mg Take 1 tablet by mouth in the morning. [facility] polyethylen e glycol 3350 17 gram powder 2021-10 00:00: 00 Yes [id number] 17g Take 1 Packet by mouth in the morning. [facility] sennosides 8.6 mg tablet 2021-10 00:00: 00 Yes [id number] 8.6mg Take 1 tablet by mouth in the morning. [facility] losartan 50 mg tablet 2021-10 00:00: 00 Yes 50mg Take 1 tablet by mouth in the morning. [facility] polyethylen e glycol 3350 17 gram powder 2021-10 00:00: 00 Yes [id number] 17g Take 1 Packet by mouth in the morning. [facility] sennosides 8.6 mg tablet 2021-10 00:00: 00 Yes [id number] 8.6mg Take 1 tablet by mouth in the morning. [facility] losartan 50 mg tablet 2021-10 00:00: 00 Yes 50mg Take 1 tablet by mouth in the morning. [facility] polyethylen e glycol 3350 17 gram powder 2021-10 00:00: 00 Yes [id number] 17g Take 1 Packet by mouth in the morning. [facility] sennosides 8.6 mg tablet 2021-10 00:00: 00 Yes [id number] 8.6mg Take 1 tablet by mouth in the morning. [facility] losartan 50 mg tablet 2021-10 00:00: 00 Yes 50mg Take 1 tablet by mouth in the morning. [facility] polyethylen e glycol 3350 17 gram powder 2021-10 00:00: 00 Yes [id number] 17g Take 1 Packet by mouth in the morning. [facility] sennosides 8.6 mg tablet 2021-10 00:00: 00 Yes [id number] 8.6mg Take 1 tablet by mouth in the morning. [facility] losartan 50 mg tablet 2021-10 00:00: 00 Yes 50mg Take 1 tablet by mouth in the morning. [facility] polyethylen e glycol 3350 17 gram powder 2021-10 00:00: 00 Yes [id number] 17g Take 1 Packet by mouth in the morning. [facility] sennosides 8.6 mg tablet 2021-10 00:00: 00 Yes [id number] 8.6mg Take 1 tablet by mouth in the morning. [facility] losartan 50 mg tablet 2021-10 00:00: 00 Yes 50mg Take 1 tablet by mouth in the morning. [facility] polyethylen e glycol 3350 17 gram powder 2021-10 00:00: 00 Yes [id number] 17g Take 1 Packet by mouth in the morning. [facility] sennosides 8.6 mg tablet 2021-10 00:00: 00 Yes [id number] 8.6mg Take 1 tablet by mouth in the morning. [facility] losartan 50 mg tablet 2021-10 00:00: 00 Yes 50mg Take 1 tablet by mouth in the morning. [facility] polyethylen e glycol 3350 17 gram powder 2021-10 00:00: 00 Yes [id number] 17g Take 1 Packet by mouth in the morning. [facility] sennosides 8.6 mg tablet 2021-10 00:00: 00 Yes [id number] 8.6mg Take 1 tablet by mouth in the morning. [facility] losartan 50 mg tablet 2021-10 00:00: 00 Yes 50mg Take 1 tablet by mouth in the morning. [facility] polyethylen e glycol 3350 17 gram powder 2021-10 00:00: 00 Yes [id number] 17g Take 1 Packet by mouth in the morning. [facility] sennosides 8.6 mg tablet 2021-10 00:00: 00 Yes [id number] 8.6mg Take 1 tablet by mouth in the morning. [facility] losartan 50 mg tablet 2021-10 00:00: 00 Yes 50mg Take 1 tablet by mouth in the morning. [facility] polyethylen e glycol 3350 17 gram powder 2021-10 00:00: 00 Yes [id number] 17g Take 1 Packet by mouth in the morning. [facility] sennosides 8.6 mg tablet 2021-10 00:00: 00 Yes [id number] 8.6mg Take 1 tablet by mouth in the morning. [facility] losartan 50 mg tablet 2021-10 00:00: 00 Yes 50mg Take 1 tablet by mouth in the morning. [facility] polyethylen e glycol 3350 17 gram powder 2021-10 00:00: 00 Yes [id number] 17g Take 1 Packet by mouth in the morning. [facility] sennosides 8.6 mg tablet 2021-10 00:00: 00 Yes [id number] 8.6mg Take 1 tablet by mouth in the morning. [facility] losartan 50 mg tablet 2021-10 00:00: 00 Yes 50mg Take 1 tablet by mouth in the morning. [facility] polyethylen e glycol 3350 17 gram powder 2021-10 00:00: 00 Yes [id number] 17g Take 1 Packet by mouth in the morning. [facility] sennosides 8.6 mg tablet 2021-10 00:00: 00 Yes [id number] 8.6mg Take 1 tablet by mouth in the morning. [facility] losartan 50 mg tablet 2021-10 00:00: 00 Yes 50mg Take 1 tablet by mouth in the morning. [facility] polyethylen e glycol 3350 17 gram powder 2021-10 00:00: 00 Yes [id number] 17g Take 1 Packet by mouth in the morning. [facility] sennosides 8.6 mg tablet 2021-10 00:00: 00 Yes [id number] 8.6mg Take 1 tablet by mouth in the morning. [facility] losartan 50 mg tablet 2021-10 00:00: 00 Yes 50mg Take 1 tablet by mouth in the morning. [facility] polyethylen e glycol 3350 17 gram powder 2021-10 00:00: 00 Yes [id number] 17g Take 1 Packet by mouth in the morning. [facility] sennosides 8.6 mg tablet 2021-10 00:00: 00 Yes [id number] 8.6mg Take 1 tablet by mouth in the morning. [facility] sennosides (SENOKOT) tablet 8.6 mg 2021-10 15:00: 00 Yes 8.6mg 8.6 mg, Oral, DAILY, First dose on Fri09/04/22 at 0900, Until Discontinu ed, Routine [facility] polyethylen e glycol 3350 powder 17 g 2021-10 15:00: 00 Yes 17g 17 g, Oral, DAILY, First dose on Fri09/04/22 at 0900, Until Discontinu ed, Routine [facility] sennosides (SENOKOT) tablet 8.6 mg 2021-10 15:00: 00 Yes 8.6mg 8.6 mg, Oral, DAILY, First dose on Fri09/04/22 at 0900, Until Discontinu ed, Routine [facility] polyethylen e glycol 3350 powder 17 g 2021-10 15:00: 00 Yes 17g 17 g, Oral, DAILY, First dose on Fri09/04/22 at 0900, Until Discontinu ed, Routine [facility] morpHINE (2 mg/mL) injection 4 mg 2021-10 13:57: 04 Yes 4mg 4 mg, Slow IV Push, Q4HPRN, Starting on Fri09/04/22 at 0757, Until Discontinu ed, Routine, Pain (scale 7-10) [facility] morpHINE (2 mg/mL) injection 4 mg 2021-10 13:57: 04 Yes 4mg 4 mg, Slow IV Push, Q4HPRN, Starting on Fri09/04/22 at 0757, Until Discontinu ed, Routine, Pain (scale 7-10) [facility] HYDROcodone -acetaminop hen (NORCO) 10-325 mg tablet 1 tablet 2021-10 10:51: 25 Yes 1{tbl} 1 tablet, Oral, Q6HPRN, Starting on Fri09/04/22 at 0451, Until Discontinu ed, Routine, Pain (scale 4-6) [facility] HYDROcodone -acetaminop hen (NORCO) 10-325 mg tablet 1 tablet 2021-10 10:51: 25 Yes 1{tbl} 1 tablet, Oral, Q6HPRN, Starting on Fri09/04/22 at 0451, Until Discontinu ed, Routine, Pain (scale 4-6) [facility] morpHINE (2 mg/mL) injection 2 mg 2021-10 10:51: 13 09-04 13:57 :36 No 2mg 2 mg, Slow IV Push, Q4HPRN, Starting on Fri09/04/22 at 0451, Until Fri09/04/22 at 0757, Routine, Pain (scale 7-10) [facility] HYDROcodone -acetaminop hen (NORCO) 10-325 mg tablet 1 tablet 2021-10 08:39: 28 09-04 10:51 :33 No 1{tbl} 1 tablet, Oral, Q6HPRN, Starting on Fri09/04/22 at 0239, Until Fri09/04/22 at 0451, Routine, Pain (scale 7-10) [facility] gabapentin 100 mg capsule 2021-10 00:00: 00 Yes [id number] 300mg Take 3 capsules by mouth at bedtime. [facility] ibuprofen 600 mg tablet 2021-10 00:00: 00 Yes [id number] 600mg Take 1 tablet by mouth every 6 (six) hours as needed for Pain (scale 1-3). [facility] and regular human 70-30 100 unit/mL (70-30) injection 2021-10 00:00: 00 Yes 40U inject 40 Units under the skin every morning. [facility] NPH and regular human 70-30 100 unit/mL (70-30) injection 2021-10 00:00: 00 Yes 20U inject 20 Units under the skin every evening. [facility] metFORMIN 500 mg tablet 2021-10 00:00: 00 Yes 500mg Take 1 tablet by mouth in the morning and 1 tablet in the evening. Take with meals. [facility] semaglutide (OZEMPIC) 0.25 mg or 0.5 mg(2 mg/1.5 mL) PnIj 2021-10 00:00: 00 Yes .25mg inject 0.25 mg under the skin. [facility] gabapentin 100 mg capsule 2021-10 00:00: 00 Yes [id number] 300mg Take 3 capsules by mouth at bedtime. [facility] ibuprofen 600 mg tablet 2021-10 00:00: 00 Yes [id number] 600mg Take 1 tablet by mouth every 6 (six) hours as needed for Pain (scale 1-3). [facility] NPH and regular human 70-30 100 unit/mL (70-30) injection 2021-10 00:00: 00 Yes 40U inject 40 Units under the skin every morning. [facility] insulin NPH and regular human 70-30 100 unit/mL (70-30) injection 2021-10 00:00: 00 Yes 20U inject 20 Units under the skin every evening. [facility] metFORMIN 500 mg tablet 2021-10 00:00: 00 Yes 500mg Take 1 tablet by mouth in the morning and 1 tablet in the evening. Take with meals. [facility] semaglutide (OZEMPIC) 0.25 mg or 0.5 mg(2 mg/1.5 mL) PnIj 2021-10 00:00: 00 Yes .25mg inject 0.25 mg under the skin. [facility] gabapentin 100 mg capsule 2021-10 00:00: 00 Yes [id number] 300mg Take 3 capsules by mouth at bedtime. [facility] ibuprofen 600 mg tablet 2021-10 00:00: 00 Yes [id number] 600mg Take 1 tablet by mouth every 6 (six) hours as needed for Pain (scale 1-3). [facility] insulin NPH and regular human 70-30 100 unit/mL (70-30) injection 2021-10 00:00: 00 Yes 40U inject 40 Units under the skin every morning. [facility] insulin NPH and regular human 70-30 100 unit/mL (70-30) injection 2021-10 00:00: 00 Yes 20U inject 20 Units under the skin every evening. [facility] metFORMIN 500 mg tablet 2021-10 00:00: 00 Yes 500mg Take 1 tablet by mouth in the morning and 1 tablet in the evening. Take with meals. [facility] semaglutide (OZEMPIC) 0.25 mg or 0.5 mg(2 mg/1.5 mL) PnIj 2021-10 00:00: 00 Yes .25mg inject 0.25 mg under the skin. [facility] gabapentin 100 mg capsule 2021-10 00:00: 00 Yes [id number] 300mg Take 3 capsules by mouth at bedtime. [facility] ibuprofen 600 mg tablet 2021-10 00:00: 00 Yes [id number] 600mg Take 1 tablet by mouth every 6 (six) hours as needed for Pain (scale 1-3). [facility] NPH and regular human 70-30 100 unit/mL (70-30) injection 2021-10 00:00: 00 Yes 40U inject 40 Units under the skin every morning. [facility] NPH and regular human 70-30 100 unit/mL (70-30) injection 2021-10 00:00: 00 Yes 20U inject 20 Units under the skin every evening. [facility] metFORMIN 500 mg tablet 2021-10 00:00: 00 Yes 500mg Take 1 tablet by mouth in the morning and 1 tablet in the evening. Take with meals. [facility] semaglutide (OZEMPIC) 0.25 mg or 0.5 mg(2 mg/1.5 mL) PnIj 2021-10 00:00: 00 Yes .25mg inject 0.25 mg under the skin. [facility] gabapentin 100 mg capsule 2021-10 00:00: 00 Yes [id number] 300mg Take 3 capsules by mouth at bedtime. [facility] ibuprofen 600 mg tablet 2021-10 00:00: 00 Yes [id number] 600mg Take 1 tablet by mouth every 6 (six) hours as needed for Pain (scale 1-3). [facility] insulin NPH and regular human 70-30 100 unit/mL (70-30) injection 2021-10 00:00: 00 Yes 40U inject 40 Units under the skin every morning. [facility] insulin NPH and regular human 70-30 100 unit/mL (70-30) injection 2021-10 00:00: 00 Yes 20U inject 20 Units under the skin every evening. [facility] metFORMIN 500 mg tablet 2021-10 00:00: 00 Yes 500mg Take 1 tablet by mouth in the morning and 1 tablet in the evening. Take with meals. [facility] semaglutide (OZEMPIC) 0.25 mg or 0.5 mg(2 mg/1.5 mL) PnIj 2021-10 00:00: 00 Yes .25mg inject 0.25 mg under the skin. [facility] gabapentin 100 mg capsule 2021-10 00:00: 00 Yes [id number] 300mg Take 3 capsules by mouth at bedtime. [facility] ibuprofen 600 mg tablet 2021-10 00:00: 00 Yes [id number] 600mg Take 1 tablet by mouth every 6 (six) hours as needed for Pain (scale 1-3). [facility] insulin NPH and regular human 70-30 100 unit/mL (70-30) injection 2021-10 00:00: 00 Yes 40U inject 40 Units under the skin every morning. [facility] insulin NPH and regular human 70-30 100 unit/mL (70-30) injection 2021-10 00:00: 00 Yes 20U inject 20 Units under the skin every evening. [facility] metFORMIN 500 mg tablet 2021-10 00:00: 00 Yes 500mg Take 1 tablet by mouth in the morning and 1 tablet in the evening. Take with meals. [facility] semaglutide (OZEMPIC) 0.25 mg or 0.5 mg(2 mg/1.5 mL) [facility] 2021-10 00:00: 00 Yes .25mg inject 0.25 mg under the skin. [facility] gabapentin 100 mg capsule 2021-10 00:00: 00 Yes [id number] 300mg Take 3 capsules by mouth at bedtime. [facility] ibuprofen 600 mg tablet 2021-10 00:00: 00 Yes [id number] 600mg Take 1 tablet by mouth every 6 (six) hours as needed for Pain (scale 1-3). [facility] insulin NPH and regular human 70-30 100 unit/mL (70-30) injection 2021-10 00:00: 00 Yes 40U inject 40 Units under the skin every morning. [facility] insulin NPH and regular human 70-30 100 unit/mL (70-30) injection 2021-10 00:00: 00 Yes 20U inject 20 Units under the skin every evening. [facility] metFORMIN 500 mg tablet 2021-10 00:00: 00 Yes 500mg Take 1 tablet by mouth in the morning and 1 tablet in the evening. Take with meals. [facility] semaglutide (OZEMPIC) 0.25 mg or 0.5 mg(2 mg/1.5 mL) PnIj 2021-10 00:00: 00 Yes .25mg inject 0.25 mg under the skin. [facility] polyethylen e glycol 3350 17 gram/dose powder 2021-10 00:00: 00 Yes MIX 17 GRAMS OF POWDER IN WATER OR JUICE ONCE DAILY IN THE MORNING [facility] gabapentin 100 mg capsule 2021-10 00:00: 00 Yes [id number] 300mg Take 3 capsules by mouth at bedtime. [facility] ibuprofen 600 mg tablet 2021-10 00:00: 00 Yes [id number] 600mg Take 1 tablet by mouth every 6 (six) hours as needed for Pain (scale 1-3). [facility] insulin NPH and regular human 70-30 100 unit/mL (70-30) injection 2021-10 00:00: 00 Yes 40U inject 40 Units under the skin every morning. [facility] insulin NPH and regular human 70-30 100 unit/mL (70-30) injection 2021-10 00:00: 00 Yes 20U inject 20 Units under the skin every evening. [facility] metFORMIN 500 mg tablet 2021-10 00:00: 00 Yes 500mg Take 1 tablet by mouth in the morning and 1 tablet in the evening. Take with meals. [facility] semaglutide (OZEMPIC) 0.25 mg or 0.5 mg(2 mg/1.5 mL) Ij 2021-10 00:00: 00 Yes .25mg inject 0.25 mg under the skin. [facility] polyethylen e glycol 3350 17 gram/dose powder 2021-10 00:00: 00 Yes MIX 17 GRAMS OF POWDER IN WATER OR JUICE ONCE DAILY IN THE MORNING [facility] gabapentin 100 mg capsule 2021-10 00:00: 00 Yes [id number] 300mg Take 3 capsules by mouth at bedtime. [facility] ibuprofen 600 mg tablet 2021-10 00:00: 00 Yes [id number] 600mg Take 1 tablet by mouth every 6 (six) hours as needed for Pain (scale 1-3). [facility] insulin NPH and regular human 70-30 100 unit/mL (70-30) injection 2021-10 00:00: 00 Yes 40U inject 40 Units under the skin every morning. [facility] insulin NPH and regular human 70-30 100 unit/mL (70-30) injection 2021-10 00:00: 00 Yes 20U inject 20 Units under the skin every evening. [facility] metFORMIN 500 mg tablet 2021-10 00:00: 00 Yes 500mg Take 1 tablet by mouth in the morning and 1 tablet in the evening. Take with meals. [facility] semaglutide (OZEMPIC) 0.25 mg or 0.5 mg(2 mg/1.5 mL) PnIj 2021-10 00:00: 00 Yes .25mg inject 0.25 mg under the skin. [facility] polyethylen e glycol 3350 17 gram/dose powder 2021-10 00:00: 00 Yes MIX 17 GRAMS OF POWDER IN WATER OR JUICE ONCE DAILY IN THE MORNING [facility] gabapentin 100 mg capsule 2021-10 00:00: 00 Yes [id number] 300mg Take 3 capsules by mouth at bedtime. [facility] ibuprofen 600 mg tablet 2021-10 00:00: 00 Yes [id number] 600mg Take 1 tablet by mouth every 6 (six) hours as needed for Pain (scale 1-3). [facility] insulin NPH and regular human 70-30 100 unit/mL (70-30) injection 2021-10 00:00: 00 Yes 40U inject 40 Units under the skin every morning. [facility] insulin NPH and regular human 70-30 100 unit/mL (70-30) injection 2021-10 00:00: 00 Yes 20U inject 20 Units under the skin every evening. [facility] metFORMIN 500 mg tablet 2021-10 00:00: 00 Yes 500mg Take 1 tablet by mouth in the morning and 1 tablet in the evening. Take with meals. [facility] semaglutide (OZEMPIC) 0.25 mg or 0.5 mg(2 mg/1.5 mL) PnIj 2021-10 00:00: 00 Yes .25mg inject 0.25 mg under the skin. [facility] polyethylen e glycol 3350 17 gram/dose powder 2021-10 00:00: 00 Yes MIX 17 GRAMS OF POWDER IN WATER OR JUICE ONCE DAILY IN THE MORNING [facility] gabapentin 100 mg capsule 2021-10 00:00: 00 Yes [id number] 300mg Take 3 capsules by mouth at bedtime. [facility] ibuprofen 600 mg tablet 2021-10 00:00: 00 Yes [id number] 600mg Take 1 tablet by mouth every 6 (six) hours as needed for Pain (scale 1-3). [facility] insulin NPH and regular human 70-30 100 unit/mL (70-30) injection 2021-10 00:00: 00 Yes 40U inject 40 Units under the skin every morning. [facility] insulin NPH and regular human 70-30 100 unit/mL (70-30) injection 2021-10 00:00: 00 Yes 20U inject 20 Units under the skin every evening. [facility] metFORMIN 500 mg tablet 2021-10 00:00: 00 Yes 500mg Take 1 tablet by mouth in the morning and 1 tablet in the evening. Take with meals. [facility] semaglutide (OZEMPIC) 0.25 mg or 0.5 mg(2 mg/1.5 mL) PnIj 2021-10 00:00: 00 Yes .25mg inject 0.25 mg under the skin. [facility] polyethylen e glycol 3350 17 gram/dose powder 2021-10 00:00: 00 Yes MIX 17 GRAMS OF POWDER IN WATER OR JUICE ONCE DAILY IN THE MORNING [facility] ibuprofen 600 mg tablet 2021-10 00:00: 00 Yes [id number] 600mg Take 1 tablet by mouth every 6 (six) hours as needed for Pain (scale 1-3). [facility] and regular human 70-30 100 unit/mL (70-30) injection 2021-10 00:00: 00 Yes 40U inject 40 Units under the skin every morning. [facility] insulin NPH and regular human 70-30 100 unit/mL (70-30) injection 2021-10 00:00: 00 Yes 20U inject 20 Units under the skin every evening. [facility] metFORMIN 500 mg tablet 2021-10 00:00: 00 Yes 500mg Take 1 tablet by mouth in the morning and 1 tablet in the evening. Take with meals. [facility] semaglutide (OZEMPIC) 0.25 mg or 0.5 mg(2 mg/1.5 mL) PnIj 2021-10 00:00: 00 Yes .25mg inject 0.25 mg under the skin. [facility] polyethylen e glycol 3350 17 gram/dose powder 2021-10 00:00: 00 Yes MIX 17 GRAMS OF POWDER IN WATER OR JUICE ONCE DAILY IN THE MORNING [facility] ibuprofen 600 mg tablet 2021-10 00:00: 00 Yes [id number] 600mg Take 1 tablet by mouth every 6 (six) hours as needed for Pain (scale 1-3). [facility] insulin NPH and regular human 70-30 100 unit/mL (70-30) injection 2021-10 00:00: 00 Yes 40U inject 40 Units under the skin every morning. [facility] insulin NPH and regular human 70-30 100 unit/mL (70-30) injection 2021-10 00:00: 00 Yes 20U inject 20 Units under the skin every evening. [facility] metFORMIN 500 mg tablet 2021-10 00:00: 00 Yes 500mg Take 1 tablet by mouth in the morning and 1 tablet in the evening. Take with meals. [facility] semaglutide (OZEMPIC) 0.25 mg or 0.5 mg(2 mg/1.5 mL) PnIj 2021-10 00:00: 00 Yes .25mg inject 0.25 mg under the skin. [facility] polyethylen e glycol 3350 17 gram/dose powder 2021-10 00:00: 00 Yes MIX 17 GRAMS OF POWDER IN WATER OR JUICE ONCE DAILY IN THE MORNING [facility] ibuprofen 600 mg tablet 2021-10 00:00: 00 Yes [id number] 600mg Take 1 tablet by mouth every 6 (six) hours as needed for Pain (scale 1-3). [facility] insulin NPH and regular human 70-30 100 unit/mL (70-30) injection 2021-10 00:00: 00 Yes 40U inject 40 Units under the skin every morning. [facility] insulin NPH and regular human 70-30 100 unit/mL (70-30) injection 2021-10 00:00: 00 Yes 20U inject 20 Units under the skin every evening. [facility] metFORMIN 500 mg tablet 2021-10 00:00: 00 Yes 500mg Take 1 tablet by mouth in the morning and 1 tablet in the evening. Take with meals. [facility] semaglutide (OZEMPIC) 0.25 mg or 0.5 mg(2 mg/1.5 mL) PnIj 2021-10 00:00: 00 Yes .25mg inject 0.25 mg under the skin. [facility] polyethylen e glycol 3350 17 gram/dose powder 2021-10 00:00: 00 Yes MIX 17 GRAMS OF POWDER IN WATER OR JUICE ONCE DAILY IN THE MORNING [facility] gabapentin 100 mg capsule 2021-10 00:00: 00 Yes [id number] 300mg Take 3 capsules by mouth at bedtime. [facility] ibuprofen 600 mg tablet 2021-10 00:00: 00 Yes [id number] 600mg Take 1 tablet by mouth every 6 (six) hours as needed for Pain (scale 1-3). [facility] insulin NPH and regular human 70-30 100 unit/mL (70-30) injection 2021-10 00:00: 00 Yes 40U inject 40 Units under the skin every morning. [facility] insulin NPH and regular human 70-30 100 unit/mL (70-30) injection 2021-10 00:00: 00 Yes 20U inject 20 Units under the skin every evening. [facility] metFORMIN 500 mg tablet 2021-10 00:00: 00 Yes 500mg Take 1 tablet by mouth in the morning and 1 tablet in the evening. Take with meals. [facility] semaglutide (OZEMPIC) 0.25 mg or 0.5 mg(2 mg/1.5 mL) PnIj 2021-10 00:00: 00 Yes .25mg inject 0.25 mg under the skin. [facility] gabapentin 100 mg capsule 2021-10 00:00: 00 10-08 00:00 :00 No [id number] 300mg Take 3 capsules by mouth at bedtime. [facility] gabapentin 100 mg capsule 2021-10 00:00: 00 10-08 00:00 :00 No [id number] 300mg Take 3 capsules by mouth at bedtime. [facility] HYDROcodone -acetaminop hen 10-325 mg tablet 2021-10 00:00: 00 09-12 05:59 :00 No 4647 1{tbl} Take 1 tablet by mouth every 6 (six) hours as needed for Pain (scale 4-6) for up to 7 days. Indication s: acute pain [facility] HYDROcodone -acetaminop hen 10-325 mg tablet 2021-10 00:00: 00 09-12 05:59 :00 No 4647 1{tbl} Take 1 tablet by mouth every 6 (six) hours as needed for Pain (scale 4-6) for up to 7 days. Indication s: acute pain [facility] HYDROcodone -acetaminop hen 10-325 mg tablet 2021-10 00:00: 00 09-12 05:59 :00 No 4647 1{tbl} Take 1 tablet by mouth every 6 (six) hours as needed for Pain (scale 4-6) for up to 7 days. Indication s: acute pain [facility] HYDROcodone -acetaminop hen 10-325 mg tablet 2021-10 00:00: 00 09-12 05:59 :00 No 4647 1{tbl} Take 1 tablet by mouth every 6 (six) hours as needed for Pain (scale 4-6) for up to 7 days. Indication s: acute pain [facility] HYDROcodone -acetaminop hen 10-325 mg tablet 2021-10 00:00: 00 09-12 05:59 :00 No 4647 1{tbl} Take 1 tablet by mouth every 6 (six) hours as needed for Pain (scale 4-6) for up to 7 days. Indication s: acute pain [facility] HYDROcodone -acetaminop hen 10-325 mg tablet 2021-10 00:00: 00 09-12 05:59 :00 No 4647 1{tbl} Take 1 tablet by mouth every 6 (six) hours as needed for Pain (scale 4-6) for up to 7 days. Indication s: acute pain [facility] HYDROcodone -acetaminop hen 10-325 mg tablet 2021-10 00:00: 00 09-12 05:59 :00 No 4647 1{tbl} Take 1 tablet by mouth every 6 (six) hours as needed for Pain (scale 4-6) for up to 7 days. Indication s: acute pain [facility] HYDROcodone -acetaminop hen 10-325 mg tablet 2021-10 00:00: 00 09-12 05:59 :00 No 4647 1{tbl} Take 1 tablet by mouth every 6 (six) hours as needed for Pain (scale 4-6) for up to 7 days. [facility] -[facility]aminop hen 10-325 mg tablet 2021-10 00:00: 00 09-12 05:59 :00 No 4647 1{tbl} Take 1 tablet by mouth every 6 (six) hours as needed for Pain (scale 4-6) for up to 7 days. Indication s: acute pain [facility] HYDROcodone -acetaminop hen 10-325 mg tablet 2021-10 00:00: 00 09-12 05:59 :00 No 4647 1{tbl} Take 1 tablet by mouth every 6 (six) hours as needed for Pain (scale 4-6) for up to 7 days. Indication [facility]: [facility] HYDR[facility] -acetaminop hen 10-325 mg tablet 2021-10 00:00: 00 09-12 05:59 :00 No 4647 1{tbl} Take 1 tablet by mouth every 6 (six) hours as needed for Pain (scale 4-6) for up to 7 days. Indication s: acute pain [facility] ePHEDrine 25 mg/5 mL (5 mg/mL) syringe 2021-10 16:20: 00 09-03 16:46 :10 No Slow IV Push, ONCE INTRA PROCEDURE, Starting on Fri09/03/22 at 1020, Until Fri09/03/22 at 1046, Routine, Intra-op [facility] ePHEDrine 25 mg/5 mL (5 mg/mL) syringe 2021-10 16:20: 00 09-03 16:46 :10 No Slow IV Push, ONCE INTRA PROCEDURE, Starting on Fri09/03/22 at 1020, Until Fri09/03/22 at 1046, Routine, Intra-op [facility] lidocaine 1% (XYLOCAINE) 100 mg/10 mL (1 %) injection 2021-10 16:07: 00 09-03 16:46 :10 No Slow IV Push, ONCE INTRA PROCEDURE, Starting on Fri09/03/22 at 1007, Until Fri09/03/22 at 1046, Routine, Intra-op [facility] lidocaine 1% (XYLOCAINE) 100 mg/10 mL (1 %) injection 2021-10 16:07: 00 09-03 16:46 :10 No Slow IV Push, ONCE INTRA PROCEDURE, Starting on Fri09/03/22 at 1007, Until Fri09/03/22 at 1046, Routine, Intra-op [facility] PHENYLephri ne 1000 mcg/10 mL in 0.9% NaCl syringe 2021-10 16:06: 00 09-03 16:46 :10 No Slow IV Push, ONCE INTRA PROCEDURE, Starting on Fri09/03/22 at 1006, Until Fri09/03/22 at 1046, Routine, Intra-op [facility] PHENYLephri ne 1000 mcg/10 mL in 0.9% NaCl syringe 2021-10 16:06: 00 09-03 16:46 :10 No Slow IV Push, ONCE INTRA PROCEDURE, Starting on Fri09/03/22 at 1006, Until Fri09/03/22 at 1046, Routine, Intra-op [facility] bupivacaine -epinephrin e-pf (SENSORCAIN E W/EPINEPHRI NE) 0.5 %-1:200,000 5 mL, lidocaine 1% (PF) (XYLOCAINE) 5 mL 2021-10 16:00: 00 09-03 16:45 :29 No PRN, Starting on Fri09/03/22 at 1000, Intra-op [facility] ondansetron (ZOFRAN (PF)) injection 2021-10 15:57: 00 09-03 16:46 :10 No Slow IV Push, ONCE INTRA PROCEDURE, Starting on Fri09/03/22 at 0957, Until Fri09/03/22 at 1046, Routine, Intra-op [facility] ondansetron (ZOFRAN (PF)) injection 2021-10 15:57: 00 09-03 16:46 :10 No Slow IV Push, ONCE INTRA PROCEDURE, Starting on Fri09/03/22 at 0957, Until Fri09/03/22 at 1046, Routine, Intra-op [facility] insulin regular human (HUMULIN R) injection 2021-10 15:54: 00 09-03 16:46 :10 No Subcutaneo us, ONCE INTRA PROCEDURE, Starting on Fri09/03/22 at 0954, Until Fri09/03/22 at 1046, Routine, Intra-op [facility] insulin regular human (HUMULIN R) injection 2021-10 15:54: 00 09-03 16:46 :10 No Subcutaneo us, ONCE INTRA PROCEDURE, Starting on Fri09/03/22 at 0954, Until Fri09/03/22 at 1046, Routine, Intra-op [facility] propofoL IV infusion 2021-10 15:45: 00 09-03 16:46 :10 No IV Infusion, ONCE INTRA PROCEDURE, Starting on Fri09/03/22 at 0945, Until Fri09/03/22 at 1046, Routine, Intra-op [facility] FENTanyl PF (SUBLIMAZE (PF)) injection 2021-10 15:45: 00 09-03 16:46 :10 No Epidural, ONCE INTRA PROCEDURE, Starting on Fri09/03/22 at 0945, Until Fri09/03/22 at 1046, Routine, Intra-op [facility] propofoL IV infusion 2021-10 15:45: 00 09-03 16:46 :10 No IV Infusion, ONCE INTRA PROCEDURE, Starting on Fri09/03/22 at 0945, Until Fri09/03/22 at 1046, Routine, Intra-op [facility] FENTanyl PF (SUBLIMAZE (PF)) injection 2021-10 15:45: 00 09-03 16:46 :10 No Epidural, ONCE INTRA PROCEDURE, Starting on Fri09/03/22 at 0945, Until Fri09/03/22 at 1046, Routine, Intra[facility]op [facility] midazolam (VERSED) injection 2021-10 15:36: 00 09-03 16:46 :10 No IV Push, ONCE INTRA PROCEDURE, Starting on Fri09/03/22 at 0936, Until Fri09/03/22 at 1046, Routine, Intra-op [facility] midazolam (VERSED) injection 2021-10 15:36: 00 09-03 16:46 :10 No IV Push, ONCE INTRA PROCEDURE, Starting on Fri09/03/22 at 0936, Until Fri09/03/22 at 1046, Routine, Intra-op [facility] lactated ringers IV infusion 2021-10 15:25: 00 09-03 16:46 :10 No IV Infusion, CONTINUOUS PRN, Starting on Fri09/03/22 at 0925, Until Fri09/03/22 at 1046, Routine, Intra-op [facility] lactated ringers IV infusion 2021-10 15:25: 00 09-03 16:46 :10 No IV Infusion, CONTINUOUS PRN, Starting on Fri09/03/22 at 0925, Until Fri09/03/22 at 1046, Routine, Intra-op [facility] insulin NPH and regular human 70-30 (70-30 U-100 INSULIN) 100 unit/mL (70-30) injection 20 Units 2021-10 23:00: 00 Yes 20U 20 Units, Subcutaneo us, QPM, First dose on Fri09/02/22 at 1700, Until Discontinu ed, Routine [facility] insulin NPH and regular human 70-30 (70-30 U-100 INSULIN) 100 unit/mL (70-30) injection 20 Units 2021-10 23:00: 00 Yes 20U 20 Units, Subcutaneo us, QPM, First dose on Fri09/02/22 at 1700, Until Discontinu ed, Routine [facility] losartan (COZAAR) tablet 50 mg 2021-10 15:00: 00 Yes 50mg 50 mg, Oral, DAILY, First dose on Fri09/02/22 at 0900, Until Discontinu ed, Routine [facility] insulin NPH and regular human 70-30 (70-30 U-100 INSULIN) 100 unit/mL (70-30) injection 40 Units 2021-10 15:00: 00 Yes 40U 40 Units, Subcutaneo us, QAM, First dose on Fri09/02/22 at 0900, Until Discontinu ed, Routine [facility] losartan (COZAAR) tablet 50 mg 2021-10 15:00: 00 Yes 50mg 50 mg, Oral, DAILY, First dose on Fri09/02/22 at 0900, Until Discontinu ed, Routine [facility] insulin NPH and regular human 70-30 (70-30 U-100 INSULIN) 100 unit/mL (70-30) injection 40 Units 2021-10 15:00: 00 Yes 40U 40 Units, Subcutaneo us, QAM, First dose on Fri09/02/22 at 0900, Until Discontinu ed, Routine [facility] gabapentin (NEURONTIN) capsule 100 mg 2021-10 03:00: 00 Yes 100mg 100 mg, Oral, QHS, First dose on 09/01/22 at 2100, Until Discontinu ed, Routine [facility] Sliding Scale Insulin - Lispro (HumaLOG) + Fsbg Testing 2021-10 03:00: 00 Yes Subcutaneo us, TID MEALS+HS, First dose on 09/01/22 at 2100, Until Discontinu ed, Routine [facility] gabapentin (NEURONTIN) capsule 100 mg 2021-10 03:00: 00 Yes 100mg 100 mg, Oral, QHS, First dose on 09/01/22 at 2100, Until Discontinu ed, Routine [facility] Sliding Scale Insulin - Lispro (HumaLOG) + Fsbg Testing 2021-10 03:00: 00 Yes Subcutaneo us, TID MEALS+HS, First dose on 09/01/22 at 2100, Until Discontinu ed, Routine [facility] levoFLOXaci n in D5W (LEVAQUIN) [...] Tissue
Duration of Therapy: 7 days [facility] ibuprofen (IBU) tablet 600 mg 2021-10 01:45: 57 Yes 600mg 600 mg, Oral, Q6HPRN, Starting on 09/01/22 at 1945, Until Discontinu ed, Routine, Pain (scale 1-3) [facility] ibuprofen (IBU) tablet 600 mg 2021-10 01:45: 57 Yes 600mg 600 mg, Oral, Q6HPRN, Starting on 09/01/22 at 1945, Until Discontinu ed, Routine, Pain (scale 1-3) [facility] vancomycin (VANCOCIN) 1,500 mg in NaCl 0.9% [...] Tissue
Duration of Therapy: 7 days [facility] clindamycin in 5 % dextrose (CLEOCIN) [...]
Re stricted use approved by: ED PROVIDER [facility] ceFAZolin in 0.9% sodium chloride (ANCEF) 2 gram/100 mL RTU 2 g 2021-10 19:45: 00 09-01 21:41 :00 No 2000mg 2 g (2,000 mg), IV Piggyback, ONCE, 1 dose, On 09/01/22 at 1345, Administer over 30 Minutes, 100 mL
Reas on for Anti-Infec tive: Documented Infection< br>Documen aleida Infection Site: Skin / Soft Tissue
Duration of Therapy: 7 days [facility] acetaminoph en-codeine 300-30 mg tablet 2021-10 00:00: 00 Yes TAKE 2 TABLETS BY MOUTH EVERY 4 TO 6 HOURS FOR PAIN CONTROL [facility] acetaminoph en-codeine 300-30 mg tablet 2021-10 00:00: 00 Yes TAKE 2 TABLETS BY MOUTH EVERY 4 TO 6 HOURS FOR PAIN CONTROL [facility] acetaminoph en-codeine 300-30 mg tablet 2021-10 00:00: 00 Yes TAKE 2 TABLETS BY MOUTH EVERY 4 TO 6 HOURS FOR PAIN CONTROL [facility] acetaminoph en-codeine 300-30 mg tablet 2021-10 00:00: 00 Yes TAKE 2 TABLETS BY MOUTH EVERY 4 TO 6 HOURS FOR PAIN CONTROL [facility] acetaminoph en-codeine 300-30 mg tablet 2021-10 00:00: 00 Yes TAKE 2 TABLETS BY MOUTH EVERY 4 TO 6 HOURS FOR PAIN CONTROL [facility] acetaminoph en-codeine 300-30 mg tablet 2021-10 00:00: 00 Yes TAKE 2 TABLETS BY MOUTH EVERY 4 TO 6 HOURS FOR PAIN CONTROL [facility] acetaminoph en-codeine 300-30 mg tablet 2021-10 00:00: 00 Yes TAKE 2 TABLETS BY MOUTH EVERY 4 TO 6 HOURS FOR PAIN CONTROL [facility] acetaminoph en-codeine 300-30 mg tablet 2021-10 00:00: 00 Yes TAKE 2 TABLETS BY MOUTH EVERY 4 TO 6 HOURS FOR PAIN CONTROL [facility] doxycycline monohydrate 100 mg tablet 2021-10 00:00: 00 Yes TAKE 1 TABLET BY MOUTH EVERY 12 HOURS FOR 10 DAYS [facility] sulfamethox azole-trime thoprim 800-160 mg per tablet 2021-10 00:00: 00 Yes TAKE 1 TABLET BY MOUTH EVERY 12 HOURS FOR 10 DAYS [facility] doxycycline monohydrate 100 mg tablet 2021-10 00:00: 00 Yes TAKE 1 TABLET BY MOUTH EVERY 12 HOURS FOR 10 DAYS [facility] sulfamethox azole-trime thoprim 800-160 mg per tablet 2021-10 00:00: 00 Yes TAKE 1 TABLET BY MOUTH EVERY 12 HOURS FOR 10 DAYS [facility] doxycycline monohydrate 100 mg tablet 2021-10 00:00: 00 Yes TAKE 1 TABLET BY MOUTH EVERY 12 HOURS FOR 10 DAYS [facility] sulfamethox azole-trime thoprim 800-160 mg per tablet 2021-10 00:00: 00 Yes TAKE 1 TABLET BY MOUTH EVERY 12 HOURS FOR 10 DAYS [facility] doxycycline monohydrate 100 mg tablet 2021-10 00:00: 00 Yes TAKE 1 TABLET BY MOUTH EVERY 12 HOURS FOR 10 DAYS [facility] sulfamethox azole-trime thoprim 800-160 mg per tablet 2021-10 00:00: 00 Yes TAKE 1 TABLET BY MOUTH EVERY 12 HOURS FOR 10 DAYS [facility] doxycycline monohydrate 100 mg tablet 2021-10 00:00: 00 Yes TAKE 1 TABLET BY MOUTH EVERY 12 HOURS FOR 10 DAYS [facility] sulfamethox azole-trime thoprim 800-160 mg per tablet 2021-10 00:00: 00 Yes TAKE 1 TABLET BY MOUTH EVERY 12 HOURS FOR 10 DAYS [facility] doxycycline monohydrate 100 mg tablet 2021-10 00:00: 00 Yes TAKE 1 TABLET BY MOUTH EVERY 12 HOURS FOR 10 DAYS [facility] sulfamethox azole-trime thoprim 800-160 mg per tablet 2021-10 00:00: 00 Yes TAKE 1 TABLET BY MOUTH EVERY 12 HOURS FOR 10 DAYS [facility] doxycycline monohydrate 100 mg tablet 2021-10 00:00: 00 Yes TAKE 1 TABLET BY MOUTH EVERY 12 HOURS FOR 10 DAYS [facility] sulfamethox azole-trime thoprim 800-160 mg per tablet 2021-10 00:00: 00 Yes TAKE 1 TABLET BY MOUTH EVERY 12 HOURS FOR 10 DAYS [facility] doxycycline monohydrate 100 mg tablet 2021-10 00:00: 00 Yes TAKE 1 TABLET BY MOUTH EVERY 12 HOURS FOR 10 DAYS [facility] sulfamethox azole-trime thoprim 800-160 mg per tablet 2021-10 00:00: 00 Yes TAKE 1 TABLET BY MOUTH EVERY 12 HOURS FOR 10 DAYS [facility] sodium chloride 0.9 % irrigation solution 06-26 00:00: 00 Yes [facility] sodium chloride 0.9 % irrigation solution 0 06-26 00:00: 00 Yes [facility] sodium chloride 0.9 % irrigation solution 0 06-26 00:00: 00 Yes [facility] sodium chloride 0.9 % irrigation solution 0 06-26 00:00: 00 Yes [facility] sodium chloride 0.9 % irrigation solution 0 06-26 00:00: 00 Yes [facility] sodium chloride 0.9 % irrigation solution 0 06-26 00:00: 00 Yes [facility] sodium chloride 0.9 % irrigation solution 0 06-26 00:00: 00 Yes [facility] sodium chloride 0.9 % irrigation solution 0 06-26 00:00: 00 Yes [facility] atorvastati n 10 mg tablet 06-24 00:00: 00 Yes [facility] pantoprazol e 40 mg EC tablet 06-24 00:00: 00 Yes [facility] valsartan 160 mg tablet 2-0 -19 00:00: 00 Yes [facility] atorvastati n 10 mg tablet 2-0 -19 00:00: 00 Yes [facility] pantoprazol e 40 mg EC tablet 2-0 -19 00:00: 00 Yes [facility] valsartan 160 mg tablet 2-0 19 00:00: 00 Yes [facility] atorvastati n 10 mg tablet 2021-0 19 00:00: 00 Yes [facility] pantoprazol e 40 mg EC tablet 2-0 06-24 00:00: 00 Yes [facility] valsartan 160 mg tablet 2-0 06-24 00:00: 00 Yes [facility] atorvastati n 10 mg tablet 2021-0 06-24 00:00: 00 Yes [facility] pantoprazol e 40 mg EC tablet 2-0 06-24 00:00: 00 Yes [facility] valsartan 160 mg tablet 2-0 19 00:00: 00 Yes [facility] atorvastati n 10 mg tablet 2021-0 19 00:00: 00 Yes [facility] pantoprazol e 40 mg EC tablet 2-0 06-24 00:00: 00 Yes [facility] valsartan 160 mg tablet 2-0 -19 00:00: 00 Yes [facility] atorvastati n 10 mg tablet 2-0 -19 00:00: 00 Yes [facility] pantoprazol e 40 mg EC tablet 2-0 19 00:00: 00 Yes [facility] valsartan 160 mg tablet 2-0 - 00:00: 00 Yes [facility] atorvastati n 10 mg tablet 2-0 -19 00:00: 00 Yes [facility] pantoprazol e 40 mg EC tablet 2-0 19 00:00: 00 Yes [facility] valsartan 160 mg tablet 0 - 00:00: 00 Yes [facility] atorvastati n 10 mg tablet 0 19 00:00: 00 Yes [facility] pantoprazol e 40 mg EC tablet 0 - 00:00: 00 Yes [facility] [facility] valsartan 160 mg tablet 0 19 00:00: 00 Yes [facility] SANTYL 250 unit/gram ointment 2021-0 -15 00:00: 00 Yes [facility] SANTYL 250 unit/gram ointment 2021-0 -15 00:00: 00 Yes [facility] SANTYL 250 unit/gram ointment 2021-0 -15 00:00: 00 Yes [facility] SANTYL 250 unit/gram ointment 2021-0 -15 00:00: 00 Yes [facility] SANTYL 250 unit/gram ointment 2021-0 -15 00:00: 00 Yes [facility] SANTYL 250 unit/gram ointment 2021-0 -15 00:00: 00 Yes [facility] SANTYL 250 unit/gram ointment 2021-0 -15 00:00: 00 Yes [facility] SANTYL 250 unit/gram ointment 2021-0 -15 00:00: 00 Yes [facility] clotrimazol e 1 % topical cream 0 02-12 00:00: 00 Yes [id number] Apply to area(s) at bedtime. [facility] clotrimazol e 1 % topical cream 0 02-12 00:00: 00 Yes [id number] Apply to area(s) at bedtime. [facility] clotrimazol e 1 % topical cream 0 02-12 00:00: 00 Yes [id number] Apply to area(s) at bedtime. [facility] clotrimazol e 1 % topical cream 02-12 00:00: 00 09-04 00:00 :00 No [id number] Apply to area(s) at bedtime. [facility] clotrimazol e 1 % topical cream 2016-0 5- 00:00: 00 09-04 00:00 :00 No [id number] Apply to area(s) at bedtime. [facility] Vital Signs Vital Name Observation Time Observation Value Comments S aron Systolic blood pressure 2022-10-08 16:20:00 120 mm[Hg] [facility] Diastolic blood pressure 2022-10-08 16:20:00 80 mm[Hg] [facility] Heart rate 2022-10-08 16:20:00 83 /min Un[facility] Body temperature 2022-10-08 16:20:00 36.61 Susanne [facility] Body height 2022-10-08 16:20:00 167.6 cm [facility] Body weight 2022-10-08 16:20:[address] [facility] BMI 2022-10-08 16:20:00 34.86 kg/m2 [facility] Oxygen saturation in Arterial blood by Pulse oximetry 2022-10-08 16:20:00 99 /min [facility] Systolic blood pressure 2022-09-10 17:16:00 136 mm[Hg] [facility] Diastolic blood pressure 2022-09-10 17:16:00 88 mm[Hg] [facility] Heart rate 2022-09-10 17:16:00 84 /min Un[facility] Body temperature 2022-09-10 17:16:00 36 [facility] Body height 2022-09-10 17:16:00 167.6 cm [facility] Body weight 2022-09-10 17:16:[address] [facility] BMI 2022-09-10 17:16:00 35.19 kg/m2 [facility] Oxygen saturation in Arterial blood by Pulse oximetry 2022-09-10 17:16:00 99 /min room air [facility] Systolic blood pressure 2022-09-04 21:34:00 160 mm[Hg] [facility] Diastolic blood pressure 2022-09-04 21:34:00 103 mm[Hg] [facility] Heart rate 2022-09-04 21:34:00 84 /[facility] Body temperature 2022-09-04 21:34:00 36.39 [facility] Respiratory rate 2022-09-04 21:34:00 19 /min [facility] Oxygen saturation in Arterial blood by Pulse oximetry 2022-09-04 21:34:00 97 /min [facility] Body height 2022-09-01 18:37:[address] [facility] Body weight 2022-09-01 18:37:[address] [facility] BMI 2022-09-01 18:37:00 33.89 kg/m2 [facility] Systolic blood pressure 2022-09-03 17:00:00 132 mm[Hg] [facility] Diastolic blood pressure 2022-09-03 17:00:00 85 mm[Hg] [facility] Respiratory rate 2022-09-03 17:00:00 20 /min [facility] Heart rate 2022-09-03 16:46:00 92 /min [facility] Body temperature 2022-09-03 16:46:00 36.39 Susanne [facility] Oxygen saturation in Arterial blood by Pulse oximetry 2022-09-03 16:46:00 98 /min [facility] Body height 2022-09-01 18:37:[address] [facility] Body weight 2022-09-01 18:37:[address] [facility] BMI 2022-09-01 18:37:00 33.89 kg/m2 [facility] Procedures Procedure Date / Time Performed Performing Clinician Source ASSIGNMENT OF BENEFITS 2022-09-10 17:02:20 Docto r Unassigned, [facility] CONSENT/REFUSAL FOR DIAGNOSIS AND TREATMENT 2022-09-10 17:02:01 Doctor Unassigned, [facility] POCT GLUCOSE (AUTOMATED) 2022-09-04 18:11:00 Edilberto Mims [facility] POCT GLUCOSE (AUTOMATED) 2022-09-04 18:11:00 Edilberto Mims [facility] POCT GLUCOSE (AUTOMATED) 2022-09-04 15:13:00 Edilberto Mims [facility] POCT GLUCOSE (AUTOMATED) 2022-09-04 15:13:00 Edilberto Mims [facility] CBC WITH DIFF 2022-09-04 11:05:[address] [facility] EXTRA TUBE LT. GREEN 2022-09-04 11:05:00 Roger Mims [facility] CBC WITH DIFF 2022-09-04 11:05:[address] [facility] EXTRA TUBE LT. GREEN 2022-09-04 11:05:00 Roger Mims [facility] POCT GLUCOSE (AUTOMATED) 2022-09-04 03:47:00 [facility] 2022-09-04 03:47:00 [facility] ([facility]OMATED) 2022-09-03 23:00:00 [facility]SE (AUTOMATED) 2022-09-03 23:00:00 [facility]SE (AUTOMATED) 2022-09-03 17:39:00 [facility] ([facility]ATED) 2022-09-03 17:39:00 [facility] ASPIRATE OR ABSCESS CULTURE(AEROBIC/ANAEROB IC) 2022-09-03 15:56:00 Pop [facility] FUNGUS (ROUTINE) CULTURE 2022-09-03 15:56:00 Pop [facility] ASPIRATE OR ABSCESS CULTURE(AEROBIC/ANAEROB IC) 2022-09-03 15:56:00 Pop [facility] FUNGUS (ROUTINE) CULTURE 2022-09-03 15:56:00 Pop Josue [facility] INTUBATION 2022-09-03 15:49:00 Cuauhtemoc Locke [facility] FINGER AMPUTATION 2022-09-03 15:03:00 [facility] 2022-09-03 15:03:00 Josue Lord [facility] VANCOMYCIN TROUGH 2022-09-03 14:02:00 Isabela Jackman [facility] VANCOMYCIN TROUGH 2022-09-03 14:02:00 Isabela Jackman [facility] POCT GLUCOSE (AUTOMATED) 2022-09-03 13:30:00 Stephanie Singleton [facility] POCT GLUCOSE (AUTOMATED) 2022-09-03 13:30:00 Stephanie Singleton [facility] COMP. METABOLIC PANEL ([id number]) 2022-09-03 11:18:00 Angie Turner [facility] CBC WITH DIFF 2022-09-03 11:18[facility]00 [facility] 2022-09-03 11:18:00 Kassie Thompson [facility] COMP. METABOLIC PANEL (00070) 2022-09-03 11:18:00 TurnAngie elias [facility] CBC WITH DIFF 2022-09-03 11:18:00 Angie Turner [facility] PROTHROMBIN TIME / INR 2022-09-03 11:18:00 Kassie Thompson [facility] POCT GLUCOSE (AUTOMATED) 2022-09-03 02:07:00 Stephanie Singleton [facility] POCT GLUCOSE (AUTOMATED) 2022-09-03 02:07:00 Stephanie Singleton [facility] POCT GLUCOSE (AUTOMATED) 2022-09-02 23:37:00 Stephanie Singleton [facility] POCT GLUCOSE (AUTOMATED) 2022-09-02 23:37:00 Stephanie Singleton [facility] POCT GLUCOSE (AUTOMATED) 2022-09-02 18:15:00 Stephanie Singleton [facility] POCT GLUCOSE (AUTOMATED) 2022-09-02 18:15:00 Stephanie Singleton [facility] BASIC METABOLIC PANEL (NA, K, CL, CO2, GLUCOSE, BUN, CREATININE, CA) 2022-09-02 09:06:00 Isabela Jackman [facility] CBC WITH DIFF 2022-09-02 09:06:[address] [facility] BASIC METABOLIC PANEL (NA, K, CL, CO2, GLUCOSE, BUN, CREATININE, CA) 2022-09-02 09:06:00 Isabela Jackman [facility] CBC WITH DIFF 2022-09-02 09:06:[address] [facility] POCT GLUCOSE (AUTOMATED) 2022-09-02 03:13:00 Stephanie Singleton [facility] POCT GLUCOSE (AUTOMATED) 2022-09-02 03:13:00 Stephanie Singleton [facility] WOUND CULTURE 2022-09-02 01:30:[address] [facility] WOUND CULTURE 2022-09-02 01:30:[address] [facility] BASIC METABOLIC PANEL (NA, K, CL, CO2, GLUCOSE, BUN, CREATININE, CA) 2022-09-01 20:23:[address] [facility] CBC WITH DIFF 2022-09-01 20:23:[address] [facility] GLYCOSYLATED HEMOGLOBIN (A1C) 2022-09-01 20:23:00 Isabela Jackman [facility] BASIC METABOLIC PANEL (NA, K, CL, CO2, GLUCOSE, BUN, CREATININE, CA) 2022-09-01 20:23:[address] [facility] CBC WITH DIFF 2022-09-01 20:23:[address] [facility] GLYCOSYLATED HEMOGLOBIN (A1C) 2022-09-01 20:23:00 Isabela Jackman [facility] XR FINGERS 2 VW RIGHT 2022-09-01 19:50:[address] [facility] XR FINGERS 2 VW RIGHT 2022-09-01 19:50:[address] [facility] CONSENT/REFUSAL FOR DIAGNOSIS AND TREATMENT 2022-09-01 18:26:12 Doctor Unassigned, [facility] CONSENT/REFUSAL FOR DIAGNOSIS AND TREATMENT 2022-09-01 18:26:12 Doctor Unassigned, [facility] ADMISSION 2022-09-01 06:01:00 Doctor Un assigned, [facility] ADMISSION 2022-09-01 06:01:00 Doctor Un assigned, [facility] Encounters Start Date/Time End Date/Time Encounter Type Admission Type Attending [facility] Facility Care Department Encounter ID Source 2022-12-05 08:45:00 2022-12-05 08:45:00 Outpatient R LALY HENRY [facility] [id number] [facility] 2022-11-07 10:00:00 2022-11-07 10:20:00 Telemedici ne Visit Renan [facility] [place] [facility] ..840.114 350.1.13.10 4.2.7.2.[id number] [facility] 2022-11-07 10:00:00 2022-11-07 10:00:00 Outpatient R RENAN [facility] [id number] [facility] 2022-10-28 09:30:00 2022-10-28 09:30:00 Outpatient R ZENA SCHULTZ [facility] [id number] [facility] 2022-10-08 10:00:00 2022-10-08 10:51:12 Outpatient R RENAN [facility] [id number] [facility] 2022-10-08 10:00:00 2022-10-08 10:51:12 Office Visit Renan, [facility] ..840.114 350.1.13.10 4.2.7.2.[id number] [facility] 2022-09-11 00:00:00 2022-09-11 00:00:00 Telephone Renan, [facility] PRIMARY CARE PAVILLION ..840.114 350.1.13.10 4.2.7.2.[id number] [facility] 2022-09-10 13:00:00 2022-09-10 14:00:00 Ancillary Visit Therapy-Kimberly Do-Jorge-Carlos Issa [facility] 1.2840.114 350.1.13.10 4.2.7.2.[id number] [facility] 2022-09-10 13:00:00 2022-09-10 13:47:29 Outpatient R CARLOS MCLAUGHLIN [facility] [id number] [facility] 2022-09-10 11:00:00 2022-09-10 11:51:29 Outpatient R LALY HENRY [facility] [id number] [facility] 2022-09-10 11:00:00 2022-09-10 11:51:29 Office Visit Renan [facility] [place] [facility] 1.0.114 350.1.13.10 4.2.7.2.[id number] [facility] 2022-09-10 00:00:00 2022-09-10 00:00:00 Orders Only Doctor Unassigned, [facility] 1.2840.114 350.1.13.10 4.2.7.2.[id number] [facility] 2022-09-10 00:00:00 2022-09-10 00:00:00 Telephone Renan [facility] [place] [facility] 1.2840.114 350.1.13.10 4.2.7.2.[id number] [facility] 2022-09-05 00:00:00 2022-09-05 00:00:00 Transition of Care Coby Moseley 1.2840.114 350.1.13.10 4.2.7.2.[id number] [facility] 2022-09-01 12:39:00 2022-09-04 18:31:[address] 1.2.840.114 350.1.13.10 4.2.7.2.[id number] [facility] 2022-09-01 12:39:00 2022-09-04 18:31:00 Inpatient X ADRIANA MIMSLEY [facility] [id number] [facility] 2022-09-03 08:51:00 2022-09-03 11:13:00 Surgery Josue Lord [facility] 1.2.840.114 350.1.13.10 4.2.7.2.[id number] [facility] 2022-09-03 09:39:00 2022-09-03 10:46:00 Anesthesia Event Tomasz Matos, [facility] 1.2840.114 350.1.13.10 4.2.7.2.[id number] [facility] 2020-03-15 13:36:44 2020-03-15 13:56:44 Project Manager [facility] 1.20.114 350.1.13.10 4.2.7.2.686 [id number] 2020-03-15 13:36:44 2020-03-15 13:56:44 Project Manager Retail Visit Lab, [facility] Pob I Krystina Cheema [facility] 1.2840.114 350.1.13.10 4.2.7.2.[id number] [facility] 2020-03-15 13:20:00 2020-03-15 13:20:00 Outpatient R [facility] [id number] [facility] 2020-03-15 13:20:00 2020-03-15 13:20:00 Outpatient R KRYSTINA CHEEMA [facility] [id number] [facility] Results Test Description Test Time Test Comments Results Result Co mments Source [facility] GLUCOSE (AUTOMATED)2022-09-04 18:12:48* Test Item Value Reference Range Interpretation Comme nts POCT GLU (test code = 8808168967) 213 mg/dL 70-110 H Lab Interpretation (test cod e = 62702-1) [facility] 15:18:56* Test Item Value Reference Range Interpretation Comme nts POCT GLU (test code = 3056793040) 184 mg/dL 70-110 H Lab Interpretation (test cod e = 40598-3) Abnormal [facility] GLUCOSE (AUTOMATED)2022-09-04 15:18:56* Test Item Value Reference Range Interpretation Comme nts POCT GLU (test code = 6835973589) 184 mg/dL 70-110 H Lab Interpretation (test cod e = 97390-7) Abnormal [facility] GLUCOSE (AUTOMATED)2022-09-04 03:50:30* Test Item Value Reference Range Interpretation Comme nts POCT GLU (test code = 6811556762) 287 mg/dL 70-110 H Lab Interpretation (test cod e = 94530-5) Abnormal [facility] GLUCOSE (AUTOMATED)2022-09-04 03:50:30* Test Item Value Reference Range Interpretation Comme nts POCT GLU (test code = 0179519022) 287 mg/dL 70-110 H Lab Interpretation (test cod e = 38146-8) [facility]22-09-03 23:01:24* Test Item Value Reference Range Interpretation Comme nts POCT GLU (test code = 8469807480) 253 mg/dL 70-110 H Lab Interpretation (test cod e = 09024-6) [facility]22-[facility]-03 23:01:24* Test Item Value Reference Range Interpretation Comme nts POCT GLU (test code = 9456039679) 253 mg/dL 70-110 H Lab Interpretation (test cod e = 33468-4) Abnormal [facility] GLUCOSE (AUTOMATED)2022-09-03 17:40:42* Test Item Value Reference Range Interpretation Comme nts POCT GLU (test code = 3283274051) 168 mg/dL 70-110 H Lab Interpretation (test cod e = 39557-9) Abnormal [facility] GLUCOSE (AUTOMATED)2022-09-03 17:40:42* Test Item Value Reference Range Interpretation Comme nts POCT GLU (test code = 3483962345) 168 mg/dL 70-110 H Lab Interpretation (test cod e = 86178-3) Abnormal [facility] GLUCOSE (AUTOMATED)2022-09-03 13:31:46* Test Item Value Reference Range Interpretation Comme nts POCT GLU (test code = 1562109570) 213 mg/dL 70-110 H Lab Interpretation (test cod e = 41784-8) Abnormal [facility] GLUCOSE (AUTOMATED)2022-09-03 13:31:46* Test Item Value Reference Range Interpretation Comme nts POCT GLU (test code = 9316818864) 213 mg/dL 70-110 H Lab Interpretation (test cod e = 54669-8) Abnormal [facility]. METABOLIC PANEL (69473)2022-09-03 12:17:29* Test Item Value Reference Range Interpretation Comme nts NA (test code = 1529827327) 136 mmol/L 135-145 K (test code = 8597609692) 3.9 mmol/L 3.5-5.0 CL (test code = 8598668569) 105 mmol/L 98-108 CO2 TOTAL (test code = 0500782045) 24 mmol/L 23-31 AGAP (test code = 6665496299) 2-16 BUN (test code = 1935883917) 12 mg/dL 7-23 GLUCOSE (test code = 5654057001) 190 mg/dL 70-110 H CREATININE (test code = 3853212151) 0.56 mg/dL 0.60-1.25 L TOTAL BILI (test code = 7773926039) 0.2 mg/dL 0.1-1.1 CALCIUM (test code = 8603894128) 8.6 mg/dL 8.6-10.6 T PROTEIN (test code = 0200869342) 7.0 g/dL 6.3-8.2 ALBUMIN (test code = 7012203556) 3.7 g/dL 3.5-5.0 ALK PHOS (test code = 3855468969) 101 U/L 34-122 ALTv (test code = 1742-6) 27 U/L 5-50 AST(SGOT) (test code = 3721676863) 23 U/L 13-40 eGFR (test code = 2829241975) mL/min/1.73m2 ANDREE (test code = ANDREE) Association [...] imaging tests). Lab Interpretation (test code = 99166-4) Abnormal [facility]. METABOLIC PANEL (13229)2022-09-03 12:17:29* Test Item Value Reference Range Interpretation Comme nts NA (test code = 6262094290) 136 mmol/L 135-145 K (test code = 1871960480) 3.9 mmol/L 3.5-5.0 CL (test code = 8408597613) 105 mmol/L 98-108 CO2 TOTAL (test code = 0199146211) 24 mmol/L 23-31 AGAP (test code = 1398747072) 2-16 BUN (test code = 7888372807) 12 mg/dL 7-23 GLUCOSE (test code = 5958339069) 190 mg/dL 70-110 H CREATININE (test code = 4293696658) 0.56 mg/dL 0.60-1.25 L TOTAL BILI (test code = 3960706500) 0.2 mg/dL 0.1-1.1 CALCIUM (test code = 2931939884) 8.6 mg/dL 8.6-10.6 T PROTEIN (test code = 9050478295) 7.0 g/dL 6.3-8.2 ALBUMIN (test code = 2941060571) 3.7 g/dL 3.5-5.0 ALK PHOS (test code = 5801492083) 101 U/L 34-122 ALTv (test code = 1742-6) 27 U/L 5-50 AST(SGOT) (test code = 5206447005) 23 U/L 13-40 eGFR (test code = 9828545217) mL/min/1.73m2 ANDREE (test code = ANDREE) Association [...] imaging tests). Lab Interpretation (test code = 96222-6) [facility] / [id number] 11:45:03* Test Item Value Reference Range Interpretation Comme [facility] PROTIME PATIENT (test code = 5964-2) See_Comment H [Automated [employer] The system which generated this result transmitted reference range: 10.1 - 12.6 Seconds. The reference range was not used to interpret this result as normal/abnormal. INR (test code = 6301-6) Normal INR <1.1; Warfarin Therapeutic range 2.0 to 3.0 or 2.5 to 3.5, depending upon the indications. Lab Interpretation (test code = 68421-2) [facility] / [id number] 11:45:03* Test Item Value Reference Range Interpretation Comme nts PROTIME PATIENT (test code = 5964-2) See_Comment H [Automated [employer] The system which generated this result transmitted reference range: 10.1 - 12.6 Seconds. The reference range was not used to interpret this result as normal/abnormal. INR (test code = 6301-6) Normal INR <1.1; Warfarin Therapeutic range 2.0 to 3.0 or 2.5 to 3.5, depending upon the indications. Lab Interpretation (test code = 64921-2) [facility] [id number] 11:42:00* Test Item Value Reference Range Interpretation Comme [facility] WBC (test code = 6690-2) See_Comment [Automated [employer] The system which generated this result transmitted [...] 34.1 g/dL 31.2-35.0 RDW-SD (test code = 53448-4) 41.5 fL 38.5-51.6 RDW-CV (test code = 788-0) 13.9 % 12.1-15.4 PLT (test code = 777-3) See_Comment H [Automated messa ge] The system which generated this result transmitted reference range: 150 - 328 10*3/?L. The reference range was not used to interpret this result as normal/abnormal. MPV (test code = 79328-2) 10.6 fL 9.8-13.0 NRBC/100 WBC (test code = 1814165296) See_Comment [Automated [employer]] The system which generated this result transmitted reference range: 0.0 - 10.0 /100 WBCs. The reference range was not used to interpret this result as normal/abnormal. NRBC x10^3 (test code = 7371236189) See_Comment [Automated messa ge] The system which generated this result transmitted reference range: 10*3/?L. The reference range was not used to interpret this result as normal/abnormal. GRAN MAT (NEUT) % (test code = 770-8) 59.9 % IMM GRAN % (test code = 0990823868) 0.40 % LYMPH % (test code = 736-9) 31.1 % MONO % (test code = 5905-5) 6.1 % EOS % (test code = 713-8) 1.8 % BASO % (test code = 706-2) 0.7 % GRAN MAT x10^3(ANC) (test code = 7605919753) 5.36 10*3/uL 1.99-6.95 IMM GRAN x10^3 (test code = 9852439938) 0.04 10*3/uL 0.00-0.06 LYMPH x10^3 (test code = 731-0) 2.78 10*3/uL 1.09-3.23 MONO x10^3 (test code = 742-7) 0.55 10*3/uL 0.36-1.02 EOS x10^3 (test code = 711-2) 0.16 10*3/uL 0.06-0.53 BASO x10^3 (test code = 704-7) 0.06 10*3/uL 0.01-0.09 Lab Interpretation (test code = 69124-6) Abnormal [facility] WITH [id number] 11:42:00* Test Item Value Reference Range Interpretation Comme nts WBC (test code = 6690-2) See_Comment [Automated [employer]] The system which generated this result transmitted reference range: 4.20 - 10.70 10*3/?L. The reference range was not used to interpret this result as normal/abnormal. RBC (test code = 789-8) See_Comment [Automated [employer]] The system which generated this result transmitted [...] 34.1 g/dL 31.2-35.0 RDW-SD (test code = 96209-0) 41.5 fL 38.5-51.6 RDW-CV (test code = 788-0) 13.9 % 12.1-15.4 PLT (test code = 777-3) See_Comment H [Automated messa ge] The system which generated this result transmitted reference range: 150 - 328 10*3/?L. The reference range was not used to interpret this result as normal/abnormal. MPV (test code = 74717-8) 10.6 fL 9.8-13.0 NRBC/100 WBC (test code = 1433107032) See_Comment [Automated me ssage] The system which generated this result transmitted reference range: 0.0 - 10.0 /100 WBCs. The reference range was not used to interpret this result as normal/abnormal. NRBC x10^3 (test code = 9085913824) See_Comment [Automated messa ge] The system which generated this result transmitted reference range: 10*3/?L. The reference range was not used to interpret this result as normal/abnormal. GRAN MAT (NEUT) % (test code = 770-8) 59.9 % IMM GRAN % (test code = 0733570381) 0.40 % LYMPH % (test code = 736-9) 31.1 % MONO % (test code = 5905-5) 6.1 % EOS % (test code = 713-8) 1.8 % BASO % (test code = 706-2) 0.7 % GRAN MAT x10^3(ANC) (test code = 4442052333) 5.36 10*3/uL 1.99-6.95 IMM GRAN x10^3 (test code = 0713662041) 0.04 10*3/uL 0.00-0.06 LYMPH x10^3 (test code = 731-0) 2.78 10*3/uL 1.09-3.23 MONO x10^3 (test code = 742-7) 0.55 10*3/uL 0.36-1.02 EOS x10^3 (test code = 711-2) 0.16 10*3/uL 0.06-0.53 BASO x10^3 (test code = 704-7) 0.06 10*3/uL 0.01-0.09 Lab Interpretation (test code = 94671-8) Abnormal [facility] GLUCOSE (AUTOMATED)2022-09-03 02:08:18* Test Item Value Reference Range Interpretation Comme nts POCT GLU (test code = 6594275329) 259 mg/dL 70-110 H Lab Interpretation (test cod e = 19335-8) Abnormal [facility] GLUCOSE (AUTOMATED)2022-09-03 02:08:18* Test Item Value Reference Range Interpretation Comme nts POCT GLU (test code = 7171092402) 259 mg/dL 70-110 H Lab Interpretation (test cod e = 29125-4) Abnormal [facility] [facility]2022-09-02 23:38:11* Test Item Value Reference Range Interpretation Comme nts POCT GLU (test code = 3990127479) 322 mg/dL 70-110 H Lab Interpretation (test cod e = 96342-7) Abnormal [facility] GLUCOSE (AUTOMATED)2022-09-02 23:38:11* Test Item Value Reference Range Interpretation Comme nts POCT GLU (test code = 1154706390) 322 mg/dL 70-110 H Lab Interpretation (test cod e = 58163-5) Abnormal [facility] GLUCOSE (AUTOMATED)2022-09-02 18:17:05* Test Item Value Reference Range Interpretation Comme nts POCT GLU (test code = 0109396638) 295 mg/dL 70-110 H Lab Interpretation (test cod e = 51327-0) Abnormal [facility] GLUCOSE (AUTOMATED)2022-09-02 18:17:05* Test Item Value Reference Range Interpretation Comme nts POCT GLU (test code = 8111932648) 295 mg/dL 70-110 H Lab Interpretation (test cod e = 66568-5) Abnormal [facility] Metabolic Panel (NA, K, CL, CO2, GLUCOSE, BUN, CREATININE, CA)2022-09-02 09:42:02* Test Item Value Reference Range Interpretation Comme nts NA (test code = 6179261205) 135 mmol/L 135-145 K (test code = 9539802541) 4.0 mmol/L 3.5-5.0 CL (test code = 6695493715) 103 mmol/L 98-108 CO2 TOTAL (test code = 7912619774) 24 mmol/L 23-31 AGAP (test code = 7717451735) 2-16 BUN (test code = 0877412394) 14 mg/dL 7-23 GLUCOSE (test code = 8967499742) 227 mg/dL 70-110 H CREATININE (test code = 5069255587) 0.56 mg/dL 0.60-1.25 L CALCIUM (test code = 2162713457) 8.7 mg/dL 8.6-10.6 eGFR (test code = 6964454848) mL/min/1.73m2 ANDREE (test code = ANDREE) Association [...] imaging tests). Lab Interpretation (test code = 48405-2) Abnormal [facility] Metabolic Panel (NA, K, CL, CO2, GLUCOSE, BUN, CREATININE, CA)2022-09-02 09:42:02* Test Item Value Reference Range Interpretation Comme nts NA (test code = 3212237085) 135 mmol/L 135-145 K (test code = 6888293323) 4.0 mmol/L 3.5-5.0 CL (test code = 4580503394) 103 mmol/L 98-108 CO2 TOTAL (test code = 1489553378) 24 mmol/L 23-31 AGAP (test code = 9910381325) 2-16 BUN (test code = 2877348042) 14 mg/dL 7-23 GLUCOSE (test code = 3507772911) 227 mg/dL 70-110 H CREATININE (test code = 4547208850) 0.56 mg/dL 0.60-1.25 L CALCIUM (test code = 2005511699) 8.7 mg/dL 8.6-10.6 eGFR (test code = 4899764719) mL/min/1.73m2 ANDREE (test code = ANDREE) Association [...] imaging tests). Lab Interpretation (test code = 73815-4) Abnormal [facility] with [id number] 09:18:20* Test Item Value Reference Range Interpretation [...] 33.7 g/dL 31.2-35.0 RDW-SD (test code = 99527-3) 40.8 fL 38.5-51.6 RDW-CV (test code = 788-0) 13.8 % 12.1-15.4 PLT (test code = 777-3) See_Comment H [Automated message] The system which generated this result transmitted reference range: 150 - 328 10*3/?L. The reference range was not used to interpret this result as normal/abnormal. MPV (test code = 79905-0) 10.4 fL 9.8-13.0 NRBC/100 WBC (test code = 1816275760) See_Comment [Automated message] The system which generated this result transmitted reference range: 0.0 - 10.0 /100 WBCs. The reference range was not used to interpret this result as normal/abnormal. NRBC x10^3 (test code = 8096968421) See_Comment [Automated message] The system which generated this result transmitted reference range: 10*3/?L. The reference range was not used to interpret this result as normal/abnormal. GRAN MAT (NEUT) % (test code = 770-8) 76.1 % IMM GRAN % (test code = 8312485128) 0.40 % LYMPH % (test code = 736-9) 16.6 % MONO % (test code = 5905-5) 5.6 % EOS % (test code = 713-8) 0.9 % BASO % (test code = 706-2) 0.4 % GRAN MAT x10^3(ANC) (test code = 1519145462) 10.64 10*3/uL 1.99-6.95 H IMM GRAN x10^3 (test code = 5539010807) 0.05 10*3/uL 0.00-0.06 LYMPH x10^3 (test code = 731-0) 2.32 10*3/uL 1.09-3.23 MONO x10^3 (test code = 742-7) 0.78 10*3/uL 0.36-1.02 EOS x10^3 (test code = 711-2) 0.13 10*3/uL 0.06-0.53 BASO x10^3 (test code = 704-7) 0.06 10*3/uL 0.01-0.09 Lab Interpretation (test code = 59101-3) Abnormal [facility] with [id number] 09:18:20* Test Item Value Reference Range Interpretation [...] 33.7 g/dL 31.2-35.0 RDW-SD (test code = 43311-9) 40.8 fL 38.5-51.6 RDW-CV (test code = 788-0) 13.8 % 12.1-15.4 PLT (test code = 777-3) See_Comment H [Automated message] The system which generated this result transmitted reference range: 150 - 328 10*3/?L. The reference range was not used to interpret this result as normal/abnormal. MPV (test code = 79199-1) 10.4 fL 9.8-13.0 NRBC/100 WBC (test code = 7775251822) See_Comment [Automated message] The system which generated this result transmitted reference range: 0.0 - 10.0 /100 WBCs. The reference range was not used to interpret this result as normal/abnormal. NRBC x10^3 (test code = 5625939340) See_Comment [Automated message] The system which generated this result transmitted reference range: 10*3/?L. The reference range was not used to interpret this result as normal/abnormal. GRAN MAT (NEUT) % (test code = 770-8) 76.1 % IMM GRAN % (test code = 3007131592) 0.40 % LYMPH % (test code = 736-9) 16.6 % MONO % (test code = 5905-5) 5.6 % EOS % (test code = 713-8) 0.9 % BASO % (test code = 706-2) 0.4 % GRAN MAT x10^3(ANC) (test code = 2223712264) 10.64 10*3/uL 1.99-6.95 H IMM GRAN x10^3 (test code = 2108540497) 0.05 10*3/uL 0.00-0.06 LYMPH x10^3 (test code = 731-0) 2.32 10*3/uL 1.09-3.23 MONO x10^3 (test code = 742-7) 0.78 10*3/uL 0.36-1.02 EOS x10^3 (test code = 711-2) 0.13 10*3/uL 0.06-0.53 BASO x10^3 (test code = 704-7) 0.06 10*3/uL 0.01-0.09 Lab Interpretation (test code = 27731-0) Abnormal [facility] GLUCOSE (AUTOMATED)2022-09-02 03:14:55* Test Item Value Reference Range Interpretation Comme nts POCT GLU (test code = 0216167590) 175 mg/dL 70-110 H Lab Interpretation (test cod e = 89418-9) Abnormal [facility] GLUCOSE (AUTOMATED)2022-09-02 03:14:55* Test Item Value Reference Range Interpretation Comme nts POCT GLU (test code = 4830862682) 175 mg/dL 70-110 H Lab Interpretation (test cod e = 96380-4) [facility]:07* Test Item Value Reference Range Interpretation Comme nts HGB A1C (test code = 4548-4) 11.5 % 4.0-5.7 H ANDREE (test code = ANDREE) Reference RangesNormal: <5.7%Prediabetes: 5.7 - 6.4%Diabetes: > 6.5% Lab Interpretation (test code = 65124-3) [facility] 02:25:07* Test Item Value Reference Range Interpretation Comme [facility] HGB A1C (test code = 4548-4) 11.5 % 4.0-5.7 H ANDREE (test code = ANDREE) Reference RangesNormal: <5.7%Prediabetes: 5.7 - 6.4%Diabetes: > 6.5% Lab Interpretation (test code = 28757-3) Abnormal [facility] METABOLIC PANEL (NA, K, CL, CO2, GLUCOSE, BUN, CREATININE, CA)2022-09-01 20:44:31* Test Item Value Reference Range Interpretation Comme nts NA (test code = 2727039194) 135 mmol/L 135-145 K (test code = 9289159385) 4.4 mmol/L 3.5-5.0 CL (test code = 5947023839) 101 mmol/L 98-108 CO2 TOTAL (test code = 8600136732) 24 mmol/L 23-31 AGAP (test code = 0686753445) 2-16 BUN (test code = 4615228178) 16 mg/dL 7-23 GLUCOSE (test code = 7493799654) 260 mg/dL 70-110 H CREATININE (test code = 0174487578) 0.72 mg/dL 0.60-1.25 CALCIUM (test code = 7496480621) 9.2 mg/dL 8.6-10.6 eGFR (test code = 0775815277) mL/min/1.73m2 ANDREE (test code = ANDREE) Association [...] imaging tests). Lab Interpretation (test code = 71384-1) Abnormal [facility] METABOLIC PANEL (NA, K, CL, CO2, GLUCOSE, BUN, CREATININE, CA)2022-09-01 20:44:31* Test Item Value Reference Range Interpretation Comme nts NA (test code = 9828134426) 135 mmol/L 135-145 K (test code = 5667690152) 4.4 mmol/L 3.5-5.0 CL (test code = 0634187224) 101 mmol/L 98-108 CO2 TOTAL (test code = 5703563238) 24 mmol/L 23-31 AGAP (test code = 1823992340) 2-16 BUN (test code = 2610505549) 16 mg/dL 7-23 GLUCOSE (test code = 6089406430) 260 mg/dL 70-110 H CREATININE (test code = 6935669072) 0.72 mg/dL 0.60-1.25 CALCIUM (test code = 8258021769) 9.2 mg/dL 8.6-10.6 eGFR (test code = 7103304875) mL/min/1.73m2 ANDREE (test code = ANDREE) Association [...] imaging tests). Lab Interpretation (test code = 19806-4) Abnormal [facility] WITH [id number] 20:42:10* Test Item Value Reference Range Interpretation [...] 33.4 g/dL 31.2-35.0 RDW-SD (test code = 79273-8) 40.8 fL 38.5-51.6 RDW-CV (test code = 788-0) 13.4 % 12.1-15.4 PLT (test code = 777-3) See_Comment H [Automated messa ge] The system which generated this result transmitted reference range: 150 - 328 10*3/?L. The reference range was not used to interpret this result as normal/abnormal. MPV (test code = 59440-7) 10.9 fL 9.8-13.0 NRBC/100 WBC (test code = 7294248952) See_Comment [Automated Foldees ssage] The system which generated this result transmitted reference range: 0.0 - 10.0 /100 WBCs. The reference range was not used to interpret this result as normal/abnormal. NRBC x10^3 (test code = 2201307867) See_Comment [Automated messa ge] The system which generated this result transmitted reference range: 10*3/?L. The reference range was not used to interpret this result as normal/abnormal. GRAN MAT (NEUT) % (test code = 770-8) 67.2 % IMM GRAN % (test code = 9960702368) 0.40 % LYMPH % (test code = 736-9) 25.6 % MONO % (test code = 5905-5) 4.5 % EOS % (test code = 713-8) 1.2 % BASO % (test code = 706-2) 1.1 % GRAN MAT x10^3(ANC) (test code = 0537939631) 7.60 10*3/uL 1.99-6.95 H IMM GRAN x10^3 (test code = 6325741381) 0.05 10*3/uL 0.00-0.06 LYMPH x10^3 (test code = 731-0) 2.89 10*3/uL 1.09-3.23 MONO x10^3 (test code = 742-7) 0.51 10*3/uL 0.36-1.02 EOS x10^3 (test code = 711-2) 0.14 10*3/uL 0.06-0.53 BASO x10^3 (test code = 704-7) 0.12 10*3/uL 0.01-0.09 H Lab Interpretation (test code = 71619-8) Abnormal [facility] WITH [id number] 20:42:10* Test Item Value Reference Range Interpretation [...] 33.4 g/dL 31.2-35.0 RDW-SD (test code = 78869-9) 40.8 fL 38.5-51.6 RDW-CV (test code = 788-0) 13.4 % 12.1-15.4 PLT (test code = 777-3) See_Comment H [Automated messa ge] The system which generated this result transmitted reference range: 150 - 328 10*3/?L. The reference range was not used to interpret this result as normal/abnormal. MPV (test code = 62044-1) 10.9 fL 9.8-13.0 NRBC/100 WBC (test code = 5338325751) See_Comment [Automated Foldees ssage] The system which generated this result transmitted reference range: 0.0 - 10.0 /100 WBCs. The reference range was not used to interpret this result as normal/abnormal. NRBC x10^3 (test code = 2618866104) See_Comment [Automated messa ge] The system which generated this result transmitted reference range: 10*3/?L. The reference range was not used to interpret this result as normal/abnormal. GRAN MAT (NEUT) % (test code = 770-8) 67.2 % IMM GRAN % (test code = 1486088084) 0.40 % LYMPH % (test code = 736-9) 25.6 % MONO % (test code = 5905-5) 4.5 % EOS % (test code = 713-8) 1.2 % BASO % (test code = 706-2) 1.1 % GRAN MAT x10^3(ANC) (test code = 1240310096) 7.60 10*3/uL 1.99-6.95 H IMM GRAN x10^3 (test code = 8336696449) 0.05 10*3/uL 0.00-0.06 LYMPH x10^3 (test code = 731-0) 2.89 10*3/uL 1.09-3.23 MONO x10^3 (test code = 742-7) 0.51 10*3/uL 0.36-1.02 EOS x10^3 (test code = 711-2) 0.14 10*3/uL 0.06-0.53 BASO x10^3 (test code = 704-7) 0.12 10*3/uL 0.01-0.09 H Lab Interpretation (test code = 10120-7) Abnormal [facility]"
--- NOTE | 2023-12-18 21:27 | ER ---
Nurse's Notes [facility] Name: Donnie Mna Jr Age: 43 yrs Sex: Male : 1980 Arrival Date: 12/18/2023 Time: 20:58 Bed 14 Private MD: Diagnosis: Personal history of diabetic foot ulcer;Infected diabetic foot ulcer left foot, nonfunctional PICC line, and diabetes mellitus type 2 with complications. Presentation: 12/17 21:05 Chief complaint: Patient states: pt reports his PICC line isn't flushing. Coronavirus as6 screen: At this time, the client does not indicate any symptoms associated with coronavirus-19. Ebola Screen: No symptoms or risks identified at this time. Initial Sepsis Screen: Does the patient meet any 2 criteria? No. Patient's initial sepsis screen is negative. Does the patient have a suspected source of infection? No. Patient's initial sepsis screen is negative. Risk Assessment: Do you want to hurt yourself or someone else? Patient reports no desire to harm self or others. Onset of symptoms was December 18, 2023. 21:05 Method Of Arrival: Ambulatory as6 21:05 Acuity: BECKY 4 as6 Triage Assessment: 21:10 General: Appears in no apparent distress. Behavior is calm, cooperative. Pain: Denies as6 pain. Historical: - Allergies: 21:07 PENICILLINS; as6 - PMHx: 21:07 Diabetes; as6 - PSHx: 21:07 Foot ulcer surgery; right middle finger amputation; as6 - Immunization history:: Adult Immunizations up to date. - Social history:: Smoking status: Patient denies any tobacco usage or history of. - Family history:: not pertinent. Screenin:11 [facility] ED Fall Risk Assessment (Adult) History of falling in the last 3 months, as6 including since admission No falls in past 3 months (0 pts) Confusion or Disorientation No (0 pts) Intoxicated or Sedated No (0 pts) Impaired Gait No (0 pts) Mobility Assist Device Used No (0 pt) Altered Elimination No (0 pt) Score/Fall Risk Level 0 - 2 = Low Risk Oriented to surroundings, Maintained a safe environment, Educated pt \T\ family on fall prevention, incl call for assistance when getting out of bed, Assessed \T\ reinforced patient's understanding of fall precautions. Abuse screen: Denies threats or abuse. Denies injuries from another. Nutritional screening: No deficits noted. Tuberculosis screening: No symptoms or risk factors identified. Assessment: 22:15 Reassessment: ASSUMED CARE OF PT. PT SITTING IN BED. NO PAIN OR DISTRESS AT THIS TIME. jj7 PT AWAITING FLOOR BED ASSIGNMENT. CALL CROWELL IN REACH. General: Appears in no apparent distress. comfortable, Behavior is calm, cooperative, appropriate for age. Neuro: No deficits noted. 23:18 Reassessment: PT FAXED TO 2ND FLOOR RECEIVED BY BC CAVANAUGH. jj7 12/18 00:12 Reassessment: DR SRINIVASAN CLEANED AND PACKED WOUND ON LEFT FOOT. jj7 Vital Signs: 12/17 21:05 BP 178 / 93; Pulse 98; Resp 18 S; Temp 98.4(TE); Pulse Ox 100% on R/A; Weight 99.79 kg as6 (R); Height 5 ft. 2 in. (R); Pain 0/10; 22:15 BP 175 / 105; Pulse 95; Resp 17; Pulse Ox 99% ; jj7 23:08 BP 165 / 109; Pulse 94; Resp 17; Pulse Ox 98% ; jj7 21:05 Body Mass Index 40.24 (99.79 kg, 157.48 cm) as6 21:05 Pain Scale: Adult as6 ED Course: 21:01 Patient arrived in ED. jj6 21:05 Arm band placed on. as6 21:07 Triage completed. as6 21:10 Austin Gonzalez MD is Attending Physician. sp4 21:10 Accessed PICC line. Good blood return. Difficult to flush. as6 21:11 Patient has correct armband on for positive identification. as6 21:26 Daniel Sutherland MD is Hospitalizing Provider. sp4 22:03 XRAY Chest (1 view) In Process Unspecified. EDMS 22:20 Bed in low position. oe 23:05 Missed attempt(s): 18 gauge in right antecubital area. jj7 23:20 Missed attempt(s): 22 gauge in right Bleeding controlled, band aid applied, catheter oe tip intact. 23:27 Inserted saline lock: 22 gauge in right forearm, using aseptic technique. Blood oe collected. 12/18 00:25 No provider procedures requiring assistance completed. Patient admitted, IV remains in [address] Administered Medications: 00:17 Drug: Insulin Regular Human IVP 10 units IVP once {Co-Signature: tl4 (Farhat Caldwell RN).} Route: IVP; Site: right forearm; 00:43 Follow up: Response: No adverse reaction jj7 00:17 Drug: cloNIDine PO 0.2 mg PO once Route: PO; j7 00:42 Follow up: Response: Marked relief of symptoms j 00:21 Not Given (pt went tot he floorr): ns 0.9% 1000 ml IV at 1 bolus Per protocol; 1000 mL [facility] bolus Medication: 12/17 21:11 VIS not applicable for this client. as6 Outcome: 21:27 Decision to Hospitalize by Provider. sp4 12/18 00:25 Admitted to Med/surg accompanied by tech, via wheelchair, room 205, Report called to [facility] SBAR FAXED TO 2ND FLOOR Condition: good 00:25 Patient left the ED. [facility] Signatures: Dispatcher [employer] EDMS Victoriano Mandel Jennifer jj6 Allen Reyez RN RN as6 Getachew Denise RN RN jAustin Vasquez MD MD sp4 Farhat Caldwell RN tl4 Corrections: (The following items were deleted from the chart) 12/17 23:29 23:14 Inserted saline lock: 22 gauge in right hand, using aseptic technique. Blood oe collected. j7 12/18 00:36 00:36 Patient left the ED. [facility] jl
--- NOTE | 2023-12-18 21:28 | EDPHYS ---
Physician Documentation [facility] Name: Donnie Man Jr Age: 43 yrs Sex: Male : 1980 Arrival Date: 12/18/2023 Time: 20:58 Bed 14 Private MD: ED Physician Austin Gonzalez HPI: 12/17 21:10 This 43 yrs old Male presents to ER via Ambulatory with complaints of PIC LINE sp4 PROBLEM. 12/18 07:08 Patient is 43-year-old male presents with nonfunctional PICC line in the left arm.. . sp4 Patient gets daily infusion of IV vancomycin via PICC line for osteomyelitis of the left lateral foot. Patient has history of uncontrolled diabetes mellitus with left diabetic foot ulcer associated with left foot osteomyelitis. Patient states infusion is not going into the left PICC line. Patient's medications include gabapentin, Protonix, Crestor, valsartan, aspirin, glargine insulin 20 units daily, levofloxacin p.o. daily, mupirocin, vancomycin injection 1.75 g IV every 12 hours via PICC line. Patient follows up with a general surgeon who has amputated left fourth toe. . Historical: - Allergies: 12/17 21:07 PENICILLINS; as6 - PMHx: 21:07 Diabetes; as6 - PSHx: 21:07 Foot ulcer surgery; right middle finger amputation; as6 - Immunization history:: Adult Immunizations up to date. - Social history:: Smoking status: Patient denies any tobacco usage or history of. - Family history:: not pertinent. ROS: 12/18 07:08 Constitutional: Negative for fever, chills, and weight loss, sp4 All other systems are negative, Exam: 07:08 Constitutional: This is a well developed, well nourished patient who is awake, alert, sp4 and in no acute distress. Left arm PICC line 1 port is flushing the other port is not flushing. Purple port seems to be occluded Head/Face: Normocephalic, atraumatic. Eyes: Pupils equal round and reactive to light, extra-ocular motions intact. Lids and lashes normal. Conjunctiva and sclera are not injected. Cornea within normal limits. Periorbital areas with no swelling, redness, or edema. ENT: Nares patent. No nasal discharge, no septal abnormalities noted. Tympanic membranes are normal and external auditory canals are clear. Oropharynx with no redness, swelling, or masses, exudates, or evidence of obstruction, uvula midline. Mucous membranes moist. Neck: Trachea midline, no thyromegaly or masses palpated, and no cervical lymphadenopathy. Supple, full range of motion without nuchal rigidity, or vertebral point tenderness. Chest/axilla: Normal chest wall appearance and motion. Nontender with no deformity. No lesions are appreciated. Cardiovascular: Regular rate and rhythm with a normal S1 and S2. No gallops, murmurs, or rubs. Normal PMI, no JVD. No pulse deficits. Respiratory: Lungs have equal breath sounds bilaterally, clear to auscultation and percussion. No rales, rhonchi or wheezes noted. No increased work of breathing, no retractions or nasal flaring. Abdomen/GI: Soft, with normal bowel sounds. No distension or tympany. No guarding or rebound. No evidence of tenderness throughout. Back: No spinal tenderness. No costovertebral tenderness. Skin: Warm, dry with normal turgor. Normal color with no rashes, no lesions, and no evidence of cellulitis. MS/ Extremity: Pulses equal, no cyanosis. Neurovascular intact. Full, normal range of motion. Left. Left fourth toe is amputated with postoperative incision appears is infected with purulent drainage. Packing removed and packing replaced with fresh packing also sterile dressing applied. Neuro: Awake and alert, GCS 15, oriented to person, place, time, and situation. Cranial nerves II-XII grossly intact. Motor strength 5/5 in all extremities. Sensory grossly intact. Psych: Awake, alert, with orientation to person, place and time. Behavior, mood, and affect are within normal limits Vital Signs: 12/17 21:05 BP 178 / 93; Pulse 98; Resp 18 S; Temp 98.4(TE); Pulse Ox 100% on R/A; Weight 99.79 kg as6 (R); Height 5 ft. 2 in. (R); Pain 0/10; 22:15 BP 175 / 105; Pulse 95; Resp 17; Pulse Ox 99% ; jj7 23:08 BP 165 / 109; Pulse 94; Resp 17; Pulse Ox 98% ; jj7 21:05 Body Mass Index 40.24 (99.79 kg, 157.48 cm) as6 21:05 Pain Scale: Adult as6 MDM: 21:25 Patient medically screened. sp4 23:23 Differential Diagnosis altered mental status, sepsis, flu. Data reviewed: vital signs, sp4 nurses notes, old medical records, lab test result(s). 12/18 07:08 Consideration of Admission/Observation Patient was admitted/placed on observation. sp4 Escalation of care including admission/observation considered. Management of patient was discussed with the following: Hospitalist: Koko ENRIQUE . ED course: Patient was admitted for nonfunctional PICC line for PICC line replacement for IV antibiotic.. ED course: EXAM DESCRIPTION: RAD - Chest Single View - 12/18/2023 10:01 pm CLINICAL HISTORY: evalulate PICC line COMPARISON: Chest Single View dated 12/01/2023; Chest Single View dated 05/30/2022 FINDINGS: Portable chest was obtained following placement of a left upper extremity PICC line. The catheter tip projects over the SVC.. . 12/17 21:25 Order name: Basic Metabolic Panel; Complete Time: 23:55 sp4 12/17 21:25 Order name: CBC with Diff; Complete Time: 23:42 sp4 12/17 23:51 Order name: Urinalysis w/ reflexes EDMA 12/17 23:51 Order name: CBC with Automated Diff EDMA 12/17 23:51 Order name: CBC with Automated Diff EDMA 12/17 23:51 Order name: Comprehensive Metabolic Panel EDMA 12/17 23:51 Order name: Comprehensive Metabolic Panel [facility] 12/17 21:25 Order name: XRAY Chest (1 view); Complete Time: 23:42 sp4 12/17 23:51 Order name: CONS Physician Consult EDMA 12/17 21:25 Order name: IV Saline Lock sp4 12/17 21:25 Order name: Labs collected and sent sp4 Administered Medications: 00:17 Drug: Insulin Regular Human IVP 10 units IVP once {Co-Signature: [email or web address] (Farhat Caldwell RN).} Route: IVP; Site: right forearm; 00:43 Follow up: Response: No adverse reaction jj7 00:17 Drug: cloNIDine PO 0.2 mg PO once Route: PO; jj7 00:42 Follow up: Response: Marked relief of symptoms jj7 00:21 Not Given (pt went tot he floorr): ns 0.9% 1000 ml IV at 1 bolus Per protocol; 1000 mL jj7 bolus Disposition Summary: 12/18/23 21:27 Hospitalization Ordered Notes: Hospitalization Status: Observation sp4 Provider: Daniel Sutherland Location: Telemetry/MedSur (observation) sp4 Condition: Stable sp4 Problem: new sp4 Symptoms: have improved sp4 Bed/Room Type: Standard sp4 Room Assignment: 205(12/18/23 22:13) ty Diagnosis - Personal history of diabetic foot ulcer sp4 - Infected diabetic foot ulcer left foot, nonfunctional PICC line, and diabetes sp4 mellitus type 2 with complications. Forms: - Medication Reconciliation Form sp4 - SBAR form sp4 - Leadership Thank You Letter sp4 Signatures: Dispatcher [employer] Allen Roth RN RN as6 Getachew Denise RN RN jj7 Austin Gonzalez MD MD sp4 Mariano Aggarwal Toni RN tl4 Corrections: (The following items were deleted from the chart) 12/17 22:13 21:27 sp4 ty
--- NOTE | 2023-12-18 22:11 | RAD REPORT ---
EXAM DESCRIPTION: RAD - Chest Single View - 12/18/2023 10:01 pm CLINICAL HISTORY: evalulate PICC line COMPARISON: Chest Single View dated 12/01/2023; Chest Single View dated 05/30/2022 FINDINGS: Portable chest was obtained following placement of a left upper extremity PICC line. The c atheter tip projects over the SVC..
[2023-12-18 23:35] LABS: Absolute Basophils 0.1 K/uL (0-0.5); Absolute Eosinophils 0.1 K/uL (0-0.5); Absolute Lymphocytes (CBC) 1.5 K/uL (0.7-4.9); Absolute Monocytes 1.1 K/uL (0.1-1.3); Absolute Neutrophil 10.1 K/uL (1.8-8.0); Basophils % 1.1 % (0-1.3); Eosinophils % 0.9 % (0-4.4); Hemoglobin 12.4 g/dL (13.6-17.9); Lymphocytes % 11.4 % (15.3-44.8); MCH 28.1 pg (27.0-35.0); MCHC 33.6 g/dL (32.0-36.0); MCV 83.6 fL (80-100); MPV 8.6 fL (7.6-11.3); Monocytes % 8.2 % (3.3-12.3); Neutrophils % 78.4 % (41.7-73.7); Platelets 470 thou/uL (152-406); RBC Red Blood Cell Count 4.43 M/uL (4.33-5.43); Red Cell Distribution Width 13.7 % (12.1-15.2)
[2023-12-18] MEDS: VANCOMYCIN IV SCH (23:45)
[2023-12-18] MEDS: [UNRECOGNIZED DRUG - OTHER] IV SCH (23:45)
[2023-12-18] MEDS ORDERED: ACETAMINOPHEN 325 MG TABLET PO PRN (23:46)
[2023-12-18] MEDS ORDERED: ONDANSETRON 4 MG/2 ML VIAL IV PRN (23:46)
[2023-12-18 23:50] LABS: Anion Gap 10.9 mEq/L (5.0-15.0); Potassium 4.9 mEq/L (3.5-5.1)
--- NOTE | 2023-12-18 23:51 | P.HP ---
Certification for Inpatient Patient admitted to: Observation With expected LOS: <2 Midnights Practitioner: I am a practitioner with admitting privileges, knowledge of patient current condition, hospital course, and medical plan of care. Services: Services provided to patient in accordance with Admission requirements found in Title 42 Section 412.3 of the Code of Federal Regulations Patient History Date of Service: 12/19/23 Reason for admission: PICC Line Malfunction History of Present Illness: 43 yrs old Male who was recently been discharged from the hospital after he had a foot ulcer surgery and amputation of the middle toe and was discharged to home with IV antibiotics with a PICC line. He came to ER with PICC line malfunction , His left foot culture was showing Staph aureus. ID was consulted and was recommended IV antibiotic with vancomycin and levofloxacin which he was receiving with home health . Not functioning well he was brought to ER and was admitted for further management. Allergies Penicillins Allergy (Mild, Verified 03/04/18 09:59) Rash Home medications list reviewed: Yes Home Medications: Gabapentin [Neurontin*] 600 mg PO BEDTIME 10/20/18 Pantoprazole [Protonix Tab*] 40 mg PO DAILY 11/30/23 Rosuvastatin Calcium [Crestor] 20 mg PO BEDTIME 11/30/23 Valsartan 160 mg PO DAILY 11/30/23 Vancomycin/Water For Inj (Peg) [Vancomycin 1.75 gm/350 ml Bag] 1.75 gm IV Q12H #84 piggyback 12/04/23 Aspirin [Aspirin EC 81 MG] 81 mg PO DAILY #30 tab 12/05/23 Insulin Glargine,Hum.rec.anlog [Lantus] 20 unit SQ BEDTIME #2 vial 12/05/23 Mupirocin Oint [Bactroban 2% Ointment*] 22 gm TP TID #1 tube 12/05/23 Semaglutide [Ozempic] 0.25 mg SQ EVERY 7TH DAY #4 syr 12/05/23 levoFLOXacin [Levaquin] 750 mg PO DAILY #42 tab 12/05/23 - Past Medical/Surgical History Diabetic: Yes Past Medical History: Reviewed- Non-Contributory -: DM -: HTN -: Diabetic foot ulcer Past Surgical History: Reviewed- Non-Contributory -: I&D of L foot -: I&D groin abcess - Family History Family History: Reviewed- Non-Contributory - Family History Father -: Diabetes Mother -: Heart disease - Social History Smoking Status: Never smoker Alcohol use: Yes CD- Drugs: No Caffeine use: Yes Review of Systems 10-point ROS is otherwise unremarkable Physical Examination - Vital Signs Temperature: 98.4 F Blood Pressure: 178/92 Pulse: 98 Respirations: 18 Pulse Ox (%): 96 - Physical Exam General: Alert, In no apparent distress, Oriented x3 HEENT: Atraumatic, Normocephalic Neck: Supple, 2+ carotid pulse no bruit Respiratory: Clear to auscultation bilaterally, Normal air movement Cardiovascular: Regular rate/rhythm, Normal S1 S2, No gallops, No rubs Capillary refill: <2 Seconds Gastrointestinal: Soft and benign, Non-distended, W/out hepatosplenomegaly Musculoskeletal: No clubbing, No swelling Integumentary: No rashes, Diabetic ulcer Neurological: Normal speech, Normal strength at 5/5 x4 extr, Cranial nerves 3-12 intact, Normal reflexes 2+ Lymphatics: No axilla or inguinal lymphadenopathy - Studies Laboratory Data (last 24 hrs) 12/18/23 23:26 WBC 12.80 H Hgb 12.4 L Hct 37.0 L Plt Count 470 H Assessment and Plan - Problems (Diagnosis) (1) Occlusion of peripherally inserted central catheter (PICC) line Current Visit: Yes Status: Acute Plan: PICC line is occluded ER tried Cathflo Will consult PICC line team (2) Diabetic foot ulcer Current Visit: No Status: Chronic Plan: Continue IV antibiotic Continue vancomycin and levofloxacin continue the same dosage Cultures were positive for Staph aureus (3) Diabetes mellitus Onset Date: 11/26/17 Current Visit: No Status: Chronic Plan: Diabetes mellitus with hyperglycemia Insulin sliding scale Will add on basal insulin Monitor closely Qualifiers: Diabetes mellitus type: type 2 Diabetes mellitus mcfp insulin use: without mcfp use Diabetes mellitus complication status: with skin complications Diabetes mellitus complication detail: with foot ulcer Qualified Code(s): E11.621 - Type 2 diabetes mellitus with foot ulcer; L97.509 - Non-pressure chronic ulcer of other part of unspecified foot with unspecified severity; L97.509 - Non-pressure chronic ulcer of other part of unspecified foot with unspecified severity; L97.509 - Non-pressure chronic ulcer of other part of unspecified foot with unspecified severity; L97.509 - Non-pressure chronic ulcer of other part of unspecified foot with unspecified severity (4) Hyperlipidemia Current Visit: No Status: Chronic Plan: Hypertension Continue home medications and titrate as needed Hyperlipidemia Continue statin Acute kidney injury on CKD stage II Renal parameters monitor Electrolytes monitor and replace accordingly Mild hyponatremia Corrected sodium is near normal Electrolytes monitored Qualifiers: Hyperlipidemia type: unspecified Qualified Code(s): E78.5 - Hyperlipidemia, unspecified Discharge Plan: Home Plan to discharge in: 24 Hours - Advance Directives Does patient have a Living Will: No Does patient have a Durable POA for Healthcare: No - Code Status/Comfort Care Code Status Assessed: Yes Code Status: Full Code Time Spent Managing Pts Care (In Minutes): 48
[2023-12-19 01:46] VITALS: BMI 33.0
[2023-12-19 04:54] LABS: Absolute Basophils 0.1 K/uL (0-0.5); Absolute Eosinophils 0.1 K/uL (0-0.5); Absolute Lymphocytes (CBC) 1.8 K/uL (0.7-4.9); Absolute Monocytes 1.1 K/uL (0.1-1.3); Absolute Neutrophil 8.8 K/uL (1.8-8.0); Basophils % 1.2 % (0-1.3); Eosinophils % 1.1 % (0-4.4); Hematocrit 34.8 % (39.6-49.0); Hemoglobin 11.6 g/dL (13.6-17.9); Lymphocytes % 15.3 % (15.3-44.8); MCH 27.7 pg (27.0-35.0); MCHC 33.4 g/dL (32.0-36.0); MCV 83.2 fL (80-100); MPV 8.6 fL (7.6-11.3); Neutrophils % 73.4 % (41.7-73.7); Platelets 437 thou/uL (152-406); RBC Red Blood Cell Count 4.18 M/uL (4.33-5.43); Red Cell Distribution Width 13.7 % (12.1-15.2)
[2023-12-19 05:11] LABS: Albumin 2.5 g/dL (3.4-5.0); Albumin/Globulin Ratio 0.5 (1.1-1.8); Anion Gap 11.2 mEq/L (5.0-15.0); Bilirubin Total 0.3 mg/dL (0.2-1.0); Globulin 4.6 g/dL (2.3-3.5); Potassium 4.2 mEq/L (3.5-5.1); Protein, Total 7.1 g/dL (6.4-8.2)
[2023-12-19] MEDS: PANTOPRAZOLE 40MG TABLET PO SCH (06:08)
[2023-12-19 06:42] LABS: Phosphorus 3.9 mg/dL (2.5-4.9)
--- NOTE | 2023-12-19 07:35 | P.CNS ---
Date of Consult: 12/19/23 Reason for Consult: IV antibiotics Chief Complaint: PICC Line Malfunction Allergies Penicillins Allergy (Mild, Verified 03/04/18 09:59) Rash Home medications list reviewed: Yes Home Medications: Gabapentin [Neurontin*] 600 mg PO BEDTIME 10/20/18 Pantoprazole [Protonix Tab*] 40 mg PO DAILY 11/30/23 Rosuvastatin Calcium [Crestor] 20 mg PO BEDTIME 11/30/23 Valsartan 160 mg PO DAILY 11/30/23 Vancomycin/Water For Inj (Peg) [Vancomycin 1.75 gm/350 ml Bag] 1.75 gm IV Q12H #84 piggyback 12/04/23 Aspirin [Aspirin EC 81 MG] 81 mg PO DAILY #30 tab 12/05/23 Insulin Glargine,Hum.rec.anlog [Lantus] 20 unit SQ BEDTIME #2 vial 12/05/23 Mupirocin Oint [Bactroban 2% Ointment*] 22 gm TP TID #1 tube 12/05/23 Semaglutide [Ozempic] 0.25 mg SQ EVERY 7TH DAY #4 syr 12/05/23 levoFLOXacin [Levaquin] 750 mg PO DAILY #42 tab 12/05/23 - Past Medical/Surgical History Diabetic: Yes -: DM -: HTN -: Diabetic foot ulcer -: I&D of L foot -: I&D groin abcess - Family History Father Medical History: Diabetes Mother Medical History: Heart disease - Social History Smoking Status: Current every day smoker Alcohol use: Yes CD- Drugs: No Caffeine use: Yes Place of Residence: Home Physical Examination Temp Pulse Resp BP Pulse Ox 98.4 F 98 H 18 178/92 H 96 12/19/23 04:16 12/19/23 04:16 12/19/23 04:16 12/19/23 04:16 12/19/23 04:16 Laboratory Data - Reviewed Microbiology Data - Reviewed Imagings Data: - Reviewed
[2023-12-19] MEDS: ENOXAPARIN 40 MG/0.4 ML SQ SCH (08:23)
[2023-12-19] MEDS: ASPIRIN EC 81 MG TAB PO SCH (08:24)
[2023-12-19] MEDS: VALSARTAN 160 MG TAB PO SCH (08:24)
[2023-12-19] MEDS: levoFLOXacin 750 MG TAB PO SCH (08:24)
[2023-12-19] MEDS: Mupirocin NASAL 2 APPL/1 GM TUBE NAS SCH (08:25)
[2023-12-19] MEDS: INSULIN REGULAR (HUMAN) 100 UNIT/ML SQ SCH (08:32)
[2023-12-19] MEDS ORDERED: levoFLOXacin 750 MG TAB PO SCH (09:00)
--- NOTE | 2023-12-19 10:27 | RAD REPORT ---
EXAM DESCRIPTION: RAD - Chest Single View - 12/19/2023 10:15 am CLINICAL HISTORY: Device placement PICC line placement IMPRESSION: PICC line with its tip in the distal superior vena cava
--- NOTE | 2023-12-19 10:39 | P.PN ---
Subjective Date of Service: 12/19/23 Chief Complaint: PICC Line Malfunction Subjective: No new changes Review of Systems 10-point ROS is otherwise unremarkable Integumentary: Other (left upper arm PICC slow/no flow, insertion site minimally reddened. ), As per HPI Physical Examination - Vital Signs Temperature: 97.1 F Blood Pressure: 168/95 Pulse: 78 Respirations: 17 Pulse Ox (%): 97 - Physical Exam General: Alert, In no apparent distress, Oriented x3 HEENT: Atraumatic, Normocephalic Neck: 2+ carotid pulse no bruit Respiratory: Normal air movement Cardiovascular: Normal pulses, Regular rate/rhythm Capillary refill: <2 Seconds Gastrointestinal: Soft and benign Musculoskeletal: No clubbing, No swelling, Other (recent left foot partial amp) Integumentary: Other (minimal left upper arm PICC insertion site erythema) Neurological: Normal speech Lymphatics: No axilla or inguinal lymphadenopathy External genitalia: Deferred Rectal: Deferred - Studies Laboratory Data (last 24 hrs) 12/18/23 12/18/23 23:26 23:26 WBC 12.80 H Hgb 12.4 L Hct 37.0 L Plt Count 470 H Sodium 128 L Potassium 4.9 BUN 27 H Creatinine 2.78 H Glucose 465 H* Assessment And Plan - Plan - Problems (Diagnosis) (1) Occlusion of peripherally inserted central catheter (PICC) line Current Visit: Yes Status: Acute Plan: PICC line is occluded ER tried Cathflo Will consult PICC line team - scheduled for replacement at 10am (2) Diabetic foot ulcer Current Visit: No Status: Chronic Plan: Continue IV antibiotic Continue vancomycin and levofloxacin continue the same dosage Cultures were positive for Staph aureus (3) Diabetes mellitus Onset Date: 11/26/17 Current Visit: No Status: Chronic Plan: Diabetes mellitus with hyperglycemia Insulin sliding scale Will add on basal insulin Monitor closely Qualifiers: Diabetes mellitus type: type 2 Diabetes mellitus fpc insulin use: without terminal make up operator use Diabetes mellitus complication status: with skin complications Diabetes mellitus complication detail: with foot ulcer Qualified Code(s): E11.621 - Type 2 diabetes mellitus with foot ulcer; L97.509 - Non-pressure chronic ulcer of other part of unspecified foot with unspecified severity; L97.509 - Non-pressure chronic ulcer of other part of unspecified foot with unspecified severity; L97.509 - Non-pressure chronic ulcer of other part of unspecified foot with unspecified severity; L97.509 - Non-pressure chronic ulcer of other part of unspecified foot with unspecified severity (4) Hyperlipidemia Current Visit: No Status: Chronic Plan: Hypertension Continue home medications and titrate as needed
[2023-12-19 11:01] VITALS: O2SAT 97
[2023-12-19] MEDS: HYDRALAZINE HCL 20 MG/ML VIAL IV ONE (13:11)
[2023-12-19] MEDS ORDERED: VANCOMYCIN 1.75 GM in NA CHLORIDE 0.9% 500 ML IVPB SCH ×2 (17:00→23:00)
--- NOTE | 2023-12-19 20:32 | P.DS ---
Admission Date: 12/18/23 Discharge Date: 12/19/23 Disposition: DC HOME/HOME HEALTH CARE Discharge Condition: GOOD Reason for Admission: PICC Line Malfunction Brief History of Present Illness: 43 yrs old Male who was recently been discharged from the hospital after he had a foot ulcer surgery and amputation of the fourth toe and was discharged home with IV antibiotics with a PICC line. He came to ER with PICC line malfunction. His left foot culture was showing Staph aureus. ID was consulted and was recommended IV antibiotic with vancomycin and levofloxacin which he was receiving with home health . PICC not functioning well. He was brought to ER and was admitted for further management. Hospital Course: Mr. Man came to the emergency room secondary to a sluggish PICC line which was recently placed for 6 weeks of vancomycin for recent resection of his left fourth toe secondary to abscess with some concern for osteomyelitis. They tried flow in the emergency department without much success. He was admitted for replacement of the PICC line. A new PICC line to the right upper arm placed successful and the left PICC line removed. The patient did well over the course of the admission, he will be discharged today to continue IV therapy at home. Vital Signs/Physical Exam: Temp Pulse Resp BP Pulse Ox 97.1 F 78 17 168/95 H 97 12/19/23 20:29 12/19/23 20:29 12/19/23 20:29 12/19/23 20:29 12/19/23 20:29 General: Alert, In no apparent distress, Oriented x3 HEENT: Atraumatic, Normocephalic Neck: Supple Respiratory: Normal air movement Cardiovascular: No edema, Normal pulses Capillary refill: <2 Seconds Gastrointestinal: Soft and benign Musculoskeletal: No clubbing, No swelling Integumentary: No rashes, Other (mild erythema noted at the left PICC site of insertion, removal planned for today) Neurological: Normal speech Lymphatics: No axilla or inguinal lymphadenopathy External genitalia: Deferred Rectal: Deferred Laboratory Data at Discharge: WBC 11.90 thou/uL (4.3-10.9) H 12/19/23 04:30 Hgb 11.6 g/dL (13.6-17.9) L 12/19/23 04:30 Hct 34.8 % (39.6-49.0) L 12/19/23 04:30 Plt Count 437 thou/uL (152-406) H 12/19/23 04:30 Sodium 132 mEq/L (136-145) L D 12/19/23 04:30 Potassium 4.2 mEq/L (3.5-5.1) D 12/19/23 04:30 BUN 27 mg/dL (7-18) H 12/19/23 04:30 Creatinine 2.61 mg/dL (0.70-1.30) H 12/19/23 04:30 Glucose 297 mg/dL (74-106) H 12/19/23 04:30 Phosphorus 3.9 mg/dL (2.5-4.9) 12/19/23 04:20 Magnesium 2.0 mg/dL (1.6-2.4) 12/19/23 04:20 Total Bilirubin 0.3 mg/dL (0.2-1.0) 12/19/23 04:30 AST 9 U/L (15-37) L 12/19/23 04:30 ALT 16 U/L (16-61) 12/19/23 04:30 Alkaline Phosphatase 111 U/L (45-117) 12/19/23 04:30 Home Medications: Gabapentin [Neurontin*] 600 mg PO BEDTIME 10/20/18 Pantoprazole [Protonix Tab*] 40 mg PO DAILY 11/30/23 Rosuvastatin Calcium [Crestor] 20 mg PO BEDTIME 11/30/23 Valsartan 160 mg PO DAILY 11/30/23 Vancomycin/Water For Inj (Peg) [Vancomycin 1.75 gm/350 ml Bag] 1.75 gm IV Q12H #84 piggyback 12/04/23 Aspirin [Aspirin EC 81 MG] 81 mg PO DAILY #30 tab 12/05/23 Insulin Glargine,Hum.rec.anlog [Lantus] 20 unit SQ BEDTIME #2 vial 12/05/23 Mupirocin Oint [Bactroban 2% Ointment*] 22 gm TP TID #1 tube 12/05/23 Semaglutide [Ozempic] 0.25 mg SQ EVERY 7TH DAY #4 syr 12/05/23 levoFLOXacin [Levaquin] 750 mg PO DAILY #42 tab 12/05/23 Physician Discharge Instructions: [facility] P:[phone] F:[phone], [place] [address] P/ Dori: [phone] F Mr. 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 His PICC line has been sluggish and last night neither port was patent. His PICC line has been replaced and he will need to continue IV antibiotics. Resume Vancomycin and Levaquin Diet: ADA Activity: Ad kate Followup: Cristina Blum [Primary Care Provider] -
[2023-12-19 20:48] VITALS: BP 168/95; TEMP 97.1
[2023-12-19] MEDS ORDERED: GABAPENTIN 300 MG CAP PO SCH (21:00)
[2023-12-19] MEDS ORDERED: INSULIN GLARGINE 100 UNIT/ML SQ SCH (21:00)
[2023-12-19] MEDS ORDERED: ROSUVASTATIN 10 MG TAB PO SCH (21:00)
== END 2023-12-19 15:23 | disposition home health service (06) ==
LOC: ER 20:58 → 2ND 23:46
PROVIDERS: ADMIT Family Medicine; ATTEND Hospitalist
DX: T82.514A Breakdown (mechanical) of infusion catheter, initial encounter (principal); E11.621 Type 2 diabetes mellitus with foot ulcer; L97.529 Non-pressure chronic ulcer of other part of left foot with unspecified severity; L08.9 Local infection of the skin and subcutaneous tissue, unspecified; E78.5 Hyperlipidemia, unspecified; I10 Essential (primary) hypertension; E87.1 Hypo-osmolality and hyponatremia; Z88.0 Allergy status to penicillin; Z89.422 Acquired absence of other left toe(s)
CPT/HCPCS: 36569 ×2; 85025 ×2; 80048; 36415; 83735; 84100; 82947 ×3; 80053; 71045 ×2; 94760 ×2; 96374; 99285; J1815 ×2; J0360; J1650; G0378 ×2; J7040

== ENCOUNTER → 2023-12-18 | Emergency (ER) | payer OTHER ==
[~2023-12-18] MED LIST changes: -CLINDAMYCIN 900MG/D5W 900 MG/50 ML IVPB IV ONE; +INSULIN REGULAR (HUMAN) 100 UNIT/ML ONE; -Levofloxacin500mg IV 500 MG/100 ML BAG IV ONE; -MORPHINE 4 MG/ML SYR ONE; -NA CHLORIDE 0.9% 1,000 ML ONE; -NA CHLORIDE 0.9% 250 ML ONE; -NA CHLORIDE 0.9% 500 ML ONE; -ONDANSETRON 4 MG/2 ML VIAL ONE; -VANCOMYCIN 1 GM/VIAL ONE; +cloNIDine HCL 0.1 MG TAB ONE; -levoFLOXacin 750 MG TAB ONE
--- OUTSIDE RECORDS SUMMARY | 2023-12-18 08:34 | XMS REPORT | Continuity of Care Document ---
Author Name Unknown Address [address] [facility] [place] [address] [facility] Address [address] [facility] [place] [address] Care Team Providers Care Maintenance Team Member Name Role Phone FREDDIE TATUM Primary Care Physician Unav ailable LALY HENRY Attending Clinician Unavailable Laly Lopez Attending Clinician [phone] ZENA SCHULTZ Attending Clinician Unavailabl e Therapy-Kimberly CaballeroTfx-Ro-Uiezg Attending Clinician Unavailable Carlos Mclaughlin MD Attending Clinician [phone] CARLOS MCLAUGHLIN Attending Clinician Unavailable Doctor Unassigned, [place] Attending Clinician U simeon Moseley RN, Coby Hernandez Attending Clinician [phone] MD Attending Clinician [phone] Stephanie Singleton MD Attending Clinician [phone] Edilberto Mims MD Attending Clinician [phone] EDILBERTO MIMS Attending Clinician Unavailable Pop ENRIQUE, Josue Attending Clinician [phone] Shawna ENRIQUE, Tomasz Dunn Attending Clinician [phone] Joel ENRIQUE, Salazar Attending Clinician + Lab, Adc Fam Pob I Attending Clinician Unavailab Krystina Morfni Attending Clinician [phone] KRYSTINA CHEEMA Attending Clinician Unavailable Stephanie Singleton MD Admitting Clinician [phone] STEPHANIE SINGLETON Admitting Clinician Unavailable Payers Payer Name Policy Type Policy Number Effective Date Expirati on Date Source [employer] [id number] 2022 00:00:00 Problems Condition Name Condition Details Condition Category Status Onset Date Resolution Date Last Treatment Date Treating Clinician Comments Source Finger pain, right Finger pain, right Disease Active 2021-10 00:00: 00 [facility] Finger stiffness, right Finger stiffness, right Disease Active 2021-10 00:00: 00 [facility] Obesity (BMI 30-39.9) Obesity (BMI 30-39.9) Disease Active 2021-10 00:00: 00 [facility] 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 Disease Active 2021-10 00:00: 00 [facility] Essential hypertensi on Essential hypertensi on Disease Active 2021-10 00:00: 00 [facility] Hyperlipid emia Hyperlipid emia Disease Active 2021-10 00:00: 00 [facility] Restless leg syndrome Restless leg syndrome Disease Active 2021-10 00:00: 00 [facility] Encounter for routine history and physical exam for male Encounter for routine history and physical exam for male Disease Active 02-12 00:00: 00 [facility] Type 2 diabetes mellitus without complicati on, with long-term current use of insulin Type 2 diabetes mellitus without complicati on, with long-term current use of insulin Disease Active 12-01 00:00: 00 Overview: Formattin g of this note might be different from the original. 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 [facility] acute hospital Yeast infection Yeast infection Disease Active 12-01 00:00: 00 [facility] Allergies, Adverse Reactions, Alerts Allergy Name Allergy Type Status Severity Reaction(s) Onset Date Inactive Date Treating Clinician Comments Source Penicill ins Propensi ty to adverse reaction s Active Rash 11-22 00:00: 00 [facility] acute [facility] PENICILL INS Drug Class Active Rash 11-22 00:00: 00 [facility] Penicill ins Propensi ty to adverse reaction s Active Rash 11-22 00:00: 00 [facility] Social History Social Habit Start Date Stop Date Quantity Comments Source History of tobacco use Cigarette Smoker [facility] Exposure to SARS-CoV-2 (event) 2022-10-28 00:00:00 2022-11-07 08:30:00 Unable to assess [facility] Tobacco use and exposure 2022-10-08 00:00:00 2022-10-08 00:00:00 Smokeless tobacco non-user [facility] Alcohol intake 2022-10-08 00:00:00 2022-10-08 00:00:00 Current drinker of alcohol (finding) [facility] Tobacco Comment 2022-10-08 00:00:00 2022-10-08 00:00:00 smokes 1 pack per week [facility] Alcohol Comment 2014-02-22 00:00:00 2014-02-22 00:00:00 Currently uses alcohol only occasionally. 4 years ago he drank 24 beers daily for 4-5 months. [facility] Sex Assigned At 1980 00:00:00 1980 00:00:00 [facility] Smoking Status Start Date Stop Date Source Ex-smoker 2022-10-08 00:00:00 2022-10-08 00:00:00 [facility] Occasional tobacco smoker 2014-02-22 00:00:00 [facility] Medications Ordered Medication Name Filled Medication Name Start Date Stop Date Current Medication? Ordering Clinician Indication Dosage Frequency Signature (SIG) Comments Components Source gabapentin 600 mg tablet 2021-10 00:00: 00 Yes 600mg Take 600 mg by mouth at bedtime. [facility] gabapentin 600 mg tablet 2021-10 00:00: 00 Yes 600mg Take 600 mg by mouth at bedtime. [facility] gabapentin 600 mg tablet 2021-10 00:00: 00 Yes 600mg Take 600 mg by mouth at bedtime. [facility] MOUNJARO 2.5 mg/0.5 mL PnIj 2021-10 00:00: 00 Yes INJECT 2.5 MG SUBCUTANEO USLY ONCE A WEEK FOR 4 WEEKS [facility] hospital MOUNJARO 2.5 mg/0.5 mL PnIj 2021-10 00:00: 00 Yes INJECT 2.5 MG SUBCUTANEO USLY ONCE A WEEK FOR 4 WEEKS [facility] MOUNJARO 2.5 mg/0.5 mL PnIj 2021-10 00:00: 00 Yes INJECT 2.5 MG SUBCUTANEO USLY ONCE A WEEK FOR 4 WEEKS [facility] mupirocin 2 % ointment 2021-10 00:00: 00 10-03 05:59 :00 No [id number] Apply to area(s) 3 (three) times daily for 21 days. [facility] mupirocin 2 % ointment 2021-10 00:00: 00 10-03 05:59 :00 No [id number] Apply to area(s) 3 (three) times daily for 21 days. [facility] mupirocin 2 % ointment 2021-10 00:00: 00 10-03 05:59 :00 No [id number] Apply to area(s) 3 (three) times daily for 21 days. [facility] losartan 50 mg tablet 2021-10 00:00: 00 Yes 50mg Take 1 tablet by mouth in the morning. [facility] polyethylen e glycol 3350 17 gram powder 2021-10 00:00: 00 Yes [id number] 17g Take 1 Packet by mouth in the morning. [facility] sennosides 8.6 mg tablet 2021-10 00:00: 00 Yes [id number] 8.6mg Take 1 tablet by mouth in the morning. [facility] losartan 50 mg tablet 2021-10 00:00: 00 Yes 50mg Take 1 tablet by mouth in the morning. [facility] polyethylen e glycol 3350 17 gram powder 2021-10 00:00: 00 Yes [id number] 17g Take 1 Packet by mouth in the morning. [facility] sennosides 8.6 mg tablet 2021-10 00:00: 00 Yes [id number] 8.6mg Take 1 tablet by mouth in the morning. [facility] losartan 50 mg tablet 2021-10 00:00: 00 Yes 50mg Take 1 tablet by mouth in the morning. [facility] polyethylen e glycol 3350 17 gram powder 2021-10 00:00: 00 Yes [id number] 17g Take 1 Packet by mouth in the morning. [facility] sennosides 8.6 mg tablet 2021-10 00:00: 00 Yes [id number] 8.6mg Take 1 tablet by mouth in the morning. [facility] losartan 50 mg tablet 2021-10 00:00: 00 Yes 50mg Take 1 tablet by mouth in the morning. [facility] polyethylen e glycol 3350 17 gram powder 2021-10 00:00: 00 Yes [id number] 17g Take 1 Packet by mouth in the morning. [facility] sennosides 8.6 mg tablet 2021-10 00:00: 00 Yes [id number] 8.6mg Take 1 tablet by mouth in the morning. [facility] losartan 50 mg tablet 2021-10 00:00: 00 Yes 50mg Take 1 tablet by mouth in the morning. [facility] polyethylen e glycol 3350 17 gram powder 2021-10 00:00: 00 Yes [id number] 17g Take 1 Packet by mouth in the morning. [facility] sennosides 8.6 mg tablet 2021-10 00:00: 00 Yes [id number] 8.6mg Take 1 tablet by mouth in the morning. [facility] losartan 50 mg tablet 2021-10 00:00: 00 Yes 50mg Take 1 tablet by mouth in the morning. [facility] polyethylen e glycol 3350 17 gram powder 2021-10 00:00: 00 Yes [id number] 17g Take 1 Packet by mouth in the morning. [facility] sennosides 8.6 mg tablet 2021-10 00:00: 00 Yes [id number] 8.6mg Take 1 tablet by mouth in the morning. [facility] losartan 50 mg tablet 2021-10 00:00: 00 Yes 50mg Take 1 tablet by mouth in the morning. [facility] polyethylen e glycol 3350 17 gram powder 2021-10 00:00: 00 Yes [id number] 17g Take 1 Packet by mouth in the morning. [facility] sennosides 8.6 mg tablet 2021-10 00:00: 00 Yes [id number] 8.6mg Take 1 tablet by mouth in the morning. [facility] losartan 50 mg tablet 2021-10 00:00: 00 Yes 50mg Take 1 tablet by mouth in the morning. [facility] polyethylen e glycol 3350 17 gram powder 2021-10 00:00: 00 Yes [id number] 17g Take 1 Packet by mouth in the morning. [facility] sennosides 8.6 mg tablet 2021-10 00:00: 00 Yes [id number] 8.6mg Take 1 tablet by mouth in the morning. [facility] losartan 50 mg tablet 2021-10 00:00: 00 Yes 50mg Take 1 tablet by mouth in the morning. [facility] polyethylen e glycol 3350 17 gram powder 2021-10 00:00: 00 Yes [id number] 17g Take 1 Packet by mouth in the morning. [facility] sennosides 8.6 mg tablet 2021-10 00:00: 00 Yes [id number] 8.6mg Take 1 tablet by mouth in the morning. [facility] losartan 50 mg tablet 2021-10 00:00: 00 Yes 50mg Take 1 tablet by mouth in the morning. [facility] polyethylen e glycol 3350 17 gram powder 2021-10 00:00: 00 Yes [id number] 17g Take 1 Packet by mouth in the morning. [facility] sennosides 8.6 mg tablet 2021-10 00:00: 00 Yes [id number] 8.6mg Take 1 tablet by mouth in the morning. [facility] losartan 50 mg tablet 2021-10 00:00: 00 Yes 50mg Take 1 tablet by mouth in the morning. [facility] polyethylen e glycol 3350 17 gram powder 2021-10 00:00: 00 Yes [id number] 17g Take 1 Packet by mouth in the morning. [facility] sennosides 8.6 mg tablet 2021-10 00:00: 00 Yes [id number] 8.6mg Take 1 tablet by mouth in the morning. [facility] losartan 50 mg tablet 2021-10 00:00: 00 Yes 50mg Take 1 tablet by mouth in the morning. [facility] polyethylen e glycol 3350 17 gram powder 2021-10 00:00: 00 Yes [id number] 17g Take 1 Packet by mouth in the morning. [facility] sennosides 8.6 mg tablet 2021-10 00:00: 00 Yes [id number] 8.6mg Take 1 tablet by mouth in the morning. [facility] losartan 50 mg tablet 2021-10 00:00: 00 Yes 50mg Take 1 tablet by mouth in the morning. [facility] polyethylen e glycol 3350 17 gram powder 2021-10 00:00: 00 Yes [id number] 17g Take 1 Packet by mouth in the morning. [facility] sennosides 8.6 mg tablet 2021-10 00:00: 00 Yes [id number] 8.6mg Take 1 tablet by mouth in the morning. [facility] losartan 50 mg tablet 2021-10 00:00: 00 Yes 50mg Take 1 tablet by mouth in the morning. [facility] polyethylen e glycol 3350 17 gram powder 2021-10 00:00: 00 Yes [id number] 17g Take 1 Packet by mouth in the morning. [facility] sennosides 8.6 mg tablet 2021-10 00:00: 00 Yes [id number] 8.6mg Take 1 tablet by mouth in the morning. [facility] losartan 50 mg tablet 2021-10 00:00: 00 Yes 50mg Take 1 tablet by mouth in the morning. [facility] polyethylen e glycol 3350 17 gram powder 2021-10 00:00: 00 Yes [id number] 17g Take 1 Packet by mouth in the morning. [facility] sennosides 8.6 mg tablet 2021-10 00:00: 00 Yes [id number] 8.6mg Take 1 tablet by mouth in the morning. [facility] sennosides (SENOKOT) tablet 8.6 mg 2021-10 15:00: 00 Yes 8.6mg 8.6 mg, Oral, DAILY, First dose on Fri09/04/22 at 0900, Until Discontinu ed, Routine [facility] polyethylen e glycol 3350 powder 17 g 2021-10 15:00: 00 Yes 17g 17 g, Oral, DAILY, First dose on Fri09/04/22 at 0900, Until Discontinu ed, Routine [facility] sennosides (SENOKOT) tablet 8.6 mg 2021-10 15:00: 00 Yes 8.6mg 8.6 mg, Oral, DAILY, First dose on Fri09/04/22 at 0900, Until Discontinu ed, Routine [facility] polyethylen e glycol 3350 powder 17 g 2021-10 15:00: 00 Yes 17g 17 g, Oral, DAILY, First dose on Fri09/04/22 at 0900, Until Discontinu ed, Routine [facility] morpHINE (2 mg/mL) injection 4 mg 2021-10 13:57: 04 Yes 4mg 4 mg, Slow IV Push, Q4HPRN, Starting on Fri09/04/22 at 0757, Until Discontinu ed, Routine, Pain (scale 7-10) [facility] morpHINE (2 mg/mL) injection 4 mg 2021-10 13:57: 04 Yes 4mg 4 mg, Slow IV Push, Q4HPRN, Starting on Fri09/04/22 at 0757, Until Discontinu ed, Routine, Pain (scale 7-10) [facility] HYDROcodone -acetaminop hen (NORCO) 10-325 mg tablet 1 tablet 2021-10 10:51: 25 Yes 1{tbl} 1 tablet, Oral, Q6HPRN, Starting on Fri09/04/22 at 0451, Until Discontinu ed, Routine, Pain (scale 4-6) [facility] HYDROcodone -acetaminop hen (NORCO) 10-325 mg tablet 1 tablet 2021-10 10:51: 25 Yes 1{tbl} 1 tablet, Oral, Q6HPRN, Starting on Fri09/04/22 at 0451, Until Discontinu ed, Routine, Pain (scale 4-6) [facility] morpHINE (2 mg/mL) injection 2 mg 2021-10 10:51: 13 09-04 13:57 :36 No 2mg 2 mg, Slow IV Push, Q4HPRN, Starting on Fri09/04/22 at 0451, Until Fri09/04/22 at 0757, Routine, Pain (scale 7-10) [facility] HYDROcodone -acetaminop hen (NORCO) 10-325 mg tablet 1 tablet 2021-10 08:39: 28 09-04 10:51 :33 No 1{tbl} 1 tablet, Oral, Q6HPRN, Starting on Fri09/04/22 at 0239, Until Fri09/04/22 at 0451, Routine, Pain (scale 7-10) [facility] gabapentin 100 mg capsule 2021-10 00:00: 00 Yes [id number] 300mg Take 3 capsules by mouth at bedtime. [facility] ibuprofen 600 mg tablet 2021-10 00:00: 00 Yes [id number] 600mg Take 1 tablet by mouth every 6 (six) hours as needed for Pain (scale 1-3). [facility]PH and regular human 70-30 100 unit/mL (70-30) injection 2021-10 00:00: 00 Yes 40U inject 40 Units under the skin every morning. [facility] NPH and regular human 70-30 100 unit/mL (70-30) injection 2021-10 00:00: 00 Yes 20U inject 20 Units under the skin every evening. [facility] metFORMIN 500 mg tablet 2021-10 00:00: 00 Yes 500mg Take 1 tablet by mouth in the morning and 1 tablet in the evening. Take with meals. [facility] semaglutide (OZEMPIC) 0.25 mg or 0.5 mg(2 mg/1.5 mL) PnIj 2021-10 00:00: 00 Yes .25mg inject 0.25 mg under the skin. [facility] gabapentin 100 mg capsule 2021-10 00:00: 00 Yes [id number] 300mg Take 3 capsules by mouth at bedtime. [facility] ibuprofen 600 mg tablet 2021-10 00:00: 00 Yes [id number] 600mg Take 1 tablet by mouth every 6 (six) hours as needed for Pain (scale 1-3). [facility]PH and regular human 70-30 100 unit/mL (70-30) injection 2021-10 00:00: 00 Yes 40U inject 40 Units under the skin every morning. [facility] NPH and regular human 70-30 100 unit/mL (70-30) injection 2021-10 00:00: 00 Yes 20U inject 20 Units under the skin every evening. [facility] metFORMIN 500 mg tablet 2021-10 00:00: 00 Yes 500mg Take 1 tablet by mouth in the morning and 1 tablet in the evening. Take with meals. [facility] semaglutide (OZEMPIC) 0.25 mg or 0.5 mg(2 mg/1.5 mL) PnIj 2021-10 00:00: 00 Yes .25mg inject 0.25 mg under the skin. [facility] gabapentin 100 mg capsule 2021-10 00:00: 00 Yes [id number] 300mg Take 3 capsules by mouth at bedtime. [facility] ibuprofen 600 mg tablet 2021-10 00:00: 00 Yes [id number] 600mg Take 1 tablet by mouth every 6 (six) hours as needed for Pain (scale 1-3). [facility] insulin NPH and regular human 70-30 100 unit/mL (70-30) injection 2021-10 00:00: 00 Yes 40U inject 40 Units under the skin every morning. [facility] insulin NPH and regular human 70-30 100 unit/mL (70-30) injection 2021-10 00:00: 00 Yes 20U inject 20 Units under the skin every evening. [facility] metFORMIN 500 mg tablet 2021-10 00:00: 00 Yes 500mg Take 1 tablet by mouth in the morning and 1 tablet in the evening. Take with meals. [facility] semaglutide (OZEMPIC) 0.25 mg or 0.5 mg(2 mg/1.5 mL) PnIj 2021-10 00:00: 00 Yes .25mg inject 0.25 mg under the skin. [facility] gabapentin 100 mg capsule 2021-10 00:00: 00 Yes [id number] 300mg Take 3 capsules by mouth at bedtime. [facility] ibuprofen 600 mg tablet 2021-10 00:00: 00 Yes [id number] 600mg Take 1 tablet by mouth every 6 (six) hours as needed for Pain (scale 1-3). [facility] NPH and regular human 70-30 100 unit/mL (70-30) injection 2021-10 00:00: 00 Yes 40U inject 40 Units under the skin every morning. [facility] NPH and regular human 70-30 100 unit/mL (70-30) injection 2021-10 00:00: 00 Yes 20U inject 20 Units under the skin every evening. [facility] metFORMIN 500 mg tablet 2021-10 00:00: 00 Yes 500mg Take 1 tablet by mouth in the morning and 1 tablet in the evening. Take with meals. [facility] semaglutide (OZEMPIC) 0.25 mg or 0.5 mg(2 mg/1.5 mL) PnIj 2021-10 00:00: 00 Yes .25mg inject 0.25 mg under the skin. [facility] gabapentin 100 mg capsule 2021-10 00:00: 00 Yes [id number] 300mg Take 3 capsules by mouth at bedtime. [facility] ibuprofen 600 mg tablet 2021-10 00:00: 00 Yes [id number] 600mg Take 1 tablet by mouth every 6 (six) hours as needed for Pain (scale 1-3). [facility] insulin NPH and regular human 70-30 100 unit/mL (70-30) injection 2021-10 00:00: 00 Yes 40U inject 40 Units under the skin every morning. [facility] insulin NPH and regular human 70-30 100 unit/mL (70-30) injection 2021-10 00:00: 00 Yes 20U inject 20 Units under the skin every evening. [facility] metFORMIN 500 mg tablet 2021-10 00:00: 00 Yes 500mg Take 1 tablet by mouth in the morning and 1 tablet in the evening. Take with meals. [facility] semaglutide (OZEMPIC) 0.25 mg or 0.5 mg(2 mg/1.5 mL) PnIj 2021-10 00:00: 00 Yes .25mg inject 0.25 mg under the skin. [facility] gabapentin 100 mg capsule 2021-10 00:00: 00 Yes [id number] 300mg Take 3 capsules by mouth at bedtime. [facility] ibuprofen 600 mg tablet 2021-10 00:00: 00 Yes [id number] 600mg Take 1 tablet by mouth every 6 (six) hours as needed for Pain (scale 1-3). [facility] insulin NPH and regular human 70-30 100 unit/mL (70-30) injection 2021-10 00:00: 00 Yes 40U inject 40 Units under the skin every morning. [facility] insulin NPH and regular human 70-30 100 unit/mL (70-30) injection 2021-10 00:00: 00 Yes 20U inject 20 Units under the skin every evening. [facility] metFORMIN 500 mg tablet 2021-10 00:00: 00 Yes 500mg Take 1 tablet by mouth in the morning and 1 tablet in the evening. Take with meals. [facility] semaglutide (OZEMPIC) 0.25 mg or 0.5 mg(2 mg/1.5 mL) [facility] 2021-10 00:00: 00 Yes .25mg inject 0.25 mg under the skin. [facility] gabapentin 100 mg capsule 2021-10 00:00: 00 Yes [id number] 300mg Take 3 capsules by mouth at bedtime. [facility] ibuprofen 600 mg tablet 2021-10 00:00: 00 Yes [id number] 600mg Take 1 tablet by mouth every 6 (six) hours as needed for Pain (scale 1-3). [facility] insulin NPH and regular human 70-30 100 unit/mL (70-30) injection 2021-10 00:00: 00 Yes 40U inject 40 Units under the skin every morning. [facility] insulin NPH and regular human 70-30 100 unit/mL (70-30) injection 2021-10 00:00: 00 Yes 20U inject 20 Units under the skin every evening. [facility] metFORMIN 500 mg tablet 2021-10 00:00: 00 Yes 500mg Take 1 tablet by mouth in the morning and 1 tablet in the evening. Take with meals. [facility] semaglutide (OZEMPIC) 0.25 mg or 0.5 mg(2 mg/1.5 mL) PnIj 2021-10 00:00: 00 Yes .25mg inject 0.25 mg under the skin. [facility] polyethylen e glycol 3350 17 gram/dose powder 2021-10 00:00: 00 Yes MIX 17 GRAMS OF POWDER IN WATER OR JUICE ONCE DAILY IN THE MORNING [facility] gabapentin 100 mg capsule 2021-10 00:00: 00 Yes [id number] 300mg Take 3 capsules by mouth at bedtime. [facility] ibuprofen 600 mg tablet 2021-10 00:00: 00 Yes [id number] 600mg Take 1 tablet by mouth every 6 (six) hours as needed for Pain (scale 1-3). [facility] insulin NPH and regular human 70-30 100 unit/mL (70-30) injection 2021-10 00:00: 00 Yes 40U inject 40 Units under the skin every morning. [facility] insulin NPH and regular human 70-30 100 unit/mL (70-30) injection 2021-10 00:00: 00 Yes 20U inject 20 Units under the skin every evening. [facility] metFORMIN 500 mg tablet 2021-10 00:00: 00 Yes 500mg Take 1 tablet by mouth in the morning and 1 tablet in the evening. Take with meals. [facility] semaglutide (OZEMPIC) 0.25 mg or 0.5 mg(2 mg/1.5 mL) Ij 2021-10 00:00: 00 Yes .25mg inject 0.25 mg under the skin. [facility] polyethylen e glycol 3350 17 gram/dose powder 2021-10 00:00: 00 Yes MIX 17 GRAMS OF POWDER IN WATER OR JUICE ONCE DAILY IN THE MORNING [facility] gabapentin 100 mg capsule 2021-10 00:00: 00 Yes [id number] 300mg Take 3 capsules by mouth at bedtime. [facility] ibuprofen 600 mg tablet 2021-10 00:00: 00 Yes [id number] 600mg Take 1 tablet by mouth every 6 (six) hours as needed for Pain (scale 1-3). [facility] insulin NPH and regular human 70-30 100 unit/mL (70-30) injection 2021-10 00:00: 00 Yes 40U inject 40 Units under the skin every morning. [facility] insulin NPH and regular human 70-30 100 unit/mL (70-30) injection 2021-10 00:00: 00 Yes 20U inject 20 Units under the skin every evening. [facility] metFORMIN 500 mg tablet 2021-10 00:00: 00 Yes 500mg Take 1 tablet by mouth in the morning and 1 tablet in the evening. Take with meals. [facility] semaglutide (OZEMPIC) 0.25 mg or 0.5 mg(2 mg/1.5 mL) PnIj 2021-10 00:00: 00 Yes .25mg inject 0.25 mg under the skin. [facility] polyethylen e glycol 3350 17 gram/dose powder 2021-10 00:00: 00 Yes MIX 17 GRAMS OF POWDER IN WATER OR JUICE ONCE DAILY IN THE MORNING [facility] gabapentin 100 mg capsule 2021-10 00:00: 00 Yes [id number] 300mg Take 3 capsules by mouth at bedtime. [facility] ibuprofen 600 mg tablet 2021-10 00:00: 00 Yes [id number] 600mg Take 1 tablet by mouth every 6 (six) hours as needed for Pain (scale 1-3). [facility] insulin NPH and regular human 70-30 100 unit/mL (70-30) injection 2021-10 00:00: 00 Yes 40U inject 40 Units under the skin every morning. [facility] insulin NPH and regular human 70-30 100 unit/mL (70-30) injection 2021-10 00:00: 00 Yes 20U inject 20 Units under the skin every evening. [facility] metFORMIN 500 mg tablet 2021-10 00:00: 00 Yes 500mg Take 1 tablet by mouth in the morning and 1 tablet in the evening. Take with meals. [facility] semaglutide (OZEMPIC) 0.25 mg or 0.5 mg(2 mg/1.5 mL) PnIj 2021-10 00:00: 00 Yes .25mg inject 0.25 mg under the skin. [facility] polyethylen e glycol 3350 17 gram/dose powder 2021-10 00:00: 00 Yes MIX 17 GRAMS OF POWDER IN WATER OR JUICE ONCE DAILY IN THE MORNING [facility] gabapentin 100 mg capsule 2021-10 00:00: 00 Yes [id number] 300mg Take 3 capsules by mouth at bedtime. [facility] ibuprofen 600 mg tablet 2021-10 00:00: 00 Yes [id number] 600mg Take 1 tablet by mouth every 6 (six) hours as needed for Pain (scale 1-3). [facility] insulin NPH and regular human 70-30 100 unit/mL (70-30) injection 2021-10 00:00: 00 Yes 40U inject 40 Units under the skin every morning. [facility] insulin NPH and regular human 70-30 100 unit/mL (70-30) injection 2021-10 00:00: 00 Yes 20U inject 20 Units under the skin every evening. [facility] metFORMIN 500 mg tablet 2021-10 00:00: 00 Yes 500mg Take 1 tablet by mouth in the morning and 1 tablet in the evening. Take with meals. [facility] semaglutide (OZEMPIC) 0.25 mg or 0.5 mg(2 mg/1.5 mL) PnIj 2021-10 00:00: 00 Yes .25mg inject 0.25 mg under the skin. [facility] polyethylen e glycol 3350 17 gram/dose powder 2021-10 00:00: 00 Yes MIX 17 GRAMS OF POWDER IN WATER OR JUICE ONCE DAILY IN THE MORNING [facility] ibuprofen 600 mg tablet 2021-10 00:00: 00 Yes [id number] 600mg Take 1 tablet by mouth every 6 (six) hours as needed for Pain (scale 1-3). [facility] and regular human 70-30 100 unit/mL (70-30) injection 2021-10 00:00: 00 Yes 40U inject 40 Units under the skin every morning. [facility] NPH and regular human 70-30 100 unit/mL (70-30) injection 2021-10 00:00: 00 Yes 20U inject 20 Units under the skin every evening. [facility] metFORMIN 500 mg tablet 2021-10 00:00: 00 Yes 500mg Take 1 tablet by mouth in the morning and 1 tablet in the evening. Take with meals. [facility] semaglutide (OZEMPIC) 0.25 mg or 0.5 mg(2 mg/1.5 mL) PnIj 2021-10 00:00: 00 Yes .25mg inject 0.25 mg under the skin. [facility] polyethylen e glycol 3350 17 gram/dose powder 2021-10 00:00: 00 Yes MIX 17 GRAMS OF POWDER IN WATER OR JUICE ONCE DAILY IN THE MORNING [facility] ibuprofen 600 mg tablet 2021-10 00:00: 00 Yes [id number] 600mg Take 1 tablet by mouth every 6 (six) hours as needed for Pain (scale 1-3). [facility] insulin NPH and regular human 70-30 100 unit/mL (70-30) injection 2021-10 00:00: 00 Yes 40U inject 40 Units under the skin every morning. [facility] insulin NPH and regular human 70-30 100 unit/mL (70-30) injection 2021-10 00:00: 00 Yes 20U inject 20 Units under the skin every evening. [facility] metFORMIN 500 mg tablet 2021-10 00:00: 00 Yes 500mg Take 1 tablet by mouth in the morning and 1 tablet in the evening. Take with meals. [facility] semaglutide (OZEMPIC) 0.25 mg or 0.5 mg(2 mg/1.5 mL) PnIj 2021-10 00:00: 00 Yes .25mg inject 0.25 mg under the skin. [facility] polyethylen e glycol 3350 17 gram/dose powder 2021-10 00:00: 00 Yes MIX 17 GRAMS OF POWDER IN WATER OR JUICE ONCE DAILY IN THE MORNING [facility] ibuprofen 600 mg tablet 2021-10 00:00: 00 Yes [id number] 600mg Take 1 tablet by mouth every 6 (six) hours as needed for Pain (scale 1-3). [facility] insulin NPH and regular human 70-30 100 unit/mL (70-30) injection 2021-10 00:00: 00 Yes 40U inject 40 Units under the skin every morning. [facility] insulin NPH and regular human 70-30 100 unit/mL (70-30) injection 2021-10 00:00: 00 Yes 20U inject 20 Units under the skin every evening. [facility] metFORMIN 500 mg tablet 2021-10 00:00: 00 Yes 500mg Take 1 tablet by mouth in the morning and 1 tablet in the evening. Take with meals. [facility] semaglutide (OZEMPIC) 0.25 mg or 0.5 mg(2 mg/1.5 mL) PnIj 2021-10 00:00: 00 Yes .25mg inject 0.25 mg under the skin. [facility] polyethylen e glycol 3350 17 gram/dose powder 2021-10 00:00: 00 Yes MIX 17 GRAMS OF POWDER IN WATER OR JUICE ONCE DAILY IN THE MORNING [facility] gabapentin 100 mg capsule 2021-10 00:00: 00 Yes [id number] 300mg Take 3 capsules by mouth at bedtime. [facility] ibuprofen 600 mg tablet 2021-10 00:00: 00 Yes [id number] 600mg Take 1 tablet by mouth every 6 (six) hours as needed for Pain (scale 1-3). [facility] insulin NPH and regular human 70-30 100 unit/mL (70-30) injection 2021-10 00:00: 00 Yes 40U inject 40 Units under the skin every morning. [facility] insulin NPH and regular human 70-30 100 unit/mL (70-30) injection 2021-10 00:00: 00 Yes 20U inject 20 Units under the skin every evening. [facility] metFORMIN 500 mg tablet 2021-10 00:00: 00 Yes 500mg Take 1 tablet by mouth in the morning and 1 tablet in the evening. Take with meals. [facility] semaglutide (OZEMPIC) 0.25 mg or 0.5 mg(2 mg/1.5 mL) PnIj 2021-10 00:00: 00 Yes .25mg inject 0.25 mg under the skin. [facility] gabapentin 100 mg capsule 2021-10 00:00: 00 10-08 00:00 :00 No [id number] 300mg Take 3 capsules by mouth at bedtime. [facility] gabapentin 100 mg capsule 2021-10 00:00: 00 10-08 00:00 :00 No [id number] 300mg Take 3 capsules by mouth at bedtime. [facility] HYDROcodone -acetaminop hen 10-325 mg tablet 2021-10 00:00: 00 09-12 05:59 :00 No 4647 1{tbl} Take 1 tablet by mouth every 6 (six) hours as needed for Pain (scale 4-6) for up to 7 days. Indication s: acute pain [facility] HYDROcodone -acetaminop hen 10-325 mg tablet 2021-10 00:00: 00 09-12 05:59 :00 No 4647 1{tbl} Take 1 tablet by mouth every 6 (six) hours as needed for Pain (scale 4-6) for up to 7 days. Indication s: acute pain [facility] HYDROcodone -acetaminop hen 10-325 mg tablet 2021-10 00:00: 00 09-12 05:59 :00 No 4647 1{tbl} Take 1 tablet by mouth every 6 (six) hours as needed for Pain (scale 4-6) for up to 7 days. Indication s: acute pain [facility] HYDROcodone -acetaminop hen 10-325 mg tablet 2021-10 00:00: 00 09-12 05:59 :00 No 4647 1{tbl} Take 1 tablet by mouth every 6 (six) hours as needed for Pain (scale 4-6) for up to 7 days. Indication s: acute pain [facility] HYDROcodone -acetaminop hen 10-325 mg tablet 2021-10 00:00: 00 09-12 05:59 :00 No 4647 1{tbl} Take 1 tablet by mouth every 6 (six) hours as needed for Pain (scale 4-6) for up to 7 days. Indication s: acute pain [facility] HYDROcodone -acetaminop hen 10-325 mg tablet 2021-10 00:00: 00 09-12 05:59 :00 No 4647 1{tbl} Take 1 tablet by mouth every 6 (six) hours as needed for Pain (scale 4-6) for up to 7 days. Indication s: acute pain [facility] HYDROcodone -acetaminop hen 10-325 mg tablet 2021-10 00:00: 00 09-12 05:59 :00 No 4647 1{tbl} Take 1 tablet by mouth every 6 (six) hours as needed for Pain (scale 4-6) for up to 7 days. Indication s: acute pain [facility] HYDROcodone -acetaminop hen 10-325 mg tablet 2021-10 00:00: 00 09-12 05:59 :00 No 4647 1{tbl} Take 1 tablet by mouth every 6 (six) hours as needed for Pain (scale 4-6) for up to 7 days. [facility] -acetaminop hen 10-325 mg tablet 2021-10 00:00: 00 09-12 05:59 :00 No 4647 1{tbl} Take 1 tablet by mouth every 6 (six) hours as needed for Pain (scale 4-6) for up to 7 days. Indication s: acute pain [facility] HYDROcodone -acetaminop hen 10-325 mg tablet 2021-10 00:00: 00 09-12 05:59 :00 No 4647 1{tbl} Take 1 tablet by mouth every 6 (six) hours as needed for Pain (scale 4-6) for up to 7 days. Indication s: [facility] HYDR[facility]one -acetaminop hen 10-325 mg tablet 2021-10 00:00: 00 09-12 05:59 :00 No 4647 1{tbl} Take 1 tablet by mouth every 6 (six) hours as needed for Pain (scale 4-6) for up to 7 days. Indication s: acute pain [facility] ePHEDrine 25 mg/5 mL (5 mg/mL) syringe 2021-10 16:20: 00 09-03 16:46 :10 No Slow IV Push, ONCE INTRA PROCEDURE, Starting on Fri09/03/22 at 1020, Until Fri09/03/22 at 1046, Routine, Intra-op [facility] ePHEDrine 25 mg/5 mL (5 mg/mL) syringe 2021-10 16:20: 00 09-03 16:46 :10 No Slow IV Push, ONCE INTRA PROCEDURE, Starting on Fri09/03/22 at 1020, Until Fri09/03/22 at 1046, Routine, Intra-op [facility] lidocaine 1% (XYLOCAINE) 100 mg/10 mL (1 %) injection 2021-10 16:07: 00 09-03 16:46 :10 No Slow IV Push, ONCE INTRA PROCEDURE, Starting on Fri09/03/22 at 1007, Until Fri09/03/22 at 1046, Routine, Intra-op [facility] lidocaine 1% (XYLOCAINE) 100 mg/10 mL (1 %) injection 2021-10 16:07: 00 09-03 16:46 :10 No Slow IV Push, ONCE INTRA PROCEDURE, Starting on Fri09/03/22 at 1007, Until Fri09/03/22 at 1046, Routine, Intra-op [facility] PHENYLephri ne 1000 mcg/10 mL in 0.9% NaCl syringe 2021-10 16:06: 00 09-03 16:46 :10 No Slow IV Push, ONCE INTRA PROCEDURE, Starting on Fri09/03/22 at 1006, Until Fri09/03/22 at 1046, Routine, Intra-op [facility] PHENYLephri ne 1000 mcg/10 mL in 0.9% NaCl syringe 2021-10 16:06: 00 09-03 16:46 :10 No Slow IV Push, ONCE INTRA PROCEDURE, Starting on Fri09/03/22 at 1006, Until Fri09/03/22 at 1046, Routine, Intra-op [facility] bupivacaine -epinephrin e-pf (SENSORCAIN E W/EPINEPHRI NE) 0.5 %-1:200,000 5 mL, lidocaine 1% (PF) (XYLOCAINE) 5 mL 2021-10 16:00: 00 09-03 16:45 :29 No PRN, Starting on Fri09/03/22 at 1000, Intra-op [facility] ondansetron (ZOFRAN (PF)) injection 2021-10 15:57: 00 09-03 16:46 :10 No Slow IV Push, ONCE INTRA PROCEDURE, Starting on Fri09/03/22 at 0957, Until Fri09/03/22 at 1046, Routine, Intra-op [facility] ondansetron (ZOFRAN (PF)) injection 2021-10 15:57: 00 09-03 16:46 :10 No Slow IV Push, ONCE INTRA PROCEDURE, Starting on Fri09/03/22 at 0957, Until Fri09/03/22 at 1046, Routine, Intra-op [facility] insulin regular human (HUMULIN R) injection 2021-10 15:54: 00 09-03 16:46 :10 No Subcutaneo us, ONCE INTRA PROCEDURE, Starting on Fri09/03/22 at 0954, Until Fri09/03/22 at 1046, Routine, Intra-op [facility] insulin regular human (HUMULIN R) injection 2021-10 15:54: 00 09-03 16:46 :10 No Subcutaneo us, ONCE INTRA PROCEDURE, Starting on Fri09/03/22 at 0954, Until Fri09/03/22 at 1046, Routine, Intra-op [facility] propofoL IV infusion 2021-10 15:45: 00 09-03 16:46 :10 No IV Infusion, ONCE INTRA PROCEDURE, Starting on Fri09/03/22 at 0945, Until Fri09/03/22 at 1046, Routine, Intra-op [facility] FENTanyl PF (SUBLIMAZE (PF)) injection 2021-10 15:45: 00 09-03 16:46 :10 No Epidural, ONCE INTRA PROCEDURE, Starting on Fri09/03/22 at 0945, Until Fri09/03/22 at 1046, Routine, Intra-op [facility] propofoL IV infusion 2021-10 15:45: 00 09-03 16:46 :10 No IV Infusion, ONCE INTRA PROCEDURE, Starting on Fri09/03/22 at 0945, Until Fri09/03/22 at 1046, Routine, Intra-op [facility] FENTanyl PF (SUBLIMAZE (PF)) injection 2021-10 15:45: 00 09-03 16:46 :10 No Epidural, ONCE INTRA PROCEDURE, Starting on Fri09/03/22 at 0945, Until Fri09/03/22 at 1046, Routine, Intra-op [facility] midazolam (VERSED) injection 2021-10 15:36: 00 09-03 16:46 :10 No IV Push, ONCE INTRA PROCEDURE, Starting on Fri09/03/22 at 0936, Until Fri09/03/22 at 1046, Routine, Intra-op [facility] midazolam (VERSED) injection 2021-10 15:36: 00 09-03 16:46 :10 No IV Push, ONCE INTRA PROCEDURE, Starting on Fri09/03/22 at 0936, Until Fri09/03/22 at 1046, Routine, Intra-op [facility] lactated ringers IV infusion 2021-10 15:25: 00 09-03 16:46 :10 No IV Infusion, CONTINUOUS PRN, Starting on Fri09/03/22 at 0925, Until Fri09/03/22 at 1046, Routine, Intra-op [facility] lactated ringers IV infusion 2021-10 15:25: 00 09-03 16:46 :10 No IV Infusion, CONTINUOUS PRN, Starting on Fri09/03/22 at 0925, Until Fri09/03/22 at 1046, Routine, Intra-op [facility] insulin NPH and regular human 70-30 (70-30 U-100 INSULIN) 100 unit/mL (70-30) injection 20 Units 2021-10 23:00: 00 Yes 20U 20 Units, Subcutaneo us, QPM, First dose on Fri09/02/22 at 1700, Until Discontinu ed, Routine [facility] insulin NPH and regular human 70-30 (70-30 U-100 INSULIN) 100 unit/mL (70-30) injection 20 Units 2021-10 23:00: 00 Yes 20U 20 Units, Subcutaneo us, QPM, First dose on Fri09/02/22 at 1700, Until Discontinu ed, Routine [facility] losartan (COZAAR) tablet 50 mg 2021-10 15:00: 00 Yes 50mg 50 mg, Oral, DAILY, First dose on Fri09/02/22 at 0900, Until Discontinu ed, Routine [facility] insulin NPH and regular human 70-30 (70-30 U-100 INSULIN) 100 unit/mL (70-30) injection 40 Units 2021-10 15:00: 00 Yes 40U 40 Units, Subcutaneo us, QAM, First dose on Fri09/02/22 at 0900, Until Discontinu ed, Routine [facility] losartan (COZAAR) tablet 50 mg 2021-10 15:00: 00 Yes 50mg 50 mg, Oral, DAILY, First dose on Fri09/02/22 at 0900, Until Discontinu ed, Routine [facility] insulin NPH and regular human 70-30 (70-30 U-100 INSULIN) 100 unit/mL (70-30) injection 40 Units 2021-10 15:00: 00 Yes 40U 40 Units, Subcutaneo us, QAM, First dose on Fri09/02/22 at 0900, Until Discontinu ed, Routine [facility] gabapentin (NEURONTIN) capsule 100 mg 2021-10 03:00: 00 Yes 100mg 100 mg, Oral, QHS, First dose on 09/01/22 at 2100, Until Discontinu ed, Routine [facility] Sliding Scale Insulin - Lispro (HumaLOG) + Fsbg Testing 2021-10 03:00: 00 Yes Subcutaneo us, TID MEALS+HS, First dose on 09/01/22 at 2100, Until Discontinu ed, Routine [facility] gabapentin (NEURONTIN) capsule 100 mg 2021-10 03:00: 00 Yes 100mg 100 mg, Oral, QHS, First dose on 09/01/22 at 2100, Until Discontinu ed, Routine [facility] Sliding Scale Insulin - Lispro (HumaLOG) + Fsbg Testing 2021-10 03:00: 00 Yes Subcutaneo us, TID MEALS+HS, First dose on 09/01/22 at 2100, Until Discontinu ed, Routine [facility] levoFLOXaci n in D5W (LEVAQUIN) [...] Tissue
Duration of Therapy: 7 days [facility] ibuprofen (IBU) tablet 600 mg 2021-10 01:45: 57 Yes 600mg 600 mg, Oral, Q6HPRN, Starting on 09/01/22 at 1945, Until Discontinu ed, Routine, Pain (scale 1-3) [facility] ibuprofen (IBU) tablet 600 mg 2021-10 01:45: 57 Yes 600mg 600 mg, Oral, Q6HPRN, Starting on 09/01/22 at 1945, Until Discontinu ed, Routine, Pain (scale 1-3) [facility] vancomycin (VANCOCIN) 1,500 mg in NaCl 0.9% [...] Tissue
Duration of Therapy: 7 days [facility] clindamycin in 5 % dextrose (CLEOCIN) [...]
Re stricted use approved by: ED PROVIDER [facility] acute [facility] ceFAZolin in 0.9% sodium chloride (ANCEF) 2 gram/100 mL RTU 2 g 2021-10 19:45: 00 09-01 21:41 :00 No 2000mg 2 g (2,000 mg), IV Piggyback, ONCE, 1 dose, On 09/01/22 at 1345, Administer over 30 Minutes, 100 mL
Reas on for Anti-Infec tive: Documented Infection< br>Documen aleida Infection Site: Skin / Soft Tissue
Duration of Therapy: 7 days [facility] acetaminoph en-codeine 300-30 mg tablet 2021-10 00:00: 00 Yes TAKE 2 TABLETS BY MOUTH EVERY 4 TO 6 HOURS FOR PAIN CONTROL [facility] acetaminoph en-codeine 300-30 mg tablet 2021-10 00:00: 00 Yes TAKE 2 TABLETS BY MOUTH EVERY 4 TO 6 HOURS FOR PAIN CONTROL [facility] acetaminoph en-codeine 300-30 mg tablet 2021-10 00:00: 00 Yes TAKE 2 TABLETS BY MOUTH EVERY 4 TO 6 HOURS FOR PAIN CONTROL [facility] acetaminoph en-codeine 300-30 mg tablet 2021-10 00:00: 00 Yes TAKE 2 TABLETS BY MOUTH EVERY 4 TO 6 HOURS FOR PAIN CONTROL [facility] acetaminoph en-codeine 300-30 mg tablet 2021-10 00:00: 00 Yes TAKE 2 TABLETS BY MOUTH EVERY 4 TO 6 HOURS FOR PAIN CONTROL [facility] acetaminoph en-codeine 300-30 mg tablet 2021-10 00:00: 00 Yes TAKE 2 TABLETS BY MOUTH EVERY 4 TO 6 HOURS FOR PAIN CONTROL [facility] acetaminoph en-codeine 300-30 mg tablet 2021-10 00:00: 00 Yes TAKE 2 TABLETS BY MOUTH EVERY 4 TO 6 HOURS FOR PAIN CONTROL [facility] acetaminoph en-codeine 300-30 mg tablet 2021-10 00:00: 00 Yes TAKE 2 TABLETS BY MOUTH EVERY 4 TO 6 HOURS FOR PAIN CONTROL [facility] doxycycline monohydrate 100 mg tablet 2021-10 00:00: 00 Yes TAKE 1 TABLET BY MOUTH EVERY 12 HOURS FOR 10 DAYS [facility] sulfamethox azole-trime thoprim 800-160 mg per tablet 2021-10 00:00: 00 Yes TAKE 1 TABLET BY MOUTH EVERY 12 HOURS FOR 10 DAYS [facility] doxycycline monohydrate 100 mg tablet 2021-10 00:00: 00 Yes TAKE 1 TABLET BY MOUTH EVERY 12 HOURS FOR 10 DAYS [facility] sulfamethox azole-trime thoprim 800-160 mg per tablet 2021-10 00:00: 00 Yes TAKE 1 TABLET BY MOUTH EVERY 12 HOURS FOR 10 DAYS [facility] doxycycline monohydrate 100 mg tablet 2021-10 00:00: 00 Yes TAKE 1 TABLET BY MOUTH EVERY 12 HOURS FOR 10 DAYS [facility] sulfamethox azole-trime thoprim 800-160 mg per tablet 2021-10 00:00: 00 Yes TAKE 1 TABLET BY MOUTH EVERY 12 HOURS FOR 10 DAYS [facility] doxycycline monohydrate 100 mg tablet 2021-10 00:00: 00 Yes TAKE 1 TABLET BY MOUTH EVERY 12 HOURS FOR 10 DAYS [facility] sulfamethox azole-trime thoprim 800-160 mg per tablet 2021-10 00:00: 00 Yes TAKE 1 TABLET BY MOUTH EVERY 12 HOURS FOR 10 DAYS [facility] doxycycline monohydrate 100 mg tablet 2021-10 00:00: 00 Yes TAKE 1 TABLET BY MOUTH EVERY 12 HOURS FOR 10 DAYS [facility] sulfamethox azole-trime thoprim 800-160 mg per tablet 2021-10 00:00: 00 Yes TAKE 1 TABLET BY MOUTH EVERY 12 HOURS FOR 10 DAYS [facility] doxycycline monohydrate 100 mg tablet 2021-10 00:00: 00 Yes TAKE 1 TABLET BY MOUTH EVERY 12 HOURS FOR 10 DAYS [facility] sulfamethox azole-trime thoprim 800-160 mg per tablet 2021-10 00:00: 00 Yes TAKE 1 TABLET BY MOUTH EVERY 12 HOURS FOR 10 DAYS [facility] doxycycline monohydrate 100 mg tablet 2021-10 00:00: 00 Yes TAKE 1 TABLET BY MOUTH EVERY 12 HOURS FOR 10 DAYS [facility] sulfamethox azole-trime thoprim 800-160 mg per tablet 2021-10 00:00: 00 Yes TAKE 1 TABLET BY MOUTH EVERY 12 HOURS FOR 10 DAYS [facility] doxycycline monohydrate 100 mg tablet 2021-10 00:00: 00 Yes TAKE 1 TABLET BY MOUTH EVERY 12 HOURS FOR 10 DAYS [facility] sulfamethox azole-trime thoprim 800-160 mg per tablet 2021-10 00:00: 00 Yes TAKE 1 TABLET BY MOUTH EVERY 12 HOURS FOR 10 DAYS [facility] sodium chloride 0.9 % irrigation solution 06-26 00:00: 00 Yes [facility] sodium chloride 0.9 % irrigation solution 0 06-26 00:00: 00 Yes [facility] sodium chloride 0.9 % irrigation solution 0 06-26 00:00: 00 Yes [facility] sodium chloride 0.9 % irrigation solution 0 06-26 00:00: 00 Yes [facility] sodium chloride 0.9 % irrigation solution 0 06-26 00:00: 00 Yes [facility] sodium chloride 0.9 % irrigation solution 0 06-26 00:00: 00 Yes [facility] sodium chloride 0.9 % irrigation solution 0 06-26 00:00: 00 Yes [facility] sodium chloride 0.9 % irrigation solution 0 06-26 00:00: 00 Yes [facility] atorvastati n 10 mg tablet 06-24 00:00: 00 Yes [facility] pantoprazol e 40 mg EC tablet 06-24 00:00: 00 Yes [facility] valsartan 160 mg tablet 2-0 -19 00:00: 00 Yes [facility] atorvastati n 10 mg tablet 2-0 -19 00:00: 00 Yes [facility] pantoprazol e 40 mg EC tablet 2-0 -19 00:00: 00 Yes [facility] valsartan 160 mg tablet 2-0 19 00:00: 00 Yes [facility] atorvastati n 10 mg tablet 2021-0 19 00:00: 00 Yes [facility] pantoprazol e 40 mg EC tablet 2-0 06-24 00:00: 00 Yes [facility] valsartan 160 mg tablet 2-0 06-24 00:00: 00 Yes [facility] atorvastati n 10 mg tablet 2021-0 06-24 00:00: 00 Yes [facility] pantoprazol e 40 mg EC tablet 2-0 06-24 00:00: 00 Yes [facility] valsartan 160 mg tablet 2-0 19 00:00: 00 Yes [facility] atorvastati n 10 mg tablet 2021-0 19 00:00: 00 Yes [facility] pantoprazol e 40 mg EC tablet 2-0 06-24 00:00: 00 Yes [facility] valsartan 160 mg tablet 2-0 -19 00:00: 00 Yes [facility] atorvastati n 10 mg tablet 2-0 -19 00:00: 00 Yes [facility] pantoprazol e 40 mg EC tablet 2-0 19 00:00: 00 Yes [facility] valsartan 160 mg tablet 2-0 - 00:00: 00 Yes [facility] atorvastati n 10 mg tablet 2-0 -19 00:00: 00 Yes [facility] pantoprazol e 40 mg EC tablet 2-0 19 00:00: 00 Yes [facility] valsartan 160 mg tablet 0 - 00:00: 00 Yes [facility] atorvastati n 10 mg tablet 0 19 00:00: 00 Yes [facility] pantoprazol e 40 mg EC tablet 0 - 00:00: 00 Yes [facility] valsartan 160 mg tablet 0 19 00:00: 00 Yes [facility] SANTYL 250 unit/gram ointment 2021-0 -15 00:00: 00 Yes [facility] SANTYL 250 unit/gram ointment 2021-0 -15 00:00: 00 Yes [facility] SANTYL 250 unit/gram ointment 2021-0 -15 00:00: 00 Yes [facility] SANTYL 250 unit/gram ointment 2021-0 -15 00:00: 00 Yes [facility] SANTYL 250 unit/gram ointment 2021-0 -15 00:00: 00 Yes [facility] SANTYL 250 unit/gram ointment 2021-0 -15 00:00: 00 Yes [facility] SANTYL 250 unit/gram ointment 2021-0 -15 00:00: 00 Yes [facility] SANTYL 250 unit/gram ointment 2021-0 -15 00:00: 00 Yes [facility] clotrimazol e 1 % topical cream 0 02-12 00:00: 00 Yes [id number] Apply to area(s) at bedtime. [facility] clotrimazol e 1 % topical cream 0 02-12 00:00: 00 Yes [id number] Apply to area(s) at bedtime. [facility] [facility] clotrimazol e 1 % topical cream 0 02-12 00:00: 00 Yes [id number] Apply to area(s) at bedtime. [facility] clotrimazol e 1 % topical cream 02-12 00:00: 00 09-04 00:00 :00 No [id number] Apply to area(s) at bedtime. General acute hospital clotrimazol e 1 % topical cream 2016-0 5- 00:00: 00 09-04 00:00 :00 No [id number] Apply to area(s) at bedtime. General acute hospital Vital Signs Vital Name Observation Time Observation Value Comments S aron Systolic blood pressure 2022-10-08 16:20:00 120 mm[Hg] [facility] Diastolic blood pressure 2022-10-08 16:20:00 80 mm[Hg] [facility] Heart rate 2022-10-08 16:20:00 83 /min Un[facility] Body temperature 2022-10-08 16:20:00 36.61 Susanne [facility] Body height 2022-10-08 16:20:00 167.6 cm [facility] Body weight 2022-10-08 16:20:00 97.977 kg [facility] BMI 2022-10-08 16:20:00 34.86 kg/m2 [facility] Oxygen saturation in Arterial blood by Pulse oximetry 2022-10-08 16:20:00 99 /min [facility] Systolic blood pressure 2022-09-10 17:16:00 136 mm[Hg] [facility] Diastolic blood pressure 2022-09-10 17:16:00 88 mm[Hg] [facility] Heart rate 2022-09-10 17:16:00 84 /min Unive [facility] Body temperature 2022-09-10 17:16:00 36 Susanne [facility] Body height 2022-09-10 17:16:00 167.6 cm [facility] Body weight 2022-09-10 17:16:00 98.884 kg [facility] BMI 2022-09-10 17:16:00 35.19 kg/m2 [facility] Oxygen saturation in Arterial blood by Pulse oximetry 2022-09-10 17:16:00 99 /min room air [facility] Systolic blood pressure 2022-09-04 21:34:00 160 mm[Hg] [facility] Diastolic blood pressure 2022-09-04 21:34:00 103 mm[Hg] [facility] Heart rate 2022-09-04 21:34:00 84 /[facility] Body temperature 2022-09-04 21:34:00 36.39 Susanne [facility] Respiratory rate 2022-09-04 21:34:00 19 /min [facility] Oxygen saturation in Arterial blood by Pulse oximetry 2022-09-04 21:34:00 97 /min [facility] Body height 2022-09-01 18:37:00 167.6 cm [facility] Body weight 2022-09-01 18:37:00 95.255 kg [facility] BMI 2022-09-01 18:37:00 33.89 kg/m2 [facility] Systolic blood pressure 2022-09-03 17:00:00 132 mm[Hg] [facility] Diastolic blood pressure 2022-09-03 17:00:00 85 mm[Hg] [facility] Respiratory rate 2022-09-03 17:00:00 20 /min [facility] Heart rate 2022-09-03 16:46:00 92 /min [facility] Body temperature 2022-09-03 16:46:00 36.39 Susanne [facility] Oxygen saturation in Arterial blood by Pulse oximetry 2022-09-03 16:46:00 98 /min [facility] Body height 2022-09-01 18:37:00 167.6 cm [facility] Body weight 2022-09-01 18:37:00 95.255 kg [facility] BMI 2022-09-01 18:37:00 33.89 kg/m2 [facility] Procedures Procedure Date / Time Performed Performing Clinician Source ASSIGNMENT OF BENEFITS 2022-09-10 17:02:20 Docto r Unassigned, [place] [facility] CONSENT/REFUSAL FOR DIAGNOSIS AND TREATMENT 2022-09-10 17:02:01 Doctor Unassigned, [place] [facility] POCT GLUCOSE (AUTOMATED) 2022-09-04 18:11:00 Edilberto Mims [facility] POCT GLUCOSE (AUTOMATED) 2022-09-04 18:11:00 Edilberto Mims [facility] POCT GLUCOSE (AUTOMATED) 2022-09-04 15:13:00 Edilberto Mims [facility] POCT GLUCOSE (AUTOMATED) 2022-09-04 15:13:00 Edilberto Mims [facility] CBC WITH DIFF 2022-09-04 11:05:00 Isabela Jackman [facility] acute hospital EXTRA TUBE LT. GREEN 2022-09-04 11:05:00 Roger Mims [facility] CBC WITH DIFF 2022-09-04 11:05:00 Isabela Jackman [facility] acute hospital EXTRA TUBE LT. GREEN 2022-09-04 11:05:00 Roger Mims [facility] POCT GLUCOSE (AUTOMATED) 2022-09-04 03:47:[facility] 2022-09-04 03:47:00 [facility] 2022-09-03 23:00:00 [facility]ATED) 2022-09-03 23:00:00 [facility] ([facility]ATED) 2022-09-03 17:39:00 [facility]) 2022-09-03 17:39:00 [facility] ASPIRATE OR ABSCESS CULTURE(AEROBIC/ANAEROB IC) 2022-09-03 15:56:00 Pop [facility] FUNGUS (ROUTINE) CULTURE 2022-09-03 15:56:00 Pop [facility] ASPIRATE OR ABSCESS CULTURE(AEROBIC/ANAEROB IC) 2022-09-03 15:56:00 Pop [facility] FUNGUS (ROUTINE) CULTURE 2022-09-03 15:56:00 Pop Josue [facility] INTUBATION 2022-09-03 15:49:00 Cuauhtemoc Locke [facility] FINGER AMPUTATION 2022-09-03 15:03:00 [facility] 2022-09-03 15:03:00 Josue Lord Edith [facility] VANCOMYCIN TROUGH 2022-09-03 14:02:00 Isabela Jackman [facility] VANCOMYCIN TROUGH 2022-09-03 14:02:00 Isabela Jackman [facility] POCT GLUCOSE (AUTOMATED) 2022-09-03 13:30:00 Stephanie Singleton [facility] POCT GLUCOSE (AUTOMATED) 2022-09-03 13:30:00 Stephanie Singleton [facility] COMP. METABOLIC PANEL ([id number]) 2022-09-03 11:18:00 Angie Turner [facility] CBC WITH DIFF 2022-09-03 11:18:00 [facility] 2022-09-03 11:18:00 Kassie Thompson [facility] COMP. METABOLIC PANEL ([id number]) 2022-09-03 11:18:00 TurnAngie elias [facility] CBC WITH DIFF 2022-09-03 11:18:00 Angie Turner [facility] PROTHROMBIN TIME / INR 2022-09-03 11:18:00 Kassie Thompson [facility] POCT GLUCOSE (AUTOMATED) 2022-09-03 02:07:00 Stephanie Singleton [facility] POCT GLUCOSE (AUTOMATED) 2022-09-03 02:07:00 Stephanie Singleton [facility] POCT GLUCOSE (AUTOMATED) 2022-09-02 23:37:00 Stephanie Singleton [facility] POCT GLUCOSE (AUTOMATED) 2022-09-02 23:37:00 Stephanie Singleton [facility] POCT GLUCOSE (AUTOMATED) 2022-09-02 18:15:00 Stephanie Singleton [facility] POCT GLUCOSE (AUTOMATED) 2022-09-02 18:15:00 Stephanie Singleton [facility] BASIC METABOLIC PANEL (NA, K, CL, CO2, GLUCOSE, BUN, CREATININE, CA) 2022-09-02 09:06:00 Isabela Jackman [facility] CBC WITH DIFF 2022-09-02 09:06:00 Isabela Jackman [facility] acute hospital BASIC METABOLIC PANEL (NA, K, CL, CO2, GLUCOSE, BUN, CREATININE, CA) 2022-09-02 09:06:00 Isabela Jackman [facility] CBC WITH DIFF 2022-09-02 09:06:00 Isabela Jackman [facility] acute hospital POCT GLUCOSE (AUTOMATED) 2022-09-02 03:13:00 Stephanie Singleton [facility] POCT GLUCOSE (AUTOMATED) 2022-09-02 03:13:00 Stephanie Singleton [facility] WOUND CULTURE 2022-09-02 01:30:00 Isabela Jackman [facility] acute hospital WOUND CULTURE 2022-09-02 01:30:00 Isabela Jackman [facility] acute hospital BASIC METABOLIC PANEL (NA, K, CL, CO2, GLUCOSE, BUN, CREATININE, CA) 2022-09-01 20:23:[address] [facility] CBC WITH DIFF 2022-09-01 20:23:[address] [facility] GLYCOSYLATED HEMOGLOBIN (A1C) 2022-09-01 20:23:00 Isabela Jackman [facility] BASIC METABOLIC PANEL (NA, K, CL, CO2, GLUCOSE, BUN, CREATININE, CA) 2022-09-01 20:23:[address] [facility] CBC WITH DIFF 2022-09-01 20:23:[address] [facility] GLYCOSYLATED HEMOGLOBIN (A1C) 2022-09-01 20:23:00 Isabela Jackman [facility] XR FINGERS 2 VW RIGHT 2022-09-01 19:50:[address] [facility] XR FINGERS 2 VW RIGHT 2022-09-01 19:50:[address] [facility] CONSENT/REFUSAL FOR DIAGNOSIS AND TREATMENT 2022-09-01 18:26:12 Doctor Unassigned, [place] [facility] CONSENT/REFUSAL FOR DIAGNOSIS AND TREATMENT 2022-09-01 18:26:12 Doctor Unassigned, [place] [facility] ADMISSION 2022-09-01 06:01:00 Doctor Un assigned, [place] [facility] ADMISSION 2022-09-01 06:01:00 Doctor Un assigned, [place] [facility] Encounters Start Date/Time End Date/Time Encounter Type Admission Type Attending [facility] Facility Care Department Encounter ID Source 2022-12-05 08:45:00 2022-12-05 08:45:00 Outpatient R LALY HENRY [facility] [id number] General acute hospital 2022-11-07 10:00:00 2022-11-07 10:20:00 Telemedici ne Visit Renan [facility] [place] [facility] ..840.114 350.1.13.10 4.2.7.2.686 [id number] General acute hospital 2022-11-07 10:00:00 2022-11-07 10:00:00 Outpatient R RENAN [facility] [id number] General acute hospital 2022-10-28 09:30:00 2022-10-28 09:30:00 Outpatient R ZENA SCHULTZ [facility] [id number] General acute hospital 2022-10-08 10:00:00 2022-10-08 10:51:12 Outpatient R RENAN [facility] [id number] General acute hospital 2022-10-08 10:00:00 2022-10-08 10:51:12 Office Visit Renan, [facility] ..840.114 350.1.13.10 4.2.7.2.686 [id number] General acute hospital 2022-09-11 00:00:00 2022-09-11 00:00:00 Telephone Renan, [facility] ..840.114 350.1.13.10 4.2.7.2.686 [id number] General acute hospital 2022-09-10 13:00:00 2022-09-10 14:00:00 Ancillary Visit Therapy-Kimberly Do-Jorge-Carlos Issa [facility] 1.2840.114 350.1.13.10 4.2.7.2.686 [id number] General acute hospital 2022-09-10 13:00:00 2022-09-10 13:47:29 Outpatient R CARLOS MCLAUGHLIN [facility] [id number] General acute hospital 2022-09-10 11:00:00 2022-09-10 11:51:29 Outpatient R LALY HENRY [facility] [id number] General acute hospital 2022-09-10 11:00:00 2022-09-10 11:51:29 Office Visit Renan [facility] [place] [facility] 1.0.114 350.1.13.10 4.2.7.2.686 [id number] General acute hospital 2022-09-10 00:00:00 2022-09-10 00:00:00 Orders Only Doctor Unassigned, [place] [facility] 1.2840.114 350.1.13.10 4.2.7.2.686 [id number] General acute hospital 2022-09-10 00:00:00 2022-09-10 00:00:00 Telephone Renan [facility] [place] [facility] 1.2840.114 350.1.13.10 4.2.7.2.686 [id number] General acute hospital 2022-09-05 00:00:00 2022-09-05 00:00:00 Transition of Care Coby Moseley 1.2840.114 350.1.13.10 4.2.7.2.686 [id number] General acute hospital 2022-09-01 12:39:00 2022-09-04 18:31:[address], [facility] 1.2.840.114 350.1.13.10 4.2.7.2.686 [id number] General acute hospital 2022-09-01 12:39:00 2022-09-04 18:31:00 Inpatient X ADRIANA [facility] [id number] General acute hospital 2022-09-03 08:51:00 2022-09-03 11:13:00 Surgery Josue Lord [facility] 1.2.840.114 350.1.13.10 4.2.7.2.686 [id number] General acute hospital 2022-09-03 09:39:00 2022-09-03 10:46:00 Anesthesia Event Tomasz Matos, [facility] 1.2840.114 350.1.13.10 4.2.7.2.686 [id number] General acute hospital 2020-03-15 13:36:44 2020-03-15 13:56:44 Air Control/Anti Air Warfare Officer Visit Lab, [facility] 1.20.114 350.1.13.10 4.2.7.2.686 [id number] 2020-03-15 13:36:44 2020-03-15 13:56:44 Air Control/Anti Air Warfare Officer Visit Lab, [facility] Pob I Krystina Cheema [facility] 1.2840.114 350.1.13.10 4.2.7.2.686 [id number] General acute hospital 2020-03-15 13:20:00 2020-03-15 13:20:00 Outpatient R [facility] [id number] General acute hospital 2020-03-15 13:20:00 2020-03-15 13:20:00 Outpatient R KRYSTINA CHEEMA [facility] [id number] General acute hospital Results Test Description Test Time Test Comments Results Result Co mments Source [facility] GLUCOSE (AUTOMATED)2022-09-04 18:12:48* Test Item Value Reference Range Interpretation Comme nts POCT GLU (test code = 1918677076) 213 mg/dL 70-110 H Lab Interpretation (test cod e = 38720-2) [facility]2022-09-04 15:18:56* Test Item Value Reference Range Interpretation Comme nts POCT GLU (test code = 4442853221) 184 mg/dL 70-110 H Lab Interpretation (test cod e = 44144-7) Abnormal [facility] GLUCOSE (AUTOMATED)2022-09-04 15:18:56* Test Item Value Reference Range Interpretation Comme nts POCT GLU (test code = 7637270387) 184 mg/dL 70-110 H Lab Interpretation (test cod e = 42537-6) Abnormal [facility] GLUCOSE (AUTOMATED)2022-09-04 03:50:30* Test Item Value Reference Range Interpretation Comme nts POCT GLU (test code = 8112891778) 287 mg/dL 70-110 H Lab Interpretation (test cod e = 09986-5) Abnormal [facility] GLUCOSE (AUTOMATED)2022-09-04 03:50:30* Test Item Value Reference Range Interpretation Comme nts POCT GLU (test code = 2484377080) 287 mg/dL 70-110 H Lab Interpretation (test cod e = 21147-3) [facility]2022-09-03 23:01:24* Test Item Value Reference Range Interpretation Comme nts POCT GLU (test code = 3220664246) 253 mg/dL 70-110 H Lab Interpretation (test cod e = 26517-4) [facility]normal [facility]2022-09-03 23:01:24* Test Item Value Reference Range Interpretation Comme nts POCT GLU (test code = 5564395865) 253 mg/dL 70-110 H Lab Interpretation (test cod e = 82650-1) Abnormal [facility] GLUCOSE (AUTOMATED)2022-09-03 17:40:42* Test Item Value Reference Range Interpretation Comme nts POCT GLU (test code = 2770513222) 168 mg/dL 70-110 H Lab Interpretation (test cod e = 59752-8) Abnormal [facility] GLUCOSE (AUTOMATED)2022-09-03 17:40:42* Test Item Value Reference Range Interpretation Comme nts POCT GLU (test code = 2774189509) 168 mg/dL 70-110 H Lab Interpretation (test cod e = 26231-9) Abnormal [facility] GLUCOSE (AUTOMATED)2022-09-03 13:31:46* Test Item Value Reference Range Interpretation Comme nts POCT GLU (test code = 0734430568) 213 mg/dL 70-110 H Lab Interpretation (test cod e = 43986-9) Abnormal [facility] GLUCOSE (AUTOMATED)2022-09-03 13:31:46* Test Item Value Reference Range Interpretation Comme nts POCT GLU (test code = 8975573262) 213 mg/dL 70-110 H Lab Interpretation (test cod e = 99090-7) Abnormal [facility]. METABOLIC PANEL (24600)2022-09-03 12:17:29* Test Item Value Reference Range Interpretation Comme nts NA (test code = 4550556869) 136 mmol/L 135-145 K (test code = 6465962104) 3.9 mmol/L 3.5-5.0 CL (test code = 5683762043) 105 mmol/L 98-108 CO2 TOTAL (test code = 6601194626) 24 mmol/L 23-31 AGAP (test code = 8536806142) 2-16 BUN (test code = 2759236427) 12 mg/dL 7-23 GLUCOSE (test code = 4239870161) 190 mg/dL 70-110 H CREATININE (test code = 1537180377) 0.56 mg/dL 0.60-1.25 L TOTAL BILI (test code = 3547248326) 0.2 mg/dL 0.1-1.1 CALCIUM (test code = 7219266497) 8.6 mg/dL 8.6-10.6 T PROTEIN (test code = 4822076852) 7.0 g/dL 6.3-8.2 ALBUMIN (test code = 2478449522) 3.7 g/dL 3.5-5.0 ALK PHOS (test code = 8606938218) 101 U/L 34-122 ALTv (test code = 1742-6) 27 U/L 5-50 AST(SGOT) (test code = 5471265106) 23 U/L 13-40 eGFR (test code = 3989753980) mL/min/1.73m2 ANDREE (test code = ANDREE) Association [...] imaging tests). Lab Interpretation (test code = 81574-0) Abnormal [facility]. METABOLIC PANEL (02137)2022-09-03 12:17:29* Test Item Value Reference Range Interpretation Comme nts NA (test code = 9503684578) 136 mmol/L 135-145 K (test code = 8101401705) 3.9 mmol/L 3.5-5.0 CL (test code = 6260963242) 105 mmol/L 98-108 CO2 TOTAL (test code = 3240043394) 24 mmol/L 23-31 AGAP (test code = 8203711317) 2-16 BUN (test code = 1967285357) 12 mg/dL 7-23 GLUCOSE (test code = 4091674549) 190 mg/dL 70-110 H CREATININE (test code = 3217729563) 0.56 mg/dL 0.60-1.25 L TOTAL BILI (test code = 8188839561) 0.2 mg/dL 0.1-1.1 CALCIUM (test code = 7049974202) 8.6 mg/dL 8.6-10.6 T PROTEIN (test code = 0198827032) 7.0 g/dL 6.3-8.2 ALBUMIN (test code = 3553935562) 3.7 g/dL 3.5-5.0 ALK PHOS (test code = 4917052178) 101 U/L 34-122 ALTv (test code = 1742-6) 27 U/L 5-50 AST(SGOT) (test code = 2391659651) 23 U/L 13-40 eGFR (test code = 3099803344) mL/min/1.73m2 ANDREE (test code = ANDREE) Association [...] imaging tests). Lab Interpretation (test code = 22149-3) [facility]normal [facility] / [id number] 11:45:03* Test Item Value Reference Range Interpretation Comme [facility] PROTIME PATIENT (test code = 5964-2) See_Comment H [Automated [employer]] The system which generated this result transmitted reference range: 10.1 - 12.6 Seconds. The reference range was not used to interpret this result as normal/abnormal. INR (test code = 6301-6) Normal INR <1.1; Warfarin Therapeutic range 2.0 to 3.0 or 2.5 to 3.5, depending upon the indications. Lab Interpretation (test code = 14556-0) [facility]normal [facility] / [id number] 11:45:03* Test Item Value Reference Range Interpretation Comme nts PROTIME PATIENT (test code = 5964-2) See_Comment H [Automated [employer]] The system which generated this result transmitted reference range: 10.1 - 12.6 Seconds. The reference range was not used to interpret this result as normal/abnormal. INR (test code = 6301-6) Normal INR <1.1; Warfarin Therapeutic range 2.0 to 3.0 or 2.5 to 3.5, depending upon the indications. Lab Interpretation (test code = 16258-5) Abnormal [facility] [id number] 11:42:00* Test Item Value Reference Range Interpretation Comme [facility] WBC (test code = 6690-2) See_Comment [Automated [employer]] The system which generated this result transmitted [...] 34.1 g/dL 31.2-35.0 RDW-SD (test code = 94012-8) 41.5 fL 38.5-51.6 RDW-CV (test code = 788-0) 13.9 % 12.1-15.4 PLT (test code = 777-3) See_Comment H [Automated messa ge] The system which generated this result transmitted reference range: 150 - 328 10*3/?L. The reference range was not used to interpret this result as normal/abnormal. MPV (test code = 15018-0) 10.6 fL 9.8-13.0 NRBC/100 WBC (test code = 5082262499) See_Comment [Automated [employer] ssage] The system which generated this result transmitted reference range: 0.0 - 10.0 /100 WBCs. The reference range was not used to interpret this result as normal/abnormal. NRBC x10^3 (test code = 4156866025) See_Comment [Automated messa ge] The system which generated this result transmitted reference range: 10*3/?L. The reference range was not used to interpret this result as normal/abnormal. GRAN MAT (NEUT) % (test code = 770-8) 59.9 % IMM GRAN % (test code = 8317881412) 0.40 % LYMPH % (test code = 736-9) 31.1 % MONO % (test code = 5905-5) 6.1 % EOS % (test code = 713-8) 1.8 % BASO % (test code = 706-2) 0.7 % GRAN MAT x10^3(ANC) (test code = 8785902588) 5.36 10*3/uL 1.99-6.95 IMM GRAN x10^3 (test code = 3205497514) 0.04 10*3/uL 0.00-0.06 LYMPH x10^3 (test code = 731-0) 2.78 10*3/uL 1.09-3.23 MONO x10^3 (test code = 742-7) 0.55 10*3/uL 0.36-1.02 EOS x10^3 (test code = 711-2) 0.16 10*3/uL 0.06-0.53 BASO x10^3 (test code = 704-7) 0.06 10*3/uL 0.01-0.09 Lab Interpretation (test code = 52902-5) Abnormal [facility] WITH [id number] 11:42:00* Test Item Value Reference Range Interpretation Comme nts WBC (test code = 6690-2) See_Comment [Automated [employer] ge] The system which generated this result transmitted reference range: 4.20 - 10.70 10*3/?L. The reference range was not used to interpret this result as normal/abnormal. RBC (test code = 789-8) See_Comment [Automated [employer] Rouxbe] The system which generated this result transmitted [...] 34.1 g/dL 31.2-35.0 RDW-SD (test code = 11295-8) 41.5 fL 38.5-51.6 RDW-CV (test code = 788-0) 13.9 % 12.1-15.4 PLT (test code = 777-3) See_Comment H [Automated messa ge] The system which generated this result transmitted reference range: 150 - 328 10*3/?L. The reference range was not used to interpret this result as normal/abnormal. MPV (test code = 47490-1) 10.6 fL 9.8-13.0 NRBC/100 WBC (test code = 1843714346) See_Comment [Automated me ssage] The system which generated this result transmitted reference range: 0.0 - 10.0 /100 WBCs. The reference range was not used to interpret this result as normal/abnormal. NRBC x10^3 (test code = 5691136668) See_Comment [Automated messa ge] The system which generated this result transmitted reference range: 10*3/?L. The reference range was not used to interpret this result as normal/abnormal. GRAN MAT (NEUT) % (test code = 770-8) 59.9 % IMM GRAN % (test code = 2700975130) 0.40 % LYMPH % (test code = 736-9) 31.1 % MONO % (test code = 5905-5) 6.1 % EOS % (test code = 713-8) 1.8 % BASO % (test code = 706-2) 0.7 % GRAN MAT x10^3(ANC) (test code = 1108222249) 5.36 10*3/uL 1.99-6.95 IMM GRAN x10^3 (test code = 6810771055) 0.04 10*3/uL 0.00-0.06 LYMPH x10^3 (test code = 731-0) 2.78 10*3/uL 1.09-3.23 MONO x10^3 (test code = 742-7) 0.55 10*3/uL 0.36-1.02 EOS x10^3 (test code = 711-2) 0.16 10*3/uL 0.06-0.53 BASO x10^3 (test code = 704-7) 0.06 10*3/uL 0.01-0.09 Lab Interpretation (test code = 16561-6) Abnormal [facility] GLUCOSE (AUTOMATED)2022-09-03 02:08:18* Test Item Value Reference Range Interpretation Comme nts POCT GLU (test code = 0956298502) 259 mg/dL 70-110 H Lab Interpretation (test cod e = 79073-2) Abnormal [facility] GLUCOSE (AUTOMATED)2022-09-03 02:08:18* Test Item Value Reference Range Interpretation Comme nts POCT GLU (test code = 2415185043) 259 mg/dL 70-110 H Lab Interpretation (test cod e = 08812-9) Abnormal [facility] GLUCOSE (AUTOMATED)2022-09-02 23:38:11* Test Item Value Reference Range Interpretation Comme nts POCT GLU (test code = 1519443982) 322 mg/dL 70-110 H Lab Interpretation (test cod e = 70018-7) Abnormal [facility] GLUCOSE (AUTOMATED)2022-09-02 23:38:11* Test Item Value Reference Range Interpretation Comme nts POCT GLU (test code = 4823909903) 322 mg/dL 70-110 H Lab Interpretation (test cod e = 80800-1) Abnormal [facility] GLUCOSE (AUTOMATED)2022-09-02 18:17:05* Test Item Value Reference Range Interpretation Comme nts POCT GLU (test code = 9426107787) 295 mg/dL 70-110 H Lab Interpretation (test cod e = 53312-8) Abnormal [facility] GLUCOSE (AUTOMATED)2022-09-02 18:17:05* Test Item Value Reference Range Interpretation Comme nts POCT GLU (test code = 9169203980) 295 mg/dL 70-110 H Lab Interpretation (test cod e = 94795-3) Abnormal [facility] Metabolic Panel (NA, K, CL, CO2, GLUCOSE, BUN, CREATININE, CA)2022-09-02 09:42:02* Test Item Value Reference Range Interpretation Comme nts NA (test code = 1904506227) 135 mmol/L 135-145 K (test code = 7787885224) 4.0 mmol/L 3.5-5.0 CL (test code = 9157530584) 103 mmol/L 98-108 CO2 TOTAL (test code = 2997106356) 24 mmol/L 23-31 AGAP (test code = 1789323830) 2-16 BUN (test code = 9133754422) 14 mg/dL 7-23 GLUCOSE (test code = 1292423688) 227 mg/dL 70-110 H CREATININE (test code = 3501241662) 0.56 mg/dL 0.60-1.25 L CALCIUM (test code = 8460332410) 8.7 mg/dL 8.6-10.6 eGFR (test code = 1358742437) mL/min/1.73m2 ANDREE (test code = ANDREE) Association [...] imaging tests). Lab Interpretation (test code = 43881-3) Abnormal [facility] Metabolic Panel (NA, K, CL, CO2, GLUCOSE, BUN, CREATININE, CA)2022-09-02 09:42:02* Test Item Value Reference Range Interpretation Comme nts NA (test code = 1647137564) 135 mmol/L 135-145 K (test code = 9872788604) 4.0 mmol/L 3.5-5.0 CL (test code = 5226059566) 103 mmol/L 98-108 CO2 TOTAL (test code = 5579958252) 24 mmol/L 23-31 AGAP (test code = 6082986649) 2-16 BUN (test code = 3561585312) 14 mg/dL 7-23 GLUCOSE (test code = 9829373067) 227 mg/dL 70-110 H CREATININE (test code = 6317684670) 0.56 mg/dL 0.60-1.25 L CALCIUM (test code = 8617391364) 8.7 mg/dL 8.6-10.6 eGFR (test code = 3807489429) mL/min/1.73m2 ANDREE (test code = ANDREE) Association [...] imaging tests). Lab Interpretation (test code = 76933-1) Abnormal [facility] with [id number] 09:18:20* Test Item Value Reference Range Interpretation [...] 33.7 g/dL 31.2-35.0 RDW-SD (test code = 84435-6) 40.8 fL 38.5-51.6 RDW-CV (test code = 788-0) 13.8 % 12.1-15.4 PLT (test code = 777-3) See_Comment H [Automated message] The system which generated this result transmitted reference range: 150 - 328 10*3/?L. The reference range was not used to interpret this result as normal/abnormal. MPV (test code = 56678-4) 10.4 fL 9.8-13.0 NRBC/100 WBC (test code = 8048676252) See_Comment [Automated message] The system which generated this result transmitted reference range: 0.0 - 10.0 /100 WBCs. The reference range was not used to interpret this result as normal/abnormal. NRBC x10^3 (test code = 3067622353) See_Comment [Automated message] The system which generated this result transmitted reference range: 10*3/?L. The reference range was not used to interpret this result as normal/abnormal. GRAN MAT (NEUT) % (test code = 770-8) 76.1 % IMM GRAN % (test code = 5187702428) 0.40 % LYMPH % (test code = 736-9) 16.6 % MONO % (test code = 5905-5) 5.6 % EOS % (test code = 713-8) 0.9 % BASO % (test code = 706-2) 0.4 % GRAN MAT x10^3(ANC) (test code = 7749472309) 10.64 10*3/uL 1.99-6.95 H IMM GRAN x10^3 (test code = 0532990172) 0.05 10*3/uL 0.00-0.06 LYMPH x10^3 (test code = 731-0) 2.32 10*3/uL 1.09-3.23 MONO x10^3 (test code = 742-7) 0.78 10*3/uL 0.36-1.02 EOS x10^3 (test code = 711-2) 0.13 10*3/uL 0.06-0.53 BASO x10^3 (test code = 704-7) 0.06 10*3/uL 0.01-0.09 Lab Interpretation (test code = 56964-9) Abnormal [facility] with [id number] 09:18:20* Test Item Value Reference Range Interpretation [...] 33.7 g/dL 31.2-35.0 RDW-SD (test code = 71906-9) 40.8 fL 38.5-51.6 RDW-CV (test code = 788-0) 13.8 % 12.1-15.4 PLT (test code = 777-3) See_Comment H [Automated message] The system which generated this result transmitted reference range: 150 - 328 10*3/?L. The reference range was not used to interpret this result as normal/abnormal. MPV (test code = 71070-3) 10.4 fL 9.8-13.0 NRBC/100 WBC (test code = 4672867030) See_Comment [Automated message] The system which generated this result transmitted reference range: 0.0 - 10.0 /100 WBCs. The reference range was not used to interpret this result as normal/abnormal. NRBC x10^3 (test code = 4605599072) See_Comment [Automated message] The system which generated this result transmitted reference range: 10*3/?L. The reference range was not used to interpret this result as normal/abnormal. GRAN MAT (NEUT) % (test code = 770-8) 76.1 % IMM GRAN % (test code = 5853359882) 0.40 % LYMPH % (test code = 736-9) 16.6 % MONO % (test code = 5905-5) 5.6 % EOS % (test code = 713-8) 0.9 % BASO % (test code = 706-2) 0.4 % GRAN MAT x10^3(ANC) (test code = 7768021869) 10.64 10*3/uL 1.99-6.95 H IMM GRAN x10^3 (test code = 9982578358) 0.05 10*3/uL 0.00-0.06 LYMPH x10^3 (test code = 731-0) 2.32 10*3/uL 1.09-3.23 MONO x10^3 (test code = 742-7) 0.78 10*3/uL 0.36-1.02 EOS x10^3 (test code = 711-2) 0.13 10*3/uL 0.06-0.53 BASO x10^3 (test code = 704-7) 0.06 10*3/uL 0.01-0.09 Lab Interpretation (test code = 72174-6) Abnormal [facility] GLUCOSE (AUTOMATED)2022-09-02 03:14:55* Test Item Value Reference Range Interpretation Comme nts POCT GLU (test code = 1986465654) 175 mg/dL 70-110 H Lab Interpretation (test cod e = 10056-2) Abnormal [facility] GLUCOSE (AUTOMATED)2022-09-02 03:14:55* Test Item Value Reference Range Interpretation Comme nts POCT GLU (test code = 1301534323) 175 mg/dL 70-110 H Lab Interpretation (test cod e = 75937-7) [facility] 02:25:07* Test Item Value Reference Range Interpretation Comme nts HGB A1C (test code = 4548-4) 11.5 % 4.0-5.7 H ANDREE (test code = ANDREE) Reference RangesNormal: <5.7%Prediabetes: 5.7 - 6.4%Diabetes: > 6.5% Lab Interpretation (test code = 66817-6) [facility]2022-09-02 02:25:07* Test Item Value Reference Range Interpretation Comme [facility] HGB A1C (test code = 4548-4) 11.5 % 4.0-5.7 H ANDREE (test code = ANDREE) Reference RangesNormal: <5.7%Prediabetes: 5.7 - 6.4%Diabetes: > 6.5% Lab Interpretation (test code = 84552-0) Abnormal [facility] METABOLIC PANEL (NA, K, CL, CO2, GLUCOSE, BUN, CREATININE, CA)2022-09-01 20:44:31* Test Item Value Reference Range Interpretation Comme nts NA (test code = 4460618760) 135 mmol/L 135-145 K (test code = 3628144724) 4.4 mmol/L 3.5-5.0 CL (test code = 5956356070) 101 mmol/L 98-108 CO2 TOTAL (test code = 8895493613) 24 mmol/L 23-31 AGAP (test code = 8770511833) 2-16 BUN (test code = 7732631926) 16 mg/dL 7-23 GLUCOSE (test code = 6557989971) 260 mg/dL 70-110 H CREATININE (test code = 4616516904) 0.72 mg/dL 0.60-1.25 CALCIUM (test code = 0992075166) 9.2 mg/dL 8.6-10.6 eGFR (test code = 6932462256) mL/min/1.73m2 ANDREE (test code = ANDREE) Association [...] imaging tests). Lab Interpretation (test code = 49172-9) Abnormal [facility] METABOLIC PANEL (NA, K, CL, CO2, GLUCOSE, BUN, CREATININE, CA)2022-09-01 20:44:31* Test Item Value Reference Range Interpretation Comme nts NA (test code = 4990089350) 135 mmol/L 135-145 K (test code = 0928535508) 4.4 mmol/L 3.5-5.0 CL (test code = 5607824059) 101 mmol/L 98-108 CO2 TOTAL (test code = 7066579988) 24 mmol/L 23-31 AGAP (test code = 7811366093) 2-16 BUN (test code = 2342320554) 16 mg/dL 7-23 GLUCOSE (test code = 4146438720) 260 mg/dL 70-110 H CREATININE (test code = 5440478916) 0.72 mg/dL 0.60-1.25 CALCIUM (test code = 8556735470) 9.2 mg/dL 8.6-10.6 eGFR (test code = 3030307808) mL/min/1.73m2 ANDREE (test code = ANDREE) Association [...] imaging tests). Lab Interpretation (test code = 11505-2) Abnormal [facility] WITH [id number] 20:42:10* Test Item Value Reference Range Interpretation [...] 33.4 g/dL 31.2-35.0 RDW-SD (test code = 62734-3) 40.8 fL 38.5-51.6 RDW-CV (test code = 788-0) 13.4 % 12.1-15.4 PLT (test code = 777-3) See_Comment H [Automated messa ge] The system which generated this result transmitted reference range: 150 - 328 10*3/?L. The reference range was not used to interpret this result as normal/abnormal. MPV (test code = 18287-3) 10.9 fL 9.8-13.0 NRBC/100 WBC (test code = 6137044011) See_Comment [Automated [employer] ssage] The system which generated this result transmitted reference range: 0.0 - 10.0 /100 WBCs. The reference range was not used to interpret this result as normal/abnormal. NRBC x10^3 (test code = 0543327386) See_Comment [Automated messa ge] The system which generated this result transmitted reference range: 10*3/?L. The reference range was not used to interpret this result as normal/abnormal. GRAN MAT (NEUT) % (test code = 770-8) 67.2 % IMM GRAN % (test code = 1556201958) 0.40 % LYMPH % (test code = 736-9) 25.6 % MONO % (test code = 5905-5) 4.5 % EOS % (test code = 713-8) 1.2 % BASO % (test code = 706-2) 1.1 % GRAN MAT x10^3(ANC) (test code = 4264276698) 7.60 10*3/uL 1.99-6.95 H IMM GRAN x10^3 (test code = 9282054907) 0.05 10*3/uL 0.00-0.06 LYMPH x10^3 (test code = 731-0) 2.89 10*3/uL 1.09-3.23 MONO x10^3 (test code = 742-7) 0.51 10*3/uL 0.36-1.02 EOS x10^3 (test code = 711-2) 0.14 10*3/uL 0.06-0.53 BASO x10^3 (test code = 704-7) 0.12 10*3/uL 0.01-0.09 H Lab Interpretation (test code = 82723-7) Abnormal [facility] WITH [id number] 20:42:10* Test Item Value Reference Range Interpretation [...] 33.4 g/dL 31.2-35.0 RDW-SD (test code = 33122-1) 40.8 fL 38.5-51.6 RDW-CV (test code = 788-0) 13.4 % 12.1-15.4 PLT (test code = 777-3) See_Comment H [Automated messa ge] The system which generated this result transmitted reference range: 150 - 328 10*3/?L. The reference range was not used to interpret this result as normal/abnormal. MPV (test code = 01094-1) 10.9 fL 9.8-13.0 NRBC/100 WBC (test code = 1839041706) See_Comment [Automated [employer] ssage] The system which generated this result transmitted reference range: 0.0 - 10.0 /100 WBCs. The reference range was not used to interpret this result as normal/abnormal. NRBC x10^3 (test code = 5500209093) See_Comment [Automated messa ge] The system which generated this result transmitted reference range: 10*3/?L. The reference range was not used to interpret this result as normal/abnormal. GRAN MAT (NEUT) % (test code = 770-8) 67.2 % IMM GRAN % (test code = 0835643474) 0.40 % LYMPH % (test code = 736-9) 25.6 % MONO % (test code = 5905-5) 4.5 % EOS % (test code = 713-8) 1.2 % BASO % (test code = 706-2) 1.1 % GRAN MAT x10^3(ANC) (test code = 4178387194) 7.60 10*3/uL 1.99-6.95 H IMM GRAN x10^3 (test code = 9204878312) 0.05 10*3/uL 0.00-0.06 LYMPH x10^3 (test code = 731-0) 2.89 10*3/uL 1.09-3.23 MONO x10^3 (test code = 742-7) 0.51 10*3/uL 0.36-1.02 EOS x10^3 (test code = 711-2) 0.14 10*3/uL 0.06-0.53 BASO x10^3 (test code = 704-7) 0.12 10*3/uL 0.01-0.09 H Lab Interpretation (test code = 47614-0) Abnormal [facility]"
--- NOTE | 2023-12-18 08:59 | EDPHYS ---
Physician Documentation [facility] Name: Donnie Man Jr Age: 43 yrs Sex: Male : 1980 Arrival Date: 12/18/2023 Time: 08:28 Bed 13 Private MD: ED Physician Dony Sawant HPI: 12/17 08:44 This 43 yrs old Male presents to ER via Ambulatory with complaints of Picc ec2 line problem. 08:44 Patient has PICC line in place for home infusions. States that yesterday they noticed a ec2 slow infusion of the PICC line, today was unable to use the PICC line. Patient concerned about the PICC line being clogged.. Historical: - Allergies: 08:34 PENICILLINS; ll1 - PMHx: 08:34 Diabetes; ll1 - PSHx: 08:34 Foot ulcer surgery; right middle finger amputation; ll1 - Immunization history:: Adult Immunizations up to date. - Social history:: Smoking status: Patient denies any tobacco usage or history of. ROS: 08:45 Constitutional: as per hpi ec2 Exam: 08:45 Constitutional: GEN: NAD Head: atraumatic Eyes: EOMI Ears: External ears are ec2 normal. CV: regular rate LUNGS: no respiratory distress ABD: non-distended SKIN: no evidence of rashes, PICC line in place MSK: no evidence of trauma NEURO: moves all extremities equally Vital Signs: 08:39 BP 145 / 94; Pulse 87; Resp 16; Temp 98.3; Pulse Ox 98% on R/A; Height 5 ft. 6 in. ; ll1 Pain 0/10; 09:26 BP 169 / 103; Pulse 86; Resp 18; Pulse Ox 97% on R/A; nj1 08:39 Pain Scale: Adult ll1 MDM: 08:42 Patient medically screened. ec2 08:45 Data reviewed: vital signs. ED course: Patient arrives today for evaluation of clogged ec2 PICC line. Will attempt using normal saline to flush the PICC line and possibly heparinization of the area.. 08:58 ED course: Picc line w/ 2 access ports both flushed by myself, no significant issue or ec2 straining. This was also flushed by nursing prior to my evaluation of the patient.. Administered Medications: No medications were administered Disposition Summary: 12/18/23 08:59 Discharge Ordered Notes: Location: Home ec2 Condition: Stable ec2 Diagnosis - PICC Line Issue ec2 Followup: ec2 - With: Private Physician - When: - Reason: Re-evaluation by your physician Discharge Instructions: - Discharge Summary Sheet ec2 - PICC Home Care Guide ec2 Forms: - Medication Reconciliation Form ec2 - Thank You Letter ec2 - Antibiotic Education ec2 - Prescription Opioid Use ec2 - Patient Portal Instructions ec2 - Leadership Thank You Letter ec2 Signatures: Sandy Loving RN RN ll1 Dony Sawant MD MD ec2
--- NOTE | 2023-12-18 08:59 | ER ---
Nurse's Notes [facility] Name: Donnie Man Jr Age: 43 yrs Sex: Male : 1980 Arrival Date: 12/18/2023 Time: 08:28 Bed 13 Private MD: Diagnosis: PICC Line Issue Presentation: 12/17 08:39 Chief complaint: Patient states: LUE PICC line clogged for 1 day. No fevers. ll1 Coronavirus screen: Client denies travel out of the [place] in the last 14 days. At this time, the client does not indicate any symptoms associated with coronavirus-19. Ebola Screen: Patient denies travel to an Ebola-affected area in the 21 days before illness onset. Initial Sepsis Screen: Does the patient meet any 2 criteria? No. Patient's initial sepsis screen is negative. Does the patient have a suspected source of infection? No. Patient's initial sepsis screen is negative. Risk Assessment: Do you want to hurt yourself or someone else? Patient reports no desire to harm self or others. Onset of symptoms was December 18, 2023. 08:39 Method Of Arrival: Ambulatory 1 08:39 Acuity: BECKY 4 ll1 Triage Assessment: 08:40 General: Appears in no apparent distress. Behavior is calm, cooperative, appropriate ll1 for age, Reports LUE PICC line clogged. Musculoskeletal: Circulation, motion, and sensation intact. Capillary refill < 3 seconds. 09:28 Pain: Denies pain. nj1 Historical: - Allergies: 08:34 PENICILLINS; ll1 - PMHx: 08:34 Diabetes; ll1 - PSHx: 08:34 Foot ulcer surgery; right middle finger amputation; ll1 - Immunization history:: Adult Immunizations up to date. - Social history:: Smoking status: Patient denies any tobacco usage or history of. Screenin:[facility] ED Fall Risk Assessment (Adult) History of falling in the last 3 months, ll1 including since admission No falls in past 3 months (0 pts) Confusion or Disorientation No (0 pts) Intoxicated or Sedated No (0 pts) Impaired Gait No (0 pts) Mobility Assist Device Used No (0 pt) Altered Elimination No (0 pt) Score/Fall Risk Level 0 - 2 = Low Risk Maintained a safe environment. Abuse screen: Denies threats or abuse. Nutritional screening: No deficits noted. Tuberculosis screening: No symptoms or risk factors identified. Assessment: 08:47 Reassessment: Flushed both lines with 20 ml NS, red port difficult to flush. Purple ll1 port flowing now, slightly easier than red port. 08:53 Reassessment: Dr. Sawant at . ll1 09:25 Reassessment: Patient appears in no apparent distress at this time. Patient is alert, nj1 oriented x 3, equal unlabored respirations, skin warm/dry/pink. 09:25 Reassessment: Curo caps applied to PICC line hubs. nj1 Vital Signs: 08:39 BP 145 / 94; Pulse 87; Resp 16; Temp 98.3; Pulse Ox 98% on R/A; Height 5 ft. 6 in. ; ll1 Pain 0/10; 09:26 BP 169 / 103; Pulse 86; Resp 18; Pulse Ox 97% on R/A; nj1 08:39 Pain Scale: Adult [facility] ED Course: 08:29 Patient arrived in ED. rg4 08:32 Dony Sawant MD is Attending Physician. ec2 08:34 Arm band placed on. ll1 08:40 Triage completed. ll1 08:41 Sandy Loving, AFSHAN is Primary Nurse. ll1 08:48 Patient has correct armband on for positive identification. Bed in low position. Call 1 light in reach. Cardiac monitoring not applicable on this patient. 09:27 No provider procedures requiring assistance completed. PICC line left in place as nj1 instructed by Dr Sawant. 09:28 Provided Education on: Curo caps. nj1 Administered Medications: No medications were administered Medication: 08:57 VIS not applicable for this client. ll1 Outcome: 08:59 Discharge ordered by . ec2 09:28 Discharged to home ambulatory, nj1 09:28 Condition: stable 09:28 Discharge instructions given to patient, Instructed on discharge instructions, follow up and referral plans. Demonstrated understanding of instructions, follow-up care, 09:28 Patient left the ED. nj1 Signatures: Aretha Williamson rg4 Sandy Loving RN RN 1 Gill Hurtado RN RN nj1 Dony Sawant MD MD ec2
[2023-12-18 09:43] VITALS: BP 169/103; TEMP 98.3; O2SAT 97
== END ==
LOC: ER 08:28
DX: T82.898A Other specified complication of vascular prosthetic devices, implants and grafts, initial encounter (principal)
CPT/HCPCS: 99282

== ENCOUNTER → 2023-12-21 | Emergency (ER) | payer OTHER ==
[~2023-12-21] MED LIST changes: +DICYCLOMINE HCL 10 MG CAP ONE; +DIPHENOX/ATROP SULF 1 TAB PO ONE; +HYDROCODONE/APAP 10/325 TAB ONE; +NA CHLORIDE 0.9% 1,000 ML ONE; +ONDANSETRON 4 MG (ODT) TAB ONE; -cloNIDine HCL 0.1 MG TAB ONE
--- OUTSIDE RECORDS SUMMARY | 2023-12-21 02:24 | XMS REPORT | Continuity of Care Document ---
Author Name Unknown Address [address] [facility] [place] [address] [facility] [address] [facility] [address] [place] [address] Care Team Providers Care Marketing Community Liaison Name Role Phone FREDDIE TATUM Primary Care Physician Unav ailable LALY HENRY Attending Clinician Unavailable Laly Lopez Attending Clinician [phone] ZENA SCHULTZ Attending Clinician Unavailabl e Therapy-Kimberly CaballeroFxf-Sv-Gxprf Attending Clinician Unavailable Carlos Mclaughlin MD Attending Clinician [phone] CARLOS MCLAUGHLIN Attending Clinician Unavailable Doctor Unassigned, [place] Attending Clinician U simeon Moseley RN, Coby Hernandez Attending Clinician [phone] MD Attending Clinician [phone] Stephanie Singleton MD Attending Clinician [phone] Edilberto Mims MD Attending Clinician [phone] EDILBERTO MIMS Attending Clinician Unavailable Pop ENRIQUE, Josue Attending Clinician [phone] Shawna ENRIQUE, Tomasz Dunn Attending Clinician [phone] Joel ENRIQUE, Salazar Attending Clinician + Lab, Adc Fam Pob I Attending Clinician Unavailab Krystina Morfin Attending Clinician [phone] KRYSTINA CHEEMA Attending Clinician Unavailable Stephanie Singleton MD Admitting Clinician STEPHANIE SINGLETON Admitting Clinician Unavailable Payers Payer Name Policy Type Policy Number Effective Date Expirati on Date Source [employer] [id number] 2022 00:00:00 Problems Condition Name Condition Details Condition Category Status Onset Date Resolution Date Last Treatment Date Treating Clinician Comments Source Finger pain, right Finger pain, right Disease Active 2021-10 00:00: 00 [facility] Finger stiffness, right Finger stiffness, right Disease Active 2021-10 00:00: 00 [facility] Obesity (BMI 30-39.9) Obesity (BMI 30-39.9) Disease Active 2021-10 00:00: 00 [facility] 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 Disease Active 2021-10 00:00: 00 [facility] Essential hypertensi on Essential hypertensi on Disease Active 2021-10 00:00: 00 [facility] Hyperlipid emia Hyperlipid emia Disease Active 2021-10 00:00: 00 [facility] Restless leg syndrome Restless leg syndrome Disease Active 2021-10 00:00: 00 [facility] Encounter for routine history and physical exam for male Encounter for routine history and physical exam for male Disease Active 02-12 00:00: 00 [facility] Type 2 diabetes mellitus without complicati on, with long-term current use of insulin Type 2 diabetes mellitus without complicati on, with long-term current use of insulin Disease Active 12-01 00:00: 00 Overview: Formattin g of this note might be different from the original. 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 [employer] Utility [facility] Yeast infection Yeast infection Disease Active 12-01 00:00: 00 [facility] Allergies, Adverse Reactions, Alerts Allergy Name Allergy Type Status Severity Reaction(s) Onset Date Inactive Date Treating Clinician Comments Source Penicill ins Propensi ty to adverse reaction s Active Rash 11-22 00:00: 00 [facility] PENICILL INS Drug Class Active Rash 11-22 00:00: 00 [facility] Penicill ins Propensi ty to adverse reaction s Active Rash 11-22 00:00: 00 [facility] Social History Social Habit Start Date Stop Date Quantity Comments Source History of tobacco use Cigarette Smoker [facility] Exposure to SARS-CoV-2 (event) 2022-10-28 00:00:00 2022-11-07 08:30:00 Unable to assess [facility] Tobacco use and exposure 2022-10-08 00:00:00 2022-10-08 00:00:00 Smokeless tobacco non-user [facility] Alcohol intake 2022-10-08 00:00:00 2022-10-08 00:00:00 Current drinker of alcohol (finding) [facility] Tobacco Comment 2022-10-08 00:00:00 2022-10-08 00:00:00 smokes 1 pack per week [facility] Alcohol Comment 2014-02-22 00:00:00 2014-02-22 00:00:00 Currently uses alcohol only occasionally. 4 years ago he drank 24 beers daily for 4-5 months. [facility] Sex Assigned At 1980 00:00:00 1980 00:00:00 [facility] Smoking Status Start Date Stop Date Source Ex-smoker 2022-10-08 00:00:00 2022-10-08 00:00:00 [facility] Occasional tobacco smoker 2014-02-22 00:00:00 [facility] Medications Ordered Medication Name Filled Medication Name Start Date Stop Date Current Medication? Ordering Clinician Indication Dosage Frequency Signature (SIG) Comments Components Source gabapentin 600 mg tablet 2021-10 00:00: 00 Yes 600mg Take 600 mg by mouth at bedtime. [facility] gabapentin 600 mg tablet 2021-10 00:00: 00 Yes 600mg Take 600 mg by mouth at bedtime. [facility] gabapentin 600 mg tablet 2021-10 00:00: 00 Yes 600mg Take 600 mg by mouth at bedtime. [facility] MOUNJARO 2.5 mg/0.5 mL PnIj 2021-10 00:00: 00 Yes INJECT 2.5 MG SUBCUTANEO USLY ONCE A WEEK FOR 4 WEEKS [facility] MOUNJARO 2.5 mg/0.5 mL PnIj 2021-10 00:00: 00 Yes INJECT 2.5 MG SUBCUTANEO USLY ONCE A WEEK FOR 4 WEEKS [facility] MOUNJARO 2.5 mg/0.5 mL PnIj 2021-10 00:00: 00 Yes INJECT 2.5 MG SUBCUTANEO USLY ONCE A WEEK FOR 4 WEEKS [facility] mupirocin 2 % ointment 2021-10 00:00: 00 10-03 05:59 :00 No [id number] Apply to area(s) 3 (three) times daily for 21 days. [facility] mupirocin 2 % ointment 2021-10 00:00: 00 10-03 05:59 :00 No [id number] Apply to area(s) 3 (three) times daily for 21 days. [facility] mupirocin 2 % ointment 2021-10 00:00: 00 10-03 05:59 :00 No [id number] Apply to area(s) 3 (three) times daily for 21 days. [facility] losartan 50 mg tablet 2021-10 00:00: 00 Yes 50mg Take 1 tablet by mouth in the morning. [facility] polyethylen e glycol 3350 17 gram powder 2021-10 00:00: 00 Yes [id number] 17g Take 1 Packet by mouth in the morning. [facility] sennosides 8.6 mg tablet 2021-10 00:00: 00 Yes [id number] 8.6mg Take 1 tablet by mouth in the morning. [facility] losartan 50 mg tablet 2021-10 00:00: 00 Yes 50mg Take 1 tablet by mouth in the morning. [facility] polyethylen e glycol 3350 17 gram powder 2021-10 00:00: 00 Yes [id number] 17g Take 1 Packet by mouth in the morning. [facility] sennosides 8.6 mg tablet 2021-10 00:00: 00 Yes [id number] 8.6mg Take 1 tablet by mouth in the morning. [facility] losartan 50 mg tablet 2021-10 00:00: 00 Yes 50mg Take 1 tablet by mouth in the morning. [facility] polyethylen e glycol 3350 17 gram powder 2021-10 00:00: 00 Yes [id number] 17g Take 1 Packet by mouth in the morning. [facility] sennosides 8.6 mg tablet 2021-10 00:00: 00 Yes [id number] 8.6mg Take 1 tablet by mouth in the morning. [facility] losartan 50 mg tablet 2021-10 00:00: 00 Yes 50mg Take 1 tablet by mouth in the morning. [facility] polyethylen e glycol 3350 17 gram powder 2021-10 00:00: 00 Yes [id number] 17g Take 1 Packet by mouth in the morning. [facility] sennosides 8.6 mg tablet 2021-10 00:00: 00 Yes [id number] 8.6mg Take 1 tablet by mouth in the morning. [facility] losartan 50 mg tablet 2021-10 00:00: 00 Yes 50mg Take 1 tablet by mouth in the morning. [facility] polyethylen e glycol 3350 17 gram powder 2021-10 00:00: 00 Yes [id number] 17g Take 1 Packet by mouth in the morning. [facility] sennosides 8.6 mg tablet 2021-10 00:00: 00 Yes [id number] 8.6mg Take 1 tablet by mouth in the morning. [facility] losartan 50 mg tablet 2021-10 00:00: 00 Yes 50mg Take 1 tablet by mouth in the morning. [facility] polyethylen e glycol 3350 17 gram powder 2021-10 00:00: 00 Yes [id number] 17g Take 1 Packet by mouth in the morning. [facility] sennosides 8.6 mg tablet 2021-10 00:00: 00 Yes [id number] 8.6mg Take 1 tablet by mouth in the morning. [facility] losartan 50 mg tablet 2021-10 00:00: 00 Yes 50mg Take 1 tablet by mouth in the morning. [facility] polyethylen e glycol 3350 17 gram powder 2021-10 00:00: 00 Yes [id number] 17g Take 1 Packet by mouth in the morning. [facility] sennosides 8.6 mg tablet 2021-10 00:00: 00 Yes [id number] 8.6mg Take 1 tablet by mouth in the morning. [facility] losartan 50 mg tablet 2021-10 00:00: 00 Yes 50mg Take 1 tablet by mouth in the morning. [facility] polyethylen e glycol 3350 17 gram powder 2021-10 00:00: 00 Yes [id number] 17g Take 1 Packet by mouth in the morning. [facility] sennosides 8.6 mg tablet 2021-10 00:00: 00 Yes [id number] 8.6mg Take 1 tablet by mouth in the morning. [facility] losartan 50 mg tablet 2021-10 00:00: 00 Yes 50mg Take 1 tablet by mouth in the morning. [facility] polyethylen e glycol 3350 17 gram powder 2021-10 00:00: 00 Yes [id number] 17g Take 1 Packet by mouth in the morning. [facility] sennosides 8.6 mg tablet 2021-10 00:00: 00 Yes [id number] 8.6mg Take 1 tablet by mouth in the morning. [facility] losartan 50 mg tablet 2021-10 00:00: 00 Yes 50mg Take 1 tablet by mouth in the morning. [facility] polyethylen e glycol 3350 17 gram powder 2021-10 00:00: 00 Yes [id number] 17g Take 1 Packet by mouth in the morning. [facility] sennosides 8.6 mg tablet 2021-10 00:00: 00 Yes [id number] 8.6mg Take 1 tablet by mouth in the morning. [facility] losartan 50 mg tablet 2021-10 00:00: 00 Yes 50mg Take 1 tablet by mouth in the morning. [facility] polyethylen e glycol 3350 17 gram powder 2021-10 00:00: 00 Yes [id number] 17g Take 1 Packet by mouth in the morning. [facility] sennosides 8.6 mg tablet 2021-10 00:00: 00 Yes [id number] 8.6mg Take 1 tablet by mouth in the morning. [facility] losartan 50 mg tablet 2021-10 00:00: 00 Yes 50mg Take 1 tablet by mouth in the morning. [facility] polyethylen e glycol 3350 17 gram powder 2021-10 00:00: 00 Yes [id number] 17g Take 1 Packet by mouth in the morning. [facility] sennosides 8.6 mg tablet 2021-10 00:00: 00 Yes [id number] 8.6mg Take 1 tablet by mouth in the morning. [facility] losartan 50 mg tablet 2021-10 00:00: 00 Yes 50mg Take 1 tablet by mouth in the morning. [facility] polyethylen e glycol 3350 17 gram powder 2021-10 00:00: 00 Yes [id number] 17g Take 1 Packet by mouth in the morning. [facility] sennosides 8.6 mg tablet 2021-10 00:00: 00 Yes [id number] 8.6mg Take 1 tablet by mouth in the morning. [facility] losartan 50 mg tablet 2021-10 00:00: 00 Yes 50mg Take 1 tablet by mouth in the morning. [facility] polyethylen e glycol 3350 17 gram powder 2021-10 00:00: 00 Yes [id number] 17g Take 1 Packet by mouth in the morning. [facility] sennosides 8.6 mg tablet 2021-10 00:00: 00 Yes [id number] 8.6mg Take 1 tablet by mouth in the morning. [facility] losartan 50 mg tablet 2021-10 00:00: 00 Yes 50mg Take 1 tablet by mouth in the morning. [facility] polyethylen e glycol 3350 17 gram powder 2021-10 00:00: 00 Yes [id number] 17g Take 1 Packet by mouth in the morning. [facility] sennosides 8.6 mg tablet 2021-10 00:00: 00 Yes [id number] 8.6mg Take 1 tablet by mouth in the morning. [facility] sennosides (SENOKOT) tablet 8.6 mg 2021-10 15:00: 00 Yes 8.6mg 8.6 mg, Oral, DAILY, First dose on Fri09/04/22 at 0900, Until Discontinu ed, Routine [facility] polyethylen e glycol 3350 powder 17 g 2021-10 15:00: 00 Yes 17g 17 g, Oral, DAILY, First dose on Fri09/04/22 at 0900, Until Discontinu ed, Routine [facility] sennosides (SENOKOT) tablet 8.6 mg 2021-10 15:00: 00 Yes 8.6mg 8.6 mg, Oral, DAILY, First dose on Fri09/04/22 at 0900, Until Discontinu ed, Routine [facility] polyethylen e glycol 3350 powder 17 g 2021-10 15:00: 00 Yes 17g 17 g, Oral, DAILY, First dose on Fri09/04/22 at 0900, Until Discontinu ed, Routine [facility] morpHINE (2 mg/mL) injection 4 mg 2021-10 13:57: 04 Yes 4mg 4 mg, Slow IV Push, Q4HPRN, Starting on Fri09/04/22 at 0757, Until Discontinu ed, Routine, Pain (scale 7-10) [facility] morpHINE (2 mg/mL) injection 4 mg 2021-10 13:57: 04 Yes 4mg 4 mg, Slow IV Push, Q4HPRN, Starting on Fri09/04/22 at 0757, Until Discontinu ed, Routine, Pain (scale 7-10) [facility] HYDROcodone -acetaminop hen (NORCO) 10-325 mg tablet 1 tablet 2021-10 10:51: 25 Yes 1{tbl} 1 tablet, Oral, Q6HPRN, Starting on Fri09/04/22 at 0451, Until Discontinu ed, Routine, Pain (scale 4-6) [facility] HYDROcodone -acetaminop hen (NORCO) 10-325 mg tablet 1 tablet 2021-10 10:51: 25 Yes 1{tbl} 1 tablet, Oral, Q6HPRN, Starting on Fri09/04/22 at 0451, Until Discontinu ed, Routine, Pain (scale 4-6) [facility] morpHINE (2 mg/mL) injection 2 mg 2021-10 10:51: 13 09-04 13:57 :36 No 2mg 2 mg, Slow IV Push, Q4HPRN, Starting on Fri09/04/22 at 0451, Until Fri09/04/22 at 0757, Routine, Pain (scale 7-10) [facility] HYDROcodone -acetaminop hen (NORCO) 10-325 mg tablet 1 tablet 2021-10 08:39: 28 09-04 10:51 :33 No 1{tbl} 1 tablet, Oral, Q6HPRN, Starting on Fri09/04/22 at 0239, Until Fri09/04/22 at 0451, Routine, Pain (scale 7-10) [facility] gabapentin 100 mg capsule 2021-10 00:00: 00 Yes [id number] 300mg Take 3 capsules by mouth at bedtime. [facility] ibuprofen 600 mg tablet 2021-10 00:00: 00 Yes [id number] 600mg Take 1 tablet by mouth every 6 (six) hours as needed for Pain (scale 1-3). [facility] NPH and regular human 70-30 100 unit/mL (70-30) injection 2021-10 00:00: 00 Yes 40U inject 40 Units under the skin every morning. [facility] insulin NPH and regular human 70-30 100 unit/mL (70-30) injection 2021-10 00:00: 00 Yes 20U inject 20 Units under the skin every evening. [facility] metFORMIN 500 mg tablet 2021-10 00:00: 00 Yes 500mg Take 1 tablet by mouth in the morning and 1 tablet in the evening. Take with meals. [facility] semaglutide (OZEMPIC) 0.25 mg or 0.5 mg(2 mg/1.5 mL) PnIj 2021-10 00:00: 00 Yes .25mg inject 0.25 mg under the skin. [facility] gabapentin 100 mg capsule 2021-10 00:00: 00 Yes [id number] 300mg Take 3 capsules by mouth at bedtime. [facility] ibuprofen 600 mg tablet 2021-10 00:00: 00 Yes [id number] 600mg Take 1 tablet by mouth every 6 (six) hours as needed for Pain (scale 1-3). [facility] insulin NPH and regular human 70-30 100 unit/mL (70-30) injection 2021-10 00:00: 00 Yes 40U inject 40 Units under the skin every morning. [facility] insulin NPH and regular human 70-30 100 unit/mL (70-30) injection 2021-10 00:00: 00 Yes 20U inject 20 Units under the skin every evening. [facility] metFORMIN 500 mg tablet 2021-10 00:00: 00 Yes 500mg Take 1 tablet by mouth in the morning and 1 tablet in the evening. Take with meals. [facility] semaglutide (OZEMPIC) 0.25 mg or 0.5 mg(2 mg/1.5 mL) PnIj 2021-10 00:00: 00 Yes .25mg inject 0.25 mg under the skin. [facility] gabapentin 100 mg capsule 2021-10 00:00: 00 Yes [id number] 300mg Take 3 capsules by mouth at bedtime. [facility] ibuprofen 600 mg tablet 2021-10 00:00: 00 Yes [id number] 600mg Take 1 tablet by mouth every 6 (six) hours as needed for Pain (scale 1-3). [facility] insulin NPH and regular human 70-30 100 unit/mL (70-30) injection 2021-10 00:00: 00 Yes 40U inject 40 Units under the skin every morning. [facility] insulin NPH and regular human 70-30 100 unit/mL (70-30) injection 2021-10 00:00: 00 Yes 20U inject 20 Units under the skin every evening. [facility] metFORMIN 500 mg tablet 2021-10 00:00: 00 Yes 500mg Take 1 tablet by mouth in the morning and 1 tablet in the evening. Take with meals. [facility] semaglutide (OZEMPIC) 0.25 mg or 0.5 mg(2 mg/1.5 mL) PnIj 2021-10 00:00: 00 Yes .25mg inject 0.25 mg under the skin. [facility] gabapentin 100 mg capsule 2021-10 00:00: 00 Yes [id number] 300mg Take 3 capsules by mouth at bedtime. [facility] ibuprofen 600 mg tablet 2021-10 00:00: 00 Yes [id number] 600mg Take 1 tablet by mouth every 6 (six) hours as needed for Pain (scale 1-3). [facility] insulin NPH and regular human 70-30 100 unit/mL (70-30) injection 2021-10 00:00: 00 Yes 40U inject 40 Units under the skin every morning. [facility] insulin NPH and regular human 70-30 100 unit/mL (70-30) injection 2021-10 00:00: 00 Yes 20U inject 20 Units under the skin every evening. [facility] metFORMIN 500 mg tablet 2021-10 00:00: 00 Yes 500mg Take 1 tablet by mouth in the morning and 1 tablet in the evening. Take with meals. [facility] semaglutide (OZEMPIC) 0.25 mg or 0.5 mg(2 mg/1.5 mL) PnIj 2021-10 00:00: 00 Yes .25mg inject 0.25 mg under the skin. [facility] gabapentin 100 mg capsule 2021-10 00:00: 00 Yes [id number] 300mg Take 3 capsules by mouth at bedtime. [facility] ibuprofen 600 mg tablet 2021-10 00:00: 00 Yes [id number] 600mg Take 1 tablet by mouth every 6 (six) hours as needed for Pain (scale 1-3). [facility] insulin NPH and regular human 70-30 100 unit/mL (70-30) injection 2021-10 00:00: 00 Yes 40U inject 40 Units under the skin every morning. [facility] insulin NPH and regular human 70-30 100 unit/mL (70-30) injection 2021-10 00:00: 00 Yes 20U inject 20 Units under the skin every evening. [facility] metFORMIN 500 mg tablet 2021-10 00:00: 00 Yes 500mg Take 1 tablet by mouth in the morning and 1 tablet in the evening. Take with meals. [facility] semaglutide (OZEMPIC) 0.25 mg or 0.5 mg(2 mg/1.5 mL) PnIj 2021-10 00:00: 00 Yes .25mg inject 0.25 mg under the skin. [facility] gabapentin 100 mg capsule 2021-10 00:00: 00 Yes [id number] 300mg Take 3 capsules by mouth at bedtime. [facility] ibuprofen 600 mg tablet 2021-10 00:00: 00 Yes [id number] 600mg Take 1 tablet by mouth every 6 (six) hours as needed for Pain (scale 1-3). [facility] insulin NPH and regular human 70-30 100 unit/mL (70-30) injection 2021-10 00:00: 00 Yes 40U inject 40 Units under the skin every morning. [facility] insulin NPH and regular human 70-30 100 unit/mL (70-30) injection 2021-10 00:00: 00 Yes 20U inject 20 Units under the skin every evening. [facility] metFORMIN 500 mg tablet 2021-10 00:00: 00 Yes 500mg Take 1 tablet by mouth in the morning and 1 tablet in the evening. Take with meals. [facility] semaglutide (OZEMPIC) 0.25 mg or 0.5 mg(2 mg/1.5 mL) [facility] 2021-10 00:00: 00 Yes .25mg inject 0.25 mg under the skin. [facility] gabapentin 100 mg capsule 2021-10 00:00: 00 Yes [id number] 300mg Take 3 capsules by mouth at bedtime. [facility] ibuprofen 600 mg tablet 2021-10 00:00: 00 Yes [id number] 600mg Take 1 tablet by mouth every 6 (six) hours as needed for Pain (scale 1-3). [facility] insulin NPH and regular human 70-30 100 unit/mL (70-30) injection 2021-10 00:00: 00 Yes 40U inject 40 Units under the skin every morning. [facility] insulin NPH and regular human 70-30 100 unit/mL (70-30) injection 2021-10 00:00: 00 Yes 20U inject 20 Units under the skin every evening. [facility] metFORMIN 500 mg tablet 2021-10 00:00: 00 Yes 500mg Take 1 tablet by mouth in the morning and 1 tablet in the evening. Take with meals. [facility] semaglutide (OZEMPIC) 0.25 mg or 0.5 mg(2 mg/1.5 mL) PnIj 2021-10 00:00: 00 Yes .25mg inject 0.25 mg under the skin. [facility] polyethylen e glycol 3350 17 gram/dose powder 2021-10 00:00: 00 Yes MIX 17 GRAMS OF POWDER IN WATER OR JUICE ONCE DAILY IN THE MORNING [facility] gabapentin 100 mg capsule 2021-10 00:00: 00 Yes [id number] 300mg Take 3 capsules by mouth at bedtime. [facility] ibuprofen 600 mg tablet 2021-10 00:00: 00 Yes [id number] 600mg Take 1 tablet by mouth every 6 (six) hours as needed for Pain (scale 1-3). [facility] insulin NPH and regular human 70-30 100 unit/mL (70-30) injection 2021-10 00:00: 00 Yes 40U inject 40 Units under the skin every morning. [facility] insulin NPH and regular human 70-30 100 unit/mL (70-30) injection 2021-10 00:00: 00 Yes 20U inject 20 Units under the skin every evening. [facility] metFORMIN 500 mg tablet 2021-10 00:00: 00 Yes 500mg Take 1 tablet by mouth in the morning and 1 tablet in the evening. Take with meals. [facility] semaglutide (OZEMPIC) 0.25 mg or 0.5 mg(2 mg/1.5 mL) Ij 2021-10 00:00: 00 Yes .25mg inject 0.25 mg under the skin. [facility] polyethylen e glycol 3350 17 gram/dose powder 2021-10 00:00: 00 Yes MIX 17 GRAMS OF POWDER IN WATER OR JUICE ONCE DAILY IN THE MORNING [facility] gabapentin 100 mg capsule 2021-10 00:00: 00 Yes [id number] 300mg Take 3 capsules by mouth at bedtime. [facility] ibuprofen 600 mg tablet 2021-10 00:00: 00 Yes [id number] 600mg Take 1 tablet by mouth every 6 (six) hours as needed for Pain (scale 1-3). [facility] insulin NPH and regular human 70-30 100 unit/mL (70-30) injection 2021-10 00:00: 00 Yes 40U inject 40 Units under the skin every morning. [facility] insulin NPH and regular human 70-30 100 unit/mL (70-30) injection 2021-10 00:00: 00 Yes 20U inject 20 Units under the skin every evening. [facility] metFORMIN 500 mg tablet 2021-10 00:00: 00 Yes 500mg Take 1 tablet by mouth in the morning and 1 tablet in the evening. Take with meals. [facility] semaglutide (OZEMPIC) 0.25 mg or 0.5 mg(2 mg/1.5 mL) PnIj 2021-10 00:00: 00 Yes .25mg inject 0.25 mg under the skin. [facility] polyethylen e glycol 3350 17 gram/dose powder 2021-10 00:00: 00 Yes MIX 17 GRAMS OF POWDER IN WATER OR JUICE ONCE DAILY IN THE MORNING [facility] gabapentin 100 mg capsule 2021-10 00:00: 00 Yes [id number] 300mg Take 3 capsules by mouth at bedtime. [facility] ibuprofen 600 mg tablet 2021-10 00:00: 00 Yes [id number] 600mg Take 1 tablet by mouth every 6 (six) hours as needed for Pain (scale 1-3). [facility] insulin NPH and regular human 70-30 100 unit/mL (70-30) injection 2021-10 00:00: 00 Yes 40U inject 40 Units under the skin every morning. [facility] insulin NPH and regular human 70-30 100 unit/mL (70-30) injection 2021-10 00:00: 00 Yes 20U inject 20 Units under the skin every evening. [facility] metFORMIN 500 mg tablet 2021-10 00:00: 00 Yes 500mg Take 1 tablet by mouth in the morning and 1 tablet in the evening. Take with meals. [facility] semaglutide (OZEMPIC) 0.25 mg or 0.5 mg(2 mg/1.5 mL) PnIj 2021-10 00:00: 00 Yes .25mg inject 0.25 mg under the skin. [facility] polyethylen e glycol 3350 17 gram/dose powder 2021-10 00:00: 00 Yes MIX 17 GRAMS OF POWDER IN WATER OR JUICE ONCE DAILY IN THE MORNING [facility] gabapentin 100 mg capsule 2021-10 00:00: 00 Yes [id number] 300mg Take 3 capsules by mouth at bedtime. [facility] ibuprofen 600 mg tablet 2021-10 00:00: 00 Yes [id number] 600mg Take 1 tablet by mouth every 6 (six) hours as needed for Pain (scale 1-3). [facility] insulin NPH and regular human 70-30 100 unit/mL (70-30) injection 2021-10 00:00: 00 Yes 40U inject 40 Units under the skin every morning. [facility] insulin NPH and regular human 70-30 100 unit/mL (70-30) injection 2021-10 00:00: 00 Yes 20U inject 20 Units under the skin every evening. [facility] metFORMIN 500 mg tablet 2021-10 00:00: 00 Yes 500mg Take 1 tablet by mouth in the morning and 1 tablet in the evening. Take with meals. [facility] semaglutide (OZEMPIC) 0.25 mg or 0.5 mg(2 mg/1.5 mL) PnIj 2021-10 00:00: 00 Yes .25mg inject 0.25 mg under the skin. [facility] polyethylen e glycol 3350 17 gram/dose powder 2021-10 00:00: 00 Yes MIX 17 GRAMS OF POWDER IN WATER OR JUICE ONCE DAILY IN THE MORNING [facility] ibuprofen 600 mg tablet 2021-10 00:00: 00 Yes [id number] 600mg Take 1 tablet by mouth every 6 (six) hours as needed for Pain (scale 1-3). [facility] NPH and regular human 70-30 100 unit/mL (70-30) injection 2021-10 00:00: 00 Yes 40U inject 40 Units under the skin every morning. [facility] insulin NPH and regular human 70-30 100 unit/mL (70-30) injection 2021-10 00:00: 00 Yes 20U inject 20 Units under the skin every evening. [facility] metFORMIN 500 mg tablet 2021-10 00:00: 00 Yes 500mg Take 1 tablet by mouth in the morning and 1 tablet in the evening. Take with meals. [facility] semaglutide (OZEMPIC) 0.25 mg or 0.5 mg(2 mg/1.5 mL) PnIj 2021-10 00:00: 00 Yes .25mg inject 0.25 mg under the skin. [facility] polyethylen e glycol 3350 17 gram/dose powder 2021-10 00:00: 00 Yes MIX 17 GRAMS OF POWDER IN WATER OR JUICE ONCE DAILY IN THE MORNING [facility] ibuprofen 600 mg tablet 2021-10 00:00: 00 Yes [id number] 600mg Take 1 tablet by mouth every 6 (six) hours as needed for Pain (scale 1-3). [facility] insulin NPH and regular human 70-30 100 unit/mL (70-30) injection 2021-10 00:00: 00 Yes 40U inject 40 Units under the skin every morning. [facility] insulin NPH and regular human 70-30 100 unit/mL (70-30) injection 2021-10 00:00: 00 Yes 20U inject 20 Units under the skin every evening. [facility] metFORMIN 500 mg tablet 2021-10 00:00: 00 Yes 500mg Take 1 tablet by mouth in the morning and 1 tablet in the evening. Take with meals. [facility] semaglutide (OZEMPIC) 0.25 mg or 0.5 mg(2 mg/1.5 mL) PnIj 2021-10 00:00: 00 Yes .25mg inject 0.25 mg under the skin. [facility] polyethylen e glycol 3350 17 gram/dose powder 2021-10 00:00: 00 Yes MIX 17 GRAMS OF POWDER IN WATER OR JUICE ONCE DAILY IN THE MORNING [facility] ibuprofen 600 mg tablet 2021-10 00:00: 00 Yes [id number] 600mg Take 1 tablet by mouth every 6 (six) hours as needed for Pain (scale 1-3). [facility] insulin NPH and regular human 70-30 100 unit/mL (70-30) injection 2021-10 00:00: 00 Yes 40U inject 40 Units under the skin every morning. [facility] insulin NPH and regular human 70-30 100 unit/mL (70-30) injection 2021-10 00:00: 00 Yes 20U inject 20 Units under the skin every evening. [facility] metFORMIN 500 mg tablet 2021-10 00:00: 00 Yes 500mg Take 1 tablet by mouth in the morning and 1 tablet in the evening. Take with meals. [facility] semaglutide (OZEMPIC) 0.25 mg or 0.5 mg(2 mg/1.5 mL) PnIj 2021-10 00:00: 00 Yes .25mg inject 0.25 mg under the skin. [facility] polyethylen e glycol 3350 17 gram/dose powder 2021-10 00:00: 00 Yes MIX 17 GRAMS OF POWDER IN WATER OR JUICE ONCE DAILY IN THE MORNING [facility] gabapentin 100 mg capsule 2021-10 00:00: 00 Yes [id number] 300mg Take 3 capsules by mouth at bedtime. [facility] ibuprofen 600 mg tablet 2021-10 00:00: 00 Yes [id number] 600mg Take 1 tablet by mouth every 6 (six) hours as needed for Pain (scale 1-3). [facility] insulin NPH and regular human 70-30 100 unit/mL (70-30) injection 2021-10 00:00: 00 Yes 40U inject 40 Units under the skin every morning. [facility] insulin NPH and regular human 70-30 100 unit/mL (70-30) injection 2021-10 00:00: 00 Yes 20U inject 20 Units under the skin every evening. [facility] metFORMIN 500 mg tablet 2021-10 00:00: 00 Yes 500mg Take 1 tablet by mouth in the morning and 1 tablet in the evening. Take with meals. [facility] semaglutide (OZEMPIC) 0.25 mg or 0.5 mg(2 mg/1.5 mL) PnIj 2021-10 00:00: 00 Yes .25mg inject 0.25 mg under the skin. [facility] gabapentin 100 mg capsule 2021-10 00:00: 00 10-08 00:00 :00 No [id number] 300mg Take 3 capsules by mouth at bedtime. [facility] gabapentin 100 mg capsule 2021-10 00:00: 00 10-08 00:00 :00 No [id number] 300mg Take 3 capsules by mouth at bedtime. [facility] HYDROcodone -acetaminop hen 10-325 mg tablet 2021-10 00:00: 00 09-12 05:59 :00 No [id number] 1{tbl} Take 1 tablet by mouth every 6 (six) hours as needed for Pain (scale 4-6) for up to 7 days. Indication s: acute pain [facility] HYDROcodone -acetaminop hen 10-325 mg tablet 2021-10 00:00: 00 09-12 05:59 :00 No 4647 1{tbl} Take 1 tablet by mouth every 6 (six) hours as needed for Pain (scale 4-6) for up to 7 days. Indication s: acute pain [facility] HYDROcodone -acetaminop hen 10-325 mg tablet 2021-10 00:00: 00 09-12 05:59 :00 No 4647 1{tbl} Take 1 tablet by mouth every 6 (six) hours as needed for Pain (scale 4-6) for up to 7 days. Indication s: acute pain [facility] HYDROcodone -acetaminop hen 10-325 mg tablet 2021-10 00:00: 00 09-12 05:59 :00 No 4647 1{tbl} Take 1 tablet by mouth every 6 (six) hours as needed for Pain (scale 4-6) for up to 7 days. Indication s: acute pain [facility] HYDROcodone -acetaminop hen 10-325 mg tablet 2021-10 00:00: 00 09-12 05:59 :00 No 4647 1{tbl} Take 1 tablet by mouth every 6 (six) hours as needed for Pain (scale 4-6) for up to 7 days. Indication s: acute pain [facility] HYDROcodone -acetaminop hen 10-325 mg tablet 2021-10 00:00: 00 09-12 05:59 :00 No 4647 1{tbl} Take 1 tablet by mouth every 6 (six) hours as needed for Pain (scale 4-6) for up to 7 days. Indication s: acute pain [facility] HYDROcodone -acetaminop hen 10-325 mg tablet 2021-10 00:00: 00 09-12 05:59 :00 No 4647 1{tbl} Take 1 tablet by mouth every 6 (six) hours as needed for Pain (scale 4-6) for up to 7 days. Indication s: acute pain [facility] HYDROcodone -acetaminop hen 10-325 mg tablet 2021-10 00:00: 00 09-12 05:59 :00 No 4647 1{tbl} Take 1 tablet by mouth every 6 (six) hours as needed for Pain (scale 4-6) for up to 7 days. Indication s: [facility] HYDROcodone -acetaminop hen 10-325 mg tablet 2021-10 00:00: 00 09-12 05:59 :00 No 4647 1{tbl} Take 1 tablet by mouth every 6 (six) hours as needed for Pain (scale 4-6) for up to 7 days. Indication s: acute pain [facility] HYDROcodone -acetaminop hen 10-325 mg tablet 2021-10 00:00: 00 09-12 05:59 :00 No 4647 1{tbl} Take 1 tablet by mouth every 6 (six) hours as needed for Pain (scale 4-6) for up to 7 days. Indication s: acute [facility] HYDROcodone -acetaminop hen 10-325 mg tablet 2021-10 00:00: 00 09-12 05:59 :00 No 4647 1{tbl} Take 1 tablet by mouth every 6 (six) hours as needed for Pain (scale 4-6) for up to 7 days. Indication s: acute pain [facility] ePHEDrine 25 mg/5 mL (5 mg/mL) syringe 2021-10 16:20: 00 09-03 16:46 :10 No Slow IV Push, ONCE INTRA PROCEDURE, Starting on Fri09/03/22 at 1020, Until Fri09/03/22 at 1046, Routine, Intra-op [facility] ePHEDrine 25 mg/5 mL (5 mg/mL) syringe 2021-10 16:20: 00 09-03 16:46 :10 No Slow IV Push, ONCE INTRA PROCEDURE, Starting on Fri09/03/22 at 1020, Until Fri09/03/22 at 1046, Routine, Intra-op [facility] lidocaine 1% (XYLOCAINE) 100 mg/10 mL (1 %) injection 2021-10 16:07: 00 09-03 16:46 :10 No Slow IV Push, ONCE INTRA PROCEDURE, Starting on Fri09/03/22 at 1007, Until Fri09/03/22 at 1046, Routine, Intra-op [facility] lidocaine 1% (XYLOCAINE) 100 mg/10 mL (1 %) injection 2021-10 16:07: 00 09-03 16:46 :10 No Slow IV Push, ONCE INTRA PROCEDURE, Starting on Fri09/03/22 at 1007, Until Fri09/03/22 at 1046, Routine, Intra-op [facility] PHENYLephri ne 1000 mcg/10 mL in 0.9% NaCl syringe 2021-10 16:06: 00 09-03 16:46 :10 No Slow IV Push, ONCE INTRA PROCEDURE, Starting on Fri09/03/22 at 1006, Until Fri09/03/22 at 1046, Routine, Intra-op [facility] PHENYLephri ne 1000 mcg/10 mL in 0.9% NaCl syringe 2021-10 16:06: 00 09-03 16:46 :10 No Slow IV Push, ONCE INTRA PROCEDURE, Starting on Fri09/03/22 at 1006, Until Fri09/03/22 at 1046, Routine, Intra-op [facility] bupivacaine -epinephrin e-pf (SENSORCAIN E W/EPINEPHRI NE) 0.5 %-1:200,000 5 mL, lidocaine 1% (PF) (XYLOCAINE) 5 mL 2021-10 16:00: 00 09-03 16:45 :29 No PRN, Starting on Fri09/03/22 at 1000, Intra-op [facility] ondansetron (ZOFRAN (PF)) injection 2021-10 15:57: 00 09-03 16:46 :10 No Slow IV Push, ONCE INTRA PROCEDURE, Starting on Fri09/03/22 at 0957, Until Fri09/03/22 at 1046, Routine, Intra-op [facility] ondansetron (ZOFRAN (PF)) injection 2021-10 15:57: 00 09-03 16:46 :10 No Slow IV Push, ONCE INTRA PROCEDURE, Starting on Fri09/03/22 at 0957, Until Fri09/03/22 at 1046, Routine, Intra-op [facility] insulin regular human (HUMULIN R) injection 2021-10 15:54: 00 09-03 16:46 :10 No Subcutaneo us, ONCE INTRA PROCEDURE, Starting on Fri09/03/22 at 0954, Until Fri09/03/22 at 1046, Routine, Intra-op [facility] insulin regular human (HUMULIN R) injection 2021-10 15:54: 00 09-03 16:46 :10 No Subcutaneo us, ONCE INTRA PROCEDURE, Starting on Fri09/03/22 at 0954, Until Fri09/03/22 at 1046, Routine, Intra-op [facility] propofoL IV infusion 2021-10 15:45: 00 09-03 16:46 :10 No IV Infusion, ONCE INTRA PROCEDURE, Starting on Fri09/03/22 at 0945, Until Fri09/03/22 at 1046, Routine, Intra-op [facility] FENTanyl PF (SUBLIMAZE (PF)) injection 2021-10 15:45: 00 09-03 16:46 :10 No Epidural, ONCE INTRA PROCEDURE, Starting on Fri09/03/22 at 0945, Until Fri09/03/22 at 1046, Routine, Intra-op [facility] propofoL IV infusion 2021-10 15:45: 00 09-03 16:46 :10 No IV Infusion, ONCE INTRA PROCEDURE, Starting on Fri09/03/22 at 0945, Until Fri09/03/22 at 1046, Routine, Intra-op [facility] FENTanyl PF (SUBLIMAZE (PF)) injection 2021-10 15:45: 00 09-03 16:46 :10 No Epidural, ONCE INTRA PROCEDURE, Starting on Fri09/03/22 at 0945, Until Fri09/03/22 at 1046, Routine, Intra-op [facility] midazolam (VERSED) injection 2021-10 15:36: 00 09-03 16:46 :10 No IV Push, ONCE INTRA PROCEDURE, Starting on Fri09/03/22 at 0936, Until Fri09/03/22 at 1046, Routine, Intra-op [facility] midazolam (VERSED) injection 2021-10 15:36: 00 09-03 16:46 :10 No IV Push, ONCE INTRA PROCEDURE, Starting on Fri09/03/22 at 0936, Until Fri09/03/22 at 1046, Routine, Intra-op [facility] lactated ringers IV infusion 2021-10 15:25: 00 09-03 16:46 :10 No IV Infusion, CONTINUOUS PRN, Starting on Fri09/03/22 at 0925, Until Fri09/03/22 at 1046, Routine, Intra-op [facility] lactated ringers IV infusion 2021-10 15:25: 00 09-03 16:46 :10 No IV Infusion, CONTINUOUS PRN, Starting on Fri09/03/22 at 0925, Until Fri09/03/22 at 1046, Routine, Intra-op [facility] insulin NPH and regular human 70-30 (70-30 U-100 INSULIN) 100 unit/mL (70-30) injection 20 Units 2021-10 23:00: 00 Yes 20U 20 Units, Subcutaneo us, QPM, First dose on Fri09/02/22 at 1700, Until Discontinu ed, Routine [facility] insulin NPH and regular human 70-30 (70-30 U-100 INSULIN) 100 unit/mL (70-30) injection 20 Units 2021-10 23:00: 00 Yes 20U 20 Units, Subcutaneo us, QPM, First dose on Fri09/02/22 at 1700, Until Discontinu ed, Routine [facility] losartan (COZAAR) tablet 50 mg 2021-10 15:00: 00 Yes 50mg 50 mg, Oral, DAILY, First dose on Fri09/02/22 at 0900, Until Discontinu ed, Routine [facility] insulin NPH and regular human 70-30 (70-30 U-100 INSULIN) 100 unit/mL (70-30) injection 40 Units 2021-10 15:00: 00 Yes 40U 40 Units, Subcutaneo us, QAM, First dose on Fri09/02/22 at 0900, Until Discontinu ed, Routine [facility] losartan (COZAAR) tablet 50 mg 2021-10 15:00: 00 Yes 50mg 50 mg, Oral, DAILY, First dose on Fri09/02/22 at 0900, Until Discontinu ed, Routine [facility] insulin NPH and regular human 70-30 (70-30 U-100 INSULIN) 100 unit/mL (70-30) injection 40 Units 2021-10 15:00: 00 Yes 40U 40 Units, Subcutaneo us, QAM, First dose on Fri09/02/22 at 0900, Until Discontinu ed, Routine [facility] gabapentin (NEURONTIN) capsule 100 mg 2021-10 03:00: 00 Yes 100mg 100 mg, Oral, QHS, First dose on 09/01/22 at 2100, Until Discontinu ed, Routine [facility] Sliding Scale Insulin - Lispro (HumaLOG) + Fsbg Testing 2021-10 03:00: 00 Yes Subcutaneo us, TID MEALS+HS, First dose on 09/01/22 at 2100, Until Discontinu ed, Routine [facility] gabapentin (NEURONTIN) capsule 100 mg 2021-10 03:00: 00 Yes 100mg 100 mg, Oral, QHS, First dose on 09/01/22 at 2100, Until Discontinu ed, Routine [facility] Sliding Scale Insulin - Lispro (HumaLOG) + Fsbg Testing 2021-10 03:00: 00 Yes Subcutaneo us, TID MEALS+HS, First dose on 09/01/22 at 2100, Until Discontinu ed, Routine [facility] levoFLOXaci n in D5W (LEVAQUIN) 750 mg/150 [...] Tissue
Duration of Therapy: 7 days [facility] ibuprofen (IBU) tablet 600 mg 2021-10 01:45: 57 Yes 600mg 600 mg, Oral, Q6HPRN, Starting on 09/01/22 at 1945, Until Discontinu ed, Routine, Pain (scale 1-3) [facility] ibuprofen (IBU) tablet 600 mg 2021-10 01:45: 57 Yes 600mg 600 mg, Oral, Q6HPRN, Starting on 09/01/22 at 1945, Until Discontinu ed, Routine, Pain (scale 1-3) [facility] vancomycin (VANCOCIN) 1,500 mg in NaCl [...] Tissue
Duration of Therapy: 7 days [facility] clindamycin in 5 % dextrose [...]
Re stricted use approved by: ED PROVIDER [facility] ceFAZolin in 0.9% sodium chloride (ANCEF) 2 gram/100 mL RTU 2 g 2021-10 19:45: 00 09-01 21:41 :00 No 2000mg 2 g (2,000 mg), IV Piggyback, ONCE, 1 dose, On 09/01/22 at 1345, Administer over 30 Minutes, 100 mL
Reas on for Anti-Infec tive: Documented Infection< br>Documen aleida Infection Site: Skin / Soft Tissue
Duration of Therapy: 7 days [facility] acetaminoph en-codeine 300-30 mg tablet 2021-10 00:00: 00 Yes TAKE 2 TABLETS BY MOUTH EVERY 4 TO 6 HOURS FOR PAIN CONTROL [facility] acetaminoph en-codeine 300-30 mg tablet 2021-10 00:00: 00 Yes TAKE 2 TABLETS BY MOUTH EVERY 4 TO 6 HOURS FOR PAIN CONTROL [facility] acetaminoph en-codeine 300-30 mg tablet 2021-10 00:00: 00 Yes TAKE 2 TABLETS BY MOUTH EVERY 4 TO 6 HOURS FOR PAIN CONTROL [facility] acetaminoph en-codeine 300-30 mg tablet 2021-10 00:00: 00 Yes TAKE 2 TABLETS BY MOUTH EVERY 4 TO 6 HOURS FOR PAIN CONTROL [facility] acetaminoph en-codeine 300-30 mg tablet 2021-10 00:00: 00 Yes TAKE 2 TABLETS BY MOUTH EVERY 4 TO 6 HOURS FOR PAIN CONTROL [facility] acetaminoph en-codeine 300-30 mg tablet 2021-10 00:00: 00 Yes TAKE 2 TABLETS BY MOUTH EVERY 4 TO 6 HOURS FOR PAIN CONTROL [facility] acetaminoph en-codeine 300-30 mg tablet 2021-10 00:00: 00 Yes TAKE 2 TABLETS BY MOUTH EVERY 4 TO 6 HOURS FOR PAIN CONTROL [facility] acetaminoph en-codeine 300-30 mg tablet 2021-10 00:00: 00 Yes TAKE 2 TABLETS BY MOUTH EVERY 4 TO 6 HOURS FOR PAIN CONTROL [facility] doxycycline monohydrate 100 mg tablet 2021-10 00:00: 00 Yes TAKE 1 TABLET BY MOUTH EVERY 12 HOURS FOR 10 DAYS [facility] sulfamethox azole-trime thoprim 800-160 mg per tablet 2021-10 00:00: 00 Yes TAKE 1 TABLET BY MOUTH EVERY 12 HOURS FOR 10 DAYS [facility] doxycycline monohydrate 100 mg tablet 2021-10 00:00: 00 Yes TAKE 1 TABLET BY MOUTH EVERY 12 HOURS FOR 10 DAYS [facility] sulfamethox azole-trime thoprim 800-160 mg per tablet 2021-10 00:00: 00 Yes TAKE 1 TABLET BY MOUTH EVERY 12 HOURS FOR 10 DAYS [facility] doxycycline monohydrate 100 mg tablet 2021-10 00:00: 00 Yes TAKE 1 TABLET BY MOUTH EVERY 12 HOURS FOR 10 DAYS [facility] sulfamethox azole-trime thoprim 800-160 mg per tablet 2021-10 00:00: 00 Yes TAKE 1 TABLET BY MOUTH EVERY 12 HOURS FOR 10 DAYS [facility] doxycycline monohydrate 100 mg tablet 2021-10 00:00: 00 Yes TAKE 1 TABLET BY MOUTH EVERY 12 HOURS FOR 10 DAYS [facility] sulfamethox azole-trime thoprim 800-160 mg per tablet 2021-10 00:00: 00 Yes TAKE 1 TABLET BY MOUTH EVERY 12 HOURS FOR 10 DAYS [facility] doxycycline monohydrate 100 mg tablet 2021-10 00:00: 00 Yes TAKE 1 TABLET BY MOUTH EVERY 12 HOURS FOR 10 DAYS [facility] sulfamethox azole-trime thoprim 800-160 mg per tablet 2021-10 00:00: 00 Yes TAKE 1 TABLET BY MOUTH EVERY 12 HOURS FOR 10 DAYS [facility] doxycycline monohydrate 100 mg tablet 2021-10 00:00: 00 Yes TAKE 1 TABLET BY MOUTH EVERY 12 HOURS FOR 10 DAYS [facility] sulfamethox azole-trime thoprim 800-160 mg per tablet 2021-10 00:00: 00 Yes TAKE 1 TABLET BY MOUTH EVERY 12 HOURS FOR 10 DAYS [facility] doxycycline monohydrate 100 mg tablet 2021-10 00:00: 00 Yes TAKE 1 TABLET BY MOUTH EVERY 12 HOURS FOR 10 DAYS [facility] sulfamethox azole-trime thoprim 800-160 mg per tablet 2021-10 00:00: 00 Yes TAKE 1 TABLET BY MOUTH EVERY 12 HOURS FOR 10 DAYS [facility] doxycycline monohydrate 100 mg tablet 2021-10 00:00: 00 Yes TAKE 1 TABLET BY MOUTH EVERY 12 HOURS FOR 10 DAYS [facility] sulfamethox azole-trime thoprim 800-160 mg per tablet 2021-10 00:00: 00 Yes TAKE 1 TABLET BY MOUTH EVERY 12 HOURS FOR 10 DAYS [facility] sodium chloride 0.9 % irrigation solution 06-26 00:00: 00 Yes [facility] sodium chloride 0.9 % irrigation solution 0 06-26 00:00: 00 Yes [facility] sodium chloride 0.9 % irrigation solution 0 06-26 00:00: 00 Yes [facility] sodium chloride 0.9 % irrigation solution 0 06-26 00:00: 00 Yes [facility] sodium chloride 0.9 % irrigation solution 0 06-26 00:00: 00 Yes [facility] sodium chloride 0.9 % irrigation solution 0 06-26 00:00: 00 Yes [facility] sodium chloride 0.9 % irrigation solution 0 06-26 00:00: 00 Yes [facility] sodium chloride 0.9 % irrigation solution 0 06-26 00:00: 00 Yes [facility] atorvastati n 10 mg tablet 06-24 00:00: 00 Yes [facility] pantoprazol e 40 mg EC tablet 06-24 00:00: 00 Yes [facility] valsartan 160 mg tablet 2-0 -19 00:00: 00 Yes [facility] atorvastati n 10 mg tablet 2-0 -19 00:00: 00 Yes [facility] pantoprazol e 40 mg EC tablet 2-0 -19 00:00: 00 Yes [facility] valsartan 160 mg tablet 2-0 19 00:00: 00 Yes [facility] atorvastati n 10 mg tablet 2021-0 19 00:00: 00 Yes [facility] pantoprazol e 40 mg EC tablet 2-0 06-24 00:00: 00 Yes [facility] valsartan 160 mg tablet 2-0 06-24 00:00: 00 Yes [facility] atorvastati n 10 mg tablet 2021-0 06-24 00:00: 00 Yes [facility] pantoprazol e 40 mg EC tablet 2-0 06-24 00:00: 00 Yes [facility] valsartan 160 mg tablet 2-0 19 00:00: 00 Yes [facility] atorvastati n 10 mg tablet 2021-0 19 00:00: 00 Yes [facility] pantoprazol e 40 mg EC tablet 2-0 06-24 00:00: 00 Yes [facility] valsartan 160 mg tablet 2-0 -19 00:00: 00 Yes [facility] atorvastati n 10 mg tablet 2-0 -19 00:00: 00 Yes [facility] pantoprazol e 40 mg EC tablet 2-0 19 00:00: 00 Yes [facility] valsartan 160 mg tablet 2-0 - 00:00: 00 Yes [facility] atorvastati n 10 mg tablet 2-0 -19 00:00: 00 Yes [facility] pantoprazol e 40 mg EC tablet 2-0 19 00:00: 00 Yes [facility] valsartan 160 mg tablet 0 - 00:00: 00 Yes [facility] atorvastati n 10 mg tablet 0 19 00:00: 00 Yes [facility] pantoprazol e 40 mg EC tablet 0 - 00:00: 00 Yes [facility] valsartan 160 mg tablet 0 19 00:00: 00 Yes [facility] SANTYL 250 unit/gram ointment 2021-0 -15 00:00: 00 Yes [facility] SANTYL 250 unit/gram ointment 2021-0 -15 00:00: 00 Yes [facility] SANTYL 250 unit/gram ointment 2021-0 -15 00:00: 00 Yes [facility] SANTYL 250 unit/gram ointment 2021-0 -15 00:00: 00 Yes [facility] SANTYL 250 unit/gram ointment 2021-0 -15 00:00: 00 Yes [facility] SANTYL 250 unit/gram ointment 2021-0 -15 00:00: 00 Yes [facility] SANTYL 250 unit/gram ointment 2021-0 -15 00:00: 00 Yes [facility] SANTYL 250 unit/gram ointment 2021-0 -15 00:00: 00 Yes [facility] clotrimazol e 1 % topical cream 0 02-12 00:00: 00 Yes [id number] Apply to area(s) at bedtime. [facility] clotrimazol e 1 % topical cream 0 02-12 00:00: 00 Yes [id number] Apply to area(s) at bedtime. [facility] clotrimazol e 1 % topical cream 0 02-12 00:00: 00 Yes [id number] Apply to area(s) at bedtime. [facility] clotrimazol e 1 % topical cream 02-12 00:00: 00 09-04 00:00 :00 No [id number] Apply to area(s) at bedtime. [facility] clotrimazol e 1 % topical cream 2016-0 5- 00:00: 00 09-04 00:00 :00 No [id number] Apply to area(s) at bedtime. [facility] Vital Signs Vital Name Observation Time Observation Value Comments S aron Systolic blood pressure 2022-10-08 16:20:00 120 mm[Hg] [facility] Diastolic blood pressure 2022-10-08 16:20:00 80 mm[Hg] [facility] Heart rate 2022-10-08 16:20:00 83 /min Un[facility] Body temperature 2022-10-08 16:20:00 36.61 Susanne [facility] Body height 2022-10-08 16:20:[address] [facility] Body weight 2022-10-08 16:20:00 97.977 kg [facility] BMI 2022-10-08 16:20:00 34.86 kg/m2 [facility] Oxygen saturation in Arterial blood by Pulse oximetry 2022-10-08 16:20:00 99 /min [facility] Systolic blood pressure 2022-09-10 17:16:00 136 mm[Hg] [facility] Diastolic blood pressure 2022-09-10 17:16:00 88 mm[Hg] [facility] Heart rate 2022-09-10 17:16:00 84 /min [facility] Body temperature 2022-09-10 17:16:00 36 Susanne [facility] Body height 2022-09-10 17:16:[address] [facility] Body weight 2022-09-10 17:16:00 98.884 kg [facility] BMI 2022-09-10 17:16:00 35.19 kg/m2 [facility] Oxygen saturation in Arterial blood by Pulse oximetry 2022-09-10 17:16:00 99 /min room air [facility] Systolic blood pressure 2022-09-04 21:34:00 160 mm[Hg] [facility] Diastolic blood pressure 2022-09-04 21:34:00 103 mm[Hg] [facility] Heart rate 2022-09-04 21:34:00 84 /min [facility] Body temperature 2022-09-04 21:34:00 36.39 Susanne [facility] Respiratory rate 2022-09-04 21:34:00 19 /min [facility] Oxygen saturation in Arterial blood by Pulse oximetry 2022-09-04 21:34:00 97 /min [facility] Body height 2022-09-01 18:37:00 167.6 cm [facility] Body weight 2022-09-01 18:37:00 95.255 kg [facility] BMI 2022-09-01 18:37:00 33.89 kg/m2 [facility] Systolic blood pressure 2022-09-03 17:00:00 132 mm[Hg] [facility] Diastolic blood pressure 2022-09-03 17:00:00 85 mm[Hg] [facility] Respiratory rate 2022-09-03 17:00:00 20 /min [facility] Heart rate 2022-09-03 16:46:00 92 /min [facility] Body temperature 2022-09-03 16:46:00 36.39 Susanne [facility] Oxygen saturation in Arterial blood by Pulse oximetry 2022-09-03 16:46:00 98 /min [facility] Body height 2022-09-01 18:37:00 167.6 cm [facility] Body weight 2022-09-01 18:37:00 95.255 kg [facility] BMI 2022-09-01 18:37:00 33.89 kg/m2 [facility] Procedures Procedure Date / Time Performed Performing Clinician Source ASSIGNMENT OF BENEFITS 2022-09-10 17:02:20 Docto r Unassigned, [place] [facility] CONSENT/REFUSAL FOR DIAGNOSIS AND TREATMENT 2022-09-10 17:02:01 Doctor Unassigned, [place] [facility] POCT GLUCOSE (AUTOMATED) 2022-09-04 18:11:00 Edilberto Mims [facility] POCT GLUCOSE (AUTOMATED) 2022-09-04 18:11:00 Edilberto Mims [facility] POCT GLUCOSE (AUTOMATED) 2022-09-04 15:13:00 Edilberto Mims [facility] POCT GLUCOSE (AUTOMATED) 2022-09-04 15:13:00 Edilberto Mims [facility] CBC WITH DIFF 2022-09-04 11:05:00 Isabela Jackman [facility] EXTRA TUBE LT. GREEN 2022-09-04 11:05:[address] Roger Mims [facility] CBC WITH DIFF 2022-09-04 11:05:00 Isabela Jackman [facility] EXTRA TUBE LT. GREEN 2022-09-04 11:05:00 Roger Mims [facility] POCT GLUCOSE (AUTOMATED) 2022-09-04 03:47[facility] 2022-09-04 03:47[facility]00 [facility] ([facility]ATED) 2022-09-03 23:00:00 [facility] ([facility]OMATED) 2022-09-03 23:00:00 [facility] ([facility]OMATED) 2022-09-03 17:39:00 [facility] ([facility]) 2022-09-03 17:39:00 [facility] ASPIRATE OR ABSCESS CULTURE(AEROBIC/ANAEROB IC) 2022-09-03 15:56:00 [facility] FUNGUS (ROUTINE) CULTURE 2022-09-03 15:56:00 [facility] ASPIRATE OR ABSCESS CULTURE(AEROBIC/ANAEROB IC) 2022-09-03 15:56:00 [facility] FUNGUS (ROUTINE) CULTURE 2022-09-03 15:56:00 Pop Josue [facility] INTUBATION 2022-09-03 15:49:00 Cuauhtemoc Lokce [facility] FINGER AMPUTATION 2022-09-03 15:03:00 [facility] 2022-09-03 15:03:00 Josue Lord Edith [facility] VANCOMYCIN TROUGH 2022-09-03 14:02:00 Isabela Jackman [facility] VANCOMYCIN TROUGH 2022-09-03 14:02:00 Isabela Jackman [facility] POCT GLUCOSE (AUTOMATED) 2022-09-03 13:30:00 Stephanie Singleton [facility] POCT GLUCOSE (AUTOMATED) 2022-09-03 13:30:00 Stephanie Singleton [facility] COMP. METABOLIC PANEL ([id number]) 2022-09-03 11:18:00 Angie Turner [facility] CBC WITH DIFF 2022-09-03 11:18[facility] / [facility]R 2022-09-03 11:18:00 Kassie Thompson [facility] COMP. METABOLIC PANEL ([id number]) 2022-09-03 11:18:00 TurnAngie elias [facility] CBC WITH DIFF 2022-09-03 11:18:00 Angie Turner [facility] PROTHROMBIN TIME / INR 2022-09-03 11:18:00 Kassie Thompson [facility] POCT GLUCOSE (AUTOMATED) 2022-09-03 02:07:00 Stephanie Singleton [facility] POCT GLUCOSE (AUTOMATED) 2022-09-03 02:07:00 Stephanie Singleton [facility] POCT GLUCOSE (AUTOMATED) 2022-09-02 23:37:00 Stephanie Singleton [facility] POCT GLUCOSE (AUTOMATED) 2022-09-02 23:37:00 Stephanie Singleton [facility] POCT GLUCOSE (AUTOMATED) 2022-09-02 18:15:00 Stephanie Singleton [facility] POCT GLUCOSE (AUTOMATED) 2022-09-02 18:15:00 Stephanie Singleton [facility] BASIC METABOLIC PANEL (NA, K, CL, CO2, GLUCOSE, BUN, CREATININE, CA) 2022-09-02 09:06:00 Isabela Jackman [facility] CBC WITH DIFF 2022-09-02 09:06:00 Isabela Jackman [facility] BASIC METABOLIC PANEL (NA, K, CL, CO2, GLUCOSE, BUN, CREATININE, CA) 2022-09-02 09:06:00 Isabela Jackman [facility] CBC WITH DIFF 2022-09-02 09:06:00 Isabela Jackman [facility] POCT GLUCOSE (AUTOMATED) 2022-09-02 03:13:00 Stephanie Singleton [facility] POCT GLUCOSE (AUTOMATED) 2022-09-02 03:13:00 Stephanie Singleton [facility] WOUND CULTURE 2022-09-02 01:30:00 Isabela Jackman [facility] WOUND CULTURE 2022-09-02 01:30:00 Isabela Jackman [facility] BASIC METABOLIC PANEL (NA, K, CL, CO2, GLUCOSE, BUN, CREATININE, CA) 2022-09-01 20:23:[address] [facility] CBC WITH DIFF 2022-09-01 20:23:[address] [facility] GLYCOSYLATED HEMOGLOBIN (A1C) 2022-09-01 20:23:00 Isabela Jackman [facility] BASIC METABOLIC PANEL (NA, K, CL, CO2, GLUCOSE, BUN, CREATININE, CA) 2022-09-01 20:23:[address] [facility] CBC WITH DIFF 2022-09-01 20:23:[address] [facility] GLYCOSYLATED HEMOGLOBIN (A1C) 2022-09-01 20:23:00 Isabela Jackman [facility] XR FINGERS 2 VW RIGHT 2022-09-01 19:50:[address] [facility] XR FINGERS 2 VW RIGHT 2022-09-01 19:50:[address] [facility] CONSENT/REFUSAL FOR DIAGNOSIS AND TREATMENT 2022-09-01 18:26:12 Doctor Unassigned, [place] [facility] CONSENT/REFUSAL FOR DIAGNOSIS AND TREATMENT 2022-09-01 18:26:12 Doctor Unassigned, [place] [facility] ADMISSION 2022-09-01 06:01:00 Doctor Un assigned, [place] [facility] ADMISSION 2022-09-01 06:01:00 Doctor Un assigned, [place] [facility] Encounters Start Date/Time End Date/Time Encounter Type Admission Type Attending [facility] Care Department Encounter ID Source 2022-12-05 08:45:00 2022-12-05 08:45:00 Outpatient R LALY HENRY [facility] [id number] [facility] 2022-11-07 10:00:00 2022-11-07 10:20:00 Telemedici ne Visit Renan [facility] [place] [facility] ..840.114 350.1.13.10 4.2.7.2.686 [id number] [facility] 2022-11-07 10:00:00 2022-11-07 10:00:00 Outpatient R RENAN [facility] [id number] [facility] 2022-10-28 09:30:00 2022-10-28 09:30:00 Outpatient R ZENA SCHULTZ [facility] [id number] [facility] 2022-10-08 10:00:00 2022-10-08 10:51:12 Outpatient R RENAN [facility] [id number] [facility] 2022-10-08 10:00:00 2022-10-08 10:51:12 Office Visit Renan, [facility] ..840.114 350.1.13.10 4.2.7.2.686 [id number] [facility] 2022-09-11 00:00:00 2022-09-11 00:00:00 Telephone Renan, [facility] ..840.114 350.1.13.10 4.2.7.2.686 [id number] [facility] 2022-09-10 13:00:00 2022-09-10 14:00:00 Ancillary Visit Therapy-Kimberly Do-Jorge-Carlos Issa [facility] 1.2840.114 350.1.13.10 4.2.7.2.686 [id number] [facility] 2022-09-10 13:00:00 2022-09-10 13:47:29 Outpatient R CARLOS MCLAUGHLIN [facility] [id number] [facility] 2022-09-10 11:00:00 2022-09-10 11:51:29 Outpatient R LALY HENRY [facility] [id number] [facility] 2022-09-10 11:00:00 2022-09-10 11:51:29 Office Visit Renan [facility] 1.0.114 350.1.13.10 4.2.7.2.686 [id number] [facility] 2022-09-10 00:00:00 2022-09-10 00:00:00 Orders Only Doctor Unassigned, [place] [facility] 1.2840.114 350.1.13.10 4.2.7.2.686 [id number] [facility] 2022-09-10 00:00:00 2022-09-10 00:00:00 Telephone Renan [facility] [place] [facility] 1.2840.114 350.1.13.10 4.2.7.2.686 [id number] [facility] 2022-09-05 00:00:00 2022-09-05 00:00:00 Transition of Care Coby Moseley 1.2840.114 350.1.13.10 4.2.7.2.686 [id number] [facility] 2022-09-01 12:39:00 2022-09-04 18:31:[address].2.840.114 350.1.13.10 4.2.7.2.686 [id number] [facility] 2022-09-01 12:39:00 2022-09-04 18:31:00 Inpatient X ADRIANA MIMSLEY [facility] [id number] [facility] 2022-09-03 08:51:00 2022-09-03 11:13:00 Surgery Josue Lord [facility] 1.2.840.114 350.1.13.10 4.2.7.2.686 [id number] [facility] 2022-09-03 09:39:00 2022-09-03 10:46:00 Anesthesia Event Tomasz Matos, [facility] 1.2840.114 350.1.13.10 4.2.7.2.686 [id number] [facility] 2020-03-15 13:36:44 2020-03-15 13:56:44 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 [facility] 1.20.114 350.1.13.10 4.2.7.2.686 [id number] 2020-03-15 13:36:44 2020-03-15 13:56:44 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 Visit Lab, [facility] Pob I Krystina Cheema [facility] 1.2840.114 350.1.13.10 4.2.7.2.686 [id number] [facility] 2020-03-15 13:20:00 2020-03-15 13:20:00 Outpatient R [facility] [id number] [facility] 2020-03-15 13:20:00 2020-03-15 13:20:00 Outpatient R KRYSTINA CHEEMA [facility] [id number] [facility] Results Test Description Test Time Test Comments Results Result Co mments Source [facility] GLUCOSE (AUTOMATED)2022-09-04 18:12:48* Test Item Value Reference Range Interpretation Comme nts POCT GLU (test code = 3385248517) 213 mg/dL 70-110 H Lab Interpretation (test cod e = 58658-8) [facility]normal [facility]2022-09-04 15:18:56* Test Item Value Reference Range Interpretation Comme nts POCT GLU (test code = 4472672891) 184 mg/dL 70-110 H Lab Interpretation (test cod e = 54676-9) Abnormal [facility] GLUCOSE (AUTOMATED)2022-09-04 15:18:56* Test Item Value Reference Range Interpretation Comme nts POCT GLU (test code = 0118456120) 184 mg/dL 70-110 H Lab Interpretation (test cod e = 55227-9) Abnormal [facility] GLUCOSE (AUTOMATED)2022-09-04 03:50:30* Test Item Value Reference Range Interpretation Comme nts POCT GLU (test code = 5160459074) 287 mg/dL 70-110 H Lab Interpretation (test cod e = 20587-2) Abnormal [facility] GLUCOSE (AUTOMATED)2022-09-04 03:50:30* Test Item Value Reference Range Interpretation Comme nts POCT GLU (test code = 1089404468) 287 mg/dL 70-110 H Lab Interpretation (test cod e = 98443-8) [facility]normal [facility]2022-09-03 23:01:24* Test Item Value Reference Range Interpretation Comme nts POCT GLU (test code = 7556015887) 253 mg/dL 70-110 H Lab Interpretation (test cod e = 52158-8) [facility]normal [facility]2022-09-03 23:01:24* Test Item Value Reference Range Interpretation Comme nts POCT GLU (test code = 0018444385) 253 mg/dL 70-110 H Lab Interpretation (test cod e = 68766-7) Abnormal [facility] GLUCOSE (AUTOMATED)2022-09-03 17:40:42* Test Item Value Reference Range Interpretation Comme nts POCT GLU (test code = 6117172956) 168 mg/dL 70-110 H Lab Interpretation (test cod e = 97996-1) Abnormal [facility] GLUCOSE (AUTOMATED)2022-09-03 17:40:42* Test Item Value Reference Range Interpretation Comme nts POCT GLU (test code = 2528613283) 168 mg/dL 70-110 H Lab Interpretation (test cod e = 36479-4) Abnormal [facility] GLUCOSE (AUTOMATED)2022-09-03 13:31:46* Test Item Value Reference Range Interpretation Comme nts POCT GLU (test code = 8286434590) 213 mg/dL 70-110 H Lab Interpretation (test cod e = 12640-8) Abnormal [facility] GLUCOSE (AUTOMATED)2022-09-03 13:31:46* Test Item Value Reference Range Interpretation Comme nts POCT GLU (test code = 3004871254) 213 mg/dL 70-110 H Lab Interpretation (test cod e = 47417-3) Abnormal [facility]. METABOLIC PANEL (31278)2022-09-03 12:17:29* Test Item Value Reference Range Interpretation Comme nts NA (test code = 0956478217) 136 mmol/L 135-145 K (test code = 5169568382) 3.9 mmol/L 3.5-5.0 CL (test code = 5916697651) 105 mmol/L 98-108 CO2 TOTAL (test code = 4160469822) 24 mmol/L 23-31 AGAP (test code = 5871013573) 2-16 BUN (test code = 4115093959) 12 mg/dL 7-23 GLUCOSE (test code = 2885331358) 190 mg/dL 70-110 H CREATININE (test code = 0089222061) 0.56 mg/dL 0.60-1.25 L TOTAL BILI (test code = 8220598716) 0.2 mg/dL 0.1-1.1 CALCIUM (test code = 8707640539) 8.6 mg/dL 8.6-10.6 T PROTEIN (test code = 1069515442) 7.0 g/dL 6.3-8.2 ALBUMIN (test code = 0262333859) 3.7 g/dL 3.5-5.0 ALK PHOS (test code = 7864126189) 101 U/L 34-122 ALTv (test code = 1742-6) 27 U/L 5-50 AST(SGOT) (test code = 6934625611) 23 U/L 13-40 eGFR (test code = 0669899954) mL/min/1.73m2 ANDREE (test code = ANDREE) Association [...] imaging tests). Lab Interpretation (test code = 01716-6) Abnormal [facility]. METABOLIC PANEL (69661)2022-09-03 12:17:29* Test Item Value Reference Range Interpretation Comme nts NA (test code = 5750660072) 136 mmol/L 135-145 K (test code = 8911879358) 3.9 mmol/L 3.5-5.0 CL (test code = 6864389543) 105 mmol/L 98-108 CO2 TOTAL (test code = 7882778143) 24 mmol/L 23-31 AGAP (test code = 2884517715) 2-16 BUN (test code = 3570335232) 12 mg/dL 7-23 GLUCOSE (test code = 0561262397) 190 mg/dL 70-110 H CREATININE (test code = 4298753368) 0.56 mg/dL 0.60-1.25 L TOTAL BILI (test code = 2886358061) 0.2 mg/dL 0.1-1.1 CALCIUM (test code = 3520437426) 8.6 mg/dL 8.6-10.6 T PROTEIN (test code = 2541625806) 7.0 g/dL 6.3-8.2 ALBUMIN (test code = 4054470573) 3.7 g/dL 3.5-5.0 ALK PHOS (test code = 6463842806) 101 U/L 34-122 ALTv (test code = 1742-6) 27 U/L 5-50 AST(SGOT) (test code = 8757636923) 23 U/L 13-40 eGFR (test code = 6858605095) mL/min/1.73m2 ANDREE (test code = ANDREE) Association [...] imaging tests). Lab Interpretation (test code = 73550-5) [facility]normal [facility] / [id number] 11:45:03* Test Item Value Reference Range Interpretation Comme [facility] PROTIME PATIENT (test code = 5964-2) See_Comment H [Automated [employer]] The system which generated this result transmitted reference range: 10.1 - 12.6 Seconds. The reference range was not used to interpret this result as normal/abnormal. INR (test code = 6301-6) Normal INR <1.1; Warfarin Therapeutic range 2.0 to 3.0 or 2.5 to 3.5, depending upon the indications. Lab Interpretation (test code = 03565-4) Abnormal [facility] / [id number] 11:45:03* Test Item Value Reference Range Interpretation Comme nts PROTIME PATIENT (test code = 5964-2) See_Comment H [Automated [employer]] The system which generated this result transmitted reference range: 10.1 - 12.6 Seconds. The reference range was not used to interpret this result as normal/abnormal. INR (test code = 6301-6) Normal INR <1.1; Warfarin Therapeutic range 2.0 to 3.0 or 2.5 to 3.5, depending upon the indications. Lab Interpretation (test code = 49867-7) Abnormal [facility] WITH [id number] 11:42:00* Test Item Value Reference Range Interpretation Comme [facility] WBC (test code = 6690-2) See_Comment [Automated [employer]] The system which generated this result transmitted [...] 34.1 g/dL 31.2-35.0 RDW-SD (test code = 99400-8) 41.5 fL 38.5-51.6 RDW-CV (test code = 788-0) 13.9 % 12.1-15.4 PLT (test code = 777-3) See_Comment H [Automated messa ge] The system which generated this result transmitted reference range: 150 - 328 10*3/?L. The reference range was not used to interpret this result as normal/abnormal. MPV (test code = 76020-3) 10.6 fL 9.8-13.0 NRBC/100 WBC (test code = 8782897169) See_Comment [Automated [employer]] The system which generated this result transmitted reference range: 0.0 - 10.0 /100 WBCs. The reference range was not used to interpret this result as normal/abnormal. NRBC x10^3 (test code = 1009359397) See_Comment [Automated messa ge] The system which generated this result transmitted reference range: 10*3/?L. The reference range was not used to interpret this result as normal/abnormal. GRAN MAT (NEUT) % (test code = 770-8) 59.9 % IMM GRAN % (test code = 1859493703) 0.40 % LYMPH % (test code = 736-9) 31.1 % MONO % (test code = 5905-5) 6.1 % EOS % (test code = 713-8) 1.8 % BASO % (test code = 706-2) 0.7 % GRAN MAT x10^3(ANC) (test code = 0524608831) 5.36 10*3/uL 1.99-6.95 IMM GRAN x10^3 (test code = 1253603969) 0.04 10*3/uL 0.00-0.06 LYMPH x10^3 (test code = 731-0) 2.78 10*3/uL 1.09-3.23 MONO x10^3 (test code = 742-7) 0.55 10*3/uL 0.36-1.02 EOS x10^3 (test code = 711-2) 0.16 10*3/uL 0.06-0.53 BASO x10^3 (test code = 704-7) 0.06 10*3/uL 0.01-0.09 Lab Interpretation (test code = 15117-1) Abnormal [facility] WITH [id number] 11:42:00* Test Item Value Reference Range Interpretation Comme nts WBC (test code = 6690-2) See_Comment [Automated [employer]] The system which generated this result transmitted reference range: 4.20 - 10.70 10*3/?L. The reference range was not used to interpret this result as normal/abnormal. RBC (test code = 789-8) See_Comment [Automated [employer]] The system which generated this result transmitted [...] 34.1 g/dL 31.2-35.0 RDW-SD (test code = 66264-4) 41.5 fL 38.5-51.6 RDW-CV (test code = 788-0) 13.9 % 12.1-15.4 PLT (test code = 777-3) See_Comment H [Automated messa ge] The system which generated this result transmitted reference range: 150 - 328 10*3/?L. The reference range was not used to interpret this result as normal/abnormal. MPV (test code = 14959-9) 10.6 fL 9.8-13.0 NRBC/100 WBC (test code = 5725619188) See_Comment [Automated me ssage] The system which generated this result transmitted reference range: 0.0 - 10.0 /100 WBCs. The reference range was not used to interpret this result as normal/abnormal. NRBC x10^3 (test code = 8190682920) See_Comment [Automated messa ge] The system which generated this result transmitted reference range: 10*3/?L. The reference range was not used to interpret this result as normal/abnormal. GRAN MAT (NEUT) % (test code = 770-8) 59.9 % IMM GRAN % (test code = 8063720535) 0.40 % LYMPH % (test code = 736-9) 31.1 % MONO % (test code = 5905-5) 6.1 % EOS % (test code = 713-8) 1.8 % BASO % (test code = 706-2) 0.7 % GRAN MAT x10^3(ANC) (test code = 0691138684) 5.36 10*3/uL 1.99-6.95 IMM GRAN x10^3 (test code = 3041520414) 0.04 10*3/uL 0.00-0.06 LYMPH x10^3 (test code = 731-0) 2.78 10*3/uL 1.09-3.23 MONO x10^3 (test code = 742-7) 0.55 10*3/uL 0.36-1.02 EOS x10^3 (test code = 711-2) 0.16 10*3/uL 0.06-0.53 BASO x10^3 (test code = 704-7) 0.06 10*3/uL 0.01-0.09 Lab Interpretation (test code = 89349-1) Abnormal [facility] GLUCOSE (AUTOMATED)2022-09-03 02:08:18* Test Item Value Reference Range Interpretation Comme nts POCT GLU (test code = 9836586470) 259 mg/dL 70-110 H Lab Interpretation (test cod e = 09921-2) Abnormal [facility] GLUCOSE (AUTOMATED)2022-09-03 02:08:18* Test Item Value Reference Range Interpretation Comme nts POCT GLU (test code = 0075309300) 259 mg/dL 70-110 H Lab Interpretation (test cod e = 17795-8) Abnormal [facility] GLUCOSE (AUTOMATED)2022-09-02 23:38:11* Test Item Value Reference Range Interpretation Comme nts POCT GLU (test code = 0235518463) 322 mg/dL 70-110 H Lab Interpretation (test cod e = 37728-4) Abnormal [facility] GLUCOSE (AUTOMATED)2022-09-02 23:38:11* Test Item Value Reference Range Interpretation Comme nts POCT GLU (test code = 0981024845) 322 mg/dL 70-110 H Lab Interpretation (test cod e = 51480-1) Abnormal [facility] GLUCOSE (AUTOMATED)2022-09-02 18:17:05* Test Item Value Reference Range Interpretation Comme nts POCT GLU (test code = 8044443846) 295 mg/dL 70-110 H Lab Interpretation (test cod e = 28303-9) Abnormal [facility] GLUCOSE (AUTOMATED)2022-09-02 18:17:05* Test Item Value Reference Range Interpretation Comme nts POCT GLU (test code = 4777101179) 295 mg/dL 70-110 H Lab Interpretation (test cod e = 90398-5) Abnormal [facility] Metabolic Panel (NA, K, CL, CO2, GLUCOSE, BUN, CREATININE, CA)2022-09-02 09:42:02* Test Item Value Reference Range Interpretation Comme nts NA (test code = 1260800692) 135 mmol/L 135-145 K (test code = 1497970271) 4.0 mmol/L 3.5-5.0 CL (test code = 9209114549) 103 mmol/L 98-108 CO2 TOTAL (test code = 0209771310) 24 mmol/L 23-31 AGAP (test code = 0940418302) 2-16 BUN (test code = 4977357709) 14 mg/dL 7-23 GLUCOSE (test code = 1572197011) 227 mg/dL 70-110 H CREATININE (test code = 2880734813) 0.56 mg/dL 0.60-1.25 L CALCIUM (test code = 8066640742) 8.7 mg/dL 8.6-10.6 eGFR (test code = 8143044131) mL/min/1.73m2 ANDREE (test code = ANDREE) Association [...] imaging tests). Lab Interpretation (test code = 33983-2) Abnormal [facility] Metabolic Panel (NA, K, CL, CO2, GLUCOSE, BUN, CREATININE, CA)2022-09-02 09:42:02* Test Item Value Reference Range Interpretation Comme nts NA (test code = 1009482968) 135 mmol/L 135-145 K (test code = 0821180693) 4.0 mmol/L 3.5-5.0 CL (test code = 7639057380) 103 mmol/L 98-108 CO2 TOTAL (test code = 9097216574) 24 mmol/L 23-31 AGAP (test code = 5116473032) 2-16 BUN (test code = 6533748442) 14 mg/dL 7-23 GLUCOSE (test code = 6847251221) 227 mg/dL 70-110 H CREATININE (test code = 6009665533) 0.56 mg/dL 0.60-1.25 L CALCIUM (test code = 1957882593) 8.7 mg/dL 8.6-10.6 eGFR (test code = 4437646819) mL/min/1.73m2 ANDREE (test code = ANDREE) Association [...] imaging tests). Lab Interpretation (test code = 86753-1) Abnormal [facility] with [id number] 09:18:20* Test Item Value Reference Range Interpretation [...] 33.7 g/dL 31.2-35.0 RDW-SD (test code = 00497-5) 40.8 fL 38.5-51.6 RDW-CV (test code = 788-0) 13.8 % 12.1-15.4 PLT (test code = 777-3) See_Comment H [Automated message] The system which generated this result transmitted reference range: 150 - 328 10*3/?L. The reference range was not used to interpret this result as normal/abnormal. MPV (test code = 06830-0) 10.4 fL 9.8-13.0 NRBC/100 WBC (test code = 1089058955) See_Comment [Automated message] The system which generated this result transmitted reference range: 0.0 - 10.0 /100 WBCs. The reference range was not used to interpret this result as normal/abnormal. NRBC x10^3 (test code = 8442705316) See_Comment [Automated message] The system which generated this result transmitted reference range: 10*3/?L. The reference range was not used to interpret this result as normal/abnormal. GRAN MAT (NEUT) % (test code = 770-8) 76.1 % IMM GRAN % (test code = 3975130910) 0.40 % LYMPH % (test code = 736-9) 16.6 % MONO % (test code = 5905-5) 5.6 % EOS % (test code = 713-8) 0.9 % BASO % (test code = 706-2) 0.4 % GRAN MAT x10^3(ANC) (test code = 7348433890) 10.64 10*3/uL 1.99-6.95 H IMM GRAN x10^3 (test code = 9517029581) 0.05 10*3/uL 0.00-0.06 LYMPH x10^3 (test code = 731-0) 2.32 10*3/uL 1.09-3.23 MONO x10^3 (test code = 742-7) 0.78 10*3/uL 0.36-1.02 EOS x10^3 (test code = 711-2) 0.13 10*3/uL 0.06-0.53 BASO x10^3 (test code = 704-7) 0.06 10*3/uL 0.01-0.09 Lab Interpretation (test code = 00846-9) Abnormal [facility] with [id number] 09:18:20* Test Item Value Reference Range Interpretation [...] 33.7 g/dL 31.2-35.0 RDW-SD (test code = 83741-4) 40.8 fL 38.5-51.6 RDW-CV (test code = 788-0) 13.8 % 12.1-15.4 PLT (test code = 777-3) See_Comment H [Automated message] The system which generated this result transmitted reference range: 150 - 328 10*3/?L. The reference range was not used to interpret this result as normal/abnormal. MPV (test code = 36630-8) 10.4 fL 9.8-13.0 NRBC/100 WBC (test code = 8758259633) See_Comment [Automated message] The system which generated this result transmitted reference range: 0.0 - 10.0 /100 WBCs. The reference range was not used to interpret this result as normal/abnormal. NRBC x10^3 (test code = 8483394082) See_Comment [Automated message] The system which generated this result transmitted reference range: 10*3/?L. The reference range was not used to interpret this result as normal/abnormal. GRAN MAT (NEUT) % (test code = 770-8) 76.1 % IMM GRAN % (test code = 8732455062) 0.40 % LYMPH % (test code = 736-9) 16.6 % MONO % (test code = 5905-5) 5.6 % EOS % (test code = 713-8) 0.9 % BASO % (test code = 706-2) 0.4 % GRAN MAT x10^3(ANC) (test code = 1160938036) 10.64 10*3/uL 1.99-6.95 H IMM GRAN x10^3 (test code = 3327200038) 0.05 10*3/uL 0.00-0.06 LYMPH x10^3 (test code = 731-0) 2.32 10*3/uL 1.09-3.23 MONO x10^3 (test code = 742-7) 0.78 10*3/uL 0.36-1.02 EOS x10^3 (test code = 711-2) 0.13 10*3/uL 0.06-0.53 BASO x10^3 (test code = 704-7) 0.06 10*3/uL 0.01-0.09 Lab Interpretation (test code = 52194-9) Abnormal [facility] GLUCOSE (AUTOMATED)2022-09-02 03:14:55* Test Item Value Reference Range Interpretation Comme nts POCT GLU (test code = 4588026113) 175 mg/dL 70-110 H Lab Interpretation (test cod e = 94356-2) Abnormal [facility] GLUCOSE (AUTOMATED)2022-09-02 03:14:55* Test Item Value Reference Range Interpretation Comme nts POCT GLU (test code = 9425120628) 175 mg/dL 70-110 H Lab Interpretation (test cod e = 48211-2) [facility] 02:25:07* Test Item Value Reference Range Interpretation Comme nts HGB A1C (test code = 4548-4) 11.5 % 4.0-5.7 H ANDREE (test code = ANDREE) Reference RangesNormal: <5.7%Prediabetes: 5.7 - 6.4%Diabetes: > 6.5% Lab Interpretation (test code = 78183-5) [facility]22-[facility]-02 02:25:07* Test Item Value Reference Range Interpretation Comme [facility] HGB A1C (test code = 4548-4) 11.5 % 4.0-5.7 H ANDREE (test code = ANDREE) Reference RangesNormal: <5.7%Prediabetes: 5.7 - 6.4%Diabetes: > 6.5% Lab Interpretation (test code = 43821-7) Abnormal [facility] METABOLIC PANEL (NA, K, CL, CO2, GLUCOSE, BUN, CREATININE, CA)2022-09-01 20:44:31* Test Item Value Reference Range Interpretation Comme nts NA (test code = 2779484262) 135 mmol/L 135-145 K (test code = 1444253492) 4.4 mmol/L 3.5-5.0 CL (test code = 6310443737) 101 mmol/L 98-108 CO2 TOTAL (test code = 2940943789) 24 mmol/L 23-31 AGAP (test code = 5842824270) 2-16 BUN (test code = 3262341177) 16 mg/dL 7-23 GLUCOSE (test code = 3465540301) 260 mg/dL 70-110 H CREATININE (test code = 1403757900) 0.72 mg/dL 0.60-1.25 CALCIUM (test code = 2844878000) 9.2 mg/dL 8.6-10.6 eGFR (test code = 6911009148) mL/min/1.73m2 ANDREE (test code = ANDREE) Association [...] imaging tests). Lab Interpretation (test code = 93477-2) Abnormal [facility] METABOLIC PANEL (NA, K, CL, CO2, GLUCOSE, BUN, CREATININE, CA)2022-09-01 20:44:31* Test Item Value Reference Range Interpretation Comme nts NA (test code = 6529717356) 135 mmol/L 135-145 K (test code = 0456884300) 4.4 mmol/L 3.5-5.0 CL (test code = 6026867877) 101 mmol/L 98-108 CO2 TOTAL (test code = 5110777005) 24 mmol/L 23-31 AGAP (test code = 7837134404) 2-16 BUN (test code = 7116785001) 16 mg/dL 7-23 GLUCOSE (test code = 4137495001) 260 mg/dL 70-110 H CREATININE (test code = 9156345653) 0.72 mg/dL 0.60-1.25 CALCIUM (test code = 5067635398) 9.2 mg/dL 8.6-10.6 eGFR (test code = 9337500335) mL/min/1.73m2 ANDREE (test code = ANDREE) Association [...] imaging tests). Lab Interpretation (test code = 51311-1) Abnormal [facility] WITH [id number] 20:42:10* Test Item Value Reference Range Interpretation [...] 33.4 g/dL 31.2-35.0 RDW-SD (test code = 48596-7) 40.8 fL 38.5-51.6 RDW-CV (test code = 788-0) 13.4 % 12.1-15.4 PLT (test code = 777-3) See_Comment H [Automated messa ge] The system which generated this result transmitted reference range: 150 - 328 10*3/?L. The reference range was not used to interpret this result as normal/abnormal. MPV (test code = 35638-7) 10.9 fL 9.8-13.0 NRBC/100 WBC (test code = 0032496896) See_Comment [Automated First Meta ssage] The system which generated this result transmitted reference range: 0.0 - 10.0 /100 WBCs. The reference range was not used to interpret this result as normal/abnormal. NRBC x10^3 (test code = 9605032596) See_Comment [Automated messa ge] The system which generated this result transmitted reference range: 10*3/?L. The reference range was not used to interpret this result as normal/abnormal. GRAN MAT (NEUT) % (test code = 770-8) 67.2 % IMM GRAN % (test code = 5389346077) 0.40 % LYMPH % (test code = 736-9) 25.6 % MONO % (test code = 5905-5) 4.5 % EOS % (test code = 713-8) 1.2 % BASO % (test code = 706-2) 1.1 % GRAN MAT x10^3(ANC) (test code = 2944554753) 7.60 10*3/uL 1.99-6.95 H IMM GRAN x10^3 (test code = 3362681270) 0.05 10*3/uL 0.00-0.06 LYMPH x10^3 (test code = 731-0) 2.89 10*3/uL 1.09-3.23 MONO x10^3 (test code = 742-7) 0.51 10*3/uL 0.36-1.02 EOS x10^3 (test code = 711-2) 0.14 10*3/uL 0.06-0.53 BASO x10^3 (test code = 704-7) 0.12 10*3/uL 0.01-0.09 H Lab Interpretation (test code = 60846-3) Abnormal [facility] WITH [id number] 20:42:10* Test Item Value Reference Range Interpretation [...] 33.4 g/dL 31.2-35.0 RDW-SD (test code = 39280-5) 40.8 fL 38.5-51.6 RDW-CV (test code = 788-0) 13.4 % 12.1-15.4 PLT (test code = 777-3) See_Comment H [Automated messa ge] The system which generated this result transmitted reference range: 150 - 328 10*3/?L. The reference range was not used to interpret this result as normal/abnormal. MPV (test code = 01357-2) 10.9 fL 9.8-13.0 NRBC/100 WBC (test code = 6408784470) See_Comment [Automated First [employer] ssage] The system which generated this result transmitted reference range: 0.0 - 10.0 /100 WBCs. The reference range was not used to interpret this result as normal/abnormal. NRBC x10^3 (test code = 7212864141) See_Comment [Automated messa ge] The system which generated this result transmitted reference range: 10*3/?L. The reference range was not used to interpret this result as normal/abnormal. GRAN MAT (NEUT) % (test code = 770-8) 67.2 % IMM GRAN % (test code = 1799837446) 0.40 % LYMPH % (test code = 736-9) 25.6 % MONO % (test code = 5905-5) 4.5 % EOS % (test code = 713-8) 1.2 % BASO % (test code = 706-2) 1.1 % GRAN MAT x10^3(ANC) (test code = 6058259038) 7.60 10*3/uL 1.99-6.95 H IMM GRAN x10^3 (test code = 7863825143) 0.05 10*3/uL 0.00-0.06 LYMPH x10^3 (test code = 731-0) 2.89 10*3/uL 1.09-3.23 MONO x10^3 (test code = 742-7) 0.51 10*3/uL 0.36-1.02 EOS x10^3 (test code = 711-2) 0.14 10*3/uL 0.06-0.53 BASO x10^3 (test code = 704-7) 0.12 10*3/uL 0.01-0.09 H Lab Interpretation (test code = 30140-6) Abnormal [facility]"
[2023-12-21 03:26] LABS: Specific Gravity 1.007 (1.005-1.030); Sqamous Epithelial None Seen /HPF (None Seen); Urine Bacteria None Seen /HPF (<20); Urine Bilirubin NEGATIVE (Negative); Urine Blood Trace (Negative); Urine Clarity Clear (Clear); Urine Color Colorless (Yellow); Urine Culture Reflex Order NOT NEEDED; Urine Glucose 4+ (Over) (Negative); Urine Ketones NEGATIVE (Negative); Urine Microscopic Reflex YN ORDER UMIC; Urine Mucus Slight /HPF (None Seen); Urine Nitrite NEGATIVE (Negative); Urine Protein 1+ (Negative); Urine RBC <5 /HPF (None Seen); Urine Urobilinogen Normal (Normal); Urine WBC <5 /HPF (<5); Urine pH 5.5 (5.0-7.0)
[2023-12-21 03:34] LABS: Absolute Basophils 0.1 K/uL (0-0.5); Absolute Eosinophils 0.1 K/uL (0-0.5); Absolute Lymphocytes (CBC) 1.3 K/uL (0.7-4.9); Absolute Monocytes 1.1 K/uL (0.1-1.3); Basophils % 0.7 % (0-1.3); Eosinophils % 0.5 % (0-4.4); Hematocrit 35.3 % (39.6-49.0); Hemoglobin 11.8 g/dL (13.6-17.9); Lymphocytes % 10.4 % (15.3-44.8); MCH 27.6 pg (27.0-35.0); MCHC 33.4 g/dL (32.0-36.0); MCV 82.7 fL (80-100); MPV 8.7 fL (7.6-11.3); Monocytes % 8.7 % (3.3-12.3); Neutrophils % 79.7 % (41.7-73.7); Platelets 357 thou/uL (152-406); RBC Red Blood Cell Count 4.27 M/uL (4.33-5.43); Red Cell Distribution Width 13.3 % (12.1-15.2)
[2023-12-21 03:49] LABS: Albumin 2.5 g/dL (3.4-5.0); Albumin/Globulin Ratio 0.5 (1.1-1.8); Anion Gap 13.2 mEq/L (5.0-15.0); Bilirubin Total 0.4 mg/dL (0.2-1.0); Globulin 5.2 g/dL (2.3-3.5); Potassium 4.2 mEq/L (3.5-5.1); Protein, Total 7.7 g/dL (6.4-8.2)
--- NOTE | 2023-12-21 05:05 | EDPHYS ---
Physician Documentation [facility] Name: Donnie Man Jr Age: 43 yrs Sex: Male : 1980 Arrival Date: 12/21/2023 Time: 02:18 Bed 5 Private MD: Mary Beth Blum ED Physician Austin Gonzalez HPI: 12/20 05:01 This 43 yrs old Male presents to ER via Ambulatory with complaints of sp4 Abdominal Pain. 05:01 -year-old male with a history of left foot osteomyelitis currently being treated with sp4 IV vancomycin daily via PICC line presents with acute onset of mid abdominal pain associated with some diarrhea. Patient states his vancomycin was recently held secondary to the fact that his vancomycin level was high . . 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 - Social history:: Smoking status: Patient denies any tobacco usage or history of. Patient/guardian denies using alcohol, street drugs. - Family history:: not pertinent. ROS: 05:01 Constitutional: Negative for fever, chills, and weight loss, positive upper mid sp4 abdominal pain and diarrhea 05:01 All other systems are negative, Exam: 05:01 Constitutional: This is a well developed, well nourished patient who is awake, alert, sp4 and in no acute distress. Head/Face: Normocephalic, atraumatic. Eyes: Pupils equal round and reactive to light, extra-ocular motions intact. Lids and lashes normal. Conjunctiva and sclera are not injected. Cornea within normal limits. Periorbital areas with no swelling, redness, or edema. ENT: Nares patent. No nasal discharge, no septal abnormalities noted. Tympanic membranes are normal and external auditory canals are clear. Oropharynx with no redness, swelling, or masses, exudates, or evidence of obstruction, uvula midline. Mucous membranes moist. Neck: Trachea midline, no thyromegaly or masses palpated, and no cervical lymphadenopathy. Supple, full range of motion without nuchal rigidity, or vertebral point tenderness. Chest/axilla: Normal chest wall appearance and motion. Nontender with no deformity. No lesions are appreciated. Cardiovascular: Regular rate and rhythm with a normal S1 and S2. No gallops, murmurs, or rubs. Normal PMI, no JVD. No pulse deficits. Respiratory: Lungs have equal breath sounds bilaterally, clear to auscultation and percussion. No rales, rhonchi or wheezes noted. No increased work of breathing, no retractions or nasal flaring. Abdomen/GI: Soft, with normal bowel sounds. No distension or tympany. No guarding or rebound. No evidence of tenderness throughout. Back: No spinal tenderness. No costovertebral tenderness. Skin: Warm, dry with normal turgor. Normal color with no rashes, no lesions, and no evidence of cellulitis. MS/ Extremity: Pulses equal, no cyanosis. Neurovascular intact. Full, normal range of motion. Fourth toe amputation with persistent left foot with open wound with infected left plantar diabetic foot ulcer. Neuro: Awake and alert, GCS 15, oriented to person, place, time, and situation. Cranial nerves II-XII grossly intact. Motor strength 5/5 in all extremities. Sensory grossly intact. Psych: Awake, alert, with orientation to person, place and time. Behavior, mood, and affect are within normal limits Vital Signs: 02:21 BP 163 / 96; Pulse 89; Resp 18; Temp 97.7; Pulse Ox 99% on R/A; Weight 92.53 kg; Height pf1 5 ft. 6 in. ; Pain 6/10; 05:00 BP 170 / 99; Pulse 82; Resp 16; Pulse Ox 98% on R/A; cm10 05:18 BP 162 / 97; Pulse 80; Resp 16 S; Pulse Ox 97% on R/A; Pain 0/10; cm10 02:21 Body Mass Index 32.93 (92.53 kg, 167.64 cm) pf1 02:21 Pain Scale: Adult pf1 05:18 Pain Scale: Adult cm10 MDM: 02:37 Patient medically screened. sp4 05:00 ED course: EXAM DESCRIPTION: Abdomen Pelvis Wo Contrast RadLex: CTABDOMEN PELVIS sp4 WITHOUT IV CONTRAST CLINICAL HISTORY: 43 years Male; lower abd and back pain; NO CONTRAST Bed Name: 5 TECHNIQUE: CT of the abdomen and pelvis without contrast. All CT scans at this facility use dose modulation, iterative reconstruction, and/or weight based dosing when appropriate to reduce radiation dose to as low as reasonably achievable. COMPARISON: None. FINDINGS: Lower thorax: Lung bases are clear Abdomen: Stomach:Within normal limits Liver:No focal lesions. No intrahepatic ductal distention. Gallbladder:Nondistended Pancreas:Within normal limits Spleen:Within normal limits Right kidney:No hydronephrosis. No renal or ureteral calculi. Left kidney:No hydronephrosis. No renal or ureteral calculi. Adrenal glands:Within normal limits Vascular structures:Within normal limits (although limited evaluation on noncontrast exam). Lymph nodes:No lymphadenopathy by size criteria Pelvis: Small bowel:No significant distention. Appendix:Within normal limits Colon:No distention or acute pericolonic edema. Colonic diverticulosis. Peritoneum: No free intraperitoneal fluid or air. Bones: No acute bone findings. Bladder: Unremarkable. Reproductive organs: No acute findings. Note that evaluation of the bowel and solid organs is somewhat limited due to lack of intravenous and oral contrast. IMPRESSION: 1. No acute abdominopelvic findings. 2. Colonic diverticulosis without diverticulitis. Electronically signed by: Roseanne Greene MD 12/21/2023 04:02 AM. 05:01 Differential Diagnosis altered mental status, sepsis, flu. Data reviewed: vital signs, sp4 nurses notes, old medical records, lab test result(s), CBC, electrolytes, hepatic panel, radiologic studies, CT scan. Consideration of Admission/Observation Escalation of care including admission/observation considered. ED course: Pain was controlled with medications in ER. Blood sugar was controlled with IV insulin. Patient stable for discharge home . . 12/20 02:36 Order name: CBC with Diff; Complete Time: 04:21 sp4 12/20 02:36 Order name: CMP; Complete Time: 04:21 sp4 12/20 02:36 Order name: Lipase; Complete Time: 04:21 sp4 12/20 02:36 Order name: Urinalysis w/ reflexes; Complete Time: 04:21 sp4 12/20 04:30 Order name: Glucose, Ancillary Testing; Complete Time: 04:56 EDMS 12/20 02:36 Order name: CT Abd/Pelvis - Without Contrast sp4 12/20 02:36 Order name: IV Saline Lock; Complete Time: 03:16 sp4 12/20 02:36 Order name: Labs collected and sent; Complete Time: 03:16 sp4 Administered Medications: 02:55 Drug: Diphenoxylate-Atropine PO 2 tabs PO once Route: PO; pf1 05:21 Follow up: Response: No adverse reaction cm10 02:55 Drug: Ondansetron PO 8 mg PO once Route: PO; pf1 04:05 Follow up: Response: No adverse reaction cm10 04:06 Follow up: Response: No adverse reaction cm10 02:55 Drug: Dicyclomine PO 20 mg PO once Route: PO; pf1 04:05 Follow up: Response: No adverse reaction; Pain is decreased cm10 02:55 Drug: Campbell PO 10 mg-325 mg 1 tabs PO once Route: PO; pf1 04:05 Follow up: Response: No adverse reaction cm10 04:05 Follow up: Response: No adverse reaction; Pain is decreased cm10 03:10 Drug: NS 0.9% IV 1000 ml IV at 1 bolus Per protocol; 1000 mL bolus Route: IV; Rate: 1 pf1 bolus; Site: left antecubital; 04:06 Follow up: Response: No adverse reaction; IV Status: Completed infusion; IV Intake: cm10 1000ml 04:26 Drug: Insulin Regular Human IVP 5 units IVP once {Co-Signature: [email or web address] (Donnie Macias cm10 RN).} Route: IVP; Site: left antecubital; 05:21 Follow up: Response: No adverse reaction; Blood sugar is lowered cm10 Point of Care Testing: Blood Glucose: 04:18 Blood Glucose: 349 mg/dL; cm10 Ranges: Critical Glucose Levels:Adult <50 mg/dl or >400 mg/dl <40 mg/dl or >180 mg/dl Disposition Summary: 12/21/23 05:04 Discharge Ordered Notes: Location: Home sp4 Problem: new sp4 Symptoms: have improved sp4 Condition: Stable sp4 Diagnosis - Abdominal pain, Generalized sp4 - Type 2 diabetes mellitus with hyperglycemia sp4 Followup: sp4 - With: Private Physician - When: 7 - 10 days - Reason: Recheck today's complaints Discharge Instructions: - Discharge Summary Sheet sp4 - Abdominal Pain, Adult sp4 Forms: - Patient Portal Instructions sp4 Prescriptions: - Reglan 10 mg Oral tablet - take 1 tablet ORAL route every 8 hours PRN nausea or abdominal pain; 20 sp4 tablet; Refills: 0, Product Selection Permitted - dicyclomine 20 mg Oral tablet - take 1 tablet ORAL route every 8 hours PRN pain; 30 tablet; Refills: 0, Product sp4 Selection Permitted Signatures: Dispatcher [employer] Arlene Peter RN RN pf1 Autsin Gonzalez MD MD sp4 Jaylene Lafleur RN RN cm10 Donnie Macias RN [id number]
--- NOTE | 2023-12-21 05:05 | ER ---
Nurse's Notes [facility] Name: Donnie Man Jr Age: 43 yrs Sex: Male : 1980 Arrival Date: 12/21/2023 Time: 02:18 Bed 5 Private MD: Mary Beth Blum Diagnosis: Abdominal pain, Generalized;Type 2 diabetes mellitus with hyperglycemia Presentation: 12/20 02:21 Chief complaint: Patient states: lower back pain,onset with lower abdominal pf1 pain of 6,onset Friday. Patient C/O diarrhea x 1 episode yesterday. 02:21 Coronavirus screen: Vaccine status: Patient reports receiving the 2nd dose of the covid pf1 vaccine. Client denies travel out of the [place] in the last 14 days. At this time, the client does not indicate any symptoms associated with coronavirus-19. Ebola Screen: Patient negative for fever greater than or equal to 101.5 degrees Fahrenheit, and additional compatible Ebola Virus Disease symptoms. Initial Sepsis Screen: Does the patient meet any 2 criteria? No. Patient's initial sepsis screen is negative. Does the patient have a suspected source of infection? No. Patient's initial sepsis screen is negative. Risk Assessment: Do you want to hurt yourself or someone else? Patient reports no desire to harm self or others. Onset of symptoms was December 18, 2023. 02:21 Method Of Arrival: Ambulatory pf1 02:21 Acuity: BECKY 3 pf1 Triage Assessment: 02:21 General: Appears in no apparent distress. comfortable, well groomed, well developed, pf1 Behavior is calm, cooperative, appropriate for age, quiet. 02:21 Pain: Complains of pain in back and abdomen Pain currently is 6 out of 10 on a pain pf1 scale. GI: Abdomen is round non-distended, Bowel sounds present X 4 quads. Reports lower abdominal pain. Musculoskeletal: Reports pain in back. 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 - Social history:: Smoking status: Patient denies any tobacco usage or history of. Patient/guardian denies using alcohol, street drugs. - Family history:: not pertinent. Screenin:[facility] ED Fall Risk Assessment (Adult) History of falling in the last 3 months, cm10 including since admission No falls in past 3 months (0 pts) Confusion or Disorientation No (0 pts) Intoxicated or Sedated No (0 pts) Impaired Gait No (0 pts) Mobility Assist Device Used No (0 pt) Altered Elimination No (0 pt) Score/Fall Risk Level 0 - 2 = Low Risk Oriented to surroundings, Maintained a safe environment, Hourly rounding (assess needs \T\ fall precautionary measures) done. Abuse screen: Denies threats or abuse. Denies injuries from another. Nutritional screening: No deficits noted. Tuberculosis screening: No symptoms or risk factors identified. Assessment: 03:40 General: Appears in no apparent distress. uncomfortable, Behavior is calm, cooperative, cm10 appropriate for age. Pain: Complains of pain in abdomen and back Pain currently is 6 out of 10 on a pain scale. Neuro: No deficits noted. Level of Consciousness is awake, alert, obeys commands, Oriented to person, place, time, situation. Cardiovascular: No deficits noted. Patient's skin is warm and dry. Respiratory: No deficits noted. Airway is patent Respiratory effort is even, unlabored, Respiratory pattern is regular, symmetrical. GI: Reports lower abdominal pain, upper abdominal pain, diarrhea. : No deficits noted. No signs and/or symptoms were reported regarding the genitourinary system. EENT: No deficits noted. No signs and/or symptoms were reported regarding the EENT system. Derm: No deficits noted. Skin is intact, Skin is pink, warm \T\ dry. Musculoskeletal: No deficits noted. Range of motion: intact in all extremities. 04:00 Reassessment: Patient appears in no apparent distress at this time. Patient and/or cm10 family updated on plan of care and expected duration. Pain level reassessed. Patient states feeling better. Patient states symptoms have improved. 04:06 GI: Bowel sounds present X 4 quads. Abd is soft and non tender X 4 quads. cm10 Vital Signs: 02:21 BP 163 / 96; Pulse 89; Resp 18; Temp 97.7; Pulse Ox 99% on R/A; Weight 92.53 kg; Height pf1 5 ft. 6 in. ; Pain 6/10; 05:00 BP 170 / 99; Pulse 82; Resp 16; Pulse Ox 98% on R/A; cm10 05:18 BP 162 / 97; Pulse 80; Resp 16 S; Pulse Ox 97% on R/A; Pain 0/10; cm10 02:21 Body Mass Index 32.93 (92.53 kg, 167.64 cm) pf1 02:21 Pain Scale: Adult pf1 05:18 Pain Scale: Adult cm10 ED Course: 02:20 Patient arrived in ED. mr 02:20 Mary Beth Blum is Private Physician. mr 02:21 Arm band placed on left wrist. pf1 02:25 Door closed. Noise minimized. Warm blanket given. pf1 02:35 Austin Gonzalez MD is Attending Physician. sp4 02:56 Triage completed. pf1 03:10 No provider procedures requiring assistance completed. Inserted saline lock: 22 gauge pf1 in left antecubital area, using aseptic technique. Blood collected. 03:10 Initial lab(s) drawn, by me, sent to lab. Urine collected: clean catch specimen, clear. pf1 03:16 CBC with Diff Sent. pf1 03:16 CMP Sent. pf1 03:16 Lipase Sent. pf1 03:16 Urinalysis w/ reflexes Sent. pf1 03:27 CT Abd/Pelvis - Without Contrast In Process Unspecified. EDMS 03:40 Jaylene Lafleur, RN is Primary Nurse. cm10 03:42 Patient has correct armband on for positive identification. Placed in gown. Bed in low cm10 position. Call light in reach. Side rails up X2. 04:19 Notified ED physician of a critical lab result(s). Blood Glucose 414. cm10 05:20 IV discontinued, intact, bleeding controlled, No redness/swelling at site. Pressure cm10 dressing applied. 05:21 Provided Education on: Follow-up instructions. . cm10 Administered Medications: 02:55 Drug: Diphenoxylate-Atropine PO 2 tabs PO once Route: PO; pf1 05:21 Follow up: Response: No adverse reaction cm10 02:55 Drug: Ondansetron PO 8 mg PO once Route: PO; pf1 04:05 Follow up: Response: No adverse reaction cm10 04:06 Follow up: Response: No adverse reaction cm10 02:55 Drug: Dicyclomine PO 20 mg PO once Route: PO; pf1 04:05 Follow up: Response: No adverse reaction; Pain is decreased cm10 02:55 Drug: [place] PO 10 mg-325 mg 1 tabs PO once Route: PO; pf1 04:05 Follow up: Response: No adverse reaction cm10 04:05 Follow up: Response: No adverse reaction; Pain is decreased cm10 03:10 Drug: NS 0.9% IV 1000 ml IV at 1 bolus Per protocol; 1000 mL bolus Route: IV; Rate: 1 pf1 bolus; Site: left antecubital; 04:06 Follow up: Response: No adverse reaction; IV Status: Completed infusion; IV Intake: cm10 1000ml 04:26 Drug: Insulin Regular Human IVP 5 units IVP once {Co-Signature: alma (Donnie Macias RN).} Route: IVP; Site: left antecubital; 05:21 Follow up: Response: No adverse reaction; Blood sugar is lowered cm10 Medication: 05:20 VIS not applicable for this client. cm10 Point of Care Testing: Blood Glucose: 04:18 Blood Glucose: 349 mg/dL; cm10 Ranges: Intake: 04:06 IV: 1000ml; Total: 1000ml. cm10 Outcome: 05:04 Discharge ordered by . sp4 05:20 Discharged to home ambulatory, cm10 05:20 Condition: good 05:20 Discharge instructions given to patient, Instructed on discharge instructions, follow up and referral plans. medication usage, Demonstrated understanding of instructions, follow-up care, medications, Prescriptions given X 2, 05:21 Patient left the ED. cm10 Signatures: Dispatcher [employer] EDMS Sarahi Yadav, Arlene Shearer RN RN pf1 Austin Gonzalez MD MD sp4 Jaylene Lafleur RN RN cm10 Donnie Macias RN [id number]
[2023-12-21 05:32] VITALS: BP 162/97; TEMP 97.7; O2SAT 97
--- NOTE | 2023-12-22 12:30 | RAD REPORT ---
EXAM DESCRIPTION: CT - Abdomen Pelvis Wo Contrast - 12/21/2023 6:41 am [facility]: CT ABDOMEN PELVIS WITHOUT IV CONTRAST CLINICAL HISTORY: 43 years Male; lower abd and back pain; NO CONTRAST Bed Name: 5 TECHNIQUE: CT of the abdomen and pelvis without contrast. All CT scans at this facility use dose modulation, iterative reconstruction, and/or weight based dosi ng when appropriate to reduce radiation dose to as low as reasonably achievable. COMPARISON: None. FINDINGS: Lower thorax: Lung bases are clear Abdomen: Stomach: Within normal limits Liver: No focal lesions. No intrahepatic ductal distention. Gallbladder: Nondistended Pancreas: Within normal limits Spleen: Within normal limits Right kidney: No hydronephrosis. No renal or ureteral calculi. Left kidney: No hydronephrosis. No renal or ureteral calculi. Adrenal glands: Within normal limits Vascular structures: Within normal limits (although limited evaluation on noncontrast exam). Lymph nodes: No lymphadenopathy by size criteria Pelvis: Small bowel: No significant distention. Appendix: Within normal limits Colon: No distention or acute pericolonic edema. Colonic diverticulosis. Peritoneum: No free intraperitoneal fluid or air. Bones: No acute bone findings. Bladder: Unremarkable. Reproductive organs: No acute findings. Note that evaluation of the bowel and solid organs is somewhat limited due to lack of intravenous and oral contrast. IMPRESSION: 1. No acute abdominopelvic findings. 2. Colonic diverticulosis without diverticulitis. Electronically signed by: Roseanne Greene MD 12/21/2023 04:02 AM CDT Due to temporary technical issues with the PACS/Fluency reporting system, reports are being signed by the in house radiologist without review as a courtesy to ensure prompt reporting. The interpreting r adiologist is fully responsible for the content of the report.
== END ==
LOC: ER 02:18
DX: R10.84 Generalized abdominal pain (principal); E11.65 Type 2 diabetes mellitus with hyperglycemia; I10 Essential (primary) hypertension; Z88.0 Allergy status to penicillin; Z89.422 Acquired absence of other left toe(s); Z89.021 Acquired absence of right finger(s)
CPT/HCPCS: 85025; 81001; 36415; 82947 ×2; 83690; 80053; 74176; J1815; Q0162; J7030; 96361; 96374; 99284

== ENCOUNTER → 2023-12-24 | Emergency (ER) | payer OTHER ==
[~2023-12-24] MED LIST changes: +ALTEPLASE 2 MG/VIAL IV ONE; -DICYCLOMINE HCL 10 MG CAP ONE; -DIPHENOX/ATROP SULF 1 TAB PO ONE; -HYDROCODONE/APAP 10/325 TAB ONE; -INSULIN REGULAR (HUMAN) 100 UNIT/ML ONE; -NA CHLORIDE 0.9% 1,000 ML ONE; -ONDANSETRON 4 MG (ODT) TAB ONE; +WATER FOR INJ,STERILE 10 ML ONE
--- OUTSIDE RECORDS SUMMARY | 2023-12-24 20:36 | XMS REPORT | Continuity of Care Document ---
Author Name Unknown Address [address] [facility]. 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 Role Phone FREDDIE TATUM Primary Care Physician Unav ailable LALY HENRY Attending Clinician Unavailable Laly Lopez Attending Clinician [phone] ZENA SCHULTZ Attending Clinician Unavailabl e Therapy-Kimberly CaballeroNah-Xq-Bffcn Attending Clinician Unavailable Carlos Mclaughlin MD Attending Clinician [phone] CARLOS MCLAUGHLIN Attending Clinician Unavailable Doctor Unassigned, [place] Attending Clinician U simeon Moseley RN, Coby Hernandez Attending Clinician [phone] MD Attending Clinician [phone] Stephanie Singleton MD Attending Clinician [phone] Edilberto Mims MD Attending Clinician [phone] EDILBERTO MIMS Attending Clinician Unavailable Pop ENRIQUE, Josue Attending Clinician [phone] Shawna ENRIQUE, Tomasz Dunn Attending Clinician [phone] Joel ENRIQUE, Salazar Attending Clinician + Lab, Adc Fam Pob I Attending Clinician Unavailab Krystina Morfin Attending Clinician [phone] KRYSTINA CHEEMA Attending Clinician Unavailable Stephanie Singleton MD Admitting Clinician [phone] STEPHANIE SINGLETON Admitting Clinician Unavailable Payers Payer Name Policy Type Policy Number Effective Date Expirati on Date Source [employer] [id number] 2022 00:00:00 Problems Condition Name Condition Details Condition Category Status Onset Date Resolution Date Last Treatment Date Treating Clinician Comments Source Finger pain, right Finger pain, right Disease Active 2021-10 00:00: 00 [facility] Finger stiffness, right Finger stiffness, right Disease Active 2021-10 00:00: 00 [facility] Obesity (BMI 30-39.9) Obesity (BMI 30-39.9) Disease Active 2021-10 00:00: 00 [facility] 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 Disease Active 2021-10 00:00: 00 [facility] Essential hypertensi on Essential hypertensi on Disease Active 2021-10 00:00: 00 [facility] Hyperlipid emia Hyperlipid emia Disease Active 2021-10 00:00: 00 [facility] Restless leg syndrome Restless leg syndrome Disease Active 2021-10 00:00: 00 [facility] Encounter for routine history and physical exam for male Encounter for routine history and physical exam for male Disease Active 02-12 00:00: 00 [facility] Type 2 diabetes mellitus without complicati on, with long-term current use of insulin Type 2 diabetes mellitus without complicati on, with long-term current use of insulin Disease Active 12-01 00:00: 00 Overview: Formattin g of this note might be different from the original. 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 [facility] Yeast infection Yeast infection Disease Active 12-01 00:00: 00 [facility] Allergies, Adverse Reactions, Alerts Allergy Name Allergy Type Status Severity Reaction(s) Onset Date Inactive Date Treating Clinician Comments Source Penicill ins Propensi ty to adverse reaction s Active Rash 11-22 00:00: 00 [facility] PENICILL INS Drug Class Active Rash 11-22 00:00: 00 [facility] Penicill ins Propensi ty to adverse reaction s Active Rash 11-22 00:00: 00 [facility] Social History Social Habit Start Date Stop Date Quantity Comments Source History of tobacco use Cigarette Smoker [facility] Exposure to SARS-CoV-2 (event) 2022-10-28 00:00:00 2022-11-07 08:30:00 Unable to assess [facility] Tobacco use and exposure 2022-10-08 00:00:00 2022-10-08 00:00:00 Smokeless tobacco non-user [facility] Alcohol intake 2022-10-08 00:00:00 2022-10-08 00:00:00 Current drinker of alcohol (finding) [facility] Tobacco Comment 2022-10-08 00:00:00 2022-10-08 00:00:00 smokes 1 pack per week [facility] Alcohol Comment 2014-02-22 00:00:00 2014-02-22 00:00:00 Currently uses alcohol only occasionally. 4 years ago he drank 24 beers daily for 4-5 months. [facility] Sex Assigned At 1980 00:00:00 1980 00:00:00 [facility] Smoking Status Start Date Stop Date Source Ex-smoker 2022-10-08 00:00:00 2022-10-08 00:00:00 [facility] Occasional tobacco smoker 2014-02-22 00:00:00 [facility] Medications Ordered Medication Name Filled Medication Name Start Date Stop Date Current Medication? Ordering Clinician Indication Dosage Frequency Signature (SIG) Comments Components Source gabapentin 600 mg tablet 2021-10 00:00: 00 Yes 600mg Take 600 mg by mouth at bedtime. [facility] gabapentin 600 mg tablet 2021-10 00:00: 00 Yes 600mg Take 600 mg by mouth at bedtime. [facility] gabapentin 600 mg tablet 2021-10 00:00: 00 Yes 600mg Take 600 mg by mouth at bedtime. [facility] MOUNJARO 2.5 mg/0.5 mL PnIj 2021-10 00:00: 00 Yes INJECT 2.5 MG SUBCUTANEO USLY ONCE A WEEK FOR 4 WEEKS [facility] MOUNJARO 2.5 mg/0.5 mL PnIj 2021-10 00:00: 00 Yes INJECT 2.5 MG SUBCUTANEO USLY ONCE A WEEK FOR 4 WEEKS [facility] MOUNJARO 2.5 mg/0.5 mL PnIj 2021-10 00:00: 00 Yes INJECT 2.5 MG SUBCUTANEO USLY ONCE A WEEK FOR 4 WEEKS [facility] mupirocin 2 % ointment 2021-10 00:00: 00 10-03 05:59 :00 No [id number] Apply to area(s) 3 (three) times daily for 21 days. [facility] mupirocin 2 % ointment 2021-10 00:00: 00 10-03 05:59 :00 No [id number] Apply to area(s) 3 (three) times daily for 21 days. [facility] mupirocin 2 % ointment 2021-10 00:00: 00 10-03 05:59 :00 No [id number] Apply to area(s) 3 (three) times daily for 21 days. [facility] losartan 50 mg tablet 2021-10 00:00: 00 Yes 50mg Take 1 tablet by mouth in the morning. [facility] polyethylen e glycol 3350 17 gram powder 2021-10 00:00: 00 Yes [id number] 17g Take 1 Packet by mouth in the morning. [facility] sennosides 8.6 mg tablet 2021-10 00:00: 00 Yes [id number] 8.6mg Take 1 tablet by mouth in the morning. [facility] losartan 50 mg tablet 2021-10 00:00: 00 Yes 50mg Take 1 tablet by mouth in the morning. [facility] polyethylen e glycol 3350 17 gram powder 2021-10 00:00: 00 Yes [id number] 17g Take 1 Packet by mouth in the morning. [facility] sennosides 8.6 mg tablet 2021-10 00:00: 00 Yes [id number] 8.6mg Take 1 tablet by mouth in the morning. [facility] losartan 50 mg tablet 2021-10 00:00: 00 Yes 50mg Take 1 tablet by mouth in the morning. [facility] polyethylen e glycol 3350 17 gram powder 2021-10 00:00: 00 Yes [id number] 17g Take 1 Packet by mouth in the morning. [facility] sennosides 8.6 mg tablet 2021-10 00:00: 00 Yes [id number] 8.6mg Take 1 tablet by mouth in the morning. [facility] losartan 50 mg tablet 2021-10 00:00: 00 Yes 50mg Take 1 tablet by mouth in the morning. [facility] polyethylen e glycol 3350 17 gram powder 2021-10 00:00: 00 Yes [id number] 17g Take 1 Packet by mouth in the morning. [facility] sennosides 8.6 mg tablet 2021-10 00:00: 00 Yes [id number] 8.6mg Take 1 tablet by mouth in the morning. [facility] losartan 50 mg tablet 2021-10 00:00: 00 Yes 50mg Take 1 tablet by mouth in the morning. [facility] polyethylen e glycol 3350 17 gram powder 2021-10 00:00: 00 Yes [id number] 17g Take 1 Packet by mouth in the morning. [facility] sennosides 8.6 mg tablet 2021-10 00:00: 00 Yes [id number] 8.6mg Take 1 tablet by mouth in the morning. [facility] losartan 50 mg tablet 2021-10 00:00: 00 Yes 50mg Take 1 tablet by mouth in the morning. [facility] polyethylen e glycol 3350 17 gram powder 2021-10 00:00: 00 Yes [id number] 17g Take 1 Packet by mouth in the morning. [facility] sennosides 8.6 mg tablet 2021-10 00:00: 00 Yes [id number] 8.6mg Take 1 tablet by mouth in the morning. [facility] losartan 50 mg tablet 2021-10 00:00: 00 Yes 50mg Take 1 tablet by mouth in the morning. [facility] polyethylen e glycol 3350 17 gram powder 2021-10 00:00: 00 Yes [id number] 17g Take 1 Packet by mouth in the morning. [facility] sennosides 8.6 mg tablet 2021-10 00:00: 00 Yes [id number] 8.6mg Take 1 tablet by mouth in the morning. [facility] losartan 50 mg tablet 2021-10 00:00: 00 Yes 50mg Take 1 tablet by mouth in the morning. [facility] polyethylen e glycol 3350 17 gram powder 2021-10 00:00: 00 Yes [id number] 17g Take 1 Packet by mouth in the morning. [facility] sennosides 8.6 mg tablet 2021-10 00:00: 00 Yes [id number] 8.6mg Take 1 tablet by mouth in the morning. [facility] losartan 50 mg tablet 2021-10 00:00: 00 Yes 50mg Take 1 tablet by mouth in the morning. [facility] polyethylen e glycol 3350 17 gram powder 2021-10 00:00: 00 Yes [id number] 17g Take 1 Packet by mouth in the morning. [facility] sennosides 8.6 mg tablet 2021-10 00:00: 00 Yes [id number] 8.6mg Take 1 tablet by mouth in the morning. [facility] losartan 50 mg tablet 2021-10 00:00: 00 Yes 50mg Take 1 tablet by mouth in the morning. [facility] polyethylen e glycol 3350 17 gram powder 2021-10 00:00: 00 Yes [id number] 17g Take 1 Packet by mouth in the morning. [facility] sennosides 8.6 mg tablet 2021-10 00:00: 00 Yes [id number] 8.6mg Take 1 tablet by mouth in the morning. [facility] losartan 50 mg tablet 2021-10 00:00: 00 Yes 50mg Take 1 tablet by mouth in the morning. [facility] polyethylen e glycol 3350 17 gram powder 2021-10 00:00: 00 Yes [id number] 17g Take 1 Packet by mouth in the morning. [facility] sennosides 8.6 mg tablet 2021-10 00:00: 00 Yes [id number] 8.6mg Take 1 tablet by mouth in the morning. [facility] losartan 50 mg tablet 2021-10 00:00: 00 Yes 50mg Take 1 tablet by mouth in the morning. [facility] polyethylen e glycol 3350 17 gram powder 2021-10 00:00: 00 Yes [id number] 17g Take 1 Packet by mouth in the morning. [facility] sennosides 8.6 mg tablet 2021-10 00:00: 00 Yes [id number] 8.6mg Take 1 tablet by mouth in the morning. [facility] losartan 50 mg tablet 2021-10 00:00: 00 Yes 50mg Take 1 tablet by mouth in the morning. [facility] polyethylen e glycol 3350 17 gram powder 2021-10 00:00: 00 Yes [id number] 17g Take 1 Packet by mouth in the morning. [facility] sennosides 8.6 mg tablet 2021-10 00:00: 00 Yes [id number] 8.6mg Take 1 tablet by mouth in the morning. [facility] losartan 50 mg tablet 2021-10 00:00: 00 Yes 50mg Take 1 tablet by mouth in the morning. [facility] polyethylen e glycol 3350 17 gram powder 2021-10 00:00: 00 Yes [id number] 17g Take 1 Packet by mouth in the morning. [facility] sennosides 8.6 mg tablet 2021-10 00:00: 00 Yes [id number] 8.6mg Take 1 tablet by mouth in the morning. [facility] losartan 50 mg tablet 2021-10 00:00: 00 Yes 50mg Take 1 tablet by mouth in the morning. [facility] polyethylen e glycol 3350 17 gram powder 2021-10 00:00: 00 Yes [id number] 17g Take 1 Packet by mouth in the morning. [facility] sennosides 8.6 mg tablet 2021-10 00:00: 00 Yes [id number] 8.6mg Take 1 tablet by mouth in the morning. [facility] sennosides (SENOKOT) tablet 8.6 mg 2021-10 15:00: 00 Yes 8.6mg 8.6 mg, Oral, DAILY, First dose on Fri09/04/22 at 0900, Until Discontinu ed, Routine [facility] polyethylen e glycol 3350 powder 17 g 2021-10 15:00: 00 Yes 17g 17 g, Oral, DAILY, First dose on Fri09/04/22 at 0900, Until Discontinu ed, Routine [facility] sennosides (SENOKOT) tablet 8.6 mg 2021-10 15:00: 00 Yes 8.6mg 8.6 mg, Oral, DAILY, First dose on Fri09/04/22 at 0900, Until Discontinu ed, Routine [facility] polyethylen e glycol 3350 powder 17 g 2021-10 15:00: 00 Yes 17g 17 g, Oral, DAILY, First dose on Fri09/04/22 at 0900, Until Discontinu ed, Routine [facility] morpHINE (2 mg/mL) injection 4 mg 2021-10 13:57: 04 Yes 4mg 4 mg, Slow IV Push, Q4HPRN, Starting on Fri09/04/22 at 0757, Until Discontinu ed, Routine, Pain (scale 7-10) [facility] morpHINE (2 mg/mL) injection 4 mg 2021-10 13:57: 04 Yes 4mg 4 mg, Slow IV Push, Q4HPRN, Starting on Fri09/04/22 at 0757, Until Discontinu ed, Routine, Pain (scale 7-10) [facility] HYDROcodone -acetaminop hen (NORCO) 10-325 mg tablet 1 tablet 2021-10 10:51: 25 Yes 1{tbl} 1 tablet, Oral, Q6HPRN, Starting on Fri09/04/22 at 0451, Until Discontinu ed, Routine, Pain (scale 4-6) [facility] HYDROcodone -acetaminop hen (NORCO) 10-325 mg tablet 1 tablet 2021-10 10:51: 25 Yes 1{tbl} 1 tablet, Oral, Q6HPRN, Starting on Fri09/04/22 at 0451, Until Discontinu ed, Routine, Pain (scale 4-6) [facility] morpHINE (2 mg/mL) injection 2 mg 2021-10 10:51: 13 09-04 13:57 :36 No 2mg 2 mg, Slow IV Push, Q4HPRN, Starting on Fri09/04/22 at 0451, Until Fri09/04/22 at 0757, Routine, Pain (scale 7-10) [facility] HYDROcodone -acetaminop hen (NORCO) 10-325 mg tablet 1 tablet 2021-10 08:39: 28 09-04 10:51 :33 No 1{tbl} 1 tablet, Oral, Q6HPRN, Starting on Fri09/04/22 at 0239, Until Fri09/04/22 at 0451, Routine, Pain (scale 7-10) [facility] gabapentin 100 mg capsule 2021-10 00:00: 00 Yes [id number] 300mg Take 3 capsules by mouth at bedtime. [facility] ibuprofen 600 mg tablet 2021-10 00:00: 00 Yes [id number] 600mg Take 1 tablet by mouth every 6 (six) hours as needed for Pain (scale 1-3). [facility] insulin NPH and regular human 70-30 100 unit/mL (70-30) injection 2021-10 00:00: 00 Yes 40U inject 40 Units under the skin every morning. [facility] insulin NPH and regular human 70-30 100 unit/mL (70-30) injection 2021-10 00:00: 00 Yes 20U inject 20 Units under the skin every evening. [facility] metFORMIN 500 mg tablet 2021-10 00:00: 00 Yes 500mg Take 1 tablet by mouth in the morning and 1 tablet in the evening. Take with meals. [facility] semaglutide (OZEMPIC) 0.25 mg or 0.5 mg(2 mg/1.5 mL) PnIj 2021-10 00:00: 00 Yes .25mg inject 0.25 mg under the skin. [facility] gabapentin 100 mg capsule 2021-10 00:00: 00 Yes [id number] 300mg Take 3 capsules by mouth at bedtime. [facility] ibuprofen 600 mg tablet 2021-10 00:00: 00 Yes [id number] 600mg Take 1 tablet by mouth every 6 (six) hours as needed for Pain (scale 1-3). [facility] insulin NPH and regular human 70-30 100 unit/mL (70-30) injection 2021-10 00:00: 00 Yes 40U inject 40 Units under the skin every morning. [facility] insulin NPH and regular human 70-30 100 unit/mL (70-30) injection 2021-10 00:00: 00 Yes 20U inject 20 Units under the skin every evening. [facility] metFORMIN 500 mg tablet 2021-10 00:00: 00 Yes 500mg Take 1 tablet by mouth in the morning and 1 tablet in the evening. Take with meals. [facility] semaglutide (OZEMPIC) 0.25 mg or 0.5 mg(2 mg/1.5 mL) PnIj 2021-10 00:00: 00 Yes .25mg inject 0.25 mg under the skin. [facility] gabapentin 100 mg capsule 2021-10 00:00: 00 Yes [id number] 300mg Take 3 capsules by mouth at bedtime. [facility] ibuprofen 600 mg tablet 2021-10 00:00: 00 Yes [id number] 600mg Take 1 tablet by mouth every 6 (six) hours as needed for Pain (scale 1-3). [facility] insulin NPH and regular human 70-30 100 unit/mL (70-30) injection 2021-10 00:00: 00 Yes 40U inject 40 Units under the skin every morning. [facility] insulin NPH and regular human 70-30 100 unit/mL (70-30) injection 2021-10 00:00: 00 Yes 20U inject 20 Units under the skin every evening. [facility] metFORMIN 500 mg tablet 2021-10 00:00: 00 Yes 500mg Take 1 tablet by mouth in the morning and 1 tablet in the evening. Take with meals. [facility] semaglutide (OZEMPIC) 0.25 mg or 0.5 mg(2 mg/1.5 mL) PnIj 2021-10 00:00: 00 Yes .25mg inject 0.25 mg under the skin. [facility] gabapentin 100 mg capsule 2021-10 00:00: 00 Yes [id number] 300mg Take 3 capsules by mouth at bedtime. [facility] ibuprofen 600 mg tablet 2021-10 00:00: 00 Yes [id number] 600mg Take 1 tablet by mouth every 6 (six) hours as needed for Pain (scale 1-3). [facility] insulin NPH and regular human 70-30 100 unit/mL (70-30) injection 2021-10 00:00: 00 Yes 40U inject 40 Units under the skin every morning. [facility] insulin NPH and regular human 70-30 100 unit/mL (70-30) injection 2021-10 00:00: 00 Yes 20U inject 20 Units under the skin every evening. [facility] metFORMIN 500 mg tablet 2021-10 00:00: 00 Yes 500mg Take 1 tablet by mouth in the morning and 1 tablet in the evening. Take with meals. [facility] semaglutide (OZEMPIC) 0.25 mg or 0.5 mg(2 mg/1.5 mL) PnIj 2021-10 00:00: 00 Yes .25mg inject 0.25 mg under the skin. [facility] gabapentin 100 mg capsule 2021-10 00:00: 00 Yes [id number] 300mg Take 3 capsules by mouth at bedtime. [facility] ibuprofen 600 mg tablet 2021-10 00:00: 00 Yes [id number] 600mg Take 1 tablet by mouth every 6 (six) hours as needed for Pain (scale 1-3). [facility] insulin NPH and regular human 70-30 100 unit/mL (70-30) injection 2021-10 00:00: 00 Yes 40U inject 40 Units under the skin every morning. [facility] insulin NPH and regular human 70-30 100 unit/mL (70-30) injection 2021-10 00:00: 00 Yes 20U inject 20 Units under the skin every evening. [facility] metFORMIN 500 mg tablet 2021-10 00:00: 00 Yes 500mg Take 1 tablet by mouth in the morning and 1 tablet in the evening. Take with meals. [facility] semaglutide (OZEMPIC) 0.25 mg or 0.5 mg(2 mg/1.5 mL) PnIj 2021-10 00:00: 00 Yes .25mg inject 0.25 mg under the skin. [facility] gabapentin 100 mg capsule 2021-10 00:00: 00 Yes [id number] 300mg Take 3 capsules by mouth at bedtime. [facility] ibuprofen 600 mg tablet 2021-10 00:00: 00 Yes [id number] 600mg Take 1 tablet by mouth every 6 (six) hours as needed for Pain (scale 1-3). [facility] insulin NPH and regular human 70-30 100 unit/mL (70-30) injection 2021-10 00:00: 00 Yes 40U inject 40 Units under the skin every morning. [facility] insulin NPH and regular human 70-30 100 unit/mL (70-30) injection 2021-10 00:00: 00 Yes 20U inject 20 Units under the skin every evening. [facility] metFORMIN 500 mg tablet 2021-10 00:00: 00 Yes 500mg Take 1 tablet by mouth in the morning and 1 tablet in the evening. Take with meals. [facility] semaglutide (OZEMPIC) 0.25 mg or 0.5 mg(2 mg/1.5 mL) [facility] 2021-10 00:00: 00 Yes .25mg inject 0.25 mg under the skin. [facility] gabapentin 100 mg capsule 2021-10 00:00: 00 Yes [id number] 300mg Take 3 capsules by mouth at bedtime. [facility] ibuprofen 600 mg tablet 2021-10 00:00: 00 Yes [id number] 600mg Take 1 tablet by mouth every 6 (six) hours as needed for Pain (scale 1-3). [facility] insulin NPH and regular human 70-30 100 unit/mL (70-30) injection 2021-10 00:00: 00 Yes 40U inject 40 Units under the skin every morning. [facility] insulin NPH and regular human 70-30 100 unit/mL (70-30) injection 2021-10 00:00: 00 Yes 20U inject 20 Units under the skin every evening. [facility] metFORMIN 500 mg tablet 2021-10 00:00: 00 Yes 500mg Take 1 tablet by mouth in the morning and 1 tablet in the evening. Take with meals. [facility] semaglutide (OZEMPIC) 0.25 mg or 0.5 mg(2 mg/1.5 mL) PnIj 2021-10 00:00: 00 Yes .25mg inject 0.25 mg under the skin. [facility] polyethylen e glycol 3350 17 gram/dose powder 2021-10 00:00: 00 Yes MIX 17 GRAMS OF POWDER IN WATER OR JUICE ONCE DAILY IN THE MORNING [facility] gabapentin 100 mg capsule 2021-10 00:00: 00 Yes [id number] 300mg Take 3 capsules by mouth at bedtime. [facility] ibuprofen 600 mg tablet 2021-10 00:00: 00 Yes [id number] 600mg Take 1 tablet by mouth every 6 (six) hours as needed for Pain (scale 1-3). [facility] insulin NPH and regular human 70-30 100 unit/mL (70-30) injection 2021-10 00:00: 00 Yes 40U inject 40 Units under the skin every morning. [facility] insulin NPH and regular human 70-30 100 unit/mL (70-30) injection 2021-10 00:00: 00 Yes 20U inject 20 Units under the skin every evening. [facility] metFORMIN 500 mg tablet 2021-10 00:00: 00 Yes 500mg Take 1 tablet by mouth in the morning and 1 tablet in the evening. Take with meals. [facility] semaglutide (OZEMPIC) 0.25 mg or 0.5 mg(2 mg/1.5 mL) Ij 2021-10 00:00: 00 Yes .25mg inject 0.25 mg under the skin. [facility] polyethylen e glycol 3350 17 gram/dose powder 2021-10 00:00: 00 Yes MIX 17 GRAMS OF POWDER IN WATER OR JUICE ONCE DAILY IN THE MORNING [facility] gabapentin 100 mg capsule 2021-10 00:00: 00 Yes [id number] 300mg Take 3 capsules by mouth at bedtime. [facility] ibuprofen 600 mg tablet 2021-10 00:00: 00 Yes [id number] 600mg Take 1 tablet by mouth every 6 (six) hours as needed for Pain (scale 1-3). [facility] insulin NPH and regular human 70-30 100 unit/mL (70-30) injection 2021-10 00:00: 00 Yes 40U inject 40 Units under the skin every morning. [facility] insulin NPH and regular human 70-30 100 unit/mL (70-30) injection 2021-10 00:00: 00 Yes 20U inject 20 Units under the skin every evening. [facility] metFORMIN 500 mg tablet 2021-10 00:00: 00 Yes 500mg Take 1 tablet by mouth in the morning and 1 tablet in the evening. Take with meals. [facility] semaglutide (OZEMPIC) 0.25 mg or 0.5 mg(2 mg/1.5 mL) PnIj 2021-10 00:00: 00 Yes .25mg inject 0.25 mg under the skin. [facility] polyethylen e glycol 3350 17 gram/dose powder 2021-10 00:00: 00 Yes MIX 17 GRAMS OF POWDER IN WATER OR JUICE ONCE DAILY IN THE MORNING [facility] gabapentin 100 mg capsule 2021-10 00:00: 00 Yes [id number] 300mg Take 3 capsules by mouth at bedtime. [facility] ibuprofen 600 mg tablet 2021-10 00:00: 00 Yes [id number] 600mg Take 1 tablet by mouth every 6 (six) hours as needed for Pain (scale 1-3). [facility] insulin NPH and regular human 70-30 100 unit/mL (70-30) injection 2021-10 00:00: 00 Yes 40U inject 40 Units under the skin every morning. [facility] insulin NPH and regular human 70-30 100 unit/mL (70-30) injection 2021-10 00:00: 00 Yes 20U inject 20 Units under the skin every evening. [facility] metFORMIN 500 mg tablet 2021-10 00:00: 00 Yes 500mg Take 1 tablet by mouth in the morning and 1 tablet in the evening. Take with meals. [facility] semaglutide (OZEMPIC) 0.25 mg or 0.5 mg(2 mg/1.5 mL) PnIj 2021-10 00:00: 00 Yes .25mg inject 0.25 mg under the skin. [facility] polyethylen e glycol 3350 17 gram/dose powder 2021-10 00:00: 00 Yes MIX 17 GRAMS OF POWDER IN WATER OR JUICE ONCE DAILY IN THE MORNING [facility] gabapentin 100 mg capsule 2021-10 00:00: 00 Yes [id number] 300mg Take 3 capsules by mouth at bedtime. [facility] ibuprofen 600 mg tablet 2021-10 00:00: 00 Yes [id number] 600mg Take 1 tablet by mouth every 6 (six) hours as needed for Pain (scale 1-3). [facility] insulin NPH and regular human 70-30 100 unit/mL (70-30) injection 2021-10 00:00: 00 Yes 40U inject 40 Units under the skin every morning. [facility] insulin NPH and regular human 70-30 100 unit/mL (70-30) injection 2021-10 00:00: 00 Yes 20U inject 20 Units under the skin every evening. [facility] metFORMIN 500 mg tablet 2021-10 00:00: 00 Yes 500mg Take 1 tablet by mouth in the morning and 1 tablet in the evening. Take with meals. [facility] semaglutide (OZEMPIC) 0.25 mg or 0.5 mg(2 mg/1.5 mL) PnIj 2021-10 00:00: 00 Yes .25mg inject 0.25 mg under the skin. [facility] polyethylen e glycol 3350 17 gram/dose powder 2021-10 00:00: 00 Yes MIX 17 GRAMS OF POWDER IN WATER OR JUICE ONCE DAILY IN THE MORNING [facility] ibuprofen 600 mg tablet 2021-10 00:00: 00 Yes [id number] 600mg Take 1 tablet by mouth every 6 (six) hours as needed for Pain (scale 1-3). [facility] insulin NPH and regular human 70-30 100 unit/mL (70-30) injection 2021-10 00:00: 00 Yes 40U inject 40 Units under the skin every morning. [facility] insulin NPH and regular human 70-30 100 unit/mL (70-30) injection 2021-10 00:00: 00 Yes 20U inject 20 Units under the skin every evening. [facility] metFORMIN 500 mg tablet 2021-10 00:00: 00 Yes 500mg Take 1 tablet by mouth in the morning and 1 tablet in the evening. Take with meals. [facility] semaglutide (OZEMPIC) 0.25 mg or 0.5 mg(2 mg/1.5 mL) PnIj 2021-10 00:00: 00 Yes .25mg inject 0.25 mg under the skin. [facility] polyethylen e glycol 3350 17 gram/dose powder 2021-10 00:00: 00 Yes MIX 17 GRAMS OF POWDER IN WATER OR JUICE ONCE DAILY IN THE MORNING [facility] ibuprofen 600 mg tablet 2021-10 00:00: 00 Yes [id number] 600mg Take 1 tablet by mouth every 6 (six) hours as needed for Pain (scale 1-3). [facility] insulin NPH and regular human 70-30 100 unit/mL (70-30) injection 2021-10 00:00: 00 Yes 40U inject 40 Units under the skin every morning. [facility] insulin NPH and regular human 70-30 100 unit/mL (70-30) injection 2021-10 00:00: 00 Yes 20U inject 20 Units under the skin every evening. [facility] metFORMIN 500 mg tablet 2021-10 00:00: 00 Yes 500mg Take 1 tablet by mouth in the morning and 1 tablet in the evening. Take with meals. [facility] semaglutide (OZEMPIC) 0.25 mg or 0.5 mg(2 mg/1.5 mL) PnIj 2021-10 00:00: 00 Yes .25mg inject 0.25 mg under the skin. [facility] polyethylen e glycol 3350 17 gram/dose powder 2021-10 00:00: 00 Yes MIX 17 GRAMS OF POWDER IN WATER OR JUICE ONCE DAILY IN THE MORNING [facility] ibuprofen 600 mg tablet 2021-10 00:00: 00 Yes [id number] 600mg Take 1 tablet by mouth every 6 (six) hours as needed for Pain (scale 1-3). [facility] insulin NPH and regular human 70-30 100 unit/mL (70-30) injection 2021-10 00:00: 00 Yes 40U inject 40 Units under the skin every morning. [facility] insulin NPH and regular human 70-30 100 unit/mL (70-30) injection 2021-10 00:00: 00 Yes 20U inject 20 Units under the skin every evening. [facility] metFORMIN 500 mg tablet 2021-10 00:00: 00 Yes 500mg Take 1 tablet by mouth in the morning and 1 tablet in the evening. Take with meals. [facility] semaglutide (OZEMPIC) 0.25 mg or 0.5 mg(2 mg/1.5 mL) PnIj 2021-10 00:00: 00 Yes .25mg inject 0.25 mg under the skin. [facility] polyethylen e glycol 3350 17 gram/dose powder 2021-10 00:00: 00 Yes MIX 17 GRAMS OF POWDER IN WATER OR JUICE ONCE DAILY IN THE MORNING [facility] gabapentin 100 mg capsule 2021-10 00:00: 00 Yes [id number] 300mg Take 3 capsules by mouth at bedtime. [facility] ibuprofen 600 mg tablet 2021-10 00:00: 00 Yes [id number] 600mg Take 1 tablet by mouth every 6 (six) hours as needed for Pain (scale 1-3). [facility] insulin NPH and regular human 70-30 100 unit/mL (70-30) injection 2021-10 00:00: 00 Yes 40U inject 40 Units under the skin every morning. [facility] insulin NPH and regular human 70-30 100 unit/mL (70-30) injection 2021-10 00:00: 00 Yes 20U inject 20 Units under the skin every evening. [facility] metFORMIN 500 mg tablet 2021-10 00:00: 00 Yes 500mg Take 1 tablet by mouth in the morning and 1 tablet in the evening. Take with meals. [facility] semaglutide (OZEMPIC) 0.25 mg or 0.5 mg(2 mg/1.5 mL) PnIj 2021-10 00:00: 00 Yes .25mg inject 0.25 mg under the skin. [facility] gabapentin 100 mg capsule 2021-10 00:00: 00 10-08 00:00 :00 No [id number] 300mg Take 3 capsules by mouth at bedtime. [facility] gabapentin 100 mg capsule 2021-10 00:00: 00 10-08 00:00 :00 No [id number] 300mg Take 3 capsules by mouth at bedtime. [facility] HYDROcodone -acetaminop hen 10-325 mg tablet 2021-10 00:00: 00 09-12 05:59 :00 No 4647 1{tbl} Take 1 tablet by mouth every 6 (six) hours as needed for Pain (scale 4-6) for up to 7 days. Indication s: acute pain [facility] HYDROcodone -acetaminop hen 10-325 mg tablet 2021-10 00:00: 00 09-12 05:59 :00 No 4647 1{tbl} Take 1 tablet by mouth every 6 (six) hours as needed for Pain (scale 4-6) for up to 7 days. Indication s: acute pain [facility] HYDROcodone -acetaminop hen 10-325 mg tablet 2021-10 00:00: 00 09-12 05:59 :00 No 4647 1{tbl} Take 1 tablet by mouth every 6 (six) hours as needed for Pain (scale 4-6) for up to 7 days. Indication s: acute pain [facility] HYDROcodone -acetaminop hen 10-325 mg tablet 2021-10 00:00: 00 09-12 05:59 :00 No 4647 1{tbl} Take 1 tablet by mouth every 6 (six) hours as needed for Pain (scale 4-6) for up to 7 days. Indication s: acute pain [facility] HYDROcodone -acetaminop hen 10-325 mg tablet 2021-10 00:00: 00 09-12 05:59 :00 No 4647 1{tbl} Take 1 tablet by mouth every 6 (six) hours as needed for Pain (scale 4-6) for up to 7 days. Indication s: acute pain [facility] HYDROcodone -acetaminop hen 10-325 mg tablet 2021-10 00:00: 00 09-12 05:59 :00 No 4647 1{tbl} Take 1 tablet by mouth every 6 (six) hours as needed for Pain (scale 4-6) for up to 7 days. Indication s: acute pain [facility] HYDROcodone -acetaminop hen 10-325 mg tablet 2021-10 00:00: 00 09-12 05:59 :00 No 4647 1{tbl} Take 1 tablet by mouth every 6 (six) hours as needed for Pain (scale 4-6) for up to 7 days. Indication s: acute pain [facility] HYDROcodone -acetaminop hen 10-325 mg tablet 2021-10 00:00: 00 09-12 05:59 :00 No 4647 1{tbl} Take 1 tablet by mouth every 6 (six) hours as needed for Pain (scale 4-6) for up to 7 days. Indication s: [facility] HYDRO[facility]one -acetaminop hen 10-325 mg tablet 2021-10 00:00: 00 09-12 05:59 :00 No 4647 1{tbl} Take 1 tablet by mouth every 6 (six) hours as needed for Pain (scale 4-6) for up to 7 days. Indication s: acute pain [facility] HYDROcodone -acetaminop hen 10-325 mg tablet 2021-10 00:00: 00 09-12 05:59 :00 No 4647 1{tbl} Take 1 tablet by mouth every 6 (six) hours as needed for Pain (scale 4-6) for up to 7 days. Indication s: [facility] HYDROcodone -acetaminop hen 10-325 mg tablet 2021-10 00:00: 00 09-12 05:59 :00 No 4647 1{tbl} Take 1 tablet by mouth every 6 (six) hours as needed for Pain (scale 4-6) for up to 7 days. Indication s: acute pain [facility] ePHEDrine 25 mg/5 mL (5 mg/mL) syringe 2021-10 16:20: 00 09-03 16:46 :10 No Slow IV Push, ONCE INTRA PROCEDURE, Starting on Fri09/03/22 at 1020, Until Fri09/03/22 at 1046, Routine, Intra-op [facility] ePHEDrine 25 mg/5 mL (5 mg/mL) syringe 2021-10 16:20: 00 09-03 16:46 :10 No Slow IV Push, ONCE INTRA PROCEDURE, Starting on Fri09/03/22 at 1020, Until Fri09/03/22 at 1046, Routine, Intra-op [facility] lidocaine 1% (XYLOCAINE) 100 mg/10 mL (1 %) injection 2021-10 16:07: 00 09-03 16:46 :10 No Slow IV Push, ONCE INTRA PROCEDURE, Starting on Fri09/03/22 at 1007, Until Fri09/03/22 at 1046, Routine, Intra-op [facility] lidocaine 1% (XYLOCAINE) 100 mg/10 mL (1 %) injection 2021-10 16:07: 00 09-03 16:46 :10 No Slow IV Push, ONCE INTRA PROCEDURE, Starting on Fri09/03/22 at 1007, Until Fri09/03/22 at 1046, Routine, Intra-op [facility] PHENYLephri ne 1000 mcg/10 mL in 0.9% NaCl syringe 2021-10 16:06: 00 09-03 16:46 :10 No Slow IV Push, ONCE INTRA PROCEDURE, Starting on Fri09/03/22 at 1006, Until Fri09/03/22 at 1046, Routine, Intra-op [facility] PHENYLephri ne 1000 mcg/10 mL in 0.9% NaCl syringe 2021-10 16:06: 00 09-03 16:46 :10 No Slow IV Push, ONCE INTRA PROCEDURE, Starting on Fri09/03/22 at 1006, Until Fri09/03/22 at 1046, Routine, Intra-op [facility] bupivacaine -epinephrin e-pf (SENSORCAIN E W/EPINEPHRI NE) 0.5 %-1:200,000 5 mL, lidocaine 1% (PF) (XYLOCAINE) 5 mL 2021-10 16:00: 00 09-03 16:45 :29 No PRN, Starting on Fri09/03/22 at 1000, Intra-op [facility] ondansetron (ZOFRAN (PF)) injection 2021-10 15:57: 00 09-03 16:46 :10 No Slow IV Push, ONCE INTRA PROCEDURE, Starting on Fri09/03/22 at 0957, Until Fri09/03/22 at 1046, Routine, Intra-op [facility] ondansetron (ZOFRAN (PF)) injection 2021-10 15:57: 00 09-03 16:46 :10 No Slow IV Push, ONCE INTRA PROCEDURE, Starting on Fri09/03/22 at 0957, Until Fri09/03/22 at 1046, Routine, Intra-op [facility] insulin regular human (HUMULIN R) injection 2021-10 15:54: 00 09-03 16:46 :10 No Subcutaneo us, ONCE INTRA PROCEDURE, Starting on Fri09/03/22 at 0954, Until Fri09/03/22 at 1046, Routine, Intra-op [facility] insulin regular human (HUMULIN R) injection 2021-10 15:54: 00 09-03 16:46 :10 No Subcutaneo us, ONCE INTRA PROCEDURE, Starting on Fri09/03/22 at 0954, Until Fri09/03/22 at 1046, Routine, Intra-op [facility] propofoL IV infusion 2021-10 15:45: 00 09-03 16:46 :10 No IV Infusion, ONCE INTRA PROCEDURE, Starting on Fri09/03/22 at 0945, Until Fri09/03/22 at 1046, Routine, Intra-op [facility] FENTanyl PF (SUBLIMAZE (PF)) injection 2021-10 15:45: 00 09-03 16:46 :10 No Epidural, ONCE INTRA PROCEDURE, Starting on Fri09/03/22 at 0945, Until Fri09/03/22 at 1046, Routine, Intra-op [facility] propofoL IV infusion 2021-10 15:45: 00 09-03 16:46 :10 No IV Infusion, ONCE INTRA PROCEDURE, Starting on Fri09/03/22 at 0945, Until Fri09/03/22 at 1046, Routine, Intra-op [facility] FENTanyl PF (SUBLIMAZE (PF)) injection 2021-10 15:45: 00 09-03 16:46 :10 No Epidural, ONCE INTRA PROCEDURE, Starting on Fri09/03/22 at 0945, Until Fri09/03/22 at 1046, Routine, Intra-op [facility] midazolam (VERSED) injection 2021-10 15:36: 00 09-03 16:46 :10 No IV Push, ONCE INTRA PROCEDURE, Starting on Fri09/03/22 at 0936, Until Fri09/03/22 at 1046, Routine, Intra-op [facility] midazolam (VERSED) injection 2021-10 15:36: 00 09-03 16:46 :10 No IV Push, ONCE INTRA PROCEDURE, Starting on Fri09/03/22 at 0936, Until Fri09/03/22 at 1046, Routine, Intra-op [facility] lactated ringers IV infusion 2021-10 15:25: 00 09-03 16:46 :10 No IV Infusion, CONTINUOUS PRN, Starting on Fri09/03/22 at 0925, Until Fri09/03/22 at 1046, Routine, Intra-op [facility] lactated ringers IV infusion 2021-10 15:25: 00 09-03 16:46 :10 No IV Infusion, CONTINUOUS PRN, Starting on Fri09/03/22 at 0925, Until Fri09/03/22 at 1046, Routine, Intra-op [facility] insulin NPH and regular human 70-30 (70-30 U-100 INSULIN) 100 unit/mL (70-30) injection 20 Units 2021-10 23:00: 00 Yes 20U 20 Units, Subcutaneo us, QPM, First dose on Fri09/02/22 at 1700, Until Discontinu ed, Routine [facility] insulin NPH and regular human 70-30 (70-30 U-100 INSULIN) 100 unit/mL (70-30) injection 20 Units 2021-10 23:00: 00 Yes 20U 20 Units, Subcutaneo us, QPM, First dose on Fri09/02/22 at 1700, Until Discontinu ed, Routine [facility] losartan (COZAAR) tablet 50 mg 2021-10 15:00: 00 Yes 50mg 50 mg, Oral, DAILY, First dose on Fri09/02/22 at 0900, Until Discontinu ed, Routine [facility] insulin NPH and regular human 70-30 (70-30 U-100 INSULIN) 100 unit/mL (70-30) injection 40 Units 2021-10 15:00: 00 Yes 40U 40 Units, Subcutaneo us, QAM, First dose on Fri09/02/22 at 0900, Until Discontinu ed, Routine [facility] losartan (COZAAR) tablet 50 mg 2021-10 15:00: 00 Yes 50mg 50 mg, Oral, DAILY, First dose on Fri09/02/22 at 0900, Until Discontinu ed, Routine [facility] insulin NPH and regular human 70-30 (70-30 U-100 INSULIN) 100 unit/mL (70-30) injection 40 Units 2021-10 15:00: 00 Yes 40U 40 Units, Subcutaneo us, QAM, First dose on Fri09/02/22 at 0900, Until Discontinu ed, Routine [facility] gabapentin (NEURONTIN) capsule 100 mg 2021-10 03:00: 00 Yes 100mg 100 mg, Oral, QHS, First dose on 09/01/22 at 2100, Until Discontinu ed, Routine [facility] Sliding Scale Insulin - Lispro (HumaLOG) + Fsbg Testing 2021-10 03:00: 00 Yes Subcutaneo us, TID MEALS+HS, First dose on 09/01/22 at 2100, Until Discontinu ed, Routine [facility] gabapentin (NEURONTIN) capsule 100 mg 2021-10 03:00: 00 Yes 100mg 100 mg, Oral, QHS, First dose on 09/01/22 at 2100, Until Discontinu ed, Routine [facility] Sliding Scale Insulin - Lispro (HumaLOG) + Fsbg Testing 2021-10 03:00: 00 Yes Subcutaneo us, TID MEALS+HS, First dose on 09/01/22 at 2100, Until Discontinu ed, Routine [facility] levoFLOXaci n in D5W (LEVAQUIN) 750 mg/150 [...] Tissue
Duration of Therapy: 7 days [facility] ibuprofen (IBU) tablet 600 mg 2021-10 01:45: 57 Yes 600mg 600 mg, Oral, Q6HPRN, Starting on 09/01/22 at 1945, Until Discontinu ed, Routine, Pain (scale 1-3) [facility] ibuprofen (IBU) tablet 600 mg 2021-10 01:45: 57 Yes 600mg 600 mg, Oral, Q6HPRN, Starting on 09/01/22 at 1945, Until Discontinu ed, Routine, Pain (scale 1-3) [facility] vancomycin (VANCOCIN) 1,500 mg in NaCl [...] Tissue
Duration of Therapy: 7 days [facility] clindamycin in 5 % dextrose (CLEOCIN) [...]
Re stricted use approved by: ED PROVIDER [facility] ceFAZolin in 0.9% sodium chloride (ANCEF) 2 gram/100 mL RTU 2 g 2021-10 19:45: 00 09-01 21:41 :00 No 2000mg 2 g (2,000 mg), IV Piggyback, ONCE, 1 dose, On 09/01/22 at 1345, Administer over 30 Minutes, 100 mL
Reas on for Anti-Infec tive: Documented Infection< br>Documen aleida Infection Site: Skin / Soft Tissue
Duration of Therapy: 7 days [facility] acetaminoph en-codeine 300-30 mg tablet 2021-10 00:00: 00 Yes TAKE 2 TABLETS BY MOUTH EVERY 4 TO 6 HOURS FOR PAIN CONTROL [facility] acetaminoph en-codeine 300-30 mg tablet 2021-10 00:00: 00 Yes TAKE 2 TABLETS BY MOUTH EVERY 4 TO 6 HOURS FOR PAIN CONTROL [facility] acetaminoph en-codeine 300-30 mg tablet 2021-10 00:00: 00 Yes TAKE 2 TABLETS BY MOUTH EVERY 4 TO 6 HOURS FOR PAIN CONTROL [facility] acetaminoph en-codeine 300-30 mg tablet 2021-10 00:00: 00 Yes TAKE 2 TABLETS BY MOUTH EVERY 4 TO 6 HOURS FOR PAIN CONTROL [facility] acetaminoph en-codeine 300-30 mg tablet 2021-10 00:00: 00 Yes TAKE 2 TABLETS BY MOUTH EVERY 4 TO 6 HOURS FOR PAIN CONTROL [facility] acetaminoph en-codeine 300-30 mg tablet 2021-10 00:00: 00 Yes TAKE 2 TABLETS BY MOUTH EVERY 4 TO 6 HOURS FOR PAIN CONTROL [facility] acetaminoph en-codeine 300-30 mg tablet 2021-10 00:00: 00 Yes TAKE 2 TABLETS BY MOUTH EVERY 4 TO 6 HOURS FOR PAIN CONTROL [facility] acetaminoph en-codeine 300-30 mg tablet 2021-10 00:00: 00 Yes TAKE 2 TABLETS BY MOUTH EVERY 4 TO 6 HOURS FOR PAIN CONTROL [facility] doxycycline monohydrate 100 mg tablet 2021-10 00:00: 00 Yes TAKE 1 TABLET BY MOUTH EVERY 12 HOURS FOR 10 DAYS [facility] sulfamethox azole-trime thoprim 800-160 mg per tablet 2021-10 00:00: 00 Yes TAKE 1 TABLET BY MOUTH EVERY 12 HOURS FOR 10 DAYS [facility] doxycycline monohydrate 100 mg tablet 2021-10 00:00: 00 Yes TAKE 1 TABLET BY MOUTH EVERY 12 HOURS FOR 10 DAYS [facility] sulfamethox azole-trime thoprim 800-160 mg per tablet 2021-10 00:00: 00 Yes TAKE 1 TABLET BY MOUTH EVERY 12 HOURS FOR 10 DAYS [facility] doxycycline monohydrate 100 mg tablet 2021-10 00:00: 00 Yes TAKE 1 TABLET BY MOUTH EVERY 12 HOURS FOR 10 DAYS [facility] sulfamethox azole-trime thoprim 800-160 mg per tablet 2021-10 00:00: 00 Yes TAKE 1 TABLET BY MOUTH EVERY 12 HOURS FOR 10 DAYS [facility] doxycycline monohydrate 100 mg tablet 2021-10 00:00: 00 Yes TAKE 1 TABLET BY MOUTH EVERY 12 HOURS FOR 10 DAYS [facility] sulfamethox azole-trime thoprim 800-160 mg per tablet 2021-10 00:00: 00 Yes TAKE 1 TABLET BY MOUTH EVERY 12 HOURS FOR 10 DAYS [facility] doxycycline monohydrate 100 mg tablet 2021-10 00:00: 00 Yes TAKE 1 TABLET BY MOUTH EVERY 12 HOURS FOR 10 DAYS [facility] sulfamethox azole-trime thoprim 800-160 mg per tablet 2021-10 00:00: 00 Yes TAKE 1 TABLET BY MOUTH EVERY 12 HOURS FOR 10 DAYS [facility] doxycycline monohydrate 100 mg tablet 2021-10 00:00: 00 Yes TAKE 1 TABLET BY MOUTH EVERY 12 HOURS FOR 10 DAYS [facility] sulfamethox azole-trime thoprim 800-160 mg per tablet 2021-10 00:00: 00 Yes TAKE 1 TABLET BY MOUTH EVERY 12 HOURS FOR 10 DAYS [facility] doxycycline monohydrate 100 mg tablet 2021-10 00:00: 00 Yes TAKE 1 TABLET BY MOUTH EVERY 12 HOURS FOR 10 DAYS [facility] sulfamethox azole-trime thoprim 800-160 mg per tablet 2021-10 00:00: 00 Yes TAKE 1 TABLET BY MOUTH EVERY 12 HOURS FOR 10 DAYS [facility] doxycycline monohydrate 100 mg tablet 2021-10 00:00: 00 Yes TAKE 1 TABLET BY MOUTH EVERY 12 HOURS FOR 10 DAYS [facility] sulfamethox azole-trime thoprim 800-160 mg per tablet 2021-10 00:00: 00 Yes TAKE 1 TABLET BY MOUTH EVERY 12 HOURS FOR 10 DAYS [facility] sodium chloride 0.9 % irrigation solution 06-26 00:00: 00 Yes [facility] sodium chloride 0.9 % irrigation solution 0 06-26 00:00: 00 Yes [facility] sodium chloride 0.9 % irrigation solution 0 06-26 00:00: 00 Yes [facility] sodium chloride 0.9 % irrigation solution 0 06-26 00:00: 00 Yes [facility] sodium chloride 0.9 % irrigation solution 0 06-26 00:00: 00 Yes [facility] sodium chloride 0.9 % irrigation solution 0 06-26 00:00: 00 Yes [facility] sodium chloride 0.9 % irrigation solution 0 06-26 00:00: 00 Yes [facility] sodium chloride 0.9 % irrigation solution 0 06-26 00:00: 00 Yes [facility] atorvastati n 10 mg tablet 06-24 00:00: 00 Yes [facility] pantoprazol e 40 mg EC tablet 06-24 00:00: 00 Yes [facility] valsartan 160 mg tablet 2-0 -19 00:00: 00 Yes [facility] atorvastati n 10 mg tablet 2-0 -19 00:00: 00 Yes [facility] pantoprazol e 40 mg EC tablet 2-0 -19 00:00: 00 Yes [facility] valsartan 160 mg tablet 2-0 19 00:00: 00 Yes [facility] atorvastati n 10 mg tablet 2021-0 19 00:00: 00 Yes [facility] pantoprazol e 40 mg EC tablet 2-0 06-24 00:00: 00 Yes [facility] valsartan 160 mg tablet 2-0 06-24 00:00: 00 Yes [facility] atorvastati n 10 mg tablet 2021-0 06-24 00:00: 00 Yes [facility] pantoprazol e 40 mg EC tablet 2-0 06-24 00:00: 00 Yes [facility] valsartan 160 mg tablet 2-0 19 00:00: 00 Yes [facility] atorvastati n 10 mg tablet 2021-0 19 00:00: 00 Yes [facility] pantoprazol e 40 mg EC tablet 2-0 06-24 00:00: 00 Yes [facility] valsartan 160 mg tablet 2-0 -19 00:00: 00 Yes [facility] atorvastati n 10 mg tablet 2-0 -19 00:00: 00 Yes [facility] pantoprazol e 40 mg EC tablet 2-0 19 00:00: 00 Yes [facility] valsartan 160 mg tablet 2-0 - 00:00: 00 Yes [facility] atorvastati n 10 mg tablet 2-0 -19 00:00: 00 Yes [facility] pantoprazol e 40 mg EC tablet 2-0 19 00:00: 00 Yes [facility] valsartan 160 mg tablet 0 - 00:00: 00 Yes [facility] atorvastati n 10 mg tablet 0 19 00:00: 00 Yes [facility] pantoprazol e 40 mg EC tablet 0 - 00:00: 00 Yes [facility] valsartan 160 mg tablet 0 19 00:00: 00 Yes [facility] SANTYL 250 unit/gram ointment 2021-0 -15 00:00: 00 Yes [facility] SANTYL 250 unit/gram ointment 2021-0 -15 00:00: 00 Yes [facility] SANTYL 250 unit/gram ointment 2021-0 -15 00:00: 00 Yes [facility] SANTYL 250 unit/gram ointment 2021-0 -15 00:00: 00 Yes [facility] SANTYL 250 unit/gram ointment 2021-0 -15 00:00: 00 Yes [facility] SANTYL 250 unit/gram ointment 2021-0 -15 00:00: 00 Yes [facility] SANTYL 250 unit/gram ointment 2021-0 -15 00:00: 00 Yes [facility] SANTYL 250 unit/gram ointment 2021-0 -15 00:00: 00 Yes [facility] clotrimazol e 1 % topical cream 0 02-12 00:00: 00 Yes [id number] Apply to area(s) at bedtime. [facility] clotrimazol e 1 % topical cream 0 02-12 00:00: 00 Yes [id number] Apply to area(s) at bedtime. [facility] clotrimazol e 1 % topical cream 0 02-12 00:00: 00 Yes [id number] Apply to area(s) at bedtime. [facility] clotrimazol e 1 % topical cream 02-12 00:00: 00 09-04 00:00 :00 No [id number] Apply to area(s) at bedtime. [facility] clotrimazol e 1 % topical cream 2016-0 5- 00:00: 00 09-04 00:00 :00 No [id number] Apply to area(s) at bedtime. [facility] Vital Signs Vital Name Observation Time Observation Value Comments S aron Systolic blood pressure 2022-10-08 16:20:00 120 mm[Hg] [facility] Diastolic blood pressure 2022-10-08 16:20:00 80 mm[Hg] [facility] Heart rate 2022-10-08 16:20:00 83 /min [facility] Body temperature 2022-10-08 16:20:00 36.61 Susanne [facility] Body height 2022-10-08 16:20:00 167.6 cm [facility] Body weight 2022-10-08 16:20:00 97.977 kg [facility] BMI 2022-10-08 16:20:00 34.86 kg/m2 [facility] Oxygen saturation in Arterial blood by Pulse oximetry 2022-10-08 16:20:00 99 /min [facility] Systolic blood pressure 2022-09-10 17:16:00 136 mm[Hg] [facility] Diastolic blood pressure 2022-09-10 17:16:00 88 mm[Hg] [facility] Heart rate 2022-09-10 17:16:00 84 /min [facility] Body temperature 2022-09-10 17:16:00 36 Susanne [facility] Body height 2022-09-10 17:16:00 167.6 cm [facility] Body weight 2022-09-10 17:16:00 98.884 kg [facility] BMI 2022-09-10 17:16:00 35.19 kg/m2 [facility] Oxygen saturation in Arterial blood by Pulse oximetry 2022-09-10 17:16:00 99 /min room air [facility] Systolic blood pressure 2022-09-04 21:34:00 160 mm[Hg] [facility] Diastolic blood pressure 2022-09-04 21:34:00 103 mm[Hg] [facility] Heart rate 2022-09-04 21:34:00 84 /[facility] Body temperature 2022-09-04 21:34:00 36.39 Susanne [facility] Respiratory rate 2022-09-04 21:34:00 19 /min [facility] Oxygen saturation in Arterial blood by Pulse oximetry 2022-09-04 21:34:00 97 /min [facility] Body height 2022-09-01 18:37:00 167.6 cm [facility] Body weight 2022-09-01 18:37:00 95.255 kg [facility] BMI 2022-09-01 18:37:00 33.89 kg/m2 [facility] Systolic blood pressure 2022-09-03 17:00:00 132 mm[Hg] [facility] Diastolic blood pressure 2022-09-03 17:00:00 85 mm[Hg] [facility] Respiratory rate 2022-09-03 17:00:00 20 /min [facility] Heart rate 2022-09-03 16:46:00 92 /min [facility] Body temperature 2022-09-03 16:46:00 36.39 Susanne [facility] Oxygen saturation in Arterial blood by Pulse oximetry 2022-09-03 16:46:00 98 /min [facility] Body height 2022-09-01 18:37:00 167.6 cm [facility] Body weight 2022-09-01 18:37:00 95.255 kg [facility] BMI 2022-09-01 18:37:00 33.89 kg/m2 [facility] Procedures Procedure Date / Time Performed Performing Clinician Source ASSIGNMENT OF BENEFITS 2022-09-10 17:02:20 Docto r Unassigned, [place] [facility] CONSENT/REFUSAL FOR DIAGNOSIS AND TREATMENT 2022-09-10 17:02:01 Doctor Unassigned, [place] [facility] POCT GLUCOSE (AUTOMATED) 2022-09-04 18:11:00 Edilberto Mims [facility] POCT GLUCOSE (AUTOMATED) 2022-09-04 18:11:00 Edilberto Mims [facility] POCT GLUCOSE (AUTOMATED) 2022-09-04 15:13:00 Edilberto Mims [facility] POCT GLUCOSE (AUTOMATED) 2022-09-04 15:13:00 Edilberto Mims [facility] CBC WITH DIFF 2022-09-04 11:05:00 Isabela Jackman [facility] EXTRA TUBE LT. GREEN 2022-09-04 11:05:00 Roger Mims [facility] CBC WITH DIFF 2022-09-04 11:05:00 Isabela Jackman [facility] EXTRA TUBE LT. GREEN 2022-09-04 11:05:00 Roger Mims [facility] POCT GLUCOSE (AUTOMATED) 2022-09-04 03:47[facility]-09-04 03:47[facility] 2022-09-03 23:00:00 [facility] 2022-09-03 23:00:00 [facility]) 2022-09-03 17:39:00 [facility] 2022-09-03 17:39[facility]00 [facility] ASPIRATE OR ABSCESS CULTURE(AEROBIC/ANAEROB IC) 2022-09-03 15:56:00 Pop [facility] FUNGUS (ROUTINE) CULTURE 2022-09-03 15:56:00 Pop [facility] ASPIRATE OR ABSCESS CULTURE(AEROBIC/ANAEROB IC) 2022-09-03 15:56:00 Pop [facility] FUNGUS (ROUTINE) CULTURE 2022-09-03 15:56:00 Pop Josue [facility] INTUBATION 2022-09-03 15:49:00 Cuauhtemoc Locke [facility] FINGER AMPUTATION 2022-09-03 15:03:00 [facility] 2022-09-03 15:03:00 Josue Lord Edith [facility] VANCOMYCIN TROUGH 2022-09-03 14:02:00 Isabela Jackman [facility] VANCOMYCIN TROUGH 2022-09-03 14:02:00 Isabela Jackman [facility] POCT GLUCOSE (AUTOMATED) 2022-09-03 13:30:00 Stephanie Singleton [facility] POCT GLUCOSE (AUTOMATED) 2022-09-03 13:30:00 Stephanie Singleton [facility] COMP. METABOLIC PANEL ([id number]) 2022-09-03 11:18:00 Angie Turner [facility] CBC WITH DIFF 2022-09-03 11:18[facility]00 [facility] INR 2022-09-03 11:18:00 Kassie Thompson [facility] COMP. METABOLIC PANEL ([id number]) 2022-09-03 11:18:00 TurnAngie elias [facility] CBC WITH DIFF 2022-09-03 11:18:00 Angie Turner [facility] PROTHROMBIN TIME / INR 2022-09-03 11:18:00 Kassie Thompson [facility] POCT GLUCOSE (AUTOMATED) 2022-09-03 02:07:00 Stephanie Singleton [facility] POCT GLUCOSE (AUTOMATED) 2022-09-03 02:07:00 Stephanie Singleton [facility] POCT GLUCOSE (AUTOMATED) 2022-09-02 23:37:00 Stephanie Singleton [facility] POCT GLUCOSE (AUTOMATED) 2022-09-02 23:37:00 Stephanie Singleton [facility] POCT GLUCOSE (AUTOMATED) 2022-09-02 18:15:00 Stephanie Singleton [facility] POCT GLUCOSE (AUTOMATED) 2022-09-02 18:15:00 Stephanie Singleton [facility] BASIC METABOLIC PANEL (NA, K, CL, CO2, GLUCOSE, BUN, CREATININE, CA) 2022-09-02 09:06:00 Isabela Jackman [facility] CBC WITH DIFF 2022-09-02 09:06:00 Isabela Jackman [facility] BASIC METABOLIC PANEL (NA, K, CL, CO2, GLUCOSE, BUN, CREATININE, CA) 2022-09-02 09:06:00 Isabela Jackman [facility] CBC WITH DIFF 2022-09-02 09:06:00 Isabela Jackman [facility] POCT GLUCOSE (AUTOMATED) 2022-09-02 03:13:00 Stephanie Singleton [facility] POCT GLUCOSE (AUTOMATED) 2022-09-02 03:13:00 Stephanie Singleton [facility] WOUND CULTURE 2022-09-02 01:30:00 Isabela Jackman [facility] WOUND CULTURE 2022-09-02 01:30:00 Isabela Jackman [facility] BASIC METABOLIC PANEL (NA, K, CL, CO2, GLUCOSE, BUN, CREATININE, CA) 2022-09-01 20:23:[address] [facility] CBC WITH DIFF 2022-09-01 20:23:[address] [facility] GLYCOSYLATED HEMOGLOBIN (A1C) 2022-09-01 20:23:00 Isabela Jackman [facility] BASIC METABOLIC PANEL (NA, K, CL, CO2, GLUCOSE, BUN, CREATININE, CA) 2022-09-01 20:23:[address] [facility] CBC WITH DIFF 2022-09-01 20:23:[address] [facility] GLYCOSYLATED HEMOGLOBIN (A1C) 2022-09-01 20:23:00 Isabela Jackman [facility] XR FINGERS 2 VW RIGHT 2022-09-01 19:50:[address] [facility] XR FINGERS 2 VW RIGHT 2022-09-01 19:50:[address] [facility] CONSENT/REFUSAL FOR DIAGNOSIS AND TREATMENT 2022-09-01 18:26:12 Doctor Unassigned, [place] [facility] CONSENT/REFUSAL FOR DIAGNOSIS AND TREATMENT 2022-09-01 18:26:12 Doctor Unassigned, [place] [facility] ADMISSION 2022-09-01 06:01:00 Doctor Un assigned, [place] [facility] ADMISSION 2022-09-01 06:01:00 Doctor Un assigned, [place] [facility] Encounters Start Date/Time End Date/Time Encounter Type Admission Type Attending [facility] Facility Care Department Encounter ID Source 2022-12-05 08:45:00 2022-12-05 08:45:00 Outpatient R LALY HENRY [facility] [id number] [facility] 2022-11-07 10:00:00 2022-11-07 10:20:00 Telemedici ne Visit Renan [facility] ..840.114 350.1.13.10 4.2.7.2.686 [id number] [facility] 2022-11-07 10:00:00 2022-11-07 10:00:00 Outpatient R RENAN [facility] [id number] [facility] 2022-10-28 09:30:00 2022-10-28 09:30:00 Outpatient R ZENA SCHULTZ [facility] [id number] [facility] 2022-10-08 10:00:00 2022-10-08 10:51:12 Outpatient R RENAN [facility] [id number] [facility] 2022-10-08 10:00:00 2022-10-08 10:51:12 Office Visit Renan, [facility] ..840.114 350.1.13.10 4.2.7.2.686 [id number] [facility] 2022-09-11 00:00:00 2022-09-11 00:00:00 Telephone Renan, [facility] ..840.114 350.1.13.10 4.2.7.2.686 [id number] [facility] 2022-09-10 13:00:00 2022-09-10 14:00:00 Ancillary Visit Therapy-Kimberly Do-Jorge-Carlos Issa [facility] 1.2840.114 350.1.13.10 4.2.7.2.686 [id number] [facility] 2022-09-10 13:00:00 2022-09-10 13:47:29 Outpatient R CARLOS MCLAUGHLIN [facility] [id number] [facility] 2022-09-10 11:00:00 2022-09-10 11:51:29 Outpatient R LALY HENRY [facility] [id number] [facility] 2022-09-10 11:00:00 2022-09-10 11:51:29 Office Visit Renan [facility] 1.0.114 350.1.13.10 4.2.7.2.686 [id number] [facility] 2022-09-10 00:00:00 2022-09-10 00:00:00 Orders Only Doctor Unassigned, [place] [facility] 1.2840.114 350.1.13.10 4.2.7.2.686 [id number] [facility] 2022-09-10 00:00:00 2022-09-10 00:00:00 Telephone Renan [facility] 1.2840.114 350.1.13.10 4.2.7.2.686 [id number] [facility] 2022-09-05 00:00:00 2022-09-05 00:00:00 Transition of Care Coby Moseley 1.2840.114 350.1.13.10 4.2.7.2.686 [id number] [facility] 2022-09-01 12:39:00 2022-09-04 18:31:[address], [facility] 1.2.840.114 350.1.13.10 4.2.7.2.686 [id number] [facility] 2022-09-01 12:39:00 2022-09-04 18:31:00 Inpatient X ADRIANA MIMSLEY [facility] [id number] [facility] 2022-09-03 08:51:00 2022-09-03 11:13:00 Surgery Josue Lord [facility] 1.2.840.114 350.1.13.10 4.2.7.2.686 [id number] [facility] 2022-09-03 09:39:00 2022-09-03 10:46:00 Anesthesia Event Tomasz Matos, [facility] 1.2840.114 350.1.13.10 4.2.7.2.686 [id number] [facility] 2020-03-15 13:36:44 2020-03-15 13:56:44 [facility] 1.20.114 350.1.13.10 4.2.7.2.686 [id number] 2020-03-15 13:36:44 2020-03-15 13:56:44 Trauma Coordinator Visit Lab, [facility] Pob I Krystina Cheema [facility] 1.2840.114 350.1.13.10 4.2.7.2.686 [id number] [facility] 2020-03-15 13:20:00 2020-03-15 13:20:00 Outpatient R [facility] [id number] [facility] 2020-03-15 13:20:00 2020-03-15 13:20:00 Outpatient R KRYSTINA CHEEMA [facility] [id number] [facility] Results Test Description Test Time Test Comments Results Result Co mments Source [facility] GLUCOSE (AUTOMATED)2022-09-04 18:12:48* Test Item Value Reference Range Interpretation Comme nts POCT GLU (test code = 8078362674) 213 mg/dL 70-110 H Lab Interpretation (test cod e = 19714-3) [facility]22-[facility]-04 15:18:56* Test Item Value Reference Range Interpretation Comme nts POCT GLU (test code = 2412785362) 184 mg/dL 70-110 H Lab Interpretation (test cod e = 27667-8) Abnormal [facility] GLUCOSE (AUTOMATED)2022-09-04 15:18:56* Test Item Value Reference Range Interpretation Comme nts POCT GLU (test code = 0667965392) 184 mg/dL 70-110 H Lab Interpretation (test cod e = 08295-6) Abnormal [facility] GLUCOSE (AUTOMATED)2022-09-04 03:50:30* Test Item Value Reference Range Interpretation Comme nts POCT GLU (test code = 6844644333) 287 mg/dL 70-110 H Lab Interpretation (test cod e = 84935-8) Abnormal [facility] GLUCOSE (AUTOMATED)2022-09-04 03:50:30* Test Item Value Reference Range Interpretation Comme nts POCT GLU (test code = 2332432661) 287 mg/dL 70-110 H Lab Interpretation (test cod e = 39001-4) [facility]2022-[facility]-03 23:01:24* Test Item Value Reference Range Interpretation Comme nts POCT GLU (test code = 2991722693) 253 mg/dL 70-110 H Lab Interpretation (test cod e = 97703-9) [facility]normal [facility]2022-09-03 23:01:24* Test Item Value Reference Range Interpretation Comme nts POCT GLU (test code = 7919819943) 253 mg/dL 70-110 H Lab Interpretation (test cod e = 29446-0) Abnormal [facility] GLUCOSE (AUTOMATED)2022-09-03 17:40:42* Test Item Value Reference Range Interpretation Comme nts POCT GLU (test code = 5672107126) 168 mg/dL 70-110 H Lab Interpretation (test cod e = 62348-3) Abnormal [facility] GLUCOSE (AUTOMATED)2022-09-03 17:40:42* Test Item Value Reference Range Interpretation Comme nts POCT GLU (test code = 7239447885) 168 mg/dL 70-110 H Lab Interpretation (test cod e = 61381-8) Abnormal [facility] GLUCOSE (AUTOMATED)2022-09-03 13:31:46* Test Item Value Reference Range Interpretation Comme nts POCT GLU (test code = 6257258051) 213 mg/dL 70-110 H Lab Interpretation (test cod e = 50952-5) Abnormal [facility] GLUCOSE (AUTOMATED)2022-09-03 13:31:46* Test Item Value Reference Range Interpretation Comme nts POCT GLU (test code = 3425871267) 213 mg/dL 70-110 H Lab Interpretation (test cod e = 54617-2) Abnormal [facility]. METABOLIC PANEL (91677)2022-09-03 12:17:29* Test Item Value Reference Range Interpretation Comme nts NA (test code = 4478745581) 136 mmol/L 135-145 K (test code = 0111366017) 3.9 mmol/L 3.5-5.0 CL (test code = 1370503588) 105 mmol/L 98-108 CO2 TOTAL (test code = 6957628670) 24 mmol/L 23-31 AGAP (test code = 2231478538) 2-16 BUN (test code = 6247015062) 12 mg/dL 7-23 GLUCOSE (test code = 5895256067) 190 mg/dL 70-110 H CREATININE (test code = 0260315761) 0.56 mg/dL 0.60-1.25 L TOTAL BILI (test code = 5800332721) 0.2 mg/dL 0.1-1.1 CALCIUM (test code = 0118743500) 8.6 mg/dL 8.6-10.6 T PROTEIN (test code = 8670997546) 7.0 g/dL 6.3-8.2 ALBUMIN (test code = 6344382533) 3.7 g/dL 3.5-5.0 ALK PHOS (test code = 6375664220) 101 U/L 34-122 ALTv (test code = 1742-6) 27 U/L 5-50 AST(SGOT) (test code = 5099677926) 23 U/L 13-40 eGFR (test code = 7415552808) mL/min/1.73m2 ANDREE (test code = ANDREE) Association [...] imaging tests). Lab Interpretation (test code = 90742-0) Abnormal [facility]. METABOLIC PANEL (13230)2022-09-03 12:17:29* Test Item Value Reference Range Interpretation Comme nts NA (test code = 6370406195) 136 mmol/L 135-145 K (test code = 9509768452) 3.9 mmol/L 3.5-5.0 CL (test code = 9401956852) 105 mmol/L 98-108 CO2 TOTAL (test code = 5642927264) 24 mmol/L 23-31 AGAP (test code = 0136878576) 2-16 BUN (test code = 7659752473) 12 mg/dL 7-23 GLUCOSE (test code = 2025771296) 190 mg/dL 70-110 H CREATININE (test code = 0883692490) 0.56 mg/dL 0.60-1.25 L TOTAL BILI (test code = 0135762661) 0.2 mg/dL 0.1-1.1 CALCIUM (test code = 9633175411) 8.6 mg/dL 8.6-10.6 T PROTEIN (test code = 3380919435) 7.0 g/dL 6.3-8.2 ALBUMIN (test code = 9580926704) 3.7 g/dL 3.5-5.0 ALK PHOS (test code = 8429341552) 101 U/L 34-122 ALTv (test code = 1742-6) 27 U/L 5-50 AST(SGOT) (test code = 0724062258) 23 U/L 13-40 eGFR (test code = 4183618270) mL/min/1.73m2 ANDREE (test code = ANDREE) Association [...] imaging tests). Lab Interpretation (test code = 36398-0) [facility] / [id number] 11:45:03* Test Item Value Reference Range Interpretation Comme [facility] PROTIME PATIENT (test code = 5964-2) See_Comment H [Automated [place]] The system which generated this result transmitted reference range: 10.1 - 12.6 Seconds. The reference range was not used to interpret this result as normal/abnormal. INR (test code = 6301-6) Normal INR <1.1; Warfarin Therapeutic range 2.0 to 3.0 or 2.5 to 3.5, depending upon the indications. Lab Interpretation (test code = 51556-6) Abnormal [facility] / [id number] 11:45:03* Test Item Value Reference Range Interpretation Comme nts PROTIME PATIENT (test code = 5964-2) See_Comment H [Automated [place]] The system which generated this result transmitted reference range: 10.1 - 12.6 Seconds. The reference range was not used to interpret this result as normal/abnormal. INR (test code = 6301-6) Normal INR <1.1; Warfarin Therapeutic range 2.0 to 3.0 or 2.5 to 3.5, depending upon the indications. Lab Interpretation (test code = 15289-5) Abnormal [facility] [id number] 11:42:00* Test Item Value Reference Range Interpretation Comme [facility] WBC (test code = 6690-2) See_Comment [Automated [place]] The system which generated this result transmitted [...] 34.1 g/dL 31.2-35.0 RDW-SD (test code = 97477-3) 41.5 fL 38.5-51.6 RDW-CV (test code = 788-0) 13.9 % 12.1-15.4 PLT (test code = 777-3) See_Comment H [Automated messa ge] The system which generated this result transmitted reference range: 150 - 328 10*3/?L. The reference range was not used to interpret this result as normal/abnormal. MPV (test code = 25851-5) 10.6 fL 9.8-13.0 NRBC/100 WBC (test code = 9528149161) See_Comment [Automated [employer] ssage] The system which generated this result transmitted reference range: 0.0 - 10.0 /100 WBCs. The reference range was not used to interpret this result as normal/abnormal. NRBC x10^3 (test code = 8798280876) See_Comment [Automated messa ge] The system which generated this result transmitted reference range: 10*3/?L. The reference range was not used to interpret this result as normal/abnormal. GRAN MAT (NEUT) % (test code = 770-8) 59.9 % IMM GRAN % (test code = 5283354616) 0.40 % LYMPH % (test code = 736-9) 31.1 % MONO % (test code = 5905-5) 6.1 % EOS % (test code = 713-8) 1.8 % BASO % (test code = 706-2) 0.7 % GRAN MAT x10^3(ANC) (test code = 3642569711) 5.36 10*3/uL 1.99-6.95 IMM GRAN x10^3 (test code = 7246680868) 0.04 10*3/uL 0.00-0.06 LYMPH x10^3 (test code = 731-0) 2.78 10*3/uL 1.09-3.23 MONO x10^3 (test code = 742-7) 0.55 10*3/uL 0.36-1.02 EOS x10^3 (test code = 711-2) 0.16 10*3/uL 0.06-0.53 BASO x10^3 (test code = 704-7) 0.06 10*3/uL 0.01-0.09 Lab Interpretation (test code = 64812-9) Abnormal [facility] WITH [id number] 11:42:00* Test Item Value Reference Range Interpretation Comme nts WBC (test code = 6690-2) See_Comment [Automated [employer]] The system which generated this result transmitted reference range: 4.20 - 10.70 10*3/?L. The reference range was not used to interpret this result as normal/abnormal. RBC (test code = 789-8) See_Comment [Automated [employer] [facility]] The system which generated this result transmitted [...] 34.1 g/dL 31.2-35.0 RDW-SD (test code = 61307-2) 41.5 fL 38.5-51.6 RDW-CV (test code = 788-0) 13.9 % 12.1-15.4 PLT (test code = 777-3) See_Comment H [Automated messa ge] The system which generated this result transmitted reference range: 150 - 328 10*3/?L. The reference range was not used to interpret this result as normal/abnormal. MPV (test code = 67873-7) 10.6 fL 9.8-13.0 NRBC/100 WBC (test code = 3511638997) See_Comment [Automated me ssage] The system which generated this result transmitted reference range: 0.0 - 10.0 /100 WBCs. The reference range was not used to interpret this result as normal/abnormal. NRBC x10^3 (test code = 6926738558) See_Comment [Automated messa ge] The system which generated this result transmitted reference range: 10*3/?L. The reference range was not used to interpret this result as normal/abnormal. GRAN MAT (NEUT) % (test code = 770-8) 59.9 % IMM GRAN % (test code = 3918356243) 0.40 % LYMPH % (test code = 736-9) 31.1 % MONO % (test code = 5905-5) 6.1 % EOS % (test code = 713-8) 1.8 % BASO % (test code = 706-2) 0.7 % GRAN MAT x10^3(ANC) (test code = 7246219948) 5.36 10*3/uL 1.99-6.95 IMM GRAN x10^3 (test code = [id number]) 0.04 10*3/uL 0.00-0.06 LYMPH x10^3 (test code = 731-0) 2.78 10*3/uL 1.09-3.23 MONO x10^3 (test code = 742-7) 0.55 10*3/uL 0.36-1.02 EOS x10^3 (test code = 711-2) 0.16 10*3/uL 0.06-0.53 BASO x10^3 (test code = 704-7) 0.06 10*3/uL 0.01-0.09 Lab Interpretation (test code = 32255-8) Abnormal [facility] GLUCOSE (AUTOMATED)2022-09-03 02:08:18* Test Item Value Reference Range Interpretation Comme nts POCT GLU (test code = 3320370918) 259 mg/dL 70-110 H Lab Interpretation (test cod e = 65122-4) Abnormal [facility] GLUCOSE (AUTOMATED)2022-09-03 02:08:18* Test Item Value Reference Range Interpretation Comme nts POCT GLU (test code = 6230831427) 259 mg/dL 70-110 H Lab Interpretation (test cod e = 64596-8) Abnormal [facility] GLUCOSE (AUTOMATED)2022-09-02 23:38:11* Test Item Value Reference Range Interpretation Comme nts POCT GLU (test code = 1444327900) 322 mg/dL 70-110 H Lab Interpretation (test cod e = 14594-0) Abnormal [facility] GLUCOSE (AUTOMATED)2022-09-02 23:38:11* Test Item Value Reference Range Interpretation Comme nts POCT GLU (test code = 8217914685) 322 mg/dL 70-110 H Lab Interpretation (test cod e = 45864-6) Abnormal [facility] GLUCOSE (AUTOMATED)2022-09-02 18:17:05* Test Item Value Reference Range Interpretation Comme nts POCT GLU (test code = 4341284220) 295 mg/dL 70-110 H Lab Interpretation (test cod e = 82241-1) Abnormal [facility] GLUCOSE (AUTOMATED)2022-09-02 18:17:05* Test Item Value Reference Range Interpretation Comme nts POCT GLU (test code = 0894454156) 295 mg/dL 70-110 H Lab Interpretation (test cod e = 26302-9) Abnormal [facility] Metabolic Panel (NA, K, CL, CO2, GLUCOSE, BUN, CREATININE, CA)2022-09-02 09:42:02* Test Item Value Reference Range Interpretation Comme nts NA (test code = 8126751810) 135 mmol/L 135-145 K (test code = 2686734748) 4.0 mmol/L 3.5-5.0 CL (test code = 6721497174) 103 mmol/L 98-108 CO2 TOTAL (test code = 5142292973) 24 mmol/L 23-31 AGAP (test code = 8506206985) 2-16 BUN (test code = 1513055575) 14 mg/dL 7-23 GLUCOSE (test code = 7046666372) 227 mg/dL 70-110 H CREATININE (test code = 2422396478) 0.56 mg/dL 0.60-1.25 L CALCIUM (test code = 0486922017) 8.7 mg/dL 8.6-10.6 eGFR (test code = 2908535659) mL/min/1.73m2 ANDREE (test code = ANDREE) Association [...] imaging tests). Lab Interpretation (test code = 77785-4) Abnormal [facility] Metabolic Panel (NA, K, CL, CO2, GLUCOSE, BUN, CREATININE, CA)2022-09-02 09:42:02* Test Item Value Reference Range Interpretation Comme nts NA (test code = 0044701521) 135 mmol/L 135-145 K (test code = 4955721219) 4.0 mmol/L 3.5-5.0 CL (test code = 8114537199) 103 mmol/L 98-108 CO2 TOTAL (test code = 9797619729) 24 mmol/L 23-31 AGAP (test code = 8322218934) 2-16 BUN (test code = 8525373163) 14 mg/dL 7-23 GLUCOSE (test code = 6270690239) 227 mg/dL 70-110 H CREATININE (test code = 9471946200) 0.56 mg/dL 0.60-1.25 L CALCIUM (test code = 0961904507) 8.7 mg/dL 8.6-10.6 eGFR (test code = 9250736465) mL/min/1.73m2 ANDREE (test code = ANDREE) Association [...] imaging tests). Lab Interpretation (test code = 24934-5) Abnormal [facility] with [id number] 09:18:20* Test Item Value Reference Range Interpretation [...] 33.7 g/dL 31.2-35.0 RDW-SD (test code = 56229-6) 40.8 fL 38.5-51.6 RDW-CV (test code = 788-0) 13.8 % 12.1-15.4 PLT (test code = 777-3) See_Comment H [Automated message] The system which generated this result transmitted reference range: 150 - 328 10*3/?L. The reference range was not used to interpret this result as normal/abnormal. MPV (test code = 31813-0) 10.4 fL 9.8-13.0 NRBC/100 WBC (test code = 6594382908) See_Comment [Automated message] The system which generated this result transmitted reference range: 0.0 - 10.0 /100 WBCs. The reference range was not used to interpret this result as normal/abnormal. NRBC x10^3 (test code = 1094207970) See_Comment [Automated message] The system which generated this result transmitted reference range: 10*3/?L. The reference range was not used to interpret this result as normal/abnormal. GRAN MAT (NEUT) % (test code = 770-8) 76.1 % IMM GRAN % (test code = 0677689390) 0.40 % LYMPH % (test code = 736-9) 16.6 % MONO % (test code = 5905-5) 5.6 % EOS % (test code = 713-8) 0.9 % BASO % (test code = 706-2) 0.4 % GRAN MAT x10^3(ANC) (test code = 1897094511) 10.64 10*3/uL 1.99-6.95 H IMM GRAN x10^3 (test code = 6218207715) 0.05 10*3/uL 0.00-0.06 LYMPH x10^3 (test code = 731-0) 2.32 10*3/uL 1.09-3.23 MONO x10^3 (test code = 742-7) 0.78 10*3/uL 0.36-1.02 EOS x10^3 (test code = 711-2) 0.13 10*3/uL 0.06-0.53 BASO x10^3 (test code = 704-7) 0.06 10*3/uL 0.01-0.09 Lab Interpretation (test code = 90431-7) Abnormal [facility] with [id number] 09:18:20* Test Item Value Reference Range Interpretation [...] 33.7 g/dL 31.2-35.0 RDW-SD (test code = 16643-6) 40.8 fL 38.5-51.6 RDW-CV (test code = 788-0) 13.8 % 12.1-15.4 PLT (test code = 777-3) See_Comment H [Automated message] The system which generated this result transmitted reference range: 150 - 328 10*3/?L. The reference range was not used to interpret this result as normal/abnormal. MPV (test code = 83035-4) 10.4 fL 9.8-13.0 NRBC/100 WBC (test code = 1483428406) See_Comment [Automated message] The system which generated this result transmitted reference range: 0.0 - 10.0 /100 WBCs. The reference range was not used to interpret this result as normal/abnormal. NRBC x10^3 (test code = 0992303875) See_Comment [Automated message] The system which generated this result transmitted reference range: 10*3/?L. The reference range was not used to interpret this result as normal/abnormal. GRAN MAT (NEUT) % (test code = 770-8) 76.1 % IMM GRAN % (test code = 0848749684) 0.40 % LYMPH % (test code = 736-9) 16.6 % MONO % (test code = 5905-5) 5.6 % EOS % (test code = 713-8) 0.9 % BASO % (test code = 706-2) 0.4 % GRAN MAT x10^3(ANC) (test code = 0707852039) 10.64 10*3/uL 1.99-6.95 H IMM GRAN x10^3 (test code = 1277322336) 0.05 10*3/uL 0.00-0.06 LYMPH x10^3 (test code = 731-0) 2.32 10*3/uL 1.09-3.23 MONO x10^3 (test code = 742-7) 0.78 10*3/uL 0.36-1.02 EOS x10^3 (test code = 711-2) 0.13 10*3/uL 0.06-0.53 BASO x10^3 (test code = 704-7) 0.06 10*3/uL 0.01-0.09 Lab Interpretation (test code = 28884-6) Abnormal [facility] GLUCOSE (AUTOMATED)2022-09-02 03:14:55* Test Item Value Reference Range Interpretation Comme nts POCT GLU (test code = 7319636875) 175 mg/dL 70-110 H Lab Interpretation (test cod e = 29440-9) Abnormal [facility] GLUCOSE (AUTOMATED)2022-09-02 03:14:55* Test Item Value Reference Range Interpretation Comme nts POCT GLU (test code = 2715073344) 175 mg/dL 70-110 H Lab Interpretation (test cod e = 11911-8) [facility] 02:25:07* Test Item Value Reference Range Interpretation Comme nts HGB A1C (test code = 4548-4) 11.5 % 4.0-5.7 H ANDREE (test code = ANDREE) Reference RangesNormal: <5.7%Prediabetes: 5.7 - 6.4%Diabetes: > 6.5% Lab Interpretation (test code = 57468-9) [facility]2022-09-02 02:25:07* Test Item Value Reference Range Interpretation Comme [facility] HGB A1C (test code = 4548-4) 11.5 % 4.0-5.7 H ANDREE (test code = ANDREE) Reference RangesNormal: <5.7%Prediabetes: 5.7 - 6.4%Diabetes: > 6.5% Lab Interpretation (test code = 72384-9) Abnormal [facility] METABOLIC PANEL (NA, K, CL, CO2, GLUCOSE, BUN, CREATININE, CA)2022-09-01 20:44:31* Test Item Value Reference Range Interpretation Comme nts NA (test code = 5744601760) 135 mmol/L 135-145 K (test code = 7301228666) 4.4 mmol/L 3.5-5.0 CL (test code = 8245591272) 101 mmol/L 98-108 CO2 TOTAL (test code = 8056319179) 24 mmol/L 23-31 AGAP (test code = 4320393008) 2-16 BUN (test code = 5294808345) 16 mg/dL 7-23 GLUCOSE (test code = 6865870465) 260 mg/dL 70-110 H CREATININE (test code = 0092694216) 0.72 mg/dL 0.60-1.25 CALCIUM (test code = 7108287720) 9.2 mg/dL 8.6-10.6 eGFR (test code = 6412322990) mL/min/1.73m2 ANDREE (test code = ANDREE) Association [...] imaging tests). Lab Interpretation (test code = 10898-8) Abnormal [facility] METABOLIC PANEL (NA, K, CL, CO2, GLUCOSE, BUN, CREATININE, CA)2022-09-01 20:44:31* Test Item Value Reference Range Interpretation Comme nts NA (test code = 0778457118) 135 mmol/L 135-145 K (test code = 8241834873) 4.4 mmol/L 3.5-5.0 CL (test code = 5934739009) 101 mmol/L 98-108 CO2 TOTAL (test code = 5244083793) 24 mmol/L 23-31 AGAP (test code = 1881045238) 2-16 BUN (test code = 4431489184) 16 mg/dL 7-23 GLUCOSE (test code = 5856504167) 260 mg/dL 70-110 H CREATININE (test code = 0596897719) 0.72 mg/dL 0.60-1.25 CALCIUM (test code = 5531671923) 9.2 mg/dL 8.6-10.6 eGFR (test code = 5732977514) mL/min/1.73m2 ANDREE (test code = ANDREE) Association [...] imaging tests). Lab Interpretation (test code = 70249-5) Abnormal [facility] WITH [id number] 20:42:10* Test Item Value Reference Range Interpretation [...] 33.4 g/dL 31.2-35.0 RDW-SD (test code = 01434-8) 40.8 fL 38.5-51.6 RDW-CV (test code = 788-0) 13.4 % 12.1-15.4 PLT (test code = 777-3) See_Comment H [Automated messa ge] The system which generated this result transmitted reference range: 150 - 328 10*3/?L. The reference range was not used to interpret this result as normal/abnormal. MPV (test code = 32003-2) 10.9 fL 9.8-13.0 NRBC/100 WBC (test code = 9810297937) See_Comment [Automated [employer] ssage] The system which generated this result transmitted reference range: 0.0 - 10.0 /100 WBCs. The reference range was not used to interpret this result as normal/abnormal. NRBC x10^3 (test code = 0833393546) See_Comment [Automated messa ge] The system which generated this result transmitted reference range: 10*3/?L. The reference range was not used to interpret this result as normal/abnormal. GRAN MAT (NEUT) % (test code = 770-8) 67.2 % IMM GRAN % (test code = 6247199250) 0.40 % LYMPH % (test code = 736-9) 25.6 % MONO % (test code = 5905-5) 4.5 % EOS % (test code = 713-8) 1.2 % BASO % (test code = 706-2) 1.1 % GRAN MAT x10^3(ANC) (test code = 4218904323) 7.60 10*3/uL 1.99-6.95 H IMM GRAN x10^3 (test code = 8136279470) 0.05 10*3/uL 0.00-0.06 LYMPH x10^3 (test code = 731-0) 2.89 10*3/uL 1.09-3.23 MONO x10^3 (test code = 742-7) 0.51 10*3/uL 0.36-1.02 EOS x10^3 (test code = 711-2) 0.14 10*3/uL 0.06-0.53 BASO x10^3 (test code = 704-7) 0.12 10*3/uL 0.01-0.09 H Lab Interpretation (test code = 39269-0) Abnormal [facility] WITH [id number] 20:42:10* Test Item Value Reference Range Interpretation [...] 33.4 g/dL 31.2-35.0 RDW-SD (test code = 63681-7) 40.8 fL 38.5-51.6 RDW-CV (test code = 788-0) 13.4 % 12.1-15.4 PLT (test code = 777-3) See_Comment H [Automated messa ge] The system which generated this result transmitted reference range: 150 - 328 10*3/?L. The reference range was not used to interpret this result as normal/abnormal. MPV (test code = 69881-9) 10.9 fL 9.8-13.0 NRBC/100 WBC (test code = 9136835947) See_Comment [Automated [employer] ssage] The system which generated this result transmitted reference range: 0.0 - 10.0 /100 WBCs. The reference range was not used to interpret this result as normal/abnormal. NRBC x10^3 (test code = 0431570900) See_Comment [Automated messa ge] The system which generated this result transmitted reference range: 10*3/?L. The reference range was not used to interpret this result as normal/abnormal. GRAN MAT (NEUT) % (test code = 770-8) 67.2 % IMM GRAN % (test code = 0065516663) 0.40 % LYMPH % (test code = 736-9) 25.6 % MONO % (test code = 5905-5) 4.5 % EOS % (test code = 713-8) 1.2 % BASO % (test code = 706-2) 1.1 % GRAN MAT x10^3(ANC) (test code = 9294896374) 7.60 10*3/uL 1.99-6.95 H IMM GRAN x10^3 (test code = 3051852454) 0.05 10*3/uL 0.00-0.06 LYMPH x10^3 (test code = 731-0) 2.89 10*3/uL 1.09-3.23 MONO x10^3 (test code = 742-7) 0.51 10*3/uL 0.36-1.02 EOS x10^3 (test code = 711-2) 0.14 10*3/uL 0.06-0.53 BASO x10^3 (test code = 704-7) 0.12 10*3/uL 0.01-0.09 H Lab Interpretation (test code = 86289-2) Abnormal [facility]"
--- NOTE | 2023-12-24 21:49 | EDPHYS ---
Physician Documentation [facility] Name: Donnie Man Jr Age: 43 yrs Sex: Male : 1980 Arrival Date: 12/24/2023 Time: 20:31 Bed 13 Private MD: Mary Beth Blum ED Physician Austin Gonzalez HPI: 12/23 20:39 This 43 yrs old Male presents to ER via Unassigned with complaints of PICC kb line problem. 20:39 Pt is a 43 year old male who presents because his picc line will not flush. Denies any kb pain, redness, swelling or fever. 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 - Social history:: Smoking status: Patient denies any tobacco usage or history of. ROS: 20:38 Constitutional: As per HPI kb Exam: 20:38 Constitutional: This is a well developed, well nourished patient who is awake, alert, kb and in no acute distress. Head/Face: Normocephalic, atraumatic. ENT: Moist Mucous membranes Cardiovascular: Regular rate Respiratory: Respirations even and unlabored. No increased work of breathing. Talking in full sentences Abdomen/GI: Soft, non-tender. No distention Skin: Warm, dry with normal turgor. Normal color. MS/ Extremity: Pulses equal, no cyanosis. Neurovascular intact. Full, normal range of motion. Neuro: Awake and alert, GCS 15, oriented to person, place, time, and situation. Moves all extremities. Normal gait. Vital Signs: 20:35 BP 139 / 86; Pulse 83; Resp 17; Temp 98.6; Pulse Ox 100% ; vc1 21:42 Weight 92.53 kg; Height 5 ft. 6 in. ; kd3 21:42 Body Mass Index 32.93 (92.53 kg, 167.64 cm) kd3 MDM: 20:33 Patient medically screened. kb 21:35 Data reviewed: vital signs, nurses notes. kb 21:35 Differential Diagnosis picc line malfunction. Counseling: I had a detailed discussion kb with the patient and/or guardian regarding the historical points, exam findings, and any diagnostic results supporting the discharge/admit diagnosis, the need for outpatient follow up, a family practitioner, to return to the emergency department if symptoms worsen or persist or if there are any questions or concerns that arise at home. ED course: both ports able to be flushed after cathflo. . 12/23 20:40 Order name: Misc. Order: flush picc; Complete Time: 21:20 kb Administered Medications: 21:38 Drug: Cathflo Activase IV Thrombolytics 2 mg IV Thrombolytics once; into each catheter vc1 lumen, may repeat once Route: IV Thrombolytics; Disposition Summary: 12/24/23 21:36 Discharge Ordered Notes: Location: Home kb Condition: Stable kb Diagnosis - Encounter for PICC line problem kb Followup: kb - With: Emergency Department - When: As needed - Reason: Worsening of condition Followup: kb - With: Private Physician - When: 2 - 3 days - Reason: Recheck today's complaints, Continuance of care, Re-evaluation by your physician Discharge Instructions: - Discharge Summary Sheet kb - PICC Home Care Guide kb Forms: - Medication Reconciliation Form kb - Thank You Letter kb - Antibiotic Education kb - Prescription Opioid Use kb - Patient Portal Instructions kb - Leadership Thank You Letter kb Signatures: Magaly Chavez FNP-C FNP-Maria E López, RN RN vc1
--- NOTE | 2023-12-24 21:49 | ER ---
Nurse's Notes [facility] Name: Donnie Man Jr Age: 43 yrs Sex: Male : 1980 Arrival Date: 12/24/2023 Time: 20:31 Bed 13 Private MD: Mary Beth Blum Diagnosis: Encounter for PICC line problem Presentation: 12/23 20:35 Chief complaint: Patient states: PICC line wont flush or pull blood. Coronavirus vc1 screen: Vaccine status: Patient reports receiving the 2nd dose of the covid vaccine. At this time, the client does not indicate any symptoms associated with coronavirus-19. Ebola Screen: Patient negative for fever greater than or equal to 101.5 degrees Fahrenheit, and additional compatible Ebola Virus Disease symptoms Patient denies exposure to infectious person. Patient denies travel to an Ebola-affected area in the 21 days before illness onset. No symptoms or risks identified at this time. Initial Sepsis Screen: Does the patient meet any 2 criteria? No. Patient's initial sepsis screen is negative. Does the patient have a suspected source of infection? No. Patient's initial sepsis screen is negative. Risk Assessment: Do you want to hurt yourself or someone else? Patient reports no desire to harm self or others. Onset of symptoms was December 24, 2023. 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 - Social history:: Smoking status: Patient denies any tobacco usage or history of. Screenin:44 [facility] ED Fall Risk Assessment (Adult) History of falling in the last 3 months, vc1 including since admission No falls in past 3 months (0 pts) Confusion or Disorientation No (0 pts) Intoxicated or Sedated No (0 pts) Impaired Gait No (0 pts) Mobility Assist Device Used No (0 pt) Altered Elimination No (0 pt) Score/Fall Risk Level 0 - 2 = Low Risk Oriented to surroundings, Maintained a safe environment, Educated pt \T\ family on fall prevention, incl call for assistance when getting out of bed. Abuse screen: Denies threats or abuse. Nutritional screening: No deficits noted. Tuberculosis screening: No symptoms or risk factors identified. Assessment: 21:49 Reassessment: Patient appears in no apparent distress at this time. Patient and/or jb4 family updated on plan of care and expected duration. Pain level reassessed. Patient is alert, oriented x 3, equal unlabored respirations, skin warm/dry/pink. Pt verbalized understanding of D/c and follow up instructions. Vital Signs: 20:35 BP 139 / 86; Pulse 83; Resp 17; Temp 98.6; Pulse Ox 100% ; vc1 21:42 Weight 92.53 kg; Height 5 ft. 6 in. ; kd3 21:42 Body Mass Index 32.93 (92.53 kg, 167.64 cm) kd3 ED Course: 20:32 Patient arrived in ED. mr 20:33 Mary Beth Blum is Private Physician. mr 20:33 Magaly Chavez FNP-C is [facility]. kb 20:33 Austin Gonzalez MD is Attending Physician. kb 20:44 Patient has correct armband on for positive identification. Bed in low position. Call vc1 light in reach. Pulse ox on. NIBP on. 20:44 Provided Education on: Flush multiple times throughout the day. vc1 20:59 Maria E Low, RN is Primary Nurse. vc1 21:42 Triage completed. vc1 21:44 Arm band placed on right wrist. vc1 21:49 No provider procedures requiring assistance completed. PICC Line left in place. jb4 Administered Medications: 21:38 Drug: Cathflo Activase IV Thrombolytics 2 mg IV Thrombolytics once; into each catheter vc1 lumen, may repeat once Route: IV Thrombolytics; Medication: 21:49 VIS not applicable for this client. jb4 Outcome: 21:36 Discharge ordered by . kb 21:49 Discharged to home ambulatory, jb4 21:49 Condition: stable 21:49 Discharge instructions given to patient, Instructed on discharge instructions, follow up and referral plans. Demonstrated understanding of instructions, follow-up care, 21:50 Patient left the ED. jb4 Signatures: Magaly Chavez, KRISTINA-C MEDICAL RECORDS COORDINATOR-Sarahi Marlow, Reg Reg mr MaciasDonnie, RN RN jb4 Madeleine Mcgarry, RN RN kd3 Maria E Low RN RN vc1 Corrections: (The following items were deleted from the chart) 21:45 21:44 EKG completed in triage. Results shown to MD. vc1 vc1
[2023-12-24 22:16] VITALS: BP 139/86; TEMP 98.6; O2SAT 100
== END ==
LOC: ER 20:31
DX: Z45.2 Encounter for adjustment and management of vascular access device (principal)
CPT/HCPCS: 96374; J2997